=== PATIENT | female | born 1940 | race Caucasian/White ===

== ENCOUNTER 2020-11-02 14:01 | Emergency (ER) | payer MEDICARE, SELFPAY ==
--- NOTE | ~2020-11-02 | CT_ITS ---
EXAMINATION: CT ANGIOGRAM CHEST WITH AND WITHOUT CONTRAST (CT PULMONARY ANGIOGRAM FOR PE) CLINICAL INFORMATION: Chest pressure. COMPARISON: Chest radiograph earlier today and CTA abdomen and pelvis 09/10/2019. TECHNIQUE: Prior to contrast administration, noncontrast localization images were obtained. Subsequently, multidetector volumetric imaging was performed from the thoracic inlet to below the diaphragms following the administration of 70 mL Omnipaque 350 intravenous contrast. No contrast reaction reported. Sagittal, coronal, and MIP oblique sagittal reformatted images were obtained on the CT workstation, uploaded to PACS, and reviewed. This CT examination was performed using dose optimization techniques as appropriate, variously including the following: *Automated exposure control. *Adjustment of mA and/or kV according to patient size (this includes techniques or standardized protocols for targeted exams where dose is matched to indication/reason for exam; i.e. extremities or head). *Use of iterative reconstruction technique. Total exam dose-length product 744 mGy-cm. FINDINGS: QUALITY OF STUDY/CONTRAST BOLUS: Satisfactory. PULMONARY ARTERIES: No central or segmental pulmonary emboli. THORACIC AORTA: No aneurysm or dissection. LUNG: There is evidence of underlying COPD. Bronchiectasis is present with thickened dilated bronchi especially at the lower lobes. Multiple bronchi are impacted with mucus (see herring images). A calcified granuloma is present in the right middle lobe (series 9 image 330). Scattered nodular densities are seen, many of which represent mucous in bronchi, with the largest in the right lower lobe subpleurally, measuring 7 mm in size (series 9 image 259). PLEURA: No pleural effusion or pneumothorax. The previously seen right pleural effusion on the 08/31/2019 study has resolved. MEDIASTINUM: Normal heart size. No pericardial effusion. No hilar or mediastinal lymphadenopathy. No evidence of septal bowing or right heart strain. CHEST WALL/AXILLA: No axillary or internal mammary lymphadenopathy. OSSEOUS STRUCTURES: No acute or suspicious osseous abnormality. UPPER ABDOMEN: Hepatic cysts are present. No reflux of contrast into the hepatic veins to suggest elevated right heart pressures. CT/CT angio chest PE protocol IMPRESSION: 1. No evidence of pulmonary emboli. 2. Underlying lung disease with COPD and bronchiectasis. 3. Multiple densities seen in the lungs, most of which represent mucus-impacted bronchi. 4. No evidence of consolidation. VTE: Negative.
--- NOTE | ~2020-11-02 | US_ITS ---
EXAMINATION: US ABDOMEN LIMITED CLINICAL INFORMATION: Cholecystitis.. COMPARISON: 06/02/2021 CT scan TECHNIQUE: Real-time imaging of the right upper quadrant abdominal viscera. FINDINGS: PANCREAS: Visualized portions of the pancreas are unremarkable LIVER: The liver is normal in size. The liver contour is normal. Parenchymal echogenicity is normal. 3.7 cm cyst in the anterior right lobe liver with adjacent smaller 1 cm cyst medial to this. No solid hepatic lesion. There is no intrahepatic biliary duct dilatation seen. GALLBLADDER: Nontender gallbladder is distended and well-visualized. In the dependent posterior wall of the gallbladder there is a echogenic 1.1 cm filling defects seen. This does not demonstrate significant shadowing which would be unusual for gallstone of this size. This also does not demonstrate significant Doppler flow or Doppler signal abnormality. Gallbladder polyps would still be favored with this appearance however. Otherwise the gallbladder is unremarkable with no gallbladder wall thickening or pericholecystic inflammatory changes. COMMON BILE DUCT: Normal in caliber measuring 0.7 cm in diameter. RIGHT KIDNEY: Normal. No hydronephrosis. No renal calculi or focal parenchymal lesions. The kidney measures 8.4 cm in maximum dimension. FREE FLUID: None. US/US abdomen limited IMPRESSION: In the dependent aspect of the bladder there is a 1.1 cm filling defects seen. The sonographic characteristics are more suggestive of a prominent gallbladder polyp rather than a gallstone. It would be unusual to have a gallstone the size that does not shadow. I do not appreciate any abnormal Doppler flow within this. Tumefactive sludge could also have this sonographic appearance. Clinical correlation would be helpful. Short interval follow-up ultrasound might be helpful to determine if this is a related to tumefactive sludge versus polyp.
--- NOTE | ~2020-11-02 | CT_ITS ---
EXAMINATION: CT ABDOMEN AND PELVIS WITH CONTRAST CLINICAL INFORMATION: Abdominal pressure. Elevated liver enzymes. Cholecystitis? COMPARISON: CTA abdomen and pelvis 08/31/2019. TECHNIQUE: Multidetector volumetric images were obtained from the superior aspect of the liver through the pubic symphysis following administration 70 mL of Omnipaque 350 intravenous contrast. Sagittal and coronal reformatted images were obtained on the technologist's workstation. Oral Contrast: No. This CT examination was performed using dose optimization techniques as appropriate, variously including the following: *Automated exposure control. *Adjustment of mA and/or kV according to patient size (this includes techniques or standardized protocols for targeted exams where dose is matched to indication/reason for exam; i.e. extremities or head). *Use of iterative reconstruction technique. TOTAL DLP: 744 mGy-cm FINDINGS: LUNG BASES: The visualized lung bases are unremarkable. LIVER, GALLBLADDER, AND BILIARY TREE: The liver is normal in size, shape, and attenuation. At least 3 hepatic cysts are present, the largest measuring 3.5 cm which are unchanged. No solid hepatic masses are seen. No gross biliary ductal dilatation is present. The gallbladder is distended and contains rounded noncalcified structures (see herring images), most likely noncalcified gallstones. The wall appears slightly thickened. The gallstones appear new when compared to the prior CT exam. PANCREAS: Unremarkable. SPLEEN: Unremarkable. ADRENAL GLANDS: Unremarkable. KIDNEYS AND URETERS: The kidneys are normal in size, shape, and attenuation. No hydronephrosis, hydroureter, or calculi seen. Renal sinus fibrolipomatosis is present. No perinephric stranding. BLADDER: Distended but otherwise unremarkable. GASTROINTESTINAL TRACT: Extensive diverticular disease is present in the colon most marked in the sigmoid. There is no evidence of diverticulitis. The small and large bowel are otherwise unremarkable. The appendix is unremarkable. ABDOMINAL WALL: No significant hernia is appreciated. LYMPH NODES: No retroperitoneal lymphadenopathy. VASCULAR: Calcific aortoiliofemoral calcifications are present. No aneurysm is seen. PELVIC VISCERA: Unremarkable. OSSEOUS STRUCTURES: Unremarkable. CT/CT abdomen pelvis w con IMPRESSION: 1. Gallstones appear to be present. Further evaluation with ultrasound is recommended. This is especially the case if considering the diagnosis of cholecystitis. 2. Incidental note made of hepatic cysts, distended bladder and colonic diverticulosis
--- NOTE | ~2020-11-02 | XR_ITS ---
EXAMINATION: XR CHEST CLINICAL INFORMATION: Pneumonia? Chest pressure COMPARISON: 09/03/2019 TECHNIQUE: Frontal view of the chest was obtained. FINDINGS: Previously seen bilateral pleural effusions have resolved. Mild chronic coarse interstitial opacity. No focal consolidation. No pulmonary edema. Calcified aortic arch. Normal heart size XR/XR chest 1V IMPRESSION: Previously seen bilateral pleural effusions have resolved. No acute pulmonary disease.
[2020-11-02 14:10] VITALS: BP 118/72; BP 150/68; PULSE 72; PULSE 73; RESP 18; TEMP 36.4; O2SAT 97; O2SAT 98; BMI 23.3
--- NOTE | 2020-11-02 14:19 | PC.NURSE ---
patient a&ox3, teletypesetter monitor nsr 80s, vitals stable, provider at bedside, will continue to monitor.
--- NOTE | 2020-11-02 14:23 | ED.CHESTPAIN ---
HPI - Chest Pain General Chief Complaint: Chest Pain Stated Complaint: CHEST PAIN Time Seen by Provider: 11/02/20 14:37 Source: patient Mode of arrival: EMS Limitations: no limitations History of Present Illness HPI narrative: Patient presents to ED for chest pressure and abdominal pressure after eating soup. Patient states also states some nausea and diaphoresis. Patient states she feels indigestion and just wants to burp. Patient states if she burps she will feel better. Patient had similar episode last year and when she burps she for better. Patient denies any shortness of breath. Patient denies any swelling of lower extremities , calf pain, coughing up blood, fever, or chills Related Data Home Medications Medication Instructions Recorded Confirmed atorvastatin 20 mg tablet 20 mg PO DAILY 06/29/20 11/02/20 cholecalciferol (vitamin D3) 25 25 mcg PO DAILY 06/29/20 11/02/20 mcg (1,000 unit) capsule clobetasol 0.05 % topical cream g TOPICAL BID 06/29/20 11/02/20 flu vacc [id number](65yr up)-PF 240 ml IM 06/29/20 06/29/20 mcg/0.7 mL intramuscular syringe mecobalamin (vitamin B12) 1,000 1,000 mcg SUBLINGUAL DAILY 06/29/20 06/29/20 mcg disintegrating tablet,sublingual varicella-zoster glycoE [id number] IM 06/29/20 06/29/20 adj(PF) 50 mcg/0.5 mL IM susp, kit Previous Rx's Medication Instructions Recorded levothyroxine 88 mcg tablet 88 mcg PO QAM #90 tab 07/13/20 famotidine [Pepcid] 20 mg PO BID #20 tab 11/02/20 Allergies Allergy/AdvReac Type Severity Reaction Status Date / Time codeine [CODEINE] Allergy Intermediate AGITATION,D Verified 11/02/20 09:52 EPRESSION meperidine [Demerol] AdvReac Unknown dizziness Verified 11/02/20 09:52 Review of Systems Review of Systems: Yes all other systems are reviewed and are negative Constitutional: Constitutional: Reports as per HPI and Reports no additional constitutional complaints Eyes: Eyes: Reports as per HPI and Reports no additional eye complaints ENT: Reports system reviewed and no additional complaints, except as documented and Reports as per HPI Cardiovascular: Cardiovascular: Reports as per HPI, Reports no additional cardiovascular complaints and Reports chest pain (Indigestion) Respiratory: Respiratory: Reports as per HPI and Reports no additional respiratory complaints Gastrointestinal: Gastrointestinal: Reports as per HPI, Reports no additional gastrointestinal complaints and Reports abdominal pain (Pressure/indigestion) Genitourinary: Genitourinary: Reports no additional female genitourinary complaints and Reports as per HPI Musculoskeletal: Musculoskeletal: Reports no additional musculoskeletal complaints and Reports as per HPI Neurologic: Reports system reviewed and no additional complaints, except as documented and Reports as per HPI Psychiatric: Psychiatric: Reports no additional psychiatric complaints and Reports as per HPI Endocrine: Endocrine: Reports no additional endocrine complaints and Reports as per HPI [facility] Past Medical History Medical History (Updated 11/02/20 @ 21:59 by IVÁN Newby) Acquired hypothyroidism Bowel obstruction Chronic kidney disease, stage 3 Essential hypertension History of herpes zoster Hyperlipidemia Osteoporosis Tubular adenoma of colon Surgical History History of colonoscopy Hx of breast biopsy Family History Family History Father Myocardial infarction Mother HTN (hypertension) Glaucoma Brother HTN (hypertension) Depression Sister No problems noted. Social History Social History Alcohol intake: current Alcohol type: wine Smoking Status: Former smoker Use of substances other than those prescribed or required for medical reasons: No Advance Directives: No Advance Directives Information Provided: No Physical Exam Vital Signs: Vital Signs: Last Vital Signs Temp 97.5 F 11/02/20 19:53 Pulse 65 11/02/20 19:53 Resp 18 11/02/20 19:53 BP 144/75 H 11/02/20 19:53 Pulse Ox 97 11/02/20 19:53 Body Mass Index 23.3 Const: General: cooperative, healthy appearing, comfortable, no acute distress, well developed, alert, awake and Physically active Orientation/consciousness: patient oriented x3 HENMT: Head: Yes normal to inspection, Yes No palpable skull fracture present, Yes normocephalic, Yes atraumatic and No abrasion Eyes: General: appearance normal, both eyes and all related structures Neck: Neck: Yes normal visual inspection, Yes full ROM, Yes no lymphadenopathy, Yes no meningeal signs, Yes trachea midline, Yes supple and No tender Chest: Chest palpation & inspection: normal inspection of the chest and normal palpation of entire chest wall Resp: Effort & Inspection: normal respiratory effort and able to speak in complete sentences Auscultation: clear to auscultation bilaterally Cardio: Jugular venous distension: no JVD Heart sounds: S1 normal heart sound present and S2 normal heart sound present GI: Inspection: Yes normal to inspection and No abdominal wall ecchymosis Palpation (GI): Soft to palpation, not firm, nontender, no guarding and not rigid : General: No CVA tenderness and Yes no CVA tenderness Back/Spine/Pelvis: Back: no CVA tenderness, No CVA tenderness and No back tenderness Skin: General skin exam: no rashes or lesions noted and elasticity normal Neuro: General: patient oriented x3, no meningeal signs and CN's II-XI intact bilaterally Cranial nerves: Yes CN's II-XII intact bilaterally Extrem: General: Yes normal to inspection and Yes full ROM Psych: Appearance: grossly normal, well kempt and not disheveled Course Course Course Narrative: History and physical exam sounds like indigestion. Patient will be given GI cocktail. Due to age patient will have cardiac evaluation also. Reevaluation(s) Reevaluation #1: States chest pressure and abdomen and chest resolved after receiving GI cocktail. Patient presently asymptomatic. Patient's liver enzymes elevated. Will send patient for CT scan make sure there is no gallbladder issue. Patient states she burped and all her symptoms resolved. EKG negative for STEMI. COVID-19 negative Time: 16:10 Reevaluation #2: Patient presently has no pain. Abdominal CT scan shows gallstones with gallbladder wall thickening. Patient is sent for ultrasound to confirm cholecystitis. Awaiting UA results Time: 19:24 Reevaluation #3: Abdominal ultrasound negative for cholecystitis. Ultrasound states gallbladder polyp. Patient informed of this and will follow up outpatient with her PCP. UA negative for UTI. Patient given copy of labs and images Time: 21:53 MDM - Chest Pain MDM Narrative Medical decision making narrative: GERD/dyspepsia Lab Data Result diagrams: 11/02/20 14:54 11/02/20 14:54 Labs: Lab Results 11/02/20 11/02/20 11/02/20 Range/Units 14:54 14:54 14:54 WBC 9.5 (4.8-10.8) X10*3/uL RBC 4.09 L (4.20-5.50) X10*6/uL Hgb 12.4 (12.0-16.0) g/dl Hct 38.2 (37-47) % MCV 93.4 (80-98) fL MCH 30.3 (27.0-33.0) pg MCHC 32.5 (31.0-35.0) g/dl RDW 12.7 (11.0-16.0) % Plt Count 231 (160-400) X10*3/uL MPV 9.5 (9.4-12.3) fL Immature Gran % (Auto) 0.4 (0.0-0.4) % Neut % (Auto) 84.7 H (45-73) % Lymph % (Auto) 6.4 L (20-40) % [place] % (Auto) 6.7 (2-11) % Eos % (Auto) 1.5 (0-4) % Baso % (Auto) 0.3 (0-2) % Lymph # (Auto) 0.6 L (1.2-4.9) X10*3/uL [place] # (Auto) 0.6 (0.1-1.2) X10*3/uL Eos # (Auto) 0.1 (0.0-0.4) X10*3/uL Baso # (Auto) 0.0 (0.0-0.2) X10*3/uL Abs Immat Gran (auto) 0.04 H (0.00-0.03) X10*3/uL Absolute Neuts (auto) 8.1 (2.0-8.3) X10*3/uL Absolute Nucleated RBC 0.000 (0.0-0.012) X10*3/uL Nucleated RBC % (auto) 0.0 (0.0-0.2) /100WBC Smear Tech's Comments VERIFIED PT (10.8-13.0) SEC INR (0.9-1.1) APTT (24.1-38.0) SEC Sodium 141 (135-145) mmol/L Potassium 4.7 (3.3-5.1) mmol/L Chloride 105 (96-108) mmol/L Carbon Dioxide 29 (22-29) mmol/L Anion Gap 12 (12-20) BUN 28 H (9-16) mg/dL Creatinine 1.27 (0.5-1.4) mg/dL Estim Creat Clear Calc 32.5 Estimated GFR 40 Random Glucose 101 (60-115) mg/dL Calcium 9.1 (8.4-10.2) mg/dL Total Bilirubin 0.8 (0.0-1.0) mg/dL Direct Bilirubin 0.5 (0.0-0.5) mg/dL AST 196 H (5-31) U/L ALT 93 H (0-31) U/L Alkaline Phosphatase 71 (39-117) U/L Troponin I High Sens < 3.5 (<3.5-17.0) ng/L B-Natriuretic Peptide 105 H (<100) pg/mL Total Protein 6.8 (6.5-8.0) g/dL Albumin 3.8 (3.5-5.0) g/dL Lipase 41 (8-78) U/L Urine Color Urine Appearance Urine pH (5.0-8.0) Ur Specific [place] (1.005-1.025) Urine Protein (NEG-TRACE) MG/DL Urine Glucose (UA) (NEG) MG/DL Urine Ketones (NEG) MG/DL Urine Blood (NEG) Urine Nitrite (NEG) Ur Leukocyte Esterase (NEG) COVID-19 (CECIL) (Negative) COVID-19 Clin Com 11/02/20 11/02/20 11/02/20 Range/Units 14:54 14:54 17:16 WBC (4.8-10.8) X10*3/uL RBC (4.20-5.50) X10*6/uL Hgb (12.0-16.0) g/dl Hct (37-47) % MCV (80-98) fL MCH (27.0-33.0) pg MCHC (31.0-35.0) g/dl RDW (11.0-16.0) % Plt Count (160-400) X10*3/uL MPV (9.4-12.3) fL Immature Gran % (Auto) (0.0-0.4) % Neut % (Auto) (45-73) % Lymph % (Auto) (20-40) % [place] % (Auto) (2-11) % Eos % (Auto) (0-4) % Baso % (Auto) (0-2) % Lymph # (Auto) (1.2-4.9) X10*3/uL [place] # (Auto) (0.1-1.2) X10*3/uL Eos # (Auto) (0.0-0.4) X10*3/uL Baso # (Auto) (0.0-0.2) X10*3/uL Abs Immat Gran (auto) (0.00-0.03) X10*3/uL Absolute Neuts (auto) (2.0-8.3) X10*3/uL Absolute Nucleated RBC (0.0-0.012) X10*3/uL Nucleated RBC % (auto) (0.0-0.2) /100WBC Smear Tech's Comments PT 12.0 (10.8-13.0) SEC INR 1.0 (0.9-1.1) APTT 28.2 (24.1-38.0) SEC Sodium (135-145) mmol/L Potassium (3.3-5.1) mmol/L Chloride (96-108) mmol/L Carbon Dioxide (22-29) mmol/L Anion Gap (12-20) BUN (9-16) mg/dL Creatinine (0.5-1.4) mg/dL Estim Creat Clear Calc Estimated GFR Random Glucose (60-115) mg/dL Calcium (8.4-10.2) mg/dL Total Bilirubin (0.0-1.0) mg/dL Direct Bilirubin (0.0-0.5) mg/dL AST (5-31) U/L ALT (0-31) U/L Alkaline Phosphatase (39-117) U/L Troponin I High Sens 5.1 (<3.5-17.0) ng/L B-Natriuretic Peptide (<100) pg/mL Total Protein (6.5-8.0) g/dL Albumin (3.5-5.0) g/dL Lipase (8-78) U/L Urine Color Urine Appearance Urine pH (5.0-8.0) Ur Specific [place] (1.005-1.025) Urine Protein (NEG-TRACE) MG/DL Urine Glucose (UA) (NEG) MG/DL Urine Ketones (NEG) MG/DL Urine Blood (NEG) Urine Nitrite (NEG) Ur Leukocyte Esterase (NEG) COVID-19 (CECIL) Negative (Negative) COVID-19 Clin Com 11/02/20 Range/Units 19:54 WBC (4.8-10.8) X10*3/uL RBC (4.20-5.50) X10*6/uL Hgb (12.0-16.0) g/dl Hct (37-47) % MCV (80-98) fL MCH (27.0-33.0) pg MCHC (31.0-35.0) g/dl RDW (11.0-16.0) % Plt Count (160-400) X10*3/uL MPV (9.4-12.3) fL Immature Gran % (Auto) (0.0-0.4) % Neut % (Auto) (45-73) % Lymph % (Auto) (20-40) % [place] % (Auto) (2-11) % Eos % (Auto) (0-4) % Baso % (Auto) (0-2) % Lymph # (Auto) (1.2-4.9) X10*3/uL [place] # (Auto) (0.1-1.2) X10*3/uL Eos # (Auto) (0.0-0.4) X10*3/uL Baso # (Auto) (0.0-0.2) X10*3/uL Abs Immat Gran (auto) (0.00-0.03) X10*3/uL Absolute Neuts (auto) (2.0-8.3) X10*3/uL Absolute Nucleated RBC (0.0-0.012) X10*3/uL Nucleated RBC % (auto) (0.0-0.2) /100WBC Smear Tech's Comments PT (10.8-13.0) SEC INR (0.9-1.1) APTT (24.1-38.0) SEC Sodium (135-145) mmol/L Potassium (3.3-5.1) mmol/L Chloride (96-108) mmol/L Carbon Dioxide (22-29) mmol/L Anion Gap (12-20) BUN (9-16) mg/dL Creatinine (0.5-1.4) mg/dL Estim Creat Clear Calc Estimated GFR Random Glucose (60-115) mg/dL Calcium (8.4-10.2) mg/dL Total Bilirubin (0.0-1.0) mg/dL Direct Bilirubin (0.0-0.5) mg/dL AST (5-31) U/L ALT (0-31) U/L Alkaline Phosphatase (39-117) U/L Troponin I High Sens (<3.5-17.0) ng/L B-Natriuretic Peptide (<100) pg/mL Total Protein (6.5-8.0) g/dL Albumin (3.5-5.0) g/dL Lipase (8-78) U/L Urine Color YELLOW Urine Appearance CLEAR Urine pH 7.5 (5.0-8.0) Ur Specific [place] 1.010 (1.005-1.025) Urine Protein NEG (NEG-TRACE) MG/DL Urine Glucose (UA) NEG (NEG) MG/DL Urine Ketones NEG (NEG) MG/DL Urine Blood NEG (NEG) Urine Nitrite NEG (NEG) Ur Leukocyte Esterase NEG (NEG) COVID-19 (CECIL) (Negative) COVID-19 Clin Com ECG Data ECG #1: Interpretation: Normal sinus rhythm. Ventricular rate 73. Pr interval 160. QRS 118. QTC 469. Negative STEMI Discharge Plan Discharge Clinical Impression: Dyspepsia, Chest pain due to GERD Patient Disposition: Home, Self-Care Instructions: Chest Pain (ED), Gastroesophageal Reflux Disease (ED), Indigestion (ED) Prescriptions: New famotidine [Pepcid] 20 mg tablet 20 mg PO BID Qty: 20 RF: 0 No Action levothyroxine 88 mcg tablet 88 mcg PO QAM Qty: 90 RF: 3 atorvastatin 20 mg tablet 20 mg PO DAILY RF: 0 clobetasol 0.05 % cream topical BID RF: 0 mecobalamin (vitamin B12) 1,000 mcg tablet,disintegrating 1,000 mcg sublingual DAILY RF: 0 cholecalciferol (vitamin D3) 25 mcg (1,000 unit) capsule 25 mcg PO DAILY RF: 0 Fluzone HighDose Quad 20-21 PF 240 mcg/0.7 mL syringe IM RF: 0 Shingrix (PF) 50 mcg/0.5 mL suspension for reconstitution IM RF: 0 Referrals: Yoana Moreno MD [Primary Care Provider] - 2 days (Troponin is negative. EKG negative for STEMI. Chest CT negative for PE. Abdominal CT scan negative for acute abdominal etiology. UA came back normal. Ultrasound of gallbladder shows gallbladder polyp, but negative for cholecystitis) Print Language: Ukrainian
--- NOTE | 2020-11-02 14:25 | ECG_ITS ---
Test Reason : WEAKNESS Blood Pressure : / mmHG Vent. Rate : 073 BPM Atrial Rate : 073 BPM P-R Int : 160 ms QRS Dur : 118 ms QT Int : 426 ms P-R-T Axes : 048 075 048 degrees QTc Int : 469 ms Normal sinus rhythm Right bundle branch block Abnormal ECG When compared with ECG of 14-AUG-2019 05:42, No significant change was found Referred By: Matti Morales Electronically Signed By:BERLIN YE MD
[2020-11-02] MEDS: Famotidine/PF 20 MG/2 ML VIAL IVPUSH (14:47)
[2020-11-02] MEDS: PHENobarb/Hyoscy/Atropine/Scop 10 ML ELIXIR PO (14:48)
[2020-11-02] MEDS: Magnesium Hydrox/Alum Hydrox 30 ML ORAL.SUSP PO (14:48)
[2020-11-02] MEDS: ondansetron HCL 4 MG/2 ML VIAL IVPUSH (14:48)
--- NOTE | 2020-11-02 14:55 | PC.NURSE ---
labs drawn, ekg performed, covid swab performed, will continue to monitor.
[2020-11-02 15:03] LABS: Basophils Percent Auto 0.3 % (0-2); Eosinophils Absolute Auto 0.1 X10*3/uL (0.0-0.4); Eosinophils Percent Auto 1.5 % (0-4); Hematocrit 38.2 % (37-47); Hemoglobin 12.4 g/dl (12.0-16.0); Imm Gran Abs Auto 0.04 X10*3/uL (0.00-0.03); Imm Gran Pct Auto 0.4 % (0.0-0.4); Lymphocytes Absolute Auto 0.6 X10*3/uL (1.2-4.9); Lymphocytes Percent Auto 6.4 % (20-40); MANUAL DIFF FLAG SCAN; Mean Corpuscular HGB Conc 32.5 g/dl (31.0-35.0); Mean Corpuscular Hemoglobin 30.3 pg (27.0-33.0); Mean Corpuscular Volume 93.4 fL (80-98); Mean Platelet Volume 9.5 fL (9.4-12.3); Monocytes Absolute Auto 0.6 X10*3/uL (0.1-1.2); Monocytes Percent Auto 6.7 % (2-11); Neutrophils Absolute Auto 8.1 X10*3/uL (2.0-8.3); Neutrophils Percent Auto 84.7 % (45-73); Platelet Count 231 X10*3/uL (160-400); Red Blood Count 4.09 X10*6/uL (4.20-5.50); Red Cell Distribution Width 12.7 % (11.0-16.0); SCAN SMEAR FLAG 1; White Blood Count 9.5 X10*3/uL (4.8-10.8)
[2020-11-02 15:14] LABS: Partial Thromboplastin Time 28.2 SEC (24.1-38.0)
[2020-11-02 15:21] LABS: COVID-19 Test Negative (Negative); IDNOW Serial# 9DD0AD1C
[2020-11-02 15:26] LABS: SLIDE REVIEW VERIFIED
[2020-11-02 15:37] LABS: B Type Natriuretic Peptide 105 pg/mL (<100); Troponin-I High Sensitivity < 3.5 ng/L (<3.5-17.0)
[2020-11-02 15:57] VITALS: BP 141/67; PULSE 72; RESP 18; TEMP 36.8; O2SAT 99
--- NOTE | 2020-11-02 15:58 | PC.NURSE ---
patient a&ox3, cafeteria monitor nsr 70s, vss, pt states her chest pressure is currently resolved, will continue to monitor.
[2020-11-02 15:59] LABS: Aspartate Amino Transferase 196 U/L (5-31)
[2020-11-02 16:02] LABS: Alanine Aminotransferase 93 U/L (0-31); Albumin Level 3.8 g/dL (3.5-5.0); Alkaline Phosphatase 71 U/L (39-117); Anion Gap 12 (12-20); Bilirubin Direct 0.5 mg/dL (0.0-0.5); Bilirubin Total 0.8 mg/dL (0.0-1.0); Blood Urea Nitrogen 28 mg/dL (9-16); Calcium 9.1 mg/dL (8.4-10.2); Carbon Dioxide 29 mmol/L (22-29); Chloride 105 mmol/L (96-108); Creatinine Clr Calc Pharmacy 32.5; Estimated Glomerular Filt Rate 40; Glucose Random 101 mg/dL (60-115); Lipase 41 U/L (8-78); Potassium 4.7 mmol/L (3.3-5.1); Sodium 141 mmol/L (135-145); Total Protein 6.8 g/dL (6.5-8.0)
[2020-11-02] MEDS: iohexoL 350 MG/ML 100 ML INFUS..BTL IV (17:47)
[2020-11-02 17:51] LABS: Troponin-I High Sensitivity 5.1 ng/L (<3.5-17.0)
[2020-11-02 18:12] VITALS: BP 172/83; PULSE 82; RESP 16; TEMP 36.4; O2SAT 98
[2020-11-02 19:53] VITALS: BP 144/75; PULSE 65; RESP 18; TEMP 36.4; O2SAT 97
--- NOTE | 2020-11-02 19:55 | PC.NURSE ---
patient a&ox3, no c/o pain or discomfort at this time, compliance monitor sinus sanjuanita 60s, vss, urine obtained, will continue to monitor.
[2020-11-02 20:07] LABS: Glucose Urine UA NEG (NEG); Leukocyte Esterase Urine NEG (NEG); Nitrite Urine NEG (NEG); PH 7.5 (5.0-8.0); Urine Blood NEG (NEG); Urine Ketones NEG (NEG); Urine Protein NEG (NEG-TRACE)
[2020-11-02 20:11] LABS: Appearance Urine CLEAR; Color Urine YELLOW
--- NOTE | 2020-11-02 22:38 | PC.NURSE ---
chantale went into the room, removed the patients iv and notified the patient she would be discharged shortly so she could get dressed, patient misunderstood and left without paperwork.
== END 2020-11-02 22:40 | disposition home or self-care (01) ==
PROVIDERS: Physician Assistant; Emergency Provider Internal Medicine; PCP Internal Medicine
DX: R07.9 Chest pain, unspecified (principal); K21.9 Gastro-esophageal reflux disease without esophagitis; Z20.822 Contact with and (suspected) exposure to COVID-19; I12.9 Hypertensive chronic kidney disease with stage 1 through stage 4 chronic kidney disease, or unspecified chronic kidney disease; N18.30 Chronic kidney disease, stage 3 unspecified; E78.5 Hyperlipidemia, unspecified; Z87.891 Personal history of nicotine dependence; Z79.899 Other long term (current) drug therapy
CPT/HCPCS: 36415; 71045; 71275; 74177; 76705; 80053; 80076; 81003; 82248; 83690; 83880; 84484; 85025; 85610; 85730; 87635; 93005; 96374; 96375; 99284; 99285; J2405; Q9967

== ENCOUNTER → 2020-12-21 14:07 | Outpatient (BNVA) | payer MEDICARE, SELFPAY | PROVIDERS: PCP Internal Medicine; Visit Provider Internal Medicine Gastroenterology | DX: Z13.89 Encounter for screening for other disorder (principal) | CPT/HCPCS: Q3014 ==

== ENCOUNTER 2021-01-19 08:35 | Outpatient (REF) | payer MEDICARE, SELFPAY ==
--- NOTE | ~2021-01-19 | US_ITS ---
EXAMINATION: US ABDOMEN LIMITED CLINICAL INFORMATION: Cholesterolosis of gallbladder. COMPARISON: Ultrasound abdomen 11/02/2020 TECHNIQUE: Real-time imaging of the right upper quadrant abdominal viscera. FINDINGS: PANCREAS: Normal. LIVER: There is anechoic cyst right hepatic lobe measuring 3.5 x 3.1 x 3.6 cm. Previously it measured 3.1 x 3.5 x 3.7 cm. Previously seen second cyst is not visualized at this time. No additional lesions seen. The liver is normal in size. The liver contour is normal. Parenchymal echogenicity is normal. No focal hepatic lesion. There is no intrahepatic biliary duct dilatation seen. GALLBLADDER: There are small echogenic non shadowing gallstone or sludge ball. Also there is slow mobile echogenic sludge visualized. There is no gallbladder wall thickening. COMMON BILE DUCT: Normal in caliber measuring 0.35 cm in diameter. RIGHT KIDNEY: There are multiple echogenic foci non shadowing and non twinkle. Right kidney measures 7.7 cm in maximum dimension. FREE FLUID: None. US/US abdomen limited IMPRESSION: 1. Anechoic right hepatic lobe cyst. 2. Echogenic sludge with a sludge ball/non shadowing echogenic gallstone. There is no wall thickening. 3. Multiple small echogenic non shadowing foci in right kidney, question calcifications.
[2021-01-19 09:37] LABS: MANUAL DIFF FLAG NO
[2021-01-19 09:49] LABS: Basophils Absolute Auto 0.1 X10*3/uL (0.0-0.2); Basophils Percent Auto 0.9 % (0-2); Eosinophils Absolute Auto 0.3 X10*3/uL (0.0-0.4); Eosinophils Percent Auto 5.9 % (0-4); Hemoglobin 12.9 g/dl (12.0-16.0); Imm Gran Abs Auto 0.02 X10*3/uL (0.00-0.03); Imm Gran Pct Auto 0.4 % (0.0-0.4); Lymphocytes Percent Auto 19.2 % (20-40); Mean Corpuscular HGB Conc 32.3 g/dl (31.0-35.0); Mean Corpuscular Hemoglobin 30.3 pg (27.0-33.0); Mean Corpuscular Volume 93.9 fL (80-98); Mean Platelet Volume 9.9 fL (9.4-12.3); Monocytes Absolute Auto 0.6 X10*3/uL (0.1-1.2); Monocytes Percent Auto 11.3 % (2-11); Neutrophils Absolute Auto 3.4 X10*3/uL (2.0-8.3); Neutrophils Percent Auto 62.3 % (45-73); Platelet Count 248 X10*3/uL (160-400); Red Blood Count 4.26 X10*6/uL (4.20-5.50); Red Cell Distribution Width 12.8 % (11.0-16.0); White Blood Count 5.4 X10*3/uL (4.8-10.8)
[2021-01-19 09:57] LABS: Prothrombin Time 11.3 SEC (10.8-13.0)
[2021-01-19 10:01] LABS: Alanine Aminotransferase 16 U/L (0-31); Alkaline Phosphatase 60 U/L (39-117); Anion Gap 12 (12-20); Aspartate Amino Transferase 19 U/L (5-31); Bilirubin Total 0.5 mg/dL (0.0-1.0); Blood Urea Nitrogen 25 mg/dL (9-16); Calcium 9.3 mg/dL (8.4-10.2); Carbon Dioxide 27 mmol/L (22-29); Chloride 108 mmol/L (96-108); Cholesterol 274 mg/dL; Estimated Glomerular Filt Rate 37; Glucose Fasting 83 mg/dL (60-99); HDL Cholesterol 60 mg/dL; LDL Cholesterol Calculated 191 mg/dl; Potassium 4.6 mmol/L (3.3-5.1); Sodium 142 mmol/L (135-145); Total Protein 7.1 g/dL (6.5-8.0); Triglycerides 118 mg/dL
[2021-01-19 10:26] LABS: Thyroid Stimulating Hormone 0.19 uIU/mL (0.32-4.0); Vitamin D 25-OH Total 35.6 ng/mL (>30)
[2021-01-19 10:29] LABS: Vitamin B12 811 pg/mL (200-900)
[2021-01-19 10:31] LABS: Free T4 (Free Thyroxine) 1.17 ng/dL (0.71-1.85)
== END 2021-01-19 08:36 | disposition home or self-care (01) ==
LOC: HO.US 08:35
PROVIDERS: PCP Internal Medicine; Referring Provider Internal Medicine; Visit Provider Internal Medicine Gastroenterology
DX: K82.4 Cholesterolosis of gallbladder (principal); R74.8 Abnormal levels of other serum enzymes; E03.9 Hypothyroidism, unspecified; E78.5 Hyperlipidemia, unspecified; M81.0 Age-related osteoporosis without current pathological fracture; I12.9 Hypertensive chronic kidney disease with stage 1 through stage 4 chronic kidney disease, or unspecified chronic kidney disease; N18.30 Chronic kidney disease, stage 3 unspecified
CPT/HCPCS: 36415; 76705; 80053; 80061; 82306; 82607; 84439; 84443; 85025; 85610

== ENCOUNTER 2021-02-01 12:11 | Outpatient (REF) | payer MEDICARE, SELFPAY ==
[2021-02-01 12:28] VITALS: BP 153/71; PULSE 72; RESP 16; TEMP 36.8; O2SAT 98; BMI 21.7
== END 2021-02-01 12:12 | disposition home or self-care (01) ==
LOC: HO.MS 12:11
PROVIDERS: PCP Internal Medicine; Visit Provider Ophthalmology
PROC: (CPT 66821; principal; 2021-02-01 17:10)
DX: H26.492 Other secondary cataract, left eye (principal); Z83.511 Family history of glaucoma; Z96.1 Presence of intraocular lens; I12.9 Hypertensive chronic kidney disease with stage 1 through stage 4 chronic kidney disease, or unspecified chronic kidney disease; N18.30 Chronic kidney disease, stage 3 unspecified; E03.9 Hypothyroidism, unspecified; Z87.891 Personal history of nicotine dependence; Z79.899 Other long term (current) drug therapy
CPT/HCPCS: 66821

== ENCOUNTER 2021-04-30 09:43 | Outpatient (REF) | payer MEDICARE, SELFPAY ==
--- NOTE | ~2021-04-30 | MM_ITS ---
EXAMINATION: BONE DENSITOMETRY CLINICAL INDICATION: Encounter for screening for osteoporosis. COMPARISON: Previous BD dated 07/28/2016 and baseline BD dated 03/10/2009. TECHNIQUE: Using a [employer] DXA System (software version: 13.1) manufactured by [employer] [place], dual-energy x-ray absorptiometry was performed of the lumbar spine and left hip. The images are of good technical quality. Summary results are attached. FINDINGS: AP SPINE L1-L4: Current: BMD 0.860 g/cm2, Z-score -0.7, T-score -2.7, osteoporosis, 2.2% decrease from previous, 1.1% increase from baseline (<5% change is not significant). Prior: BMD 0.879 g/cm2. Baseline: BMD 0.851 g/cm2. LEFT FEMUR, NECK: Current: BMD 0.570 g/cm2, Z-score -1.1, T-score -3.4, osteoporosis. Prior: BMD 0.602 g/cm2. Baseline: BMD 0.632 g/cm2. LEFT FEMUR, TOTAL: Current: BMD 0.642 g/cm2, Z-score -0.7, T-score -2.9, osteoporosis, 8.3% decrease from previous, 5.3% decrease from baseline (<5% change is not significant). Prior: BMD 0.700 g/cm2. Baseline: BMD 0.678 g/cm2. IDENTIFIED RISK FACTORS: Early menopause, secondary osteoporosis, height loss, history of fracture (adult). HISTORY OF FRACTURE: Humerus/shoulder. MEDICATIONS: Calcium supplements or multivitamin, vitamin D. MM/XR DEXA axial skeleton IMPRESSION: 1. DIAGNOSIS: Osteoporosis based on the lowest T-score value of -3.4 in the femoral neck applying World Health Organization criteria. 2. 10-YEAR FRACTURE RISK PREDICTION, FRAX: Major osteoporotic fracture (clinical spine, forearm, hip or shoulder) 36.4%. Hip fracture 16.5%. 3. Treatment Recommendations: NOF guidelines recommend consideration for treatment in postmenopausal women and men age 50 and older presenting with the following: -A hip or vertebral (clinical or morphometric) fracture. -T-score less than or equal to -2.5 at the femoral neck or spine after appropriate evaluation to exclude secondary causes. -Low bone mass at the hip or spine and a 10-year fracture probability by FRAX of greater than or equal to 3% for hip fracture or greater than or equal to 20% for major osteoporotic fracture based on the [place] adapted WHO algorithm. 4. Other Recommendations: All treatment decisions require clinical judgment and consideration of individual patient factors, including patient preferences, comorbidities, previous drug use, risk factors not captured in the FRAX model (e.g. frailty, falls, vitamin D deficiency, increased bone turnover, interval significant decline in bone density) and possible under or overestimation of fracture risk by FRAX. Additional medical evaluation for secondary cause of low bone mineral density may be appropriate. FUTURE SCAN RECOMMENDATION: People with diagnosed cases of osteoporosis or at high risk for fracture should have regular bone mineral density tests. For patients eligible for Medicare, routine testing is allowed once every 2 years. The testing frequency can be increased to one year for patients who have rapidly progressing disease, those who are receiving or discontinuing medical therapy to restore bone mass, or have additional risk factors.
--- NOTE | ~2021-04-30 | MM_ITS ---
EXAMINATION: MM SCREENING DIGITAL BREAST TOMOSYNTHESIS, BILATERAL CLINICAL INFORMATION: Screening. Asymptomatic. The lifetime risk of breast cancer based on the Tyrer-Cuzick Model is 2%. COMPARISON: Mammography: 08/18/2017, 07/28/2016, 07/24/2015 TECHNIQUE: Digital breast tomosynthesis is performed in both the craniocaudal and mediolateral oblique views along with computer-aided detection (CAD). Synthesized 2D images are generated from the tomosynthesis. Additional bilateral MLO views are provided. FINDINGS: There are scattered areas of fibroglandular density (ACR BI-RADS breast composition Category b). There are no significant masses, abnormal calcifications, or other abnormalities. There is intramammary node again seen central 3:00 left breast. There are scattered benign coarse calcifications in the breasts. No significant changes. MM/MM tomosynthesis screening BI IMPRESSION: No mammographic evidence of malignancy. ASSESSMENT: BI-RADS 2: Benign RECOMMENDATION: Routine annual mammography screening. This patient's information was entered into a reminder system with a target due date for their next mammogram.
== END 2021-04-30 09:44 | disposition home or self-care (01) ==
LOC: HO.MAMMO 09:43
PROVIDERS: PCP Internal Medicine; Visit Provider Internal Medicine
DX: Z12.31 Encounter for screening mammogram for malignant neoplasm of breast (principal); Z13.820 Encounter for screening for osteoporosis; M81.0 Age-related osteoporosis without current pathological fracture; Z78.0 Asymptomatic menopausal state; Z87.81 Personal history of (healed) traumatic fracture; Z79.899 Other long term (current) drug therapy
CPT/HCPCS: 77063; 77067; 77080

== ENCOUNTER 2021-07-14 10:07 | Outpatient (REF) | payer MEDICARE, SELFPAY ==
[2021-07-14 11:17] LABS: Alanine Aminotransferase 13 U/L (0-31); Aspartate Amino Transferase 19 U/L (5-31); Blood Urea Nitrogen 24 mg/dL (9-16); Calcium 9.2 mg/dL (8.4-10.2); Cholesterol 249 mg/dL; Estimated Glomerular Filt Rate 35; Glucose Fasting 87 mg/dL (60-99); HDL Cholesterol 57 mg/dL; LDL Cholesterol Calculated 175 mg/dl; Triglycerides 86 mg/dL
[2021-07-14 11:18] LABS: Free T4 (Free Thyroxine) 1.18 ng/dL (0.71-1.85); Vitamin D 25-OH Total 33.7 ng/mL (>30)
[2021-07-14 11:27] LABS: Anion Gap 12 (12-20); Carbon Dioxide 26 mmol/L (22-29); Chloride 107 mmol/L (96-108); Potassium 4.4 mmol/L (3.3-5.1); Sodium 141 mmol/L (135-145)
== END 2021-07-14 10:08 | disposition home or self-care (01) ==
LOC: HO.LAB 10:07
PROVIDERS: Visit Provider Internal Medicine
DX: I12.9 Hypertensive chronic kidney disease with stage 1 through stage 4 chronic kidney disease, or unspecified chronic kidney disease (principal); N18.30 Chronic kidney disease, stage 3 unspecified; E78.5 Hyperlipidemia, unspecified; E03.9 Hypothyroidism, unspecified
CPT/HCPCS: 36415; 80048; 80061; 82306; 84439; 84443; 84450; 84460

== ENCOUNTER → 2021-08-24 13:27 | Outpatient (BNVA) | payer MEDICARE, SELFPAY | PROVIDERS: Referring Provider Internal Medicine; Visit Provider Internal Medicine Gastroenterology | DX: R10.11 Right upper quadrant pain (principal) | CPT/HCPCS: 99212 ==

== ENCOUNTER 2021-12-22 09:09 | Outpatient (REF) | payer MEDICARE, SELFPAY ==
[2021-12-22 09:37] LABS: MANUAL DIFF FLAG NO
[2021-12-22 10:46] LABS: Basophils Percent Auto 0.8 % (0-2); Eosinophils Absolute Auto 0.2 X10*3/uL (0.0-0.4); Eosinophils Percent Auto 4.4 % (0-4); Hematocrit 40.9 % (37.0-47.0); Hemoglobin 12.9 g/dl (12.0-16.0); Imm Gran Abs Auto 0.02 X10*3/uL (0.00-0.03); Imm Gran Pct Auto 0.4 % (0.0-0.4); Lymphocytes Absolute Auto 0.9 X10*3/uL (1.2-4.9); Lymphocytes Percent Auto 17.5 % (20-40); Mean Corpuscular HGB Conc 31.5 g/dl (31.0-35.0); Mean Corpuscular Hemoglobin 29.4 pg (27.0-33.0); Mean Corpuscular Volume 93.2 fL (80.0-98.0); Monocytes Absolute Auto 0.6 X10*3/uL (0.1-1.2); Monocytes Percent Auto 11.6 % (2-11); Neutrophils Absolute Auto 3.3 x10*3/uL (2.0-8.3); Neutrophils Percent Auto 65.3 % (45-73); Platelet Count 260 X10*3/uL (160-400); Red Blood Count 4.39 X10*6/uL (4.20-5.50); Red Cell Distribution Width 13.1 % (11.0-16.0)
[2021-12-22 11:20] LABS: Alanine Aminotransferase 13 U/L (0-31); Albumin Level 3.9 g/dL (3.5-5.0); Alkaline Phosphatase 63 U/L (39-117); Anion Gap 14 (12-20); Aspartate Amino Transferase 18 U/L (5-31); Bilirubin Total 0.7 mg/dL (0.0-1.0); Blood Urea Nitrogen 24 mg/dL (9-16); Calcium 9.7 mg/dL (8.4-10.2); Carbon Dioxide 25 mmol/L (22-29); Chloride 107 mmol/L (96-108); Cholesterol 345 mg/dL; Estimated Glomerular Filt Rate 36; Glucose Fasting 79 mg/dL (60-99); HDL Cholesterol 61 mg/dL; LDL Cholesterol Calculated 266 mg/dl; Potassium 4.7 mmol/L (3.3-5.1); Sodium 141 mmol/L (135-145); Total Protein 7.3 g/dL (6.5-8.0); Triglycerides 93 mg/dL
[2021-12-22 11:27] LABS: Free T4 (Free Thyroxine) 1.31 ng/dL (0.71-1.85); Thyroid Stimulating Hormone 0.25 uIU/mL (0.32-4.0); Vitamin D 25-OH Total 37.7 ng/mL (>30)
[2021-12-22 11:42] LABS: Folate 9.6 ng/mL (> or = 4.0); Vitamin B12 1023 pg/mL (200-900)
== END 2021-12-22 09:10 | disposition home or self-care (01) ==
LOC: HO.LAB 09:09
PROVIDERS: PCP Internal Medicine; Visit Provider Internal Medicine
DX: I12.9 Hypertensive chronic kidney disease with stage 1 through stage 4 chronic kidney disease, or unspecified chronic kidney disease (principal); N18.30 Chronic kidney disease, stage 3 unspecified; E03.9 Hypothyroidism, unspecified; E78.5 Hyperlipidemia, unspecified; M81.0 Age-related osteoporosis without current pathological fracture; R74.8 Abnormal levels of other serum enzymes; Z78.0 Asymptomatic menopausal state
CPT/HCPCS: 36415; 80053; 80061; 82306; 82607; 82746; 84439; 84443; 85025

== ENCOUNTER → 2022-01-28 08:48 | Outpatient (BNVA) | payer MEDICARE, SELFPAY | PROVIDERS: PCP Internal Medicine; Referring Provider Internal Medicine; Visit Provider Surgery | DX: K80.50 Calculus of bile duct without cholangitis or cholecystitis without obstruction (principal) | CPT/HCPCS: 99202 ==

== ENCOUNTER 2022-02-28 11:33 | Outpatient (REF) | payer MEDICARE, SELFPAY ==
[2022-02-28 12:36] LABS: Alanine Aminotransferase 11 U/L (0-31); Aspartate Amino Transferase 15 U/L (5-31)
[2022-02-28 12:49] LABS: Free T4 (Free Thyroxine) 1.41 ng/dL (0.71-1.85); Thyroid Stimulating Hormone 0.13 uIU/mL (0.32-4.0)
== END 2022-02-28 11:34 | disposition home or self-care (01) ==
LOC: HO.LAB 11:33
PROVIDERS: PCP Internal Medicine; Visit Provider Internal Medicine
DX: E78.5 Hyperlipidemia, unspecified (principal); E03.9 Hypothyroidism, unspecified
CPT/HCPCS: 36415; 84439; 84443; 84450; 84460

== ENCOUNTER 2022-03-05 08:03 | Outpatient (REF) | payer MEDICARE, SELFPAY ==
[2022-03-05 09:17] LABS: Cholesterol 230 mg/dL; HDL Cholesterol 59 mg/dL; LDL Cholesterol Calculated 152 mg/dl; Triglycerides 95 mg/dL
== END 2022-03-05 08:04 | disposition home or self-care (01) ==
LOC: HO.LAB 08:03
PROVIDERS: PCP Internal Medicine; Visit Provider Internal Medicine
DX: E78.5 Hyperlipidemia, unspecified (principal)
CPT/HCPCS: 36415; 80061

== ENCOUNTER 2022-03-07 05:56 | Day surgery (SDC) | payer MEDICARE, SELFPAY ==
--- NOTE | 2022-02-28 | ECG_ITS ---
Test Reason : PREOP Blood Pressure : / mmHG Vent. Rate : 074 BPM Atrial Rate : 074 BPM P-R Int : 164 ms QRS Dur : 120 ms QT Int : 412 ms P-R-T Axes : 063 061 030 degrees QTc Int : 457 ms Normal sinus rhythm Right bundle branch block Abnormal ECG When compared with ECG of 02-NOV-2020 14:42, No significant change was found Referred By: Ligia Parry Electronically Signed By:BERLIN YE MD
[2022-02-28 12:01] VITALS: BP 157/81; PULSE 78; RESP 20; O2SAT 96; BMI 21.9
--- NOTE | 2022-02-28 12:14 | P.CONAN_ITS ---
HPI - Anesthesia Eval Consult details Narrative: 81yo F for Cholecystectomy Laparoscopic, possible open PMFSH Active Problems Active Problems: All Active Problems (Updated 02/25/22 @ 10:39 by Kim Flores RN) Osteoporosis (Acute) Acquired hypothyroidism (Acute) Chronic kidney disease, stage 3 (Acute) Essential hypertension (Acute) Hyperlipidemia (Acute) Elevated liver enzymes (Acute) Right upper quadrant abdominal pain (Acute) Gallbladder polyp (Acute) Biliary colic (Acute) Past Medical History Medical History Bowel obstruction History of herpes zoster Hypothyroid RBBB (right bundle branch block) Tubular adenoma of colon Family History Family History Father Myocardial infarction Mother HTN (hypertension) Glaucoma Brother HTN (hypertension) Depression Mental health disorder Sister No problems noted. Family history of problems with anesthesia: No Surgical History Surgical History History of colonoscopy Hx of breast biopsy Hx of small bowel obstruction History of Problems with Anesthesia: No (Slow to wake) Social History Social History Household Members: None Household Members Other:: Lives in assisted living Housing: Assisted Living Facility Are you a primary managed care liaison to a significant other at home: No Do you presently have visiting nurse or other home services: No Alcohol intake: current Alcohol intake frequency: holidays/special occasions only Alcohol type: beer and wine Patient Tobacco Use Status: Former Tobacco user Quit Date: 40 yrs ago Tobacco use type: Cigarette Years Smoked: 4 yrs e-Cigarette/Vaping Use: Never Used Second Hand Smoke Exposure: No (hx of) service: No Current occupational status: retired Cognitive needs: No Hearing needs: No Vision needs: No Narrative Narrative: No recent illness No CP/SOB with >4mets Meds Allergies Allergy/AdvReac Type Severity Reaction Status Date / Time codeine [CODEINE] Allergy Intermediate AGITATION,D Verified 02/25/22 10:32 EPRESSION meperidine [Demerol] AdvReac Unknown dizziness Verified 02/25/22 10:32 Home Medications Medication Instructions Recorded Confirmed Last Taken Type clobetasol 0.05 % topical cream g topical BID 06/29/20 03/09/21 Unknown History mecobalamin (vitamin B12) 1,000 2,000 mcg sublingual DAILY 12/29/21 02/25/22 Unknown History mcg disintegrating tablet,sublingual polyethylene glycol 3350 17 gram 17 g PO DAILY 02/28/22 02/28/22 Unknown History oral powder packet (Miralax) Exam Exam Date and Time: February 28, 2022 1214 Height,Weight and Vital Signs: Height 5 ft 7 in Weight 63.503 kg Last Vital Signs Pulse 78 02/28/22 12:01 Resp 20 02/28/22 12:01 BP 157/81 H 02/28/22 12:01 Pulse Ox 96 02/28/22 12:01 O2 Del Method 02/28/22 12:01 Pertinent Lab Results Pertinent Lab Results: Laboratory Tests 12/22/21 12/22/21 09:36 09:36 WBC 5.0 Hgb 12.9 Hct 40.9 Plt Count 260 Sodium 141 Potassium 4.7 Chloride 107 Carbon Dioxide 25 BUN 24 H Creatinine 1.40 Laboratory Tests 02/28/22 11:47 AST 15 ALT 11 TSH 0.13 L Free T4 1.41 Narrative Narrative: EKG 02/2022 Vent. Rate : 074 BPM ? ? Atrial Rate : 074 BPM ?? P-R Int : 164 ms? QRS Dur : 120 ms ? ? QT Int : 412 ms ? ? ? P-R-T Axes : 063 061 030 degrees ?? QTc Int : 457 ms ? Normal sinus rhythm Right bundle branch block Abnormal ECG When compared with ECG of 02-NOV-2020 14:42, No significant change was found Airway Mallampati Class: I TM Dist: >3cm Neck ROM: Full Loose/Missing/Broken Teeth: No (Caps throughout molars and front teeth) Heart: RRR Lungs: CTAB Assessment and Plan Assessment Anesthesia Assessment: Anesthesia Plan Discussed and PAT Visit Final Anesthetic Review Family History of Problems with Anesthesia: No History of Problems with Anesthesia: No (Slow to wake)
[2022-03-07] VITALS (15 sets, daily range): BP systolic 125–164; BP diastolic 56–80; PULSE 65–84; RESP 14–25; TEMP 36.2–36.4; O2SAT 95–100
[2022-03-07] MEDS: Lactated Ringers 1,000 ML 100 ML IVCONT (06:41)
--- NOTE | 2022-03-07 07:16 | HO.ANESPROP2 ---
[facility] Active Problems Active Problems: All Active Problems (Updated 03/01/22 @ 08:16 by Kim Flores RN) Osteoporosis (Acute) Acquired hypothyroidism (Acute) Chronic kidney disease, stage 3 (Acute) Essential hypertension (Acute) Hyperlipidemia (Acute) Elevated liver enzymes (Acute) Right upper quadrant abdominal pain (Acute) Gallbladder polyp (Acute) Biliary colic (Acute) Past Medical History Medical History Bowel obstruction History of herpes zoster Hypothyroid RBBB (right bundle branch block) Tubular adenoma of colon Family History Family History Father Myocardial infarction Mother HTN (hypertension) Glaucoma Brother HTN (hypertension) Depression Mental health disorder Sister No problems noted. Family history of problems with anesthesia: No Surgical History Surgical History History of colonoscopy Hx of breast biopsy Hx of small bowel obstruction History of Problems with Anesthesia: No (Slow to wake) Social History Social History Household Members: None Household Members Other:: Lives in assisted living Housing: Assisted Living Facility Are you a primary career placement services counselor to a significant other at home: No Do you presently have visiting nurse or other home services: No Alcohol intake: current Alcohol intake frequency: holidays/special occasions only Alcohol type: beer and wine Patient Tobacco Use Status: Former Tobacco user Quit Date: 40 yrs ago Tobacco use type: Cigarette Years Smoked: 4 yrs Smoked in Last 30 Days: No e-Cigarette/Vaping Use: Never Used Second Hand Smoke Exposure: No (hx of) Use of substances other than those prescribed or required for medical reasons: No Have you been hit, kicked, punched, or otherwise hurt by someone within the past year? If so, by whom?: No Are you DNR?: No Advance Directives: No Advance Directives Information Provided: Yes (Sister - to bring in DOS) Advance Directives on File: No Recently lost weight without trying: No Eating poorly because of decreased appetite: No Nutrition Risks: No Nutritional Risk Patient : No : No Poor oral hygiene: No (Caps) service: No Current occupational status: retired Cognitive needs: No Hearing needs: No Vision needs: No Meds Allergies Allergy/AdvReac Type Severity Reaction Status Date / Time codeine [CODEINE] Allergy Intermediate AGITATION,D Verified 02/25/22 10:32 EPRESSION meperidine [Demerol] AdvReac Unknown dizziness Verified 02/25/22 10:32 Active Medications: Current Medications Lactated Ringer's (Lr) 1,000 mls @ 100 mls/hr IVCONT .Q10H NAS Last Admin: 03/07/22 06:41 Dose: 100 mls/hr Home Medications Medication Instructions Recorded Confirmed Last Taken Type clobetasol 0.05 % topical cream g topical BID 06/29/20 03/09/21 Unknown History mecobalamin (vitamin B12) 1,000 2,000 mcg sublingual DAILY 12/29/21 02/25/22 Unknown History mcg disintegrating tablet,sublingual polyethylene glycol 3350 17 gram 17 g PO DAILY 02/28/22 02/28/22 Unknown History oral powder packet (Miralax) Exam Exam Date and Time: March 07, 2022 0716 Height,Weight and Vital Signs: Height 5 ft 7 in Weight 63.503 kg Last Vital Signs Temp 97.5 F 03/07/22 06:32 Pulse 84 03/07/22 06:32 Resp 18 03/07/22 06:32 BP 164/79 H 03/07/22 06:32 Pulse Ox 95 03/07/22 06:32 O2 Del Method 03/07/22 06:32 Airway Mallampati Class: III TM Dist: >3cm Loose/Missing/Broken Teeth: No Heart: rrr Lungs: clear Assessment and Plan Final Anesthetic Review Family History of Problems with Anesthesia: No History of Problems with Anesthesia: No (Slow to wake) NPO: Yes ASA Class: III Final Preanesthetic Review: No Changes in Pt Med Stat, Meds/Allgs Chart Reviewed, Consent Obtained/Reviewed and Anes Risks/Benef Reviewed Patient Risk: Intermediate Procedure Risk: Low Anesthetic Plan Anesthetic Plan: GA Disposition: Standard PACU
--- NOTE | 2022-03-07 07:19 | P.HPSUR_ITS ---
Pre-Procedural Eval Section A Date of Service: 03/07/22 The patient is an INPATIENT: No Changes since office visit: Yes Patient answered all questions; No Cold of Flu in the past 2 weeks, No New Medical Problems and No Changes in Medication The History & Physical has been completed within 30 days and I have reviewed it.: No Section B Chief Complaint: cholesterolosis Details of Present Illness: Sludge ball in gallbladder with abdominal pain Relevant Family History (Specify if Yes): No Relevant Social History: None Present Medications: see Short Stay Collaborative assessment Medical History: Significant History (CKD) History of Previous Operations: No relevant previous surgery Allergies: Allergies Allergy/AdvReac Type Severity Reaction Status Date / Time codeine [CODEINE] Allergy Intermediate AGITATION,D Verified 02/25/22 10:32 EPRESSION meperidine [Demerol] AdvReac Unknown dizziness Verified 02/25/22 10:32 Review of Systems Sugical H&P ROS: Negative: Constitution, Cardiovascular, Respiratory, Neurological, Psychiatric, Hem-Onc, Allergic/Immunologic, Gastrointestinal, Genitourinary, Musculoskeletal, Integumentary, Endocrine and Eyes/Ears/Nos e/Throat Exam Surgical H&P Exam: Normal: HEENT, Normal: Heart, Normal: Lungs, Normal: Extremities, Normal: Skin and Normal: Neurological and Significant Findings: Abdomen (tender RUQ) Plan Diagnosis/Plan: Unchanged I have reviewed the history and physical and performed a pertinent physical examination on my patient. No changes have occurred unless specified.
--- NOTE | 2022-03-07 09:13 | P.OP_ITS ---
Operative Note Operative Note Date of Service: 03/07/22 Narrative: Preoperative diagnosis: Biliary colic, gallbladder polyp Postoperative diagnosis: Same Procedure: Laparoscopic cholecystectomy Surgeon: Jameson Ziegler MD [employer] Supervisor: JADE Goyal; DUSTIN Stauffer Anesthesia: General endotracheal Indications for procedure: 81-year-old female patient with chronic abdominal pain in the right upper quadrant found to have biliary sludge, gallbladder polyp and tenderness over the gallbladder with ultrasound Operative findings: chronically inflamed gallbladder with adhesions from the transverse mesocolon. Also dense adhesions in a periumbilical region from prior exploratory laparotomy. Specimen: gallbladder Estimated blood loss: 2 mL Complications: none Procedure details: Patient was brought to the OR and placed in a supine position. After administering general anesthesia the patient's abdomen was prepped with ChloraPrep and draped in a sterile fashion. Local anesthesia consisting of 0.5% Sensorcaine without epinephrine was infiltrated in a loida umbilical region. A 5 mm incision was made above the umbilicus in a longitudinal fashion over the previous midline incision.. The Veress needle was then inserted while elevating abdominal cavity with towel clips. After positive drop test the abdomen was insufflated to a pressure of 15 mm of mercury. The Veress needle was then removed and a 5 mm trocar inserted. Adhesions made it difficult to see the gallbladder and liver therefore it was converted to an open insertion of a Murphy trocar. This was secured to the skin using 0 Polysorb suture. The abdomen was then insufflated to a pressure of 15 mmHg. The camera was inserted in the abdomen explored. A 12 mm trocar was then placed in the epigastrium. Two 5 mm trocars placed in the right upper quadrant by the assistant clinical director. The patient was placed in reverse Trendelenburg positioning and rotated to the left. The gallbladder was grasped with the fundus and retracted cephalad by the assistant clinical director. Adhesions were then taken down off the gallbladder wall using Endo Carlos Alberto. The infundibulum was then grasped and retracted away from the liver bed, also by the assistant clinical director. The Dolphin dissected was then used by the surgeon to dissect the peritoneum off the infundibulum to reveal the junction with the cystic duct. Cystic artery was noted slightly medial and posterior to the cystic duct. After obtaining a critical view the cystic duct was doubly clipped and divided. The cystic artery was then doubly clipped and divided. The gallbladder was then dissected off the liver bed using electrocautery with an L hook. Hemostasis was assured all times using the electrocautery. When the gallbladder is completely dissected off the liver bed was placed in an Endo-Catch bag and brought out through the epigastric incision. The gallbladder was sent to pathology for further examination. The abdomen was then re-examined. The liver bed was irrigated and suctioned dry. No bleeding or bile leak could be identified. CO2 was then evacuated and all trocars removed. Fascia was closed at the epigastric and umbilical incision using a [id number] 0 Polysorb suture. Skin was closed in all incisions using a subcuticular 4 0 Polysorb suture by both the surgeon and assistant clinical director. Sterile dressings consisting of Steri-Strips, 2 x 2 gauze, and Tegaderm were then applied. The patient tolerated the procedure well. Sponge instrument and needle counts reported as correct. The patient was transferred to PACU in stable condition.
[2022-03-07] MEDS: ondansetron HCL 4 MG/2 ML VIAL IVPUSH (09:24)
[2022-03-07] MEDS: fentaNYL citrate/PF 100 MCG/2 ML VIAL 25 MCG IVPUSH ×4 (10:07→10:49)
[2022-03-07] MEDS: oxyCODONE HCl Immed Release 5 MG TABLET PO (10:46)
== END 2022-03-07 14:00 | disposition home or self-care (01) ==
PROVIDERS: PCP Internal Medicine; Visit Provider Surgery
PROC: 0FT44ZZ Resection of Gallbladder, Percutaneous Endoscopic Approach (ICD-10-PCS; CPT 47562; principal; 2022-03-07 07:30)
DX: K80.10 Calculus of gallbladder with chronic cholecystitis without obstruction (principal); K82.8 Other specified diseases of gallbladder; K66.0 Peritoneal adhesions (postprocedural) (postinfection); I12.9 Hypertensive chronic kidney disease with stage 1 through stage 4 chronic kidney disease, or unspecified chronic kidney disease; N18.30 Chronic kidney disease, stage 3 unspecified; Z87.891 Personal history of nicotine dependence; E78.5 Hyperlipidemia, unspecified; M81.0 Age-related osteoporosis without current pathological fracture; Z87.19 Personal history of other diseases of the digestive system; Z79.899 Other long term (current) drug therapy; Z88.8 Allergy status to other drugs, medicaments and biological substances
CPT/HCPCS: 47562; 49329; 88304; 93005; J0131; J0330; J2405; J2550; J3010

== ENCOUNTER 2022-06-18 08:48 | Outpatient (REF) | payer MEDICARE, SELFPAY ==
[2022-06-18 09:51] LABS: Anion Gap 15 (12-20); Blood Urea Nitrogen 22 mg/dL (9-16); Carbon Dioxide 26 mmol/L (22-29); Chloride 104 mmol/L (96-108); Cholesterol 237 mg/dL; Estimated Glomerular Filt Rate 39; Glucose Fasting 86 mg/dL (60-99); HDL Cholesterol 58 mg/dL; LDL Cholesterol Calculated 161 mg/dl; Potassium 4.5 mmol/L (3.3-5.1); Sodium 140 mmol/L (135-145); Triglycerides 91 mg/dL
[2022-06-18 10:14] LABS: Free T4 (Free Thyroxine) 1.21 ng/dL (0.71-1.85); Vitamin D 25-OH Total 38.9 ng/mL (>30)
[2022-06-18 10:29] LABS: Folate 10.5 ng/mL (> or = 4.0); Vitamin B12 490 pg/mL (200-900)
== END 2022-06-18 08:49 | disposition home or self-care (01) ==
LOC: HO.LAB 08:48
PROVIDERS: Visit Provider Internal Medicine
DX: M81.0 Age-related osteoporosis without current pathological fracture (principal); E03.9 Hypothyroidism, unspecified; I12.9 Hypertensive chronic kidney disease with stage 1 through stage 4 chronic kidney disease, or unspecified chronic kidney disease; N18.30 Chronic kidney disease, stage 3 unspecified; E78.5 Hyperlipidemia, unspecified
CPT/HCPCS: 36415; 80048; 80061; 82306; 82607; 82746; 84439; 84443

== ENCOUNTER 2022-11-19 09:00 | Outpatient (REF) | payer MEDICARE, SELFPAY ==
[2022-11-19 09:09] LABS: MANUAL DIFF FLAG NO
[2022-11-19 10:22] LABS: Basophils Absolute Auto 0.1 X10*3/uL (0.0-0.2); Basophils Percent Auto 0.9 % (0-2); Eosinophils Absolute Auto 0.3 X10*3/uL (0.0-0.4); Eosinophils Percent Auto 4.8 % (0-4); Hematocrit 41.7 % (37.0-47.0); Hemoglobin 13.3 g/dl (12.0-16.0); Imm Gran Abs Auto 0.01 X10*3/uL (0.00-0.03); Imm Gran Pct Auto 0.2 % (0.0-0.4); Lymphocytes Absolute Auto 1.1 X10*3/uL (1.2-4.9); Lymphocytes Percent Auto 20.2 % (20-40); Mean Corpuscular HGB Conc 31.9 g/dl (31.0-35.0); Mean Corpuscular Hemoglobin 29.9 pg (27.0-33.0); Mean Corpuscular Volume 93.7 fL (80.0-98.0); Mean Platelet Volume 9.9 fL (9.4-12.3); Monocytes Absolute Auto 0.7 X10*3/uL (0.1-1.2); Neutrophils Absolute Auto 3.3 x10*3/uL (2.0-8.3); Neutrophils Percent Auto 60.9 % (45-73); Platelet Count 264 X10*3/uL (160-400); Red Blood Count 4.45 X10*6/uL (4.20-5.50); Red Cell Distribution Width 12.7 % (11.0-16.0); White Blood Count 5.4 X10*3/uL (4.8-10.8)
[2022-11-19 10:50] LABS: Alanine Aminotransferase 13 U/L (0-31); Anion Gap 12 (12-20); Aspartate Amino Transferase 19 U/L (5-31); Blood Urea Nitrogen 26 mg/dL (9-16); Calcium 9.5 mg/dL (8.4-10.2); Carbon Dioxide 26 mmol/L (22-29); Chloride 106 mmol/L (96-108); Cholesterol 295 mg/dL; Estimated Glomerular Filt Rate 41; Glucose Fasting 78 mg/dL (60-99); HDL Cholesterol 57 mg/dL; LDL Cholesterol Calculated 215 mg/dl; Potassium 4.4 mmol/L (3.3-5.1); Sodium 140 mmol/L (135-145); Triglycerides 119 mg/dL
[2022-11-19 11:10] LABS: Folate 11.8 ng/mL (> or = 4.0); Free T4 (Free Thyroxine) 1.33 ng/dL (0.71-1.85); Thyroid Stimulating Hormone 0.27 uIU/mL (0.32-4.0); Vitamin B12 470 pg/mL (200-900); Vitamin D 25-OH Total 37.9 ng/mL (>30)
== END 2022-11-19 09:01 | disposition home or self-care (01) ==
LOC: HO.LAB 09:00
PROVIDERS: PCP Internal Medicine; Visit Provider Internal Medicine
DX: I12.9 Hypertensive chronic kidney disease with stage 1 through stage 4 chronic kidney disease, or unspecified chronic kidney disease (principal); N18.30 Chronic kidney disease, stage 3 unspecified; E03.9 Hypothyroidism, unspecified; M81.0 Age-related osteoporosis without current pathological fracture; E78.5 Hyperlipidemia, unspecified
CPT/HCPCS: 36415; 80048; 80061; 82306; 82607; 82746; 84439; 84443; 84450; 84460; 85025

== ENCOUNTER 2022-12-01 18:41 | Emergency (ER) | payer MEDICARE, SELFPAY ==
[2022-12-01 18:46] VITALS: BP 138/82; BP 144/70; PULSE 90; PULSE 95; RESP 18; TEMP 36.6; O2SAT 95; O2SAT 99; BMI 21.1
--- NOTE | 2022-12-01 19:20 | PC.NURSE ---
Pt presented to ER with nausea/vomiting/diarrhea since 10 AM. Pt reported there is a GI bug going around her living facility. Pt is A&Ox4, GCS 15, skin warm, opink, and dry. Pt reports no pain and minor nausea. Pt denies blood in stool or emesis. Pt requested a drink, ice chips were given and we will assess pt's PO tolerance. Pt waiting ED provider at this time.
[2022-12-01 20:00] VITALS: BP 144/79; PULSE 87; RESP 16; TEMP 36.7; O2SAT 95
--- NOTE | 2022-12-01 20:00 | MHC.EDTECH ---
pt 2000 rounding done ,vitals sign taken ,pt was given warm blanket and red sock .
--- NOTE | 2022-12-01 20:05 | ED_ITS ---
HPI - Nausea/Vomiting/Diarrhea General Chief complaint: Nausea/Vomiting/Diarrhea Stated complaint: n,v,d Time Seen by Provider: 12/01/22 19:59 Source: patient and EMS Mode of arrival: EMS Limitations: no limitations History of Present Illness HPI Narrative: 81-year-old female came in for evaluation of nausea, vomiting, nonbloody watery diarrhea, patient live in [address] mostly independently, pa tachont started to develop nausea and vomiting with nonbloody watery diarrhea. There was multiple sick contact with similar symptoms where the patient live, patient decline recent travel or using an recent antibiotic or eating bad food. Patient has no abdominal pain. Related Data Home Medications Medication Instructions Recorded Confirmed clobetasol 0.05 % topical cream g topical BID 06/29/20 07/01/22 Previous Rx's Medication Instructions Recorded levothyroxine 88 mcg tablet 88 mcg PO QAM #90 tabs 07/07/22 famotidine 40 mg tablet 40 mg PO DAILY #90 tabs 08/24/22 atorvastatin 20 mg tablet 20 mg PO DAILY #90 tabs 10/24/22 Allergies Allergy/AdvReac Type Severity Reaction Status Date / Time codeine [CODEINE] Allergy Intermediate AGITATION,D Verified 11/28/22 12:32 EPRESSION meperidine [Demerol] AdvReac Unknown dizziness Verified 11/28/22 12:32 Review of Systems Review of Systems: All other systems are reviewed and are negative Constitutional: Reports as per HPI and Reports no additional constitutional complaints Eyes: Reports as per HPI and Reports no additional eye complaints Reports system reviewed and no additional complaints, except as documented Cardiovascular: Reports as per HPI and Reports no additional cardiovascular complaints Respiratory: Reports as per HPI and Reports no additional respiratory complaints Gastrointestinal: Reports as per HPI and Reports no additional gastrointestinal complaints Genitourinary: Reports no additional female genitourinary complaints Musculoskeletal: Reports no additional musculoskeletal complaints Skin/Breast: Reports system reviewed and no additional complaints, except as docu Psychiatric: Reports no additional psychiatric complaints Endocrine: Reports no additional endocrine complaints Hematologic/Lymphatic: Reports no additional hematologic/lymphatic complaints Allergic/Immunologic: Reports no additional allergic/immunologic complaints Reports system reviewed and no additional complaints, except as documented and Reports Abnormal speech present [facility] Past Medical History Medical History Acquired hypothyroidism Bowel obstruction Chronic kidney disease, stage 3 Elevated liver enzymes Essential hypertension Gallbladder polyp History of herpes zoster Hyperlipidemia Hypothyroid Osteoporosis RBBB (right bundle branch block) Right upper quadrant abdominal pain Tubular adenoma of colon Surgical History History of colonoscopy Hx of breast biopsy Hx of small bowel obstruction Family History Family History Father Myocardial infarction Mother HTN (hypertension) Glaucoma Brother HTN (hypertension) Depression Mental health disorder Sister No problems noted. Social History Social History Household Members: None Household Members Other:: Lives in assisted living Housing: Assisted Living Facility Are you a primary care director rn to a significant other at home: No Do you presently have visiting nurse or other home services: No Alcohol intake: never Patient Tobacco Use Status: Former Tobacco user Quit Date: 40 yrs ago Tobacco use type: Cigarette Years Smoked: 4 yrs Smoked in Last 30 Days: No e-Cigarette/Vaping Use: Never Used Second Hand Smoke Exposure: No (hx of) Use of substances other than those prescribed or required for medical reasons: No Advance Directives: No Advance Directives Information Provided: Yes service: No Current occupational status: retired Cognitive needs: No Hearing needs: No Vision needs: Yes Physical Exam Vital Signs: Vital Signs: Last Vital Signs Temp 98.7 F 12/01/22 23:46 Pulse 89 12/01/22 23:46 Resp 18 12/01/22 23:46 BP 136/60 12/01/22 23:46 Pulse Ox 95 12/01/22 23:46 O2 Del Method Room Air 12/01/22 23:46 BMI result Body Mass Index 21.1 Vital signs have been reviewed as appeared to be correct. Blood pressure normal. Heart rate normal. Respiration rate normal. Temperature normal. Oxygen saturation normal. Appearance: Alert. Oriented X3. No acute distress. Head: Normal external exam. Normocephalic. Atraumatic. No Phillips signs noted. No raccoon eyes noted Eyes: PERRLA. EOMI. Conjunctiva and sclera normal. Eyelids normal. ENT: TM's Normal. Pharynx normal. Uvula midline. Moist mucous membranes. No trismus noted. No drooling noted. No muffled voice noted. Neck: Normal inspection. Neck supple. FROM. No adenopathy. Thyroid Normal. No meningeal signs. No neck mass noted. CVS: Normal heart rate and rhythm. Heart sound normal. No murmurs noted. Pulses normal throughout. Respiratory: No respiratory distress. Painless inspiration. Breath sounds normal. No wheezes/rales/rhonchi noted. Chest nontender. No accessory muscle usage noted or decreased air movement noted. Abdomen: Soft and nontender. Bowel sounds normal in all 4 quadrants. No distention noted. No organomegaly noted. No visible injury noted. Back: No CVA tenderness. Full range of motion noted. Skin: Skin warm and dry. Normal skin color. Normal skin turgor. No rashes/lesions/lacerations noted. Extremities: No lower extremity edema. Extremities exhibit normal range of motion. Extremities nontender. Neuro: Oriented X 3. Cranial nerve exam: II-XII are grossly intact No motor deficit. No sensory deficit. Reflexes normal. Course Course Course Narrative: 81-year-old woman came in with nausea, vomiting, diarrhea with multiple sick contact where she laughed, likely patient contracted the sickness from [employer], patient now feels better no nausea or vomiting and able to tolerate p.o. intake in the emergency department. Medications Administered Discontinued Medications Generic Name Dose Route Start Last Admin Trade Name Freq PRN Reason Stop Dose Admin Al Hydroxide/Mg Hydroxide 30 ml 12/01/22 20:04 12/01/22 20:14 Magnesium Hydrox/Alum Hydrox 30 Ml Oral.Susp PO 12/01/22 20:05 30 ml ONCE ONE Administration Famotidine 20 mg 12/01/22 20:04 12/01/22 20:27 Famotidine/Pf 20 Mg/2 Ml Vial IVPUSH 12/01/22 20:05 20 mg ONCE ONE Administration Sodium Chloride 1,000 mls @ 999 mls/hr 12/01/22 20:04 12/01/22 21:52 Ns IV 12/01/22 21:04 Infused .Q1H1M ONE Infusion Sodium Chloride 1,000 mls @ 999 mls/hr 12/01/22 21:38 12/01/22 22:57 Ns IV 12/01/22 22:38 Infused .Q1H1M ONE Infusion Sodium Chloride 1,000 mls @ 999 mls/hr 12/01/22 21:40 12/01/22 22:08 Ns IV 12/01/22 22:40 Not Given .Q1H1M ONE Ondansetron HCl 4 mg 12/01/22 20:04 12/01/22 20:27 Ondansetron Hcl 4 Mg/2 Ml Vial IVPUSH 12/01/22 20:05 4 mg ONCE ONE Administration Medical Decision Making Differential Diagnosis Differential Diagnoses: The differential diagnosis associated with the presentation includes (Dehydration, electrolyte disturbance, gastroenteritis, food poisoning, anemia, upper respiratory viral infection.) Lab Data MDM Lab Attestation statement: I reviewed the patient's lab results. 12/01/22 20:26 12/01/22 20:26 Labs: Lab Results 12/01/22 12/01/22 12/01/22 Range/Units 20:26 20:26 20:26 WBC 14.5 H (4.8-10.8) X10*3/uL RBC 4.72 (4.20-5.50) X10*6/uL Hgb 14.1 (12.0-16.0) g/dl Hct 42.8 (37.0-47.0) % MCV 90.7 (80.0-98.0) fL MCH 29.9 (27.0-33.0) pg MCHC 32.9 (31.0-35.0) g/dl RDW 12.3 (11.0-16.0) % Plt Count 255 (160-400) X10*3/uL MPV 9.6 (9.4-12.3) fL Immature Gran % (Auto) 0.5 H (0.0-0.4) % Neut % (Auto) 95.7 H (45-73) % Lymph % (Auto) 0.9 L (20-40) % Pike % (Auto) 2.5 (2-11) % Eos % (Auto) 0.1 (0-4) % Baso % (Auto) 0.3 (0-2) % Lymph # (Auto) 0.1 L (1.2-4.9) X10*3/uL Pike # (Auto) 0.4 (0.1-1.2) X10*3/uL Eos # (Auto) 0.0 (0.0-0.4) X10*3/uL Baso # (Auto) 0.0 (0.0-0.2) X10*3/uL Abs Immat Gran (auto) 0.07 H (0.00-0.03) X10*3/uL Absolute Neuts (auto) 13.9 H (2.0-8.3) x10*3/uL Absolute Nucleated RBC 0.000 (0.0-0.012) X10*3/uL Nucleated RBC % (auto) 0.0 (0.0-0.2) /100WBC Smear Tech's Comments VERIFIED Sodium 142 (135-145) mmol/L Potassium 4.9 (3.3-5.1) mmol/L Chloride 106 (96-108) mmol/L Carbon Dioxide 24 (22-29) mmol/L Anion Gap 17 (12-20) BUN 34 H (9-16) mg/dL Creatinine 1.54 H (0.5-1.4) mg/dL Estim Creat Clear Calc 26.7 Estimated GFR 32 Random Glucose 125 H (60-115) mg/dL Calcium 9.4 (8.4-10.2) mg/dL Total Bilirubin 0.6 (0.0-1.0) mg/dL Direct Bilirubin 0.2 (0.0-0.5) mg/dL AST 24 (5-31) U/L ALT 18 (0-31) U/L Alkaline Phosphatase 60 (39-117) U/L Troponin I High Sens 3.6 (<3.5-17.0) ng/L Total Protein 7.4 (6.5-8.0) g/dL Albumin 4.1 (3.5-5.0) g/dL Lipase 28 (8-78) U/L Influenza Type A (PCR) (Negative) Influenza Type B (PCR) (Negative) RSV RNA Qual (PCR) (Negative) SARS-CoV-2 RNA (RT-PCR) (Negative) 12/01/22 Range/Units 22:02 WBC (4.8-10.8) X10*3/uL RBC (4.20-5.50) X10*6/uL Hgb (12.0-16.0) g/dl Hct (37.0-47.0) % MCV (80.0-98.0) fL MCH (27.0-33.0) pg MCHC (31.0-35.0) g/dl RDW (11.0-16.0) % Plt Count (160-400) X10*3/uL MPV (9.4-12.3) fL Immature Gran % (Auto) (0.0-0.4) % Neut % (Auto) (45-73) % Lymph % (Auto) (20-40) % Pike % (Auto) (2-11) % Eos % (Auto) (0-4) % Baso % (Auto) (0-2) % Lymph # (Auto) (1.2-4.9) X10*3/uL Pike # (Auto) (0.1-1.2) X10*3/uL Eos # (Auto) (0.0-0.4) X10*3/uL Baso # (Auto) (0.0-0.2) X10*3/uL Abs Immat Gran (auto) (0.00-0.03) X10*3/uL Absolute Neuts (auto) (2.0-8.3) x10*3/uL Absolute Nucleated RBC (0.0-0.012) X10*3/uL Nucleated RBC % (auto) (0.0-0.2) /100WBC Smear Tech's Comments Sodium (135-145) mmol/L Potassium (3.3-5.1) mmol/L Chloride (96-108) mmol/L Carbon Dioxide (22-29) mmol/L Anion Gap (12-20) BUN (9-16) mg/dL Creatinine (0.5-1.4) mg/dL Estim Creat Clear Calc Estimated GFR Random Glucose (60-115) mg/dL Calcium (8.4-10.2) mg/dL Total Bilirubin (0.0-1.0) mg/dL Direct Bilirubin (0.0-0.5) mg/dL AST (5-31) U/L ALT (0-31) U/L Alkaline Phosphatase (39-117) U/L Troponin I High Sens (<3.5-17.0) ng/L Total Protein (6.5-8.0) g/dL Albumin (3.5-5.0) g/dL Lipase (8-78) U/L Influenza Type A (PCR) NEGATIVE (Negative) Influenza Type B (PCR) NEGATIVE (Negative) RSV RNA Qual (PCR) NEGATIVE (Negative) SARS-CoV-2 RNA (RT-PCR) NEGATIVE (Negative) Discharge Plan Discharge Clinical Impression: Gastroenteritis Patient Disposition: Home, Self-Care Instructions: Gastroenteritis (ED) Prescriptions: No Action levothyroxine 88 mcg tablet 88 mcg PO QAM Qty: 90 3RF famotidine 40 mg tablet 40 mg PO DAILY Qty: 90 1RF Rx Instructions: take 15 mins before breakfast atorvastatin 20 mg tablet 20 mg PO DAILY Qty: 90 1RF clobetasol 0.05 % cream topical BID Referrals: Yoana Moreno MD [Primary Care Provider] -
[2022-12-01] MEDS: Magnesium Hydrox/Alum Hydrox 30 ML ORAL.SUSP PO (20:14)
[2022-12-01] MEDS: ondansetron HCL 4 MG/2 ML VIAL IVPUSH (20:27)
[2022-12-01] MEDS: Famotidine/PF 20 MG/2 ML VIAL IVPUSH (20:27)
[2022-12-01] MEDS: 0.9 % Sodium Chloride 1,000 ML 999 ML IV ×2 (20:27→21:52)
[2022-12-01 20:56] LABS: Basophils Percent Auto 0.3 % (0-2); Eosinophils Percent Auto 0.1 % (0-4); Hematocrit 42.8 % (37.0-47.0); Hemoglobin 14.1 g/dl (12.0-16.0); Imm Gran Abs Auto 0.07 X10*3/uL (0.00-0.03); Imm Gran Pct Auto 0.5 % (0.0-0.4); Lymphocytes Absolute Auto 0.1 X10*3/uL (1.2-4.9); Lymphocytes Percent Auto 0.9 % (20-40); MANUAL DIFF FLAG SCAN; Mean Corpuscular HGB Conc 32.9 g/dl (31.0-35.0); Mean Corpuscular Hemoglobin 29.9 pg (27.0-33.0); Mean Corpuscular Volume 90.7 fL (80.0-98.0); Mean Platelet Volume 9.6 fL (9.4-12.3); Monocytes Absolute Auto 0.4 X10*3/uL (0.1-1.2); Monocytes Percent Auto 2.5 % (2-11); Neutrophils Absolute Auto 13.9 x10*3/uL (2.0-8.3); Neutrophils Percent Auto 95.7 % (45-73); Platelet Count 255 X10*3/uL (160-400); Red Blood Count 4.72 X10*6/uL (4.20-5.50); Red Cell Distribution Width 12.3 % (11.0-16.0); SCAN SMEAR FLAG 1; White Blood Count 14.5 X10*3/uL (4.8-10.8)
[2022-12-01 21:14] LABS: Alanine Aminotransferase 18 U/L (0-31); Albumin Level 4.1 g/dL (3.5-5.0); Alkaline Phosphatase 60 U/L (39-117); Anion Gap 17 (12-20); Aspartate Amino Transferase 24 U/L (5-31); Bilirubin Direct 0.2 mg/dL (0.0-0.5); Bilirubin Total 0.6 mg/dL (0.0-1.0); Blood Urea Nitrogen 34 mg/dL (9-16); Calcium 9.4 mg/dL (8.4-10.2); Carbon Dioxide 24 mmol/L (22-29); Chloride 106 mmol/L (96-108); Creatinine Clr Calc Pharmacy 26.7; Estimated Glomerular Filt Rate 32; Glucose Random 125 mg/dL (60-115); Lipase 28 U/L (8-78); Potassium 4.9 mmol/L (3.3-5.1); Sodium 142 mmol/L (135-145); Total Protein 7.4 g/dL (6.5-8.0)
[2022-12-01 21:21] LABS: Troponin-I High Sensitivity 3.6 ng/L (<3.5-17.0)
[2022-12-01 22:00] VITALS: BP 145/69; PULSE 88; RESP 16; TEMP 36.9; O2SAT 98
[2022-12-01 22:10] LABS: SLIDE REVIEW VERIFIED
[2022-12-01 22:44] LABS: Influenza A PCR NEGATIVE (Negative); Influenza B PCR NEGATIVE (Negative); Resp Syncy Virus RNA Qual PCR NEGATIVE (Negative); SARS COV2 PCR INHOUSE NEGATIVE (Negative)
[2022-12-01 23:46] VITALS: BP 136/60; PULSE 89; RESP 18; TEMP 37.1; O2SAT 95
--- NOTE | 2022-12-02 00:37 | PC.NURSE ---
Pt able to ambulate to the bathroom with a walker. Pt normally uses a cane at home. Pt is ready for discharge but is having trouble finding a ride home.
--- NOTE | 2022-12-02 00:39 | PC.NURSE ---
Pt passed PO challenge, eating crackers and drinking water without any following nausea or vomiting
== END 2022-12-02 01:07 | disposition home or self-care (01) ==
PROVIDERS: Emergency Provider Emergency Medicine; PCP Internal Medicine
DX: K52.9 Noninfective gastroenteritis and colitis, unspecified (principal); R11.2 Nausea with vomiting, unspecified; Z20.822 Contact with and (suspected) exposure to COVID-19; Z20.828 Contact with and (suspected) exposure to other viral communicable diseases; I12.9 Hypertensive chronic kidney disease with stage 1 through stage 4 chronic kidney disease, or unspecified chronic kidney disease; N18.30 Chronic kidney disease, stage 3 unspecified; E78.5 Hyperlipidemia, unspecified; Z79.899 Other long term (current) drug therapy; Z79.02 Long term (current) use of antithrombotics/antiplatelets
CPT/HCPCS: 0241U; 36415; 80048; 80076; 83690; 84484; 85025; 96361; 96374; 96375; 99284; J2405

== ENCOUNTER 2023-02-18 08:20 | Outpatient (REF) | payer MEDICARE, SELFPAY ==
[2023-02-18 09:25] LABS: Alanine Aminotransferase 13 U/L (0-31); Aspartate Amino Transferase 19 U/L (5-31); Cholesterol 221 mg/dL; HDL Cholesterol 56 mg/dL; LDL Cholesterol Calculated 149 mg/dl; Triglycerides 81 mg/dL
[2023-02-18 09:40] LABS: Free T4 (Free Thyroxine) 1.22 ng/dL (0.71-1.85); Thyroid Stimulating Hormone 0.16 uIU/mL (0.32-4.0)
== END 2023-02-18 08:21 | disposition home or self-care (01) ==
LOC: HO.LAB 08:20
PROVIDERS: PCP Internal Medicine; Visit Provider Internal Medicine
DX: E03.9 Hypothyroidism, unspecified (principal); E78.5 Hyperlipidemia, unspecified
CPT/HCPCS: 36415; 80061; 82550; 84439; 84443; 84450; 84460

== ENCOUNTER 2023-03-13 13:07 | Outpatient (AMB) | payer MEDICARE, SELFPAY ==
--- NOTE | 2023-03-13 13:37 | MHC.PC.OV ---
Vital Signs 03/13/23 13:42 Height 5 ft 7 in Weight 138 lb BMI 21.6 BP 132/66 Blood Pressure Location Rt brachial Position Sitting Pulse 84 Pulse Source Pulse Oximeter Pulse Oximetry (%) 96 Oxygen Delivery Method Room Air Intake Visit Reasons: discuss lab results Intake Note: Pt is here today to discuss recent labs results Allergies meperidine [Demerol] Adverse Reaction (Unknown, Verified 07/01/24 11:39) dizziness Medication List - Last Reconciled 03/15/23 by Yoana Moreno MD atorvastatin 20 mg PO DAILY clobetasol 0.05% grams topical BID levothyroxine 75 mcg PO QAM Tobacco use date assessed: 03/13/23 Last assessed Fall Risk: 03/13/23 Dental Screening Dental Screen Date: 03/13/23 HPI discuss lab results HPI Details 83-year-old lady here today for follow-up on her lipids and hypothyroidism. She has been taking her medications as directed, tries to get some form of exercise on a daily basis and has been compliant with diet. Recent fasting labs showed marked improvement in her lipid levels as compared to last check with the LDL cholesterol almost cut in half. Latest thyroid levels also came back within normal limits. [facility] Medical History (Updated 07/01/24 @ 11:50 by Yoana Moreno MD) Vitamin D deficiency Hx of iron deficiency anemia Fracture, intertrochanteric, right femur RBBB (right bundle branch block) Gallbladder polyp Bowel obstruction Tubular adenoma of colon History of herpes zoster Hyperlipidemia Essential hypertension Chronic kidney disease, stage 3 Acquired hypothyroidism Osteoporosis Surgical History History of open reduction and internal fixation (ORIF) procedure Hx of small bowel obstruction History of colonoscopy Hx of breast biopsy Family History Father Myocardial infarction Mother HTN (hypertension) Glaucoma Brother HTN (hypertension) Depression Mental health disorder Sister No problems noted. Social History Household Members: None Household Members Other:: Lives in assisted living Housing: Apartment Housing Other:: [facility] Are you a primary field care manager to a significant other at home: No Do you presently have visiting nurse or other home services: No Alcohol intake: never Patient Tobacco Use Status: Former Tobacco user Tobacco use type: Cigarette Years Smoked: 4 yrs e-Cigarette/Vaping Use: Never Used Second Hand Smoke Exposure: No (hx of) Advance Directives Date on File: 03/07/22 service: No Current occupational status: retired Cognitive needs: No Hearing needs: No Vision needs: Yes Questionnaire Thrive Questionnaire Date Thrive assessed: 11/28/22 AUDIT C Alcohol Use Questionnaire (AUDIT-C) 1. How often do you have a drink containing alcohol?: Never Total Score: 0 VIOLETA-7 AMB Questionnaire VIOLETA-7 Date VIOLETA - 7 assessed: 11/28/22 Source: Developed by Drs. Brian Persaud, Lia Silva, Chuy Vallejo and colleagues, with an educational jigar from [employer]. Review of Systems Const Denies chills, Denies fever(s), Denies headache(s), Denies poor appetite and Denies weakness ENT Reports Normal hearing present and Denies headache(s) Card Denies chest pain, Denies rapid heart rate, Denies irregular heart rhythm and Reports palpitations Resp Denies chest congestion, Denies cough, Denies pain on inspiration and Denies wheezing GI Denies abdominal pain, Denies bloating, Denies hematochezia, Denies change in bowel habits and Denies heartburn Reports no additional complaints Musc Denies back pain, Denies arthralgias, Denies joint swelling and Denies numbness Neuro Reports Normal hearing present, Denies Abnormal speech present, Denies headache(s), Denies numbness and Denies weakness Psych Reports no additional complaints, Denies anxiety and Denies depression Endo Reports no additional complaints and Reports palpitations Wm/Lymph Reports no additional complaints Aller/Immun Denies wheezing Physical exam (Primary Care) Vital Signs: Last Vital Signs Pulse 84 03/13/23 13:42 BP 132/66 03/13/23 13:42 Pulse Ox 96 03/13/23 13:42 Oxygen Delivery Method Room Air 03/13/23 13:42 BMI result Body Mass Index 21.6 Tobacco/Smoking Status: Tobacco use Status Tobacco use date assessed 03/13/23 03/13/23 13:46 Patient Tobacco Use Status Former Tobacco user 03/13/23 13:46 Tobacco use type Cigarette 03/13/23 13:46 e-Cigarette/Vaping Use Never Used 03/13/23 13:46 Thrive Assessment: Date of Thrive Assessment Date Thrive assessed 11/28/22 03/13/23 13:46 Const Other: Accompanied by niece General: no acute distress, alert and Physically active Nutritional Appearance: average body habitus Orientation/consciousness: patient oriented x3 HENMT Head: Yes normocephalic Ears: external ears normal General nose exam: Normal external nose present Face and sinus: Yes face symmetric Mouth: oropharynx normal and moist mucous membranes Eyes General: appearance normal, both eyes and all related structures Neck Other: Supple, no lymphadenopathy, thyroid gland nonpalpable Resp Effort & Inspection: normal respiratory effort and able to speak in complete sentences Auscultation: clear to auscultation bilaterally Cardio Other: S1 and S2 present regular rate and rhythm GI Palpation (GI): Soft to palpation, nontender, no guarding and no masses Auscultation: normal bowel sounds General: Yes no CVA tenderness Back/Spine/Pelvis Back: no CVA tenderness and No back tenderness Skin General skin exam: dry skin Neuro General: patient oriented x3, tone normal, moves all extremities, Normal light touch and pain sensation and no focal motor deficits Cranial nerves: Yes Normal hearing present Speech: No Abnormal speech present Extrem General: Yes full ROM, Yes no joint enlargement and Yes no pedal edema Psych Appearance: grossly normal and well kempt Mental Status: mental status grossly normal Speech and movement: Normal speech and movement present Affect: normal affect Attitude: cooperative Results Reviewed Results Reviewed: Laboratory Tests 02/18/23 08/14/23 08:25 05:00 WBC 5.9 Hgb 9.4 L Hct 29.8 L TSH 0.16 L Free T4 1.22 Name: Josephine Gutierrez Age/Sex: 82/F : 1940 Unit#: [id number] Attend Dr: Yoana Moreno MD Re02/18/23 Status: DEP [facility]F [facility] Disch: SPEC : [id number] CARIN: 02/18/23 STATUS: COMP REQ : [id number] RECD: 02/18/[address]: Yoana Moreno MD COMP: 02/18/23 ENTERED: 02/18/23 [facility] DR: ORDERED: AST, ALT, CK Total, Lipid Panel, Free T4, TSH Test Result Flag Reference AST (GOT) 19 5-31 U/L ALT (GPT) 13 0-31 U/L CK Total 40 26-140 U/L Triglyceride 81 mg/dL Desirable Triglyceride: less than 150 mg/dL Borderline High Triglyceride 150-199 mg/dL High Triglyceride: 200-499 mg/dL Very High Triglyceride: greater than or equal to 5OO mg/dL Chol 221 mg/dL Desirable Cholesterol: less than 200 mg/dL Borderline High Cholesterol: 200-239 mg/dL High Cholesterol: greater than 239 mg/dL LDL Calculated 149 mg/dl Desirable LDL: less than 100 mg/dL Near Optimal/Above Optimal LDL: 110-129 mg/dL Borderline High LDL: 130-159 mg/dL High LDL: 160-189 mg/dL Very High LDL: greater than or equal to 190 mg/dL HDL 56 mg/dL Desirable HDL: greater than 40 mg/dL Note: This HDL assay may give artificially low results in patients with liver disease. Free T4 1.22 0.71-1.85 ng/dL TSH 3rd Gen. 0.16 L 0.32-4.0 uIU/mL TSH 3rd Generation ([facility]) Coding Level of Care Code Est Pt Level 4 (60657) Complex EM visit Add On G2211 Diagnoses Hyperlipidemia E78.5 Acquired hypothyroidism E03.9 Essential hypertension I10
--- NOTE | 2023-03-13 13:41 | MHC.PC.OV ---
Vital Signs 03/13/23 13:42 Height 5 ft 7 in Weight 138 lb BMI 21.6 BP 132/66 Blood Pressure Location Rt brachial Position Sitting Pulse 84 Pulse Source Pulse Oximeter Pulse Oximetry (%) 96 Oxygen Delivery Method Room Air Intake Visit Reasons: discuss lab results Intake Note: Pt is here today to discuss recent labs results Allergies codeine [CODEINE] Allergy (Intermediate, Verified 03/15/23 03:19) AGITATION,DEPRESSION meperidine [Demerol] Adverse Reaction (Unknown, Verified 03/15/23 03:19) dizziness Medication List - Last Reconciled 03/15/23 by Yoana Moreno MD atorvastatin 20 mg PO DAILY clobetasol 0.05% grams topical BID levothyroxine 75 mcg PO QAM Tobacco use date assessed: 03/13/23 Fall risk assessment: 1 Fall in past year Last assessed Fall Risk: 03/13/23 Dental Screening Dental Screen Date: 03/13/23 Did you have a dental visit in the last 12 months?: Yes Did you have a dental problem in the last 6 months where you did not have access to dental care?: No Was dental information given to patient?: Patient has dentist HPI discuss lab results HPI Details 82-year-old lady here today for follow-up on her lipids and thyroid levels. She has been prescribed atorvastatin 20 mg to be taken daily but at patient admits to just taking it whenever she remembers maybe once or twice a month. She however has been following a low-cholesterol diet and has been staying active, with marked improvement in her cholesterol levels , especially her LDL cholesterol. She has been feeling well, but recent thyroid levels are also within normal limits. [facility] Medical History Acquired hypothyroidism Bowel obstruction Chronic kidney disease, stage 3 Elevated liver enzymes Essential hypertension Gallbladder polyp History of herpes zoster Hyperlipidemia Hypothyroid Osteoporosis RBBB (right bundle branch block) Right upper quadrant abdominal pain Tubular adenoma of colon Surgical History History of colonoscopy Hx of breast biopsy Hx of small bowel obstruction Family History Father Myocardial infarction Mother HTN (hypertension) Glaucoma Brother HTN (hypertension) Depression Mental health disorder Sister No problems noted. Social History Household Members: None Household Members Other:: Lives in assisted living Housing: Assisted Living Facility Are you a primary daycare teacher to a significant other at home: No Do you presently have visiting nurse or other home services: No Alcohol intake: never Patient Tobacco Use Status: Former Tobacco user Quit Date: 40 yrs ago Tobacco use type: Cigarette Years Smoked: 4 yrs e-Cigarette/Vaping Use: Never Used Second Hand Smoke Exposure: No (hx of) service: No Current occupational status: retired Cognitive needs: No Hearing needs: No Vision needs: Yes Questionnaire PHQ-9 Over the last 2 weeks, how often have you been bothered by any of the following problems? Depression Screening Interpretation: Negative Source: Developed by Drs. Brian Persaud, Lia Silva, Chuy Vallejo and colleagues, with an educational jigar from [employer]. Thrive Questionnaire Date Thrive assessed: 11/28/22 AUDIT C Alcohol Use Questionnaire (AUDIT-C) 1. How often do you have a drink containing alcohol?: Monthly or less 2. How many drinks containing alcohol do you have on a typical day when you are drinking?: 1 or 2 3. How often do you have six or more drinks on one occasion?: Never Total Score: 1 VIOLETA-7 AMB Questionnaire VIOLETA-7 Date VIOLETA - 7 assessed: 11/28/22 Source: Developed by Drs. Brian ePrsaud, Lia Silva, Chuy Vallejo and colleagues, with an educational jigar from [employer]. Review of Systems Const Denies chills, Denies fever(s), Denies frequent falls, Denies headache(s), Denies poor appetite and Denies weakness Eyes Reports no additional complaints ENT Reports Normal hearing present and Denies headache(s) Card Denies chest pain, Denies rapid heart rate, Denies irregular heart rhythm and Denies palpitations Resp Denies chest congestion, Denies cough, Denies pain on inspiration and Denies wheezing GI Denies abdominal pain, Denies bloating, Denies hematochezia, Denies change in bowel habits, Denies change in stool character and Denies heartburn Musc Denies back pain, Denies arthralgias, Denies joint swelling and Denies numbness Neuro Reports Normal hearing present, Denies Abnormal speech present, Denies frequent falls, Denies headache(s), Denies numbness and Denies weakness Psych Denies anxiety and Denies depression Endo Denies palpitations Aller/Immun Denies wheezing Physical exam (Primary Care) Vital Signs: Last Vital Signs Pulse 84 03/13/23 13:42 BP 132/66 03/13/23 13:42 Pulse Ox 96 03/13/23 13:42 Oxygen Delivery Method Room Air 03/13/23 13:42 BMI result Body Mass Index 21.6 Tobacco/Smoking Status: Tobacco use Status Tobacco use date assessed 03/13/23 03/13/23 13:46 Patient Tobacco Use Status Former Tobacco user 03/13/23 13:46 Tobacco use type Cigarette 03/13/23 13:46 e-Cigarette/Vaping Use Never Used 03/13/23 13:46 Depression Screening Interpretation: Negative Thrive Assessment: Date of Thrive Assessment Date Thrive assessed 11/28/22 03/13/23 13:46 Const General: cooperative, comfortable, no acute distress, alert and Physically active Nutritional Appearance: average body habitus Orientation/consciousness: patient oriented x3 HENMT Ears: TM's normal bilaterally and EAC's normal General nose exam: Normal external nose present and No nasal discharge present Face and sinus: Yes face symmetric Mouth: Normal oral and palatal mucosa present and moist mucous membranes Eyes General: appearance normal, both eyes and all related structures Neck Other: Supple, no lymphadenopathy, thyroid gland nonpalpable Resp Auscultation: clear to auscultation bilaterally Cardio Other: S1 and S2 present regular rate and rhythm GI Palpation (GI): Soft to palpation, nontender, no guarding and no masses Auscultation: normal bowel sounds General: Yes no CVA tenderness Back/Spine/Pelvis Back: no CVA tenderness and No back tenderness Skin General skin exam: no rashes or lesions noted and dry skin Neuro General: patient oriented x3 Cranial nerves: Yes Normal hearing present Speech: No Abnormal speech present Extrem General: Yes full ROM, Yes no joint enlargement and Yes no pedal edema Psych Appearance: grossly normal and well kempt Mental Status: mental status grossly normal Speech and movement: Normal speech and movement present Affect: normal affect Attitude: cooperative Thought process: Normal thought process present Results Reviewed Results Reviewed: ENTERED: 02/18/[address]: ORDERED: AST, ALT, CK Total, Lipid Panel, Free T4, TSH Test Result Flag Reference Site AST (GOT) 19 5-31 U/L ALT (GPT) 13 0-31 U/L CK Total 40 26-140 U/L Triglyceride 81 mg/dL Desirable Triglyceride: less than 150 mg/dL Borderline High Triglyceride 150-199 mg/dL High Triglyceride: 200-499 mg/dL Very High Triglyceride: greater than or equal to 5OO mg/dL Chol 221 mg/dL Desirable Cholesterol: less than 200 mg/dL Borderline High Cholesterol: 200-239 mg/dL High Cholesterol: greater than 239 mg/dL LDL Calculated 149 mg/dl Desirable LDL: less than 100 mg/dL Near Optimal/Above Optimal LDL: 110-129 mg/dL Borderline High LDL: 130-159 mg/dL High LDL: 160-189 mg/dL Very High LDL: greater than or equal to 190 mg/dL HDL 56 mg/dL Desirable HDL: greater than 40 mg/dL Note: This HDL assay may give artificially low results in patients with liver disease. Free T4 1.22 0.71-1.85 ng/dL TSH 3rd Gen. 0.16 L 0.32-4.0 uIU/mL Assessment and Plan Assessment & Plan (1) Acquired hypothyroidism: Code(s): E03.9 - Hypothyroidism, unspecified Plan: Thyroid levels are within normal limits, continued on current dose of levothyroxine 75 mcg daily in a.m. (2) Chronic kidney disease, stage 3: Comment: followed by Dr Noel Code(s): N18.30 - Chronic kidney disease, stage 3 unspecified (3) Essential hypertension: Code(s): I10 - Essential (primary) hypertension Plan: Blood pressure at goal of less than 130/80. Continue with current medication. Reinforced importance of following a low sodium diet, getting regular exercise, and lowering stress levels. (4) Hyperlipidemia: Code(s): E78.5 - Hyperlipidemia, unspecified Plan: Marked improvement in her LDL cholesterol seen, will continue with current low-cholesterol diet and getting regular exercise. Not wanting to take the atorvastatin anymore. Will recheck levels again in 3 months Orders: Orders Vitamin B12 and Folate 3 Months E03.9 - Hypothyroidism, unspecified, E78.5 - Hyperlipidemia, unspecified, I10 - Essential (primary) hypertension, N18.30 - Chronic kidney disease, stage 3 unspecified Lipid Panel 3 Months E03.9 - Hypothyroidism, unspecified, E78.5 - Hyperlipidemia, unspecified, I10 - Essential (primary) hypertension, N18.30 - Chronic kidney disease, stage 3 unspecified Free T4 (Free Thyroxine) 3 Months E03.9 - Hypothyroidism, unspecified, E78.5 - Hyperlipidemia, unspecified, I10 - Essential (primary) hypertension, N18.30 - Chronic kidney disease, stage 3 unspecified Thyroid Stimulating Hormone 3 Months E03.9 - Hypothyroidism, unspecified, E78.5 - Hyperlipidemia, unspecified, I10 - Essential (primary) hypertension, N18.30 - Chronic kidney disease, stage 3 unspecified Vitamin D 25-OH Total 3 Months E03.9 - Hypothyroidism, unspecified, E78.5 - Hyperlipidemia, unspecified, I10 - Essential (primary) hypertension, N18.30 - Chronic kidney disease, stage 3 unspecified Basic Metabolic Panel Fasting 3 Months I10 - Essential (primary) hypertension, N18.30 - Chronic kidney disease, stage 3 unspecified Medications: Changed From levothyroxine 88 mcg PO QAM 90 tabs 3RF To levothyroxine 75 mcg PO QAM 90 tabs 3RF Coding Level of Care Code Est Pt Level 4 (58315) Diagnoses Acquired hypothyroidism E03.9 Chronic kidney disease, stage 3 N18.30 Essential hypertension I10 Hyperlipidemia E78.5
[2023-03-13 13:42] VITALS: BP 132/66; PULSE 84; O2SAT 96; BMI 21.6
== END 2023-03-13 14:31 | disposition home or self-care (01) ==
PROVIDERS: PCP Internal Medicine; Visit Provider Internal Medicine
DX: E78.5 Hyperlipidemia, unspecified (principal); E03.9 Hypothyroidism, unspecified; I10 Essential (primary) hypertension
CPT/HCPCS: 99214; 99499

== ENCOUNTER 2023-06-12 08:49 | Outpatient (REF) | payer MEDICARE, SELFPAY ==
[2023-06-12 10:34] LABS: Anion Gap 10 (12-20); Blood Urea Nitrogen 23 mg/dL (9-16); Calcium 9.5 mg/dL (8.4-10.2); Carbon Dioxide 26 mmol/L (22-29); Chloride 107 mmol/L (96-108); Cholesterol 235 mg/dL (<200); Estimated Glomerular Filt Rate 42; Glucose Fasting 81 mg/dL (60-99); HDL Cholesterol 58 mg/dL (>40); LDL Cholesterol Calculated 159 mg/dL (<100); Potassium 4.3 mmol/L (3.3-5.1); Sodium 139 mmol/L (135-145); Triglycerides 93 mg/dL (<150)
[2023-06-12 10:44] LABS: Free T4 (Free Thyroxine) 1.01 ng/dL (0.71-1.85); Thyroid Stimulating Hormone 1.14 uIU/mL (0.32-4.0); Vitamin D 25-OH Total 50.3 ng/mL (>30)
[2023-06-12 12:10] LABS: Folate 8.4 ng/mL (> or = 4.0); Vitamin B12 768 pg/mL (200-900)
== END 2023-06-12 08:50 | disposition home or self-care (01) ==
LOC: HO.LAB 08:49
PROVIDERS: PCP Internal Medicine; Visit Provider Internal Medicine
DX: E03.9 Hypothyroidism, unspecified (principal); I12.9 Hypertensive chronic kidney disease with stage 1 through stage 4 chronic kidney disease, or unspecified chronic kidney disease; N18.30 Chronic kidney disease, stage 3 unspecified; E78.5 Hyperlipidemia, unspecified
CPT/HCPCS: 36415; 80048; 80061; 82306; 82607; 82746; 84439; 84443

== ENCOUNTER 2023-06-16 12:50 | Outpatient (AMB) | payer MEDICARE, SELFPAY ==
--- NOTE | 2023-06-16 13:05 | MHC.PC.OV ---
Vital Signs 06/16/23 13:08 Height 5 ft 7 in Weight 140 lb BMI 21.9 BP 114/62 Blood Pressure Location Rt brachial Position Sitting Pulse 86 Pulse Source Pulse Oximeter Pulse Oximetry (%) 94 Oxygen Delivery Method Room Air Intake Visit Reasons: Annual Physical Intake Note: Pt is here today for her PE Allergies codeine [CODEINE] Allergy (Intermediate, Verified 06/16/23 13:14) AGITATION,DEPRESSION meperidine [Demerol] Adverse Reaction (Unknown, Verified 06/16/23 13:14) dizziness Medication List - Last Reconciled 06/16/23 by Yoana Moreno MD atorvastatin 20 mg PO DAILY clobetasol 0.05% grams topical BID levothyroxine 75 mcg PO QAM Tobacco use date assessed: 06/16/23 Fall risk assessment: No Falls in past year Last assessed Fall Risk: 06/16/23 Dental Screening Dental Screen Date: 06/16/23 Did you have a dental visit in the last 12 months?: Yes Did you have a dental problem in the last 6 months where you did not have access to dental care?: No Was dental information given to patient?: Patient has dentist HPI Annual Physical HPI Details 82-year-old lady with hyperlipidemia, hypothyroidism, osteoporosis, with chronic kidney disease stage 3, here today for physical exam. She states that she has been doing well, but notices that she tires easily now , since the pandemic. Prior to the pandemic, she has been taking walks at least a mi or 2 a day, but now she notices that she has to take short breaks , whenever she walks. Denies any chest pain or shortness of breath, no headache or lightheadedness reported. [facility] Medical History RBBB (right bundle branch block) Hypothyroid Gallbladder polyp Right upper quadrant abdominal pain Elevated liver enzymes Bowel obstruction Tubular adenoma of colon History of herpes zoster Hyperlipidemia Essential hypertension Chronic kidney disease, stage 3 Acquired hypothyroidism Osteoporosis Surgical History Hx of small bowel obstruction History of colonoscopy Hx of breast biopsy Family History Father Myocardial infarction Mother HTN (hypertension) Glaucoma Brother HTN (hypertension) Depression Mental health disorder Sister No problems noted. Social History Household Members: None Household Members Other:: Lives in assisted living Housing: Assisted Living Facility Are you a primary emergency care tech to a significant other at home: No Do you presently have visiting nurse or other home services: No Alcohol intake: never Patient Tobacco Use Status: Former Tobacco user Quit Date: 40 yrs ago Tobacco use type: Cigarette Years Smoked: 4 yrs e-Cigarette/Vaping Use: Never Used Second Hand Smoke Exposure: No (hx of) service: No Current occupational status: retired Cognitive needs: No Hearing needs: No Vision needs: Yes Questionnaire PHQ-9 Over the last 2 weeks, how often have you been bothered by any of the following problems? Depression Screening Interpretation: Negative Depression Screening Done: Yes Source: Developed by Drs. Brian Persaud, Lia Silva, Chuy Vallejo and colleagues, with an educational jigar from [employer]. Thrive Questionnaire Date Thrive assessed: 11/28/22 AUDIT C Alcohol Use Questionnaire (AUDIT-C) 1. How often do you have a drink containing alcohol?: Never Total Score: 0 VIOLETA-7 AMB Questionnaire VIOLETA-7 Date VIOLETA - 7 assessed: 11/28/22 Source: Developed by Drs. Brian Persaud, Lia Silva, Chuy Vallejo and colleagues, with an educational jigar from [employer]. Review of Systems Const Denies chills, Denies fever(s), Denies frequent falls, Denies headache(s), Denies poor appetite and Denies weakness Eyes Reports no additional complaints ENT Reports Normal hearing present and Denies headache(s) Card Denies chest pain, Denies rapid heart rate, Denies irregular heart rhythm and Denies palpitations Resp Denies chest congestion, Denies cough, Denies pain on inspiration and Denies wheezing GI Denies abdominal pain, Denies bloating, Denies hematochezia, Denies change in bowel habits, Denies change in stool character and Denies heartburn Reports no additional complaints Musc Denies back pain, Denies arthralgias, Denies joint swelling and Denies numbness Skin/Breast Denies breast pain, Denies breast mass and Denies rash Neuro Reports Normal hearing present, Denies Abnormal speech present, Denies frequent falls, Denies headache(s), Denies numbness and Denies weakness Psych Denies anxiety and Denies depression Endo Denies palpitations Wm/Lymph Reports no additional complaints Aller/Immun Denies wheezing Physical exam (Primary Care) Vital Signs: Last Vital Signs Pulse 86 06/16/23 13:08 BP 114/62 06/16/23 13:08 Pulse Ox 94 06/16/23 13:08 Oxygen Delivery Method Room Air 06/16/23 13:08 BMI result Body Mass Index 21.9 Tobacco/Smoking Status: Tobacco use Status Tobacco use date assessed 06/16/23 06/16/23 13:11 Patient Tobacco Use Status Former Tobacco user 06/16/23 13:06 Tobacco use type Cigarette 06/16/23 13:06 e-Cigarette/Vaping Use Never Used 06/16/23 13:06 Depression Screening Interpretation: Negative Thrive Assessment: Date of Thrive Assessment Date Thrive assessed 11/28/22 06/16/23 13:06 Const General: no acute distress, alert and Physically active Nutritional Appearance: average body habitus Orientation/consciousness: patient oriented x3 HENMT Ears: TM's normal bilaterally and EAC's normal General nose exam: Normal external nose present and No nasal discharge present Face and sinus: Yes face symmetric Mouth: Normal oral and palatal mucosa present and moist mucous membranes Eyes General: appearance normal, both eyes and all related structures Neck Other: Supple, no lymphadenopathy, thyroid gland nonpalpable Resp Auscultation: clear to auscultation bilaterally Cardio Other: S1 and S2 present regular rate and rhythm GI Palpation (GI): Soft to palpation, nontender, no guarding and no masses Auscultation: normal bowel sounds General: Yes no CVA tenderness Back/Spine/Pelvis Back: no CVA tenderness and No back tenderness Skin General skin exam: no rashes or lesions noted and dry skin Neuro General: patient oriented x3 Cranial nerves: Yes Normal hearing present Speech: No Abnormal speech present Extrem General: Yes full ROM, Yes no joint enlargement and Yes no pedal edema Psych Appearance: grossly normal and well kempt Mental Status: mental status grossly normal Speech and movement: Normal speech and movement present Affect: normal affect Attitude: cooperative Thought process: Normal thought process present Results Reviewed Results Reviewed: NTERED: 06/12/[address]: ORDERED: Met Prof Fast, Lipid Panel, Vitamin D 25-OH, Free T4, TSH Test Result Flag Reference Site Sodium 139 135-145 mmol/L Potassium 4.3 3.3-5.1 mmol/L CL 107 96-108 mmol/L CO2 26 22-29 mmol/L Gap 10 L 12-20 BUN 23 H 9-16 mg/dL Creat 1.22 0.5-1.4 mg/dL EGFR 42 NOTE: For -[place] individuals, multiply the result by 1.210. Chronic Kidney Disease: Estimated GFR < 60 mL/min/1.73m2 Severe Kidney Disease: Estimated GFR < 15 mL/min/1.73m2 FBS 81 60-99 mg/dL CA 9.5 8.4-10.2 mg/dL Triglyceride 93 <150 mg/dL Desirable Triglyceride: less than 150 mg/dL Borderline High Triglyceride 150-199 mg/dL High Triglyceride: 200-499 mg/dL Very High Triglyceride: greater than or equal to 5OO mg/dL Cholesterol 235 H <200 mg/dL Desirable Cholesterol: less than 200 mg/dL Borderline High Cholesterol: 200-239 mg/dL High Cholesterol: greater than 239 mg/dL LDL Calculated 159 H <100 mg/dL Desirable LDL: less than 100 mg/dL Near Optimal/Above Optimal LDL: 110-129 mg/dL Borderline High LDL: 130-159 mg/dL High LDL: 160-189 mg/dL Very High LDL: greater than or equal to 190 mg/dL HDL 58 >40 mg/dL Desirable HDL: greater than 40 mg/dL Note: This HDL assay may give artificially low results in patients with liver disease. Vit D 25-OH Tot 50.3 >30 ng/mL Health Based Reference Values* < 20 ng/mL Deficient 20-30 ng/mL Insufficient > 30 ng/mL Sufficient *Gregory ANDRES. N Engl J Med. 2007;[id number] Care must be taken in interpreting Vitamin D results from different laboratories and methodologies. Published data demonstrated that results from patients undergoing hemodialysis may show a negative bias when tested with various automated 25-OH vitamin D assays when compared to LC-MS/MS. When testing samples from patients whose predominant form of Vitamin D is Vitamin D2, such as patients receiving Vitamin D2 supplementation, results that are subtherapeutic should be confirmed with another method such as LC-MS/MS. Free T4 1.01 0.71-1.85 ng/dL TSH 3rd Gen. 1.14 0.32-4.0 uIU/mL TSH 3rd Generation ([facility]) Assessment and Plan Assessment & Plan (1) Annual visit for general adult medical examination with abnormal findings: Code(s): Z00.01 - Encounter for general adult medical examination with abnormal findings Plan: Reviewed with patient recent fasting lab results. Continue with regular dental visit every 6 months and regular eye exams, at least every 2 years. Take adequate calcium in diet and vitamin-D 3 at 2000 IU per cap once a day, in addition to weight-bearing exercises to help maintain good muscle tone and weight control. Advised to get her yearly flu vaccine and COVID booster (2) Chronic kidney disease, stage 3: Comment: followed by Dr Noel Code(s): N18.30 - Chronic kidney disease, stage 3 unspecified Plan: Recent fasting labs showed renal function improving, stressed importance of good control of blood pressure, glucose levels, cholesterol levels (3) Essential hypertension: Code(s): I10 - Essential (primary) hypertension (4) Hyperlipidemia: Code(s): E78.5 - Hyperlipidemia, unspecified Plan: Reviewed recent fasting lipid profile with patient with LDL cholesterol elevated improved from last check however . Continue with atorvastatin 20 mg daily 1 , in addition to adherence to low-cholesterol diet and regular exercise, at least 30 minutes 3 to 4 times a week. Advised patient to make healthy food choices, eat more fruits, vegetables, whole grains, wild caught fish and low-fat dairy. Limit amount of meat and fried or fatty food products, as well as processed foods and fast foods. Follow-up scheduled with repeat fasting lipid panel in 6 months. (5) Acquired hypothyroidism: Code(s): E03.9 - Hypothyroidism, unspecified Plan: Thyroid levels within normal limits, continue on current dose of levothyroxine 75 mcg daily (6) Osteoporosis: Code(s): M81.0 - Age-related osteoporosis without current pathological fracture Qualifiers: Osteoporosis type: age-related Presence of current pathological fracture: without current pathological fracture Qualified Code(s): M81.0 - Age-related osteoporosis without current pathological fracture Plan: Patient declined further treatment Orders: Orders Alanine Aminotransferase 6 Months E03.9 - Hypothyroidism, unspecified, E78.5 - Hyperlipidemia, unspecified, I10 - Essential (primary) hypertension, M81.0 - Age-related osteoporosis without current pathological fracture Thyroid Stimulating Hormone 6 Months E03.9 - Hypothyroidism, unspecified, E78.5 - Hyperlipidemia, unspecified, I10 - Essential (primary) hypertension, M81.0 - Age-related osteoporosis without current pathological fracture Free T4 (Free Thyroxine) 6 Months E03.9 - Hypothyroidism, unspecified, E78.5 - Hyperlipidemia, unspecified, I10 - Essential (primary) hypertension, M81.0 - Age-related osteoporosis without current pathological fracture Aspartate Amino Transferase 6 Months E03.9 - Hypothyroidism, unspecified, E78.5 - Hyperlipidemia, unspecified, I10 - Essential (primary) hypertension, M81.0 - Age-related osteoporosis without current pathological fracture Lipid Panel 6 Months E03.9 - Hypothyroidism, unspecified, E78.5 - Hyperlipidemia, unspecified, I10 - Essential (primary) hypertension, M81.0 - Age-related osteoporosis without current pathological fracture Vitamin D 25-OH Total 6 Months E03.9 - Hypothyroidism, unspecified, E78.5 - Hyperlipidemia, unspecified, I10 - Essential (primary) hypertension, M81.0 - Age-related osteoporosis without current pathological fracture Coding Level of Care Code Est Pt [facility] Care >65y([id number]) Diagnoses Annual visit for general adult medical examination with abnormal findings Z00.01 Chronic kidney disease, stage 3 N18.30 Essential hypertension I10 Hyperlipidemia E78.5 Acquired hypothyroidism E03.9 Age-related osteoporosis without current pathological fracture M81.0 Osteoporosis type: age-related Presence of current pathological fracture: without current pathological fracture
[2023-06-16 13:08] VITALS: BP 114/62; PULSE 86; O2SAT 94; BMI 21.9
== END 2023-06-16 13:43 | disposition home or self-care (01) ==
PROVIDERS: PCP Internal Medicine; Visit Provider Internal Medicine
DX: Z00.00 Encounter for general adult medical examination without abnormal findings (principal); I12.9 Hypertensive chronic kidney disease with stage 1 through stage 4 chronic kidney disease, or unspecified chronic kidney disease; N18.30 Chronic kidney disease, stage 3 unspecified; E78.5 Hyperlipidemia, unspecified; E03.9 Hypothyroidism, unspecified; M81.0 Age-related osteoporosis without current pathological fracture
CPT/HCPCS: 99397

== ENCOUNTER 2023-07-23 18:55 | Inpatient (IN) | payer MEDICARE, SELFPAY ==
--- NOTE | ~2023-07-23 | XR_ITS ---
EXAMINATION: XR RIGHT HIP WITH AP PELVIS XR KNEE, RIGHT CLINICAL INFORMATION: Right knee x-ray. Fall. COMPARISON: Right hip fracture. TECHNIQUE: AP view of the pelvis and a single view of the right hip were obtained. AP and lateral views of the right knee FINDINGS: There is a varus angulated intertrochanteric fracture of the right proximal femur with slight apex anterior angulation. Femoral head remains appropriately situated at the acetabulum. Bones are osteopenic. Mild osteophytes in the hips. Osseous pelvis is otherwise intact. Mild osteoarthritis in the SI joints. Talus and the pelvis. Calcific atherosclerosis in the right common femoral and superficial femoral arteries. No fracture or malalignment at the right knee. Bone mineralization is normal. No effusion. XR/XR knee RT 2V IMPRESSION: 1. Acute varus-angulated intertrochanteric fracture of the right proximal femur. 2. No acute fracture or malalignment at the right knee.
--- NOTE | ~2023-07-23 | XR_ITS ---
EXAMINATION: XR RIGHT HIP WITH AP PELVIS XR KNEE, RIGHT CLINICAL INFORMATION: Right knee x-ray. Fall. COMPARISON: Right hip fracture. TECHNIQUE: AP view of the pelvis and a single view of the right hip were obtained. AP and lateral views of the right knee FINDINGS: There is a varus angulated intertrochanteric fracture of the right proximal femur with slight apex anterior angulation. Femoral head remains appropriately situated at the acetabulum. Bones are osteopenic. Mild osteophytes in the hips. Osseous pelvis is otherwise intact. Mild osteoarthritis in the SI joints. Talus and the pelvis. Calcific atherosclerosis in the right common femoral and superficial femoral arteries. No fracture or malalignment at the right knee. Bone mineralization is normal. No effusion. XR/XR hip RT w [id number] IMPRESSION: 1. Acute varus-angulated intertrochanteric fracture of the right proximal femur. 2. No acute fracture or malalignment at the right knee.
--- NOTE | ~2023-07-23 | CT_ITS ---
EXAMINATION: CT CHEST, ABDOMEN AND PELVIS WITHOUT CONTRAST. CLINICAL INFORMATION: Fall. COMPARISON: CT chest, abdomen and pelvis 11/02/2020. TECHNIQUE: Multidetector volumetric imaging was performed from the thoracic inlet through the pubic symphysis without IV contrast. Sagittal and coronal reformatted images were obtained on the technologist's workstation. This CT examination was performed using dose optimization techniques as appropriate, variously including the following: *Automated exposure control *Adjustment of mA and/or kV according to patient size (this includes techniques or standardized protocols for targeted exams where dose is matched to indication/reason for exam; i.e. extremities or head) *Use of iterative reconstruction technique DLP: 195 and 770 mGy-cm FINDINGS: Limited noncontrast examination. CHEST: Lung: Increased bronchial wall thickening, bronchiectasis and mucus impaction compared to 11/02/2020. New irregular airspace opacity surrounding bronchiectasis in the left lower lobe measuring approximately up to 2.5 cm (29:239). Multiple new areas of tree-in-bud nodularities and worsened septal thickening, for example in the right upper lobe (29:131), and left upper lobe (29:170). Multiple new solid bilateral pulmonary nodules, largest measuring 0.9 cm in the right lower lobe (29:324 and 29:295). Background of emphysematous changes. Similar prominent biapical subpleural thickening/scarring. Central airways are patent. Mediastinum: Normal heart size. Multivessel coronary artery calcifications. No pericardial effusion. No hilar or mediastinal lymphadenopathy. Normal thyroid gland. Pericardium/Pleura: No pleural effusion or pneumothorax. Chest Wall/Axilla: No lymphadenopathy by size criteria. ABDOMEN/PELVIS: Peritoneal Space: No free air or free fluid. Liver, Gallbladder, Biliary Tree: The liver is normal in size, shape, and attenuation. Stable cysts as well as a stable too small to characterize hypodensity in the left lobe. No biliary ductal dilatation is present. Cholecystectomy. Pancreas: Unremarkable. Spleen: Unremarkable. Adrenal Glands: Unremarkable. Kidneys and Ureters: The kidneys are normal in size, shape, and attenuation. No hydronephrosis, hydroureter, or calculi seen. No perinephric stranding. Bladder: Unremarkable. Gastrointestinal Tract: Small hiatal hernia. The stomach and the small bowel are nondilated. Normal appendix. Colonic diverticulosis without significant pericolonic fat stranding or free fluid. No bowel obstruction. Abdominal Wall: No significant hernia is appreciated. Lymphovascular Structures: No lymphadenopathy by size criteria. Atherosclerotic disease. Normal caliber abdominal aorta. Pelvic Viscera: Unremarkable. Osseous Structures: Decreased bone mineralization. Comminuted displaced, impacted right femoral intertrochanteric fracture. No displaced rib fractures. No scapulary or sternal fracture. No evidence of acute compression deformity or traumatic subluxation in the thoracolumbar spine. Degenerative changes of the spine. CT/CT abdomen pelvis wo IV con IMPRESSION: 1. Comminuted displaced, impacted right femoral intertrochanteric fracture. 2. No additional evidence of acute traumatic sequela in this limited noncontrast examination. 3. Complex appearance of the lungs with worsening bronchiectasis, mucus impaction and several new airspace opacities with a dominant quite irregular opacity in the left lower lobe measuring up to 2.5 cm on axial dimensions. There are also several new bilateral pulmonary nodules largest measuring 0.9 cm in the right lower lobe, some nodules are located in the upper lobes. Constellation of findings are suspicious for an infectious/inflammatory etiology, although underlying malignancy cannot be excluded. According to the UPDATED 2017 Fleischner Society recommendations, the advised follow-up imaging for multiple solid nodules with the largest measuring greater than [address] consideration of CT at 3 months, PET/CT, or tissue sampling as clinically appropriate if nodules are located in the upper lobe and/or demostrate suspicious morphology. In high risk patients, subsequent CT follow-up at 18 to 24 months is recommended. In low-risk patients, subsequent CT follow-up at 18 to 24 months is optional. 4. Colonic diverticulosis but no evidence of acute diverticulitis. 5. Small hiatal hernia.
--- NOTE | ~2023-07-23 | FL_ITS ---
EXAMINATION: XR FLUOROSCOPY WITH IMAGES CLINICAL INFORMATION: Fracture COMPARISON: Previous right hip x-ray 07/23/2023 TECHNIQUE: Fluoroscopy Supervised By: Dr Tran Fluoroscopy Time: 0.7 minutes. Cumulative Dose: 26 mGy. DAP: 0.5 Gycm2. Images: 4. FINDINGS: Fluoroscopy guidance provided for intramedullary slime and proximal compression/lag screw and distal cortical transfixing the right femoral intertrochanteric fracture. There is improved alignment. FL/FL guidance in OR IMPRESSION: Fluoroscopy guidance for ORIF of right femoral intertrochanteric fracture.
--- NOTE | ~2023-07-23 | CT_ITS ---
EXAMINATION: CT HEAD WITHOUT CONTRAST CT CERVICAL SPINE WITHOUT CONTRAST CLINICAL INFORMATION: Fall. COMPARISON: None TECHNIQUE: Contiguous axial imaging was performed from the skull base to vertex without intravenous administration of contrast. Contiguous axial imaging was performed from the upper chest through the skull base without intravenous administration of contrast. Coronal and sagittal reformats were obtained at the acquisition workstation. This CT examination was performed using dose optimization techniques as appropriate, variously including the following: *Automated exposure control *Adjustment of mA and/or kV according to patient size (this includes techniques or standardized protocols for targeted exams where dose is matched to indication/reason for exam; i.e. extremities or head) *Use of iterative reconstruction technique DLP: 594 and 234 mGy-cm FINDINGS: Head: There is no evidence of acute intracranial hemorrhage or edematous territorial infarction. Scattered hypoattenuation in the periventricular and deep white matter are consistent with moderate microangiopathy. Bermudez-white matter differentiation is preserved. Proportional prominence of the ventricles and sulcal spaces. No evidence for obstructive hydrocephalus. No abnormal mass effect or midline shift. No extra-axial fluid collections. No acute soft tissue or osseous abnormalities. The mastoid air cells and paranasal sinuses are clear. Cervical Spine: The atlantooccipital and atlantoaxial articulations remain well aligned. No evidence of acute compression deformity or traumatic subluxation. Moderate multilevel cervical spondylosis with intervertebral disc height loss, osteophyte complexes and facet/uncal hypertrophy leading to various degrees of neural foraminal encroachment. No prevertebral soft tissue swelling. The thyroid gland and remaining cervical soft tissues are normal in appearance. The lung apices demonstrate biapical subpleural thickening/scarring and emphysema. CT/CT cervical spine wo IV con IMPRESSION: No edematous territorial infarction or intracranial bleed. No extra-axial collection. Background of microangiopathy and generalized volume loss. No acute cervical spinal fracture or traumatic subluxation. Moderate multilevel cervical spondylosis.
[2023-07-23 19:25] VITALS: BP 148/80; PULSE 82; PULSE 92; RESP 16; TEMP 36.4; O2SAT 95; BMI 23.0
[2023-07-23 19:30] VITALS: BP 157/80; PULSE 82; RESP 16; TEMP 36.4; O2SAT 96
--- NOTE | 2023-07-23 19:35 | ED_ITS ---
HPI - General Adult General Chief complaint: Fall Stated complaint: fall Time Seen by Provider: 07/23/23 19:22 Source: patient Mode of arrival: ambulatory Limitations: no limitations History of Present Illness HPI narrative: 82 yold female presents to the ED for right hip and right knee pain. Patient states an hour ago she was sitting at the edge of the bed trying to take her pants when she slipped from the bed and fell directly unto her right hip. patient states she fell unto sittting position unto the right knee. patient denies hitting head, neck, chest, abdomen, or back. Patient states fell unto right hip. patient states also right knee pain. Related Data Home Medications Medication Instructions Recorded Confirmed levothyroxine 75 mcg tablet 75 mcg PO DAILY 07/24/23 07/24/23 (Synthroid) Previous Rx's Medication Instructions Recorded atorvastatin 20 mg tablet 20 mg PO DAILY #90 tabs 04/21/23 Allergies Allergy/AdvReac Type Severity Reaction Status Date / Time codeine [CODEINE] Allergy Intermediate AGITATION,D Verified 07/23/23 19:24 EPRESSION meperidine [Demerol] AdvReac Unknown dizziness Verified 07/23/23 19:24 Review of Systems 2 Review of Systems: Right hip pain Yes all other systems are reviewed and are negative PMFSH Past Medical History Medical History RBBB (right bundle branch block) Hypothyroid Gallbladder polyp Right upper quadrant abdominal pain Elevated liver enzymes Bowel obstruction Tubular adenoma of colon History of herpes zoster Hyperlipidemia Essential hypertension Chronic kidney disease, stage 3 Acquired hypothyroidism Osteoporosis Surgical History Hx of small bowel obstruction History of colonoscopy Hx of breast biopsy Family History Family History Father Myocardial infarction Mother HTN (hypertension) Glaucoma Brother HTN (hypertension) Depression Mental health disorder Sister No problems noted. Social History Social History Household Members: None Household Members Other:: Lives in assisted living Housing: Apartment Housing Other:: [facility] Are you a primary personal care attendant to a significant other at home: No Do you presently have visiting nurse or other home services: No Alcohol intake: never Patient Tobacco Use Status: Former Tobacco user Quit Date: 1992 Tobacco use type: Cigarette Years Smoked: 4 yrs e-Cigarette/Vaping Use: Never Used Second Hand Smoke Exposure: No (hx of) Advance Directives Date on File: 03/07/22 service: No Current occupational status: retired Cognitive needs: No Hearing needs: No Vision needs: Yes Physical Exam ED Vital Signs: Vital Signs - 24 hr 07/23/23 19:25 07/23/23 19:30 Temperature 97.5 F 97.5 F Pulse Rate 82 82 Respiratory Rate 16 16 Blood Pressure 157/80 H Pulse Oximetry 95 96 Oxygen Delivery Method Room Air Room Air BMI result Body Mass Index 23.0 Const General: cooperative, healthy appearing, comfortable, no acute distress, well developed, alert, awake and Physically active Orientation/consciousness: oriented to person, oriented to place, oriented to time and patient oriented x3 HENMT Head: Yes normal to inspection, Yes No palpable skull fracture present, Yes normocephalic, Yes atraumatic and No abrasion Ears: hearing grossly normal bilaterally, external ears normal, TM's normal bilaterally, TM normal on the right, TM normal on the left, EAC's normal, mastoids normal and no periauricular adenopathy Throat: Yes posterior oropharynx normal, Yes tonsils normal and Yes uvula midline Eyes General: appearance normal, both eyes and all related structures Neck Neck: Yes normal visual inspection, Yes full ROM, Yes no lymphadenopathy, Yes no meningeal signs, Yes trachea midline, Yes supple, No anterior neck swelling and No tender Chest Chest palpation & inspection: normal inspection of the chest and normal palpation of entire chest wall Resp Effort & Inspection: normal respiratory effort and able to speak in complete sentences Auscultation: clear to auscultation bilaterally Cardio Jugular venous distension: no JVD Heart sounds: S1 normal heart sound present and S2 normal heart sound present GI Inspection: Yes normal to inspection and No abdominal wall ecchymosis Palpation (GI): Soft to palpation, not firm, nontender, no guarding and not rigid General: No CVA tenderness and Yes no CVA tenderness Back/Spine/Pelvis Back: no CVA tenderness, No CVA tenderness and No back tenderness Skin General skin exam: no rashes or lesions noted and elasticity normal Neuro General: oriented to person, oriented to place, oriented to time, patient oriented x3, tone normal, Normal light touch and pain sensation, no meningeal signs, no focal motor deficits, CN's II-XI intact bilaterally and normal sensation to monofilament Extrem General: Yes normal to inspection and Yes full ROM Upper/lower leg/hip images: 2 1. positive for tenderness on palpation. more pulse intact. Negative for crepitus. negative erythema. positive for right foot external rotation. Vascular and neuro exam is intact. Psych Appearance: grossly normal, well kempt and not disheveled Medications Administered Generic Name Dose Route Start Last Admin Trade Name Freq PRN Reason Stop Dose Admin Sodium Chloride 1,000 mls @ 100 mls/hr 07/24/23 07:30 07/24/23 07:28 Ns IVCONT 100 mls/hr .Q10H NAS Administration Levothyroxine Sodium 75 mcg 07/24/23 07:35 07/24/23 08:26 Levothyroxine Sodium 75 Mcg Tablet PO 75 mcg DAILY@0600 NAS Administration Morphine Sulfate 4 mg 07/24/23 00:02 07/24/23 00:33 Morphine Sulfate 4 Mg/Ml Cartridge IVPUSH 4 mg Q4H PRN Administration Pain, Severe (Pain Scale 7-10) Protocol Ondansetron HCl 4 mg 07/23/23 22:37 07/24/23 07:30 Ondansetron Hcl 4 Mg/2 Ml Vial IVPUSH 4 mg Q8H PRN Administration Nausea and Vomiting Sodium Chloride 3 ml 07/24/23 00:00 07/24/23 07:29 0.9 % Sodium Chloride Flush 3 Ml Syringe IVFLUSH 3 ml QSHIFT [facility] Administration Discontinued Medications Generic Name Dose Route Start Last Admin Trade Name Freq PRN Reason Stop Dose Admin Acetaminophen 975 mg 07/23/23 19:33 07/23/23 19:53 Acetaminophen 325 Mg Tablet PO 07/23/23 19:34 975 mg ONCE ONE Administration Hydromorphone HCl 1.5 mg 07/24/23 03:11 07/24/23 03:31 Hydromorphone Hcl 2 Mg/Ml Vial IVPUSH 07/24/23 03:12 1 mg ONCE ONE Administration Protocol Sodium Chloride 1,000 mls @ 999 mls/hr 07/23/23 19:33 07/23/23 23:22 Ns IV 07/23/23 20:33 Infused .Q1H1M STA Infusion Morphine Sulfate 2 mg 07/23/23 22:37 07/23/23 23:21 Morphine Sulfate 4 Mg/Ml Cartridge IVPUSH 2 mg Q4H PRN Administration Pain, Severe (Pain Scale 7-10) Protocol Medical Decision Making Medical Decision Making [facility] Narrative: 82-year-old female who states she has no past medical history presents to ED for right hip pain and right lower extremity foot rotation after fall. Patient denies hitting head. Patient denies trauma to upper part of her body pain. labs drawn, right hip and right knee x-ray ordered. 11:30pm: Patient admitted for femoral fracture. patient has mild CARMELITA. Case discussed with Orthopedic Alphonse who recommends patient being admitted for femoral fracture to medicine team and they will follow. patient should NPO. Case discussed with Dr. Barros [facility] for admissions. Differential Diagnosis Differential Diagnoses: The differential diagnosis associated with the presentation includes (femoral fracture, hip fracture, brain bleed, pneumothorax) Admission/Observation Consideration of admission/observation: Escalation of care including admission/observation considered Consult Healthcare Provider Management of the patient was discussed with: Hospitalist (Dr. Barros) and Mold Washer (Orthopedic IVÁN Benoit) Lab Data [facility] Lab Attestation statement: I reviewed the patient's lab results. 07/24/23 08:02 07/24/23 08:02 Labs: Lab Results 07/23/23 Range/Units 19:44 WBC 7.1 (4.8-10.8) X10*3/uL RBC 4.32 (4.20-5.50) X10*6/uL Hgb 13.0 (12.0-16.0) g/dl Hct 39.9 (37.0-47.0) % MCV 92.4 (80.0-98.0) fL MCH 30.1 (27.0-33.0) pg MCHC 32.6 (31.0-35.0) g/dl RDW 12.9 (11.0-16.0) % Plt Count 257 (160-400) X10*3/uL MPV 9.5 (9.4-12.3) fL Immature Gran % (Auto) 0.3 (0.0-0.4) % Neut % (Auto) 73.5 H (45-73) % Lymph % (Auto) 16.0 L (20-40) % Dawes % (Auto) 8.2 (2-11) % Eos % (Auto) 1.3 (0-4) % Baso % (Auto) 0.7 (0-2) % Lymph # (Auto) 1.1 L (1.2-4.9) X10*3/uL Dawes # (Auto) 0.6 (0.1-1.2) X10*3/uL Eos # (Auto) 0.1 (0.0-0.4) X10*3/uL Baso # (Auto) 0.1 (0.0-0.2) X10*3/uL Abs Immat Gran (auto) 0.02 (0.00-0.03) X10*3/uL Absolute Neuts (auto) 5.2 (2.0-8.3) x10*3/uL Absolute Nucleated RBC 0.000 (0.0-0.012) X10*3/uL Nucleated RBC % (auto) 0.0 (0.0-0.2) /100WBC Sodium 138 (135-145) mmol/L Potassium 4.1 (3.3-5.1) mmol/L Chloride 106 (96-108) mmol/L Carbon Dioxide 22 (22-29) mmol/L Anion Gap 14 (12-20) BUN 27 H (9-16) mg/dL Creatinine 1.59 H (0.5-1.4) mg/dL Estim Creat Clear Calc 25.6 Estimated GFR 31 Random Glucose 114 (60-115) mg/dL Calcium 9.3 (8.4-10.2) mg/dL Total Bilirubin 0.2 (0.0-1.0) mg/dL AST 21 (5-31) U/L ALT 14 (0-31) U/L Alkaline Phosphatase 64 (39-117) U/L Total Protein 7.5 (6.5-8.0) g/dL Albumin 3.8 (3.5-5.0) g/dL Independent Interpretation I performed an independent interpretation of an: Plain X-Ray and CT Scan Radiology Impression Discussion of test interpretation with radiology: I have reviewed the radiologist's reading. External Record Review External record reviewed: Other (Prior Visits) Discharge Plan Discharge Clinical Impression: CARMELITA (acute kidney injury) Intertrochanteric fracture of right femur Qualifiers: Encounter type: initial encounter Fracture type: closed Fracture alignment: n ondisplaced Qualified Code(s): S72.144A - Nondisplaced intertrochanteric fracture of right femur, initial encounter for closed fracture Patient Disposition: Admitted As Inpatient Discharge Date/Time: 07/24/23 02:46
[2023-07-23 19:49] LABS: MANUAL DIFF FLAG NO
[2023-07-23] MEDS: 0.9 % Sodium Chloride 1,000 ML 999 ML IV (19:52)
[2023-07-23] MEDS: Acetaminophen 325 MG TABLET 975 MG PO (19:53)
[2023-07-23 19:54] LABS: Basophils Absolute Auto 0.1 X10*3/uL (0.0-0.2); Basophils Percent Auto 0.7 % (0-2); Eosinophils Absolute Auto 0.1 X10*3/uL (0.0-0.4); Eosinophils Percent Auto 1.3 % (0-4); Hematocrit 39.9 % (37.0-47.0); Imm Gran Abs Auto 0.02 X10*3/uL (0.00-0.03); Imm Gran Pct Auto 0.3 % (0.0-0.4); Lymphocytes Absolute Auto 1.1 X10*3/uL (1.2-4.9); Mean Corpuscular HGB Conc 32.6 g/dl (31.0-35.0); Mean Corpuscular Hemoglobin 30.1 pg (27.0-33.0); Mean Corpuscular Volume 92.4 fL (80.0-98.0); Mean Platelet Volume 9.5 fL (9.4-12.3); Monocytes Absolute Auto 0.6 X10*3/uL (0.1-1.2); Monocytes Percent Auto 8.2 % (2-11); Neutrophils Absolute Auto 5.2 x10*3/uL (2.0-8.3); Neutrophils Percent Auto 73.5 % (45-73); Platelet Count 257 X10*3/uL (160-400); Red Blood Count 4.32 X10*6/uL (4.20-5.50); Red Cell Distribution Width 12.9 % (11.0-16.0); White Blood Count 7.1 X10*3/uL (4.8-10.8)
[2023-07-23 20:06] LABS: Alanine Aminotransferase 14 U/L (0-31); Albumin Level 3.8 g/dL (3.5-5.0); Alkaline Phosphatase 64 U/L (39-117); Anion Gap 14 (12-20); Aspartate Amino Transferase 21 U/L (5-31); Bilirubin Total 0.2 mg/dL (0.0-1.0); Blood Urea Nitrogen 27 mg/dL (9-16); Calcium 9.3 mg/dL (8.4-10.2); Carbon Dioxide 22 mmol/L (22-29); Chloride 106 mmol/L (96-108); Creatinine Clr Calc Pharmacy 25.6; Estimated Glomerular Filt Rate 31; Glucose Random 114 mg/dL (60-115); Potassium 4.1 mmol/L (3.3-5.1); Sodium 138 mmol/L (135-145); Total Protein 7.5 g/dL (6.5-8.0)
--- NOTE | 2023-07-23 22:39 | P.HPHOSP_ITS ---
History of Present Illness Date of Service: 07/23/23 Chief Complaint: Fall This is a 82-year-old female with pertinent history of hypothyroidism, mixed hyperlipidemia, chronic kidney disease who presents to the emergency department for evaluation after a fall. Patient states as she was trying to sit on her bed, she slipped and fell, landing on to her right hip. Did not lose consciousness or get dizzy or lightheaded prior to the fall. No chest pain or palpitations prior to the fall. No jerking movement of extremities or tongue bite. Patient denies hitting her head. Not on any blood thinners. No fever, chills, chest discomfort, shortness of breath, abdominal pain, changes in urinary or bowel habits. In the emergency department, imaging with right femoral intertrochanteric fracture. Orthopedic surgery was consulted who requested admission. Review of Systems 2 Constitutional: Constitutional: Reports no additional constitutional complaints Cardiovascular: Cardiovascular: Reports no additional cardiovascular complaints Respiratory: Respiratory: Reports no additional respiratory complaints Gastrointestinal: Gastrointestinal: Reports no additional gastrointestinal complaints Genitourinary: Genitourinary: Reports no additional female genitourinary complaints Musculoskeletal: Musculoskeletal: Reports arthralgias and Reports joint swelling [facility] Medical History RBBB (right bundle branch block) Hypothyroid Gallbladder polyp Right upper quadrant abdominal pain Elevated liver enzymes Bowel obstruction Tubular adenoma of colon History of herpes zoster Hyperlipidemia Essential hypertension Chronic kidney disease, stage 3 Acquired hypothyroidism Osteoporosis Family History Father Myocardial infarction Mother HTN (hypertension) Glaucoma Brother HTN (hypertension) Depression Mental health disorder Sister No problems noted. Surgical History Hx of small bowel obstruction History of colonoscopy Hx of breast biopsy Social History Household Members: None Household Members Other:: Lives in assisted living Housing: Assisted Living Facility Are you a primary career development facilitator to a significant other at home: No Do you presently have visiting nurse or other home services: No Alcohol intake: never Patient Tobacco Use Status: Former Tobacco user Quit Date: 40 yrs ago Tobacco use type: Cigarette Years Smoked: 4 yrs e-Cigarette/Vaping Use: Never Used Second Hand Smoke Exposure: No (hx of) Advance Directives: Yes Advance Directives on File: Yes Advance Directives Date on File: 03/07/22 service: No Current occupational status: retired Cognitive needs: No Hearing needs: No Vision needs: Yes Meds Allergies Allergy/AdvReac Type Severity Reaction Status Date / Time codeine [CODEINE] Allergy Intermediate AGITATION,D Verified 07/23/23 19:24 EPRESSION meperidine [Demerol] AdvReac Unknown dizziness Verified 07/23/23 19:24 Home Medications Medication Instructions Recorded Confirmed Last Taken Type clobetasol 0.05 % topical cream g topical BID 06/29/20 03/15/23 Unknown History Physical Exam 2 Vital Signs and Narrative: Vital Signs: Last Vital Signs Temp 97.5 F 07/23/23 19:30 Pulse 82 07/23/23 19:30 Resp 16 07/23/23 19:30 BP 157/80 H 07/23/23 19:30 Pulse Ox 96 07/23/23 19:30 O2 Del Method Room Air 07/23/23 19:30 BMI result Body Mass Index 23.0 Elderly female lying in bed in no distress Neck supple, no JVD Regular rate and rhythm, S1-S2 heard Regular breath sounds bilaterally, no wheezing or crackles appreciated Abdomen soft nontender, no guarding, no rigidity Patient is awake, alert and oriented to self, place, time and person ; no focal motor deficit Musculoskeletal: Right lower extremity limited movement due to pain Psych: Normal mood No pedal edema Results Labs 07/23/23 19:44 07/23/23 19:44 Labs: Laboratory Results - last 24 hr 07/23/23 19:44 MCV 92.4 MCH 30.1 MCHC 32.6 RDW 12.9 Plt Count 257 MPV 9.5 Immature Gran % (Auto) 0.3 Neut % (Auto) 73.5 H Lymph % (Auto) 16.0 L King % (Auto) 8.2 Eos % (Auto) 1.3 Baso % (Auto) 0.7 Lymph # (Auto) 1.1 L King # (Auto) 0.6 Eos # (Auto) 0.1 Baso # (Auto) 0.1 Abs Immat Gran (auto) 0.02 Absolute Neuts (auto) 5.2 Absolute Nucleated RBC 0.000 Nucleated RBC % (auto) 0.0 Anion Gap 14 Estim Creat Clear Calc 25.6 Estimated GFR 31 Random Glucose 114 Calcium 9.3 Total Bilirubin 0.2 AST 21 ALT 14 Alkaline Phosphatase 64 Total Protein 7.5 Albumin 3.8 Imaging Radiologist's Impressions: Impressions Hip/Pelvis X-Ray 07/23/23 20:29 IMPRESSION: 1. Acute varus-angulated intertrochanteric fracture of the right proximal femur. 2. No acute fracture or malalignment at the right knee. Knee X-Ray 07/23/23 20:29 IMPRESSION: 1. Acute varus-angulated intertrochanteric fracture of the right proximal femur. 2. No acute fracture or malalignment at the right knee. Abdomen/Pelvis CT 07/23/23 20:36 IMPRESSION: 1. Comminuted displaced, impacted right femoral intertrochanteric fracture. 2. No additional evidence of acute traumatic sequela in this limited noncontrast examination. 3. Complex appearance of the lungs with worsening bronchiectasis, mucus impaction and several new airspace opacities with a dominant quite irregular opacity in the left lower lobe measuring up to 2.5 cm on axial dimensions. There are also several new bilateral pulmonary nodules largest measuring 0.9 cm in the right lower lobe, some nodules are located in the upper lobes. Constellation of findings are suspicious for an infectious/inflammatory etiology, although underlying malignancy cannot be excluded. According to the UPDATED 2017 Fleischner Society recommendations, the advised follow-up imaging for multiple solid nodules with the largest measuring greater than [address] at 3 months, PET/CT, or tissue sampling as clinically appropriate if nodules are located in the upper lobe and/or demostrate suspicious morphology. In high risk patients, subsequent CT follow-up at 18 to 24 months is recommended. In low-risk patients, subsequent CT follow-up at 18 to 24 months is optional. 4. Colonic diverticulosis but no evidence of acute diverticulitis. 5. Small hiatal hernia. Cervical Spine CT 07/23/23 20:36 IMPRESSION: No edematous territorial infarction or intracranial bleed. No extra-axial collection. Background of microangiopathy and generalized volume loss. No acute cervical spinal fracture or traumatic subluxation. Moderate multilevel cervical spondylosis. Chest CT 07/23/23 20:36 IMPRESSION: 1. Comminuted displaced, impacted right femoral intertrochanteric fracture. 2. No additional evidence of acute traumatic sequela in this limited noncontrast examination. 3. Complex appearance of the lungs with worsening bronchiectasis, mucus impaction and several new airspace opacities with a dominant quite irregular opacity in the left lower lobe measuring up to 2.5 cm on axial dimensions. There are also several new bilateral pulmonary nodules largest measuring 0.9 cm in the right lower lobe, some nodules are located in the upper lobes. Constellation of findings are suspicious for an infectious/inflammatory etiology, although underlying malignancy cannot be excluded. According to the UPDATED 2017 Fleischner Society recommendations, the advised follow-up imaging for multiple solid nodules with the largest measuring greater than [address] at 3 months, PET/CT, or tissue sampling as clinically appropriate if nodules are located in the upper lobe and/or demostrate suspicious morphology. In high risk patients, subsequent CT follow-up at 18 to 24 months is recommended. In low-risk patients, subsequent CT follow-up at 18 to 24 months is optional. 4. Colonic diverticulosis but no evidence of acute diverticulitis. 5. Small hiatal hernia. Head CT 07/23/23 20:36 IMPRESSION: No edematous territorial infarction or intracranial bleed. No extra-axial collection. Background of microangiopathy and generalized volume loss. No acute cervical spinal fracture or traumatic subluxation. Moderate multilevel cervical spondylosis. Assessment and Plan (1) Fracture, intertrochanteric, right femur: Status: Acute Plan This is a 82-year-old female with pertinent history of hypothyroidism, mixed hyperlipidemia, chronic kidney disease who presents to the emergency department for evaluation after a fall. #. Right femur intertrochanteric fracture, displaced: Due to mechanical fall. Will admit patient and initiate IV opioids p.r.n. for symptomatic relief. Consulting orthopedic surgery, appreciate assistance. Will keep patient NPO #. Preoperative risk: RCRI score 0 #. Imaging with left lower lobe opacity: Patient without cough, dyspnea, fever or chills. Outpatient follow-up #. Chronic kidney disease: Monitor creatinine and urine output. Avoid nephrotoxins #. Hypothyroidism: On Synthroid Med rec pending DVT prophylaxis: Hold Lovenox until Orthopedic surgery evaluation Admit as inpatient and will require two night minimum hospital stay for treatment and evaluation by Orthopedic surgery for intertrochanteric fracture (as above), which is not possible in a lesser acute setting. Will likely need OR, specialist consult pending Quality Stroke Does the patient have a stroke diagnosis?: No VTE Prior VTE?: No VTE Risk Level:: Medical - moderate - high VTE Device Contraindication: Treatment Not Indicated VTE Drug Contraindication: Treatment Not Indicated
[2023-07-23 23:06] VITALS: BP 166/84; PULSE 82; RESP 18; O2SAT 92
[2023-07-23] MEDS: 0.9 % Sodium Chloride Flush 3 ML SYRINGE IVFLUSH (23:21)
[2023-07-23] MEDS: Morphine Sulfate 4 MG/ML CARTRIDGE 2 MG IVPUSH (23:21)
[2023-07-24] VITALS (18 sets, daily range): BP systolic 127–190; BP diastolic 45–99; PULSE 72–95; RESP 12–18; TEMP 36–37.2; O2SAT 95–100; BMI 21.9
[2023-07-24] MEDS: Morphine Sulfate 4 MG/ML CARTRIDGE IVPUSH (00:33)
[2023-07-24] MEDS: HYDROmorphone HCl 2 MG/ML VIAL 1.5 MG IVPUSH (03:31)
--- NOTE | 2023-07-24 04:32 | PC.NURSE ---
PATIENT ADMITTED TO [place] [id number] VIA STRETCHER FROM ED SETTING AT 0250, DX; RT FEMORAL FRACTURE, NPO STATUS, RIGHT LEG NOTED SHORTER AND EXTERNALLY ROTATED. PT IS ALERT AND ORIENTED, SKIN INTACT, HOWEVER, BRUISE NOTED LEFT WRIST AND REDNESS TO BILAT ABD FROM WHICH APPEARS TO BE FROM EKG TABS. NOTED AFTER TRANSFER FROM STRETCHER AND SETTLED INTO BED, PTS PAIN 8/10. NOTE SENT TO HOSPITALIST ON DUTY FOR PAIN MANAGEMENT AND LAST DOSE MORPHINE IN ED WAS 0030. RECEIVED ORDER FOR ONE TIME DILAUDID 1.5 MG IVP, CLARIFIED DOSE WITH MD. WHEN ADMINISTERING AND EXPLAINING TO PT, DOSE AND PAIN LEVEL, FIRST TIME RECEIVING, DECIDED TO TRY JUST 1MG AND MONITOR EFFECTIVENESS, GIVEN AT 0335. REASSESSMENT AT 0355 FOUND PT ASLEEP, SHE WAS AWAKENED, APPROPRIATE, VERBALIZED PAIN WAS ZERO. WILL WASTE REMAINDER, CHARGE NURSE AWARE AND AGREEABLE. WILL CONTINUE TO MONITOR, VSS, HFR PROTOCOL INITIATED UPON ADMISSION, CALL ELLIS AND BED CONTROLS EXPLAINED
[2023-07-24] MEDS: 0.9 % Sodium Chloride 1,000 ML 100 ML IVCONT (07:28)
--- NOTE | 2023-07-24 07:28 | P.HPOP_ITS ---
History of Present Illness History of Present Illness Date of Service: 07/24/23 Chief complaint: fall Narrative: Josephine Gutierrez is a 82 year old female with pertinent history of hypothyroidism, mixed hyperlipidemia, chronic kidney disease who presents to the emergency department for evaluation after a fall. Patient states as she was trying to sit on her bed, she slipped and fell, landing on to her right hip. She reports that she had immediate hip pain and was unable to weightbear. She was transported to the ED where x-rays were obtained and she was found to have a right hip intertrochanteric fracture. She was admitted to the medicine service with orthopedic consult for further evaluation and treatment. Review of Systems 2 Review of Systems: Yes all other systems are reviewed and are negative PMFSH Past Medical History Medical History RBBB (right bundle branch block) Hypothyroid Gallbladder polyp Right upper quadrant abdominal pain Elevated liver enzymes Bowel obstruction Tubular adenoma of colon History of herpes zoster Hyperlipidemia Essential hypertension Chronic kidney disease, stage 3 Acquired hypothyroidism Osteoporosis Family History Family History Father Myocardial infarction Mother HTN (hypertension) Glaucoma Brother HTN (hypertension) Depression Mental health disorder Sister No problems noted. Surgical History Surgical History Hx of small bowel obstruction History of colonoscopy Hx of breast biopsy Social History Social History Household Members: None Household Members Other:: Lives in assisted living Housing: Apartment Housing Other:: [facility] independent living Are you a primary careers adviser to a significant other at home: No Do you presently have visiting nurse or other home services: No Alcohol intake: never Patient Tobacco Use Status: Former Tobacco user Quit Date: 1992 Tobacco use type: Cigarette Years Smoked: 4 yrs Smoked in Last 30 Days: No e-Cigarette/Vaping Use: Never Used Patient Interested in Nicotine Replacement: No Second Hand Smoke Exposure: No (hx of) Use of substances other than those prescribed or required for medical reasons: No Have you been hit, kicked, punched, or otherwise hurt by someone within the past year? If so, by whom?: No Do you feel safe in your current relationship?: No Current Relationship Is there a partner from a previous relationship who is making you feel unsafe now?: No Are you made to feel afraid or neglected: No Advance Directives: Yes Advance Directives on File: Yes Advance Directives Date on File: 03/07/22 Do you have thoughts of harming others: None Do you have a plan to hurt others: No Plan Recently lost weight without trying: No How much weight loss: Not applicable Eating poorly because of decreased appetite: No Nutrition screen score: 0 Nutrition Risks: No Nutritional Risk Patient : No : No Poor oral hygiene: No service: No Current occupational status: retired Cognitive needs: No Hearing needs: No Vision needs: Yes Meds Allergies Allergy/AdvReac Type Severity Reaction Status Date / Time codeine [CODEINE] Allergy Intermediate AGITATION,D Verified 07/23/23 19:24 EPRESSION meperidine [Demerol] AdvReac Unknown dizziness Verified 07/23/23 19:24 Active Medications: Current Medications Acetaminophen (Acetaminophen 325 Mg Tablet) 650 mg PO Q6H PRN PRN Reason: Pain, Mild (Pain Scale 1-3) Sodium Chloride (Ns) 1,000 mls @ 100 mls/hr IVCONT .Q10H [facility] Melatonin (Melatonin 3 Mg Tablet) 6 mg PO BEDTIME PRN PRN Reason: Insomnia Morphine Sulfate (Morphine Sulfate 4 Mg/Ml Cartridge) 4 mg IVPUSH Q4H PRN; Protocol PRN Reason: Pain, Severe (Pain Scale 7-10) Last Admin: 07/24/23 00:33 Dose: 4 mg Ondansetron HCl (Ondansetron Hcl 4 Mg/2 Ml Vial) 4 mg IVPUSH Q8H PRN PRN Reason: Nausea and Vomiting Promethazine HCl (Promethazine Hcl 25 Mg Tablet) 25 mg PO Q6H PRN PRN Reason: Nausea Sodium Chloride (0.9 % Sodium Chloride Flush 3 Ml Syringe) 3 [facility] Last Admin: 07/23/23 23:21 Dose: 3 ml Home Medications Medication Instructions Recorded Confirmed Last Taken Type clobetasol 0.05 % topical cream g topical BID 06/29/20 03/15/23 Unknown History Physical Exam 2 Vital Signs: Vital Signs: Last Vital Signs Temp 97.4 F 07/24/23 07:07 Pulse 77 07/24/23 07:07 Resp 18 07/24/23 07:07 BP 168/65 H 07/24/23 07:07 Pulse Ox 97 07/24/23 07:07 O2 Del Method Room Air 07/24/23 07:07 BMI result Body Mass Index 21.9 Const: General: cooperative, healthy appearing and no acute distress Resp: Effort & Inspection: normal respiratory effort and able to speak in complete sentences Cardio: Rate: regular rate Peripheral pulses: Peripheral pulses 2+ throughout GI: Palpation (GI): Soft to palpation Skin: Lesions: no lesions Rashes: no rashes Extrem: Other: Right lower extremity is shortened and externally rotated. Pain with log roll. Sensation intact. Foot is pink and perfusing. Results Labs 07/23/23 19:44 07/23/23 19:44 Labs: Abnormal lab results 07/23/23 Range/Units 19:44 Neut % (Auto) 73.5 H (45-73) % Lymph % (Auto) 16.0 L (20-40) % Lymph # (Auto) 1.1 L (1.2-4.9) X10*3/uL BUN 27 H (9-16) mg/dL Creatinine 1.59 H (0.5-1.4) mg/dL H & H 07/23/23 Range/Units 19:44 Hgb 13.0 (12.0-16.0) g/dl Hct 39.9 (37.0-47.0) % All other labs normal. Assessment and Plan (1) Fracture, intertrochanteric, right femur: Status: Acute I discussed the case with Dr. Tran and explained the extent of the injury to the patient and options available which include surgical intervention. I explained the procedure in detail along with the length of recovery and rehab course. I explained the risk, benefits and alternatives. Risk including, but not limited to infection, blood clots, bleeding, non union or malunion and nerve/tissue damage to surrounding areas. I answered all their questions and with their understanding they have consented to move forward with Operative Fixation of the right hip. The patient will be T&S, med clearance obtained and to remain NPO. (2) Osteoporosis: Qualifiers: Osteoporosis type: age-related Presence of current pathological fracture: without current pathological fracture Qualified Code(s): M81.0 - Age- related osteoporosis without current pathological fracture Status: Acute Quality Stroke Does the patient have a stroke diagnosis?: No VTE Prior VTE?: No VTE Risk Level:: Medical - moderate - high VTE Device Contraindication: Treatment Not Indicated VTE Drug Contraindication: Treatment Not Indicated Procedures Date of Service Date of Service: 07/24/23
[2023-07-24] MEDS: 0.9 % Sodium Chloride Flush 3 ML SYRINGE IVFLUSH ×2 (07:29→23:41)
[2023-07-24] MEDS: ondansetron HCL 4 MG/2 ML VIAL IVPUSH (07:30)
[2023-07-24 08:14] LABS: MANUAL DIFF FLAG NO
[2023-07-24 08:17] LABS: Basophils Percent Auto 0.3 % (0-2); Hemoglobin 12.2 g/dl (12.0-16.0); Imm Gran Abs Auto 0.04 X10*3/uL (0.00-0.03); Imm Gran Pct Auto 0.3 % (0.0-0.4); Lymphocytes Absolute Auto 0.5 X10*3/uL (1.2-4.9); Lymphocytes Percent Auto 3.7 % (20-40); Mean Corpuscular HGB Conc 32.1 g/dl (31.0-35.0); Mean Corpuscular Hemoglobin 30.3 pg (27.0-33.0); Mean Corpuscular Volume 94.5 fL (80.0-98.0); Mean Platelet Volume 9.6 fL (9.4-12.3); Monocytes Absolute Auto 0.8 X10*3/uL (0.1-1.2); Monocytes Percent Auto 6.4 % (2-11); Neutrophils Absolute Auto 10.8 x10*3/uL (2.0-8.3); Neutrophils Percent Auto 89.3 % (45-73); Platelet Count 224 X10*3/uL (160-400); Red Blood Count 4.02 X10*6/uL (4.20-5.50); Red Cell Distribution Width 12.9 % (11.0-16.0); White Blood Count 12.1 X10*3/uL (4.8-10.8)
[2023-07-24] MEDS: Levothyroxine Sodium 75 MCG TABLET PO (08:26)
[2023-07-24 08:30] LABS: Anion Gap 12 (12-20); Blood Urea Nitrogen 23 mg/dL (9-16); Calcium 8.8 mg/dL (8.4-10.2); Carbon Dioxide 26 mmol/L (22-29); Chloride 105 mmol/L (96-108); Creatinine Clr Calc Pharmacy 33.9; Estimated Glomerular Filt Rate 43; Glucose Random 140 mg/dL (60-115); Potassium 4.6 mmol/L (3.3-5.1); Sodium 138 mmol/L (135-145)
--- NOTE | 2023-07-24 09:11 | HO.PM.IMPN ---
Subjective Subjective Date of Service: 07/24/23 Interval History: pian on moving Physical Exam Vital Signs: Vital Signs: Last Vital Signs Temp 97.4 F 07/24/23 07:07 Pulse 77 07/24/23 07:07 Resp 18 07/24/23 07:07 BP 168/65 H 07/24/23 07:07 Pulse Ox 97 07/24/23 07:07 O2 Del Method Room Air 07/24/23 07:07 BMI result Body Mass Index 21.9 General: AO X 3, no acute distress Resp: diminshed bilateral, no accessory muscles used CVS: S1,S2,RRR GI: soft, non tender, non distended Neuro: motor grossly intact, alert Psych: appropriate affect, appropriate insight Objective Data Active Medications Acetaminophen (Acetaminophen 325 Mg Tablet) 650 mg PO Q6H PRN PRN Reason: Pain, Mild (Pain Scale 1-3) Sodium Chloride (Ns) 1,000 mls @ 100 mls/hr IVCONT .Q10H [facility] Last Admin: 07/24/23 07:28 Dose: 100 mls/hr Documented By: YESICA Levothyroxine Sodium (Levothyroxine Sodium 75 Mcg Tablet) 75 mcg PO DAILY@0600 [facility] Last Admin: 07/24/23 08:26 Dose: 75 mcg Documented By: YESICA Melatonin (Melatonin 3 Mg Tablet) 6 mg PO BEDTIME PRN PRN Reason: Insomnia Morphine Sulfate (Morphine Sulfate 4 Mg/Ml Cartridge) 4 mg IVPUSH Q4H PRN; Protocol PRN Reason: Pain, Severe (Pain Scale 7-10) Last Admin: 07/24/23 00:33 Dose: 4 mg Documented By: ALMA Ondansetron HCl (Ondansetron Hcl 4 Mg/2 Ml Vial) 4 mg IVPUSH Q8H PRN PRN Reason: Nausea and Vomiting Last Admin: 07/24/23 07:30 Dose: 4 mg Documented By: YESICA Promethazine HCl (Promethazine Hcl 25 Mg Tablet) 25 mg PO Q6H PRN PRN Reason: Nausea Sodium Chloride (0.9 % Sodium Chloride Flush 3 Ml Syringe) 3 ml IVFLUSH QSHIFT [facility] Last Admin: 07/24/23 07:29 Dose: 3 ml Documented By: YESICA Labs 07/24/23 08:02 07/24/23 08:02 Labs: Laboratory Results - last 24 hr 07/23/23 07/24/23 19:44 08:02 MCV 92.4 94.5 MCH 30.1 30.3 MCHC 32.6 32.1 RDW 12.9 12.9 Plt Count 257 224 MPV 9.5 9.6 Immature Gran % (Auto) 0.3 0.3 Neut % (Auto) 73.5 H 89.3 H Lymph % (Auto) 16.0 L 3.7 L [place] % (Auto) 8.2 6.4 Eos % (Auto) 1.3 0.0 Baso % (Auto) 0.7 0.3 Lymph # (Auto) 1.1 L 0.5 L [place] # (Auto) 0.6 0.8 Eos # (Auto) 0.1 0.0 Baso # (Auto) 0.1 0.0 Abs Immat Gran (auto) 0.02 0.04 H Absolute Neuts (auto) 5.2 10.8 H Absolute Nucleated RBC 0.000 0.000 Nucleated RBC % (auto) 0.0 0.0 Anion Gap 14 12 Estim Creat Clear Calc 25.6 33.9 Estimated GFR 31 43 Random Glucose 114 140 H Calcium 9.3 8.8 Total Bilirubin 0.2 AST 21 ALT 14 Alkaline Phosphatase 64 Total Protein 7.5 Albumin 3.8 Blood Type O Positive Antibody Screen NEGATIVE Assessment and Plan (1) Fracture, intertrochanteric, right femur: Status: Acute Plan 82F PMH copd with bronchiectasis, hld, hypothryoid, ckd III presented with fall complicated by right femur fracture mechanical fall, right femur fracture plan for OR today COPD with pulm nodules stable, outpatient follow up, PET CKD III monitor hypothyroid synthroid full code reason for continued hospitalization:OR today Quality Stroke Does the patient have a stroke diagnosis?: No VTE Prior VTE?: No VTE Risk Level:: Medical - moderate - high VTE Device Contraindication: Treatment Not Indicated VTE Drug Contraindication: Treatment Not Indicated
--- NOTE | 2023-07-24 10:15 | PHA.MEDREC ---
Pharmacy Consult ? Medication Reconciliation Pharmacy has completed the medication reconciliation. Spoke to patient and verified medication list.
--- NOTE | 2023-07-24 10:38 | MHC.CM.PN ---
pt lives at [facility] independent liv[facility] she will be having a hip repair is expected to need rehab when medically stable
--- NOTE | 2023-07-24 12:31 | PC.NURSE ---
Unable to chart in IV line default due to prior documentation. Patient has 20 gauge IV to right forearm from the floor/ER. Patent. flushes easily.
--- NOTE | 2023-07-24 12:40 | HO.ANESPROP2 ---
HPI - Anesthesia Eval Consult details Narrative: for IM nailing femur PMFSH Active Problems Active Problems: All Active Problems (Updated 07/24/23 @ 11:42 by IVÁN Newby) CARMELITA (acute kidney injury) (Acute) Fracture, intertrochanteric, right femur (Acute) Osteoporosis (Acute) Acquired hypothyroidism (Acute) Chronic kidney disease, stage 3 (Acute) Essential hypertension (Acute) Hyperlipidemia (Acute) Past Medical History Medical History RBBB (right bundle branch block) Hypothyroid Gallbladder polyp Right upper quadrant abdominal pain Elevated liver enzymes Bowel obstruction Tubular adenoma of colon History of herpes zoster Hyperlipidemia Essential hypertension Chronic kidney disease, stage 3 Acquired hypothyroidism Osteoporosis Family History Family History Father Myocardial infarction Mother HTN (hypertension) Glaucoma Brother HTN (hypertension) Depression Mental health disorder Sister No problems noted. Family history of problems with anesthesia: No Surgical History Surgical History Hx of small bowel obstruction History of colonoscopy Hx of breast biopsy History of Problems with Anesthesia: No (Slow to wake) Social History Social History Household Members: None Household Members Other:: Lives in assisted living Housing: Apartment Housing [facility]:: [facility] Are you a primary md do resident urgent care to a significant other at home: No Do you presently have visiting nurse or other home services: No Alcohol intake: never Patient Tobacco Use Status: Former Tobacco user Quit Date: 1992 Tobacco use type: Cigarette Years Smoked: 4 yrs e-Cigarette/Vaping Use: Never Used Second Hand Smoke Exposure: No (hx of) Advance Directives Date on File: 03/07/22 service: No Current occupational status: retired Cognitive needs: No Hearing needs: No Vision needs: Yes Meds Allergies Allergy/AdvReac Type Severity Reaction Status Date / Time codeine [CODEINE] Allergy Intermediate AGITATION,D Verified 07/23/23 19:24 EPRESSION meperidine [Demerol] AdvReac Unknown dizziness Verified 07/23/23 19:24 Active Medications: Current Medications Acetaminophen (Acetaminophen 325 Mg Tablet) 650 mg PO Q6H PRN PRN Reason: Pain, Mild (Pain Scale 1-3) Sodium Chloride (Ns) 1,000 mls @ 100 mls/hr IVCONT .Q10H [facility] Last Admin: 07/24/23 07:28 Dose: 100 mls/hr Levothyroxine Sodium (Levothyroxine Sodium 75 Mcg Tablet) 75 mcg PO DAILY@0600 [facility] Last Admin: 07/24/23 08:26 Dose: 75 mcg Melatonin (Melatonin 3 Mg Tablet) 6 mg PO BEDTIME PRN PRN Reason: Insomnia Morphine Sulfate (Morphine Sulfate 4 Mg/Ml Cartridge) 4 mg IVPUSH Q4H PRN; Protocol PRN Reason: Pain, Severe (Pain Scale 7-10) Last Admin: 07/24/23 00:33 Dose: 4 mg Ondansetron HCl (Ondansetron Hcl 4 Mg/2 Ml Vial) 4 mg IVPUSH Q8H PRN PRN Reason: Nausea and Vomiting Last Admin: 07/24/23 07:30 Dose: 4 mg Promethazine HCl (Promethazine Hcl 25 Mg Tablet) 25 mg PO Q6H PRN PRN Reason: Nausea Sodium Chloride (0.9 % Sodium Chloride Flush 3 Ml Syringe) 3 ml IVFLUSH QSHIFT [facility] Last Admin: 07/24/23 07:29 Dose: 3 ml Home Medications Medication Instructions Recorded Confirmed Last Taken Type levothyroxine 75 mcg tablet 75 mcg PO DAILY 07/24/23 07/24/23 07/23/23 History (Synthroid) Exam Exam Date and Time: July 24, 2023 1240 Height,Weight and Vital Signs: Height 5 ft 7 in Weight 63.4 kg Last Vital Signs Temp 98.9 F 07/24/23 12:26 Pulse 83 07/24/23 12:26 Resp 18 07/24/23 12:26 BP 132/99 H 07/24/23 12:26 Pulse Ox 96 07/24/23 12:26 O2 Del Method Room Air 07/24/23 12:26 Pertinent Lab Results Pertinent Lab Results: Laboratory Tests 07/23/23 07/24/23 19:44 08:02 WBC 7.1 12.1 H RBC 4.32 4.02 L Hgb 13.0 12.2 Hct 39.9 38.0 MCV 92.4 94.5 MCH 30.1 30.3 MCHC 32.6 32.1 RDW 12.9 12.9 Plt Count 257 224 MPV 9.5 9.6 Immature Gran % (Auto) 0.3 0.3 Neut % (Auto) 73.5 H 89.3 H Lymph % (Auto) 16.0 L 3.7 L [place] % (Auto) 8.2 6.4 Eos % (Auto) 1.3 0.0 Baso % (Auto) 0.7 0.3 Lymph # (Auto) 1.1 L 0.5 L [place] # (Auto) 0.6 0.8 Eos # (Auto) 0.1 0.0 Baso # (Auto) 0.1 0.0 Abs Immat Gran (auto) 0.02 0.04 H Absolute Neuts (auto) 5.2 10.8 H Absolute Nucleated RBC 0.000 0.000 Nucleated RBC % (auto) 0.0 0.0 Sodium 138 138 Potassium 4.1 4.6 Chloride 106 105 Carbon Dioxide 22 26 Anion Gap 14 12 BUN 27 H 23 H Creatinine 1.59 H 1.20 Estim Creat Clear Calc 25.6 33.9 Estimated GFR 31 43 Random Glucose 114 140 H Calcium 9.3 8.8 Total Bilirubin 0.2 AST 21 ALT 14 Alkaline Phosphatase 64 Total Protein 7.5 Albumin 3.8 Blood Type O Positive Antibody Screen NEGATIVE Airway Mallampati Class: II TM Dist: >3cm Neck ROM: Limited Heart: rrr Lungs: cta Assessment and Plan Assessment Anesthesia Assessment: Anesthesia Plan Discussed and Chart Reviewed Final Anesthetic Review Family History of Problems with Anesthesia: No History of Problems with Anesthesia: No (Slow to wake) NPO: Yes ASA Class: III Final Preanesthetic Review: No Changes in Pt Med Stat, Meds/Allgs Chart Reviewed, Consent Obtained/Reviewed and Anes Risks/Benef Reviewed Patient Risk: Intermediate Procedure Risk: Intermediate Anesthetic Plan Anesthetic Plan: GA Disposition: Standard PACU
--- NOTE | 2023-07-24 14:15 | PC.NURSE ---
Pt to OR via bed approximatsuman 1215. Verbalized no pain upon transfer.
--- NOTE | 2023-07-24 15:50 | PM.OP ---
Brief Operative Note Date of Service: 07/24/23 Pre-op diagnosis: Right hip intertrochanteric fracture Post-op diagnosis: same Procedure: Open reduction and internal fixation of right hip intertrochanteric fracture with placement of a short gamma nail Implants: [place] short Gamma nail measuring 180 mm in length by 11 mm in diameter with a 130 degree neck-shaft angle, lag screw measuring 110 mm in length, a standard set screw, distal locking bolt measuring 32.5 mm in length Surgeon: Hector Tran MD Anesthesia: GETA Was an [employer] used for this Procedure?: No Estimated blood loss (mL): 100 Pathology: none sent Condition: stable Disposition: PACU
--- NOTE | 2023-07-24 15:54 | P.OP_ITS ---
Operative Note Operative Note Date of Service: 07/24/23 Narrative: After the patient was identified as Josephine Gutierrez and her right hip was initialed by myself they were brought to the operating room where general anesthesia via endotracheal tube was induced by the anesthesiologist in routine fashion. The patient was given 2 g of IV Ancef for infection prophylaxis. The patient was then gently transferred from the hospital bed onto the fracture table. The patient's left lower extremity was placed into the well leg king. The patient's right lower extremity was placed in gentle in-line traction with their patella parallel to the floor. All bony prominences were well padded. C- arm AP and lateral radiographs were taken to confirm good fracture reduction. The patient's right hip region was prepped and draped in sterile fashion. A formal time-out was completed. A #10 scalpel blade was used to make a 5 cm incision just proximal to the tip of the greater trochanter. A curved cannulated awl was introduced into the proximal femur in routine fashion. A ball-tipped guidewire was then placed through the cannula and into the femoral canal. The awl was removed. Reaming was begun with a 9 mm reamer. Reaming was increased incrementally up to a size 13 reamer distally. The proximal canal was reamed with a 15.5 mm reamer. The gamma nail measuring 11 mm in diameter by 180 mm in length was passed over the guidewire. Good fracture reduction and nail positioning were confirmed using C-arm AP and lateral radiographs. A 2 cm incision was then made where the lag screw trocar met the patient's lateral thigh. The subcutaneous tissues and fascia katalina were split down to the lateral cortex of the femur using a hemostat. The lag screw trocar was passed down to the lateral cortex of the femur. A threaded guidewire was then placed into the inferior aspect of the femoral head on the AP x-ray and the center of the femoral head on the lateral x-ray. The guidewire measured 110 mm in length. Reaming was then performed over the guidewire to a depth of 110 mm. The lag screw measuring 110 mm in length was then placed over the guidewire. The guidewire was removed. The set screw was then placed into the nail and tightened fully. It was then turned 1/4 of a turn counter-clockwise to allow for fracture compression. The end cap was then put into place in routine fashion. A 2 cm incision was then made where the distal locking bolt trocar met the lateral aspect of the patient's thigh. The subcutaneous tissues and the fascia katalina were split down to the lateral cortex of the femur. The locking bolt hole was drilled in routine fashion. The drill bit measured 32.5 mm in length. The distal locking bolt measuring 32.5 mm in length was put into place without difficulty. Final AP and lateral radiographs showed good fracture reduction and hardware positioning. All 3 wounds were irrigated with copious amounts of normal saline solution. The distal 2 wounds were closed with 2-0 Vicryl and skin anna. The proximal wound was once again irrigated. The fascia katalina was closed with 0 Vicryl [id number] interrupted suture. The wound was once again irrigated. The subcutaneous tissues were closed with 2-0 Vicryl interrupted suture. The skin was closed with skin anna. Dry sterile dressing was placed over all incisions. The patient was gently transferred from the fracture table onto their hospital bed. The patient was awoken and extubated in the operating room. The patient was transferred to the recovery room in stable condition.
--- NOTE | 2023-07-24 15:54 | PM.PNORT ---
Subjective Subjective Date of Service: 07/24/23 Principal diagnosis: right hip fracture Interval history: Right hip IM nailing performed 07/24/23 Physical Exam Vital Signs: Vital Signs: Last Vital Signs Temp 98.9 F 07/24/23 12:26 Pulse 83 07/24/23 12:26 Resp 18 07/24/23 12:26 BP 132/99 H 07/24/23 12:26 Pulse Ox 96 07/24/23 12:26 O2 Del Method Room Air 07/24/23 12:26 BMI result Body Mass Index 21.9 Procedures Date of Service Date of Service: 09/13/23 Progress Note: A&P Time Spent With Patient Time: Total time managing care of this patient today ____ minutes. Quality Stroke Does the patient have a stroke diagnosis?: No VTE Prior VTE?: No VTE Risk Level:: Medical - moderate - high VTE Device Contraindication: Treatment Not Indicated VTE Drug Contraindication: Treatment Not Indicated
[2023-07-24] MEDS: fentaNYL citrate/PF 100 MCG/2 ML VIAL 25 MCG IVPUSH ×2 (16:41→16:48)
[2023-07-24] MEDS: oxyCODONE HCl Immed Release 5 MG TABLET PO ×2 (17:33→21:11)
[2023-07-24] MEDS: ceFAZolin Sodium/Dextrose,Iso 2 GM/50 ML PIGGYBACK IV (17:33)
[2023-07-24] MEDS: Aspirin Enteric Coated 325 MG TABLET.DR PO (21:11)
[2023-07-25] VITALS (7 sets, daily range): BP systolic 104–142; BP diastolic 51–64; PULSE 72–94; RESP 16–18; TEMP 36.4–36.8; O2SAT 94–99
[2023-07-25] MEDS: oxyCODONE HCl Immed Release 5 MG TABLET PO ×3 (01:23→23:39)
[2023-07-25] MEDS: Acetaminophen 325 MG TABLET 650 MG PO ×3 (01:23→23:40)
[2023-07-25] MEDS: ceFAZolin Sodium/Dextrose,Iso 2 GM/50 ML PIGGYBACK IV ×3 (01:24→17:52)
[2023-07-25 05:33] LABS: Hematocrit 31.7 % (37.0-47.0); Hemoglobin 9.9 g/dl (12.0-16.0); Mean Corpuscular HGB Conc 31.2 g/dl (31.0-35.0); Mean Corpuscular Volume 96.1 fL (80.0-98.0); Platelet Count 200 X10*3/uL (160-400); Red Cell Distribution Width 13.2 % (11.0-16.0); White Blood Count 9.8 X10*3/uL (4.8-10.8)
[2023-07-25 05:50] LABS: Anion Gap 13 (12-20); Blood Urea Nitrogen 24 mg/dL (9-16); Calcium 8.2 mg/dL (8.4-10.2); Carbon Dioxide 23 mmol/L (22-29); Chloride 108 mmol/L (96-108); Creatinine Clr Calc Pharmacy 33.1; Estimated Glomerular Filt Rate 42; Glucose Fasting 104 mg/dL (60-99); Potassium 4.7 mmol/L (3.3-5.1); Sodium 139 mmol/L (135-145)
[2023-07-25] MEDS: Levothyroxine Sodium 75 MCG TABLET PO ×2 (06:31→08:24)
--- NOTE | 2023-07-25 07:32 | P.PNOP_ITS ---
Subjective Subjective Date of Service: 07/25/23 Interval history: POD 1 s/p RT IMN no overnight events resting in bed, tolerating pain well denies cp, palpitations, sob Physical Exam Vital Signs: Vital Signs: Last Vital Signs Temp 98 F 07/25/23 06:49 Pulse 91 07/25/23 06:49 Resp 18 07/25/23 06:49 BP 104/51 L 07/25/23 06:49 Pulse Ox 98 07/25/23 06:49 O2 Del Method Room Air 07/25/23 06:49 O2 Flow Rate 2 07/24/23 23:50 BMI result Body Mass Index 21.9 Const: General: cooperative, healthy appearing and no acute distress Resp: Effort & Inspection: normal respiratory effort and able to speak in complete sentences Cardio: Rate: regular rate Peripheral pulses: Peripheral pulses 2+ throughout GI: Palpation (GI): Soft to palpation Skin: General skin exam: no rashes or lesions noted Extrem: Other: bandage clean dry and intact. [place] intact. No erythema or effusion. Calf supple nontender. Neurovascularly intact. Procedures Date of Service Date of Service: 07/25/23 Progress Note: A&P Assessment and plan (1) Fracture, intertrochanteric, right femur: Status: Acute Assessment and Plan: * Continue pain mgmnt * Begin Aspirin for dvt ppx * begin PT for RT IMN-wbat * Dispo planning-Pending PT eval, pain mgmnt Need for continued inpatient stay: uncontrolled pain, pt eval, rehab placement Time Spent With Patient Time: Total time managing care of this patient today ____ minutes. Quality Stroke Does the patient have a stroke diagnosis?: No VTE Prior VTE?: No VTE Risk Level:: Medical - moderate - high VTE Device Contraindication: Treatment Not Indicated VTE Drug Contraindication: Treatment Not Indicated
[2023-07-25] MEDS: Aspirin Enteric Coated 325 MG TABLET.DR PO ×2 (08:26→20:00)
[2023-07-25] MEDS: 0.9 % Sodium Chloride Flush 3 ML SYRINGE IVFLUSH (08:27)
--- NOTE | 2023-07-25 08:40 | P.PNIM_ITS ---
Subjective Subjective Date of Service: 07/25/23 Interval History: feeling well Physical Exam 2 Vital Signs: Vital Signs: Last Vital Signs Temp 98 F 07/25/23 06:49 Pulse 91 07/25/23 06:49 Resp 18 07/25/23 06:49 BP 104/51 L 07/25/23 06:49 Pulse Ox 98 07/25/23 06:49 O2 Del Method Room Air 07/25/23 06:49 O2 Flow Rate 2 07/24/23 23:50 BMI result Body Mass Index 21.9 Const: General: cooperative, healthy appearing and no acute distress Resp: Effort & Inspection: normal respiratory effort and able to speak in complete sentences Cardio: Rate: regular rate Peripheral pulses: Peripheral pulses 2+ throughout GI: Palpation (GI): Soft to palpation Skin: General skin exam: no rashes or lesions noted Extrem: Other: bandage clean dry and intact. [place] intact. No erythema or effusion. Calf supple nontender. Neurovascularly intact. Objective Data Active Medications Acetaminophen (Acetaminophen 325 Mg Tablet) 650 mg PO Q6H PRN PRN Reason: Pain, Mild (Pain Scale 1-3) Last Admin: 07/25/23 08:25 Dose: 650 mg Documented By: JOHN Aspirin (Aspirin Enteric Coated 325 Mg Tablet.) 325 mg PO BID [facility] Last Admin: 07/25/23 08:26 Dose: 325 mg Documented By: JOHN Atorvastatin Calcium (Atorvastatin Calcium 20 Mg Tablet) 20 mg PO DAILY [facility] Last Admin: 07/25/23 08:27 Dose: Not Given Documented By: JOHN Non-Admin Reason: Patient Refused Fentanyl (Fentanyl Citrate/Pf 100 Mcg/2 Ml Vial) 25 mcg IVPUSH Q5M PRN; Protocol PRN Reason: Pain, Moderate(Pain Scale 4-6) Last Admin: 07/24/23 16:48 Dose: 25 mcg Documented By: DANGELL Cefazolin Sodium/Dextrose (Ancef) 2 gm in 50 mls @ 100 mls/hr IV Q8H [facility] Last Infusion: 07/25/23 01:55 Dose: Infused Documented By: TRINY Levothyroxine Sodium (Levothyroxine Sodium 75 Mcg Tablet) 75 mcg PO DAILY@0600 [facility] Last Admin: 07/25/23 06:31 Dose: 75 mcg Documented By: HO.LYSZ Levothyroxine Sodium (Levothyroxine Sodium 75 Mcg Tablet) 75 mcg PO DAILY [facility] Last Admin: 07/25/23 08:24 Dose: 75 mcg Documented By: JOHN Melatonin (Melatonin 3 Mg Tablet) 6 mg PO BEDTIME PRN PRN Reason: Insomnia Morphine Sulfate (Morphine Sulfate 4 Mg/Ml Cartridge) 4 mg IVPUSH Q4H PRN; Protocol PRN Reason: Pain, Severe (Pain Scale 7-10) Last Admin: 07/24/23 00:33 Dose: 4 mg Documented By: ALMA Ondansetron HCl (Ondansetron Hcl 4 Mg/2 Ml Vial) 4 mg IVPUSH ONCE PRN PRN Reason: Nausea and Vomiting Oxycodone HCl (Oxycodone Hcl Immed Release 5 Mg Tablet) 5 mg PO Q4H PRN PRN Reason: Pain, Moderate(Pain Scale 4-6) Last Admin: 07/25/23 08:27 Dose: 5 mg Documented By: JOHN Promethazine HCl (Promethazine Hcl 25 Mg Tablet) 25 mg PO Q6H PRN PRN Reason: Nausea Sodium Chloride (0.9 % Sodium Chloride Flush 3 Ml Syringe) 3 ml IVFLUSH QSCOFT [facility] Last Admin: 07/25/23 08:27 Dose: 3 ml Documented By: JOHN Labs 07/25/23 05:22 07/25/23 05:22 Labs: Laboratory Results - last 24 hr 07/24/23 07/25/23 08:02 05:22 MCV 96.1 MCH 30.0 MCHC 31.2 RDW 13.2 Plt Count 200 MPV 10.0 Absolute Nucleated RBC 0.000 Nucleated RBC % (auto) 0.0 Anion Gap 13 Estim Creat Clear Calc 33.1 Estimated GFR 42 Fasting Glucose 104 H Calcium 8.2 L D Blood Type O Positive Antibody Screen NEGATIVE Assessment and Plan (1) Fracture, intertrochanteric, right femur: Status: Acute Plan 82F PMH copd with bronchiectasis, hld, hypothryoid, ckd III presented with fall complicated by right femur fracture mechanical fall, right femur fracture pod 1 pt asa 325 bid COPD with pulm nodules stable, outpatient follow up, PET CKD III monitor hypothyroid synthroid full code reason for continued hospitalization:str placement Quality Stroke Does the patient have a stroke diagnosis?: No VTE Prior VTE?: No VTE Risk Level:: Medical - moderate - high VTE Device Contraindication: Treatment Not Indicated VTE Drug Contraindication: Treatment Not Indicated
--- NOTE | 2023-07-25 12:56 | HO.POSTANES ---
Post Anesthesia Evaluation Post Anesthesia Evaluation Date of Service: 07/25/23 Vital Signs: Vital Signs Temp Pulse Resp BP Pulse Ox O2 Del Method 07/25/23 12:41 Room Air 07/25/23 11:17 98 F 72 18 105/54 L 96 Room Air 07/25/23 10:22 91 104/51 L 98 07/25/23 06:49 98 F 91 18 104/51 L 98 Room Air 07/25/23 03:13 97.6 F 83 16 109/54 L 96 Room Air Anesthesia: General Mental Status: Awake Pain Control: Satisfactory Nausea/Vomiting: None Hydration: Adequate Anesthesia-Related Issues: No Anes. Related Issues
[2023-07-25] MEDS: 0.9 % Sodium Chloride 1,000 ML 50 ML IVCONT (13:25)
[2023-07-26] VITALS (9 sets, daily range): BP systolic 64–140; BP diastolic 34–77; PULSE 83–100; RESP 16–18; TEMP 36.1–36.4; O2SAT 96–97
--- NOTE | 2023-07-26 00:04 | PC.NURSE ---
Pt voided 150 cc on bed odom bladder scanned for 600cc yellow urine.
[2023-07-26] MEDS: ceFAZolin Sodium/Dextrose,Iso 2 GM/50 ML PIGGYBACK IV ×2 (02:02→11:21)
[2023-07-26] MEDS: Levothyroxine Sodium 75 MCG TABLET PO ×2 (05:38→08:31)
[2023-07-26 06:43] LABS: Hematocrit 27.2 % (37.0-47.0); Hemoglobin 8.9 g/dl (12.0-16.0); Mean Corpuscular HGB Conc 32.7 g/dl (31.0-35.0); Mean Corpuscular Hemoglobin 30.5 pg (27.0-33.0); Mean Corpuscular Volume 93.2 fL (80.0-98.0); Mean Platelet Volume 10.1 fL (9.4-12.3); Platelet Count 158 X10*3/uL (160-400); Red Blood Count 2.92 X10*6/uL (4.20-5.50); Red Cell Distribution Width 13.2 % (11.0-16.0); White Blood Count 7.1 X10*3/uL (4.8-10.8)
[2023-07-26 06:57] LABS: Anion Gap 8 (12-20); Blood Urea Nitrogen 26 mg/dL (9-16); Calcium 8.2 mg/dL (8.4-10.2); Carbon Dioxide 25 mmol/L (22-29); Chloride 108 mmol/L (96-108); Creatinine Clr Calc Pharmacy 40.3; Estimated Glomerular Filt Rate 52; Glucose Fasting 83 mg/dL (60-99); Potassium 4.3 mmol/L (3.3-5.1); Sodium 137 mmol/L (135-145)
--- NOTE | 2023-07-26 08:05 | PM.PNORT ---
Subjective Subjective Date of Service: 07/26/23 Interval history: POD2 s/p right hip IM Nail Patient is resting in bed comfortably No overnight events Pain is managed No additional complaints Physical Exam Vital Signs: Vital Signs: Last Vital Signs Temp 97.3 F 07/26/23 03:41 Pulse 83 07/26/23 03:41 Resp 16 07/26/23 03:41 BP 127/60 07/26/23 03:41 Pulse Ox 96 07/26/23 03:41 O2 Del Method Room Air 07/26/23 03:41 O2 Flow Rate 2 07/24/23 23:50 BMI result Body Mass Index 21.9 Const: General: cooperative, healthy appearing and no acute distress Resp: Effort & Inspection: normal respiratory effort and able to speak in complete sentences Cardio: Rate: regular rate Peripheral pulses: Peripheral pulses 2+ throughout GI: Palpation (GI): Soft to palpation Skin: Lesions: no lesions Rashes: no rashes Extrem: Other: Left hip dressings are c/d/i. Able to dorsi/plantar flex. NVI. Procedures Date of Service Date of Service: 07/26/23 Progress Note: A&P Assessment and plan (1) Fracture, intertrochanteric, right femur: Status: Acute Plan Continue pain mgmnt Continue ASA for dvt ppx Continue PT for right hip IM Nail - WBAT Dispo planning-PT, pain mgmnt, medical clearance for d/c, rehab placement Time Spent With Patient Time: Total time managing care of this patient today ____ minutes. Quality Stroke Does the patient have a stroke diagnosis?: No VTE Prior VTE?: No VTE Risk Level:: Medical - moderate - high VTE Device Contraindication: Treatment Not Indicated VTE Drug Contraindication: Treatment Not Indicated
[2023-07-26] MEDS: oxyCODONE HCl Immed Release 5 MG TABLET PO (08:30)
[2023-07-26] MEDS: Atorvastatin Calcium 20 MG TABLET PO (08:31)
[2023-07-26] MEDS: Aspirin Enteric Coated 325 MG TABLET.DR PO (08:31)
[2023-07-26 10:33] LABS: Hematocrit 27.6 % (37.0-47.0); Hemoglobin 8.8 g/dl (12.0-16.0)
--- NOTE | 2023-07-26 12:39 | PM.DS ---
DS: Providers Provider Date of Service: 07/26/23 Date of admission: 07/23/23 22:38 Primary care physician: Yoana Moreno MD Consults: 07/23/23 23:26 Consult to Orthopedics Routine Consulting Provider: [facility] Reason for consultation: Right intertrochanteric fracture DS: Diagnosis Discharge Diagnosis (1) Fracture, intertrochanteric, right femur: Status: Acute (2) Anemia due to blood loss, acute: Status: Acute (3) CARMELITA (acute kidney injury): Status: Acute DS: Summary Hospital Course Hospital Course: Admission note HPI This is a 82-year-old female with pertinent history of hypothyroidism, mixed hyperlipidemia, chronic kidney disease who presents to the emergency department for evaluation after a fall. Patient states as she was trying to sit on her bed, she slipped and fell, landing on to her right hip. Did not lose consciousness or get dizzy or lightheaded prior to the fall. No chest pain or palpitations prior to the fall. No jerking movement of extremities or tongue bite. Patient denies hitting her head. Not on any blood thinners. No fever, chills, chest discomfort, shortness of breath, abdominal pain, changes in urinary or bowel habits. In the emergency department, imaging with right femoral intertrochanteric fracture. Orthopedic surgery was consulted who requested admission. Hospital course # Right femur fracture after mechanical fall s/p right hip IM Nail Done by orthopedic team who continue to follow the patient as outpatient. she was able to participate with PT who recommended short term rehablitation. # Pulmonary nodules outpatient follow up, PET with PCP # Acute blood loss anemia Hemoglobin dropped from 12 to 8.8 after surgery from blood loss and dilution. no evidence of bleeding at the site of surgery or rectally. To repeat blood test as outpatient. to follow with orthopedic as outpatient in 2 weeks Oxycodone for pain control Aspirin for clot prevention recheck blood work as outpatient Time Attestation Discharge coordination time: Greater than 30 minutes Quality: Safe Use of Opioids Does Pt have an Active Cancer Diagnosis on the Problem List?: No Quality: Stroke Does the patient have a stroke diagnosis?: No Physical Exam Vital Signs: Vital Signs: Last Vital Signs Temp 97.5 F 07/26/23 12:00 Pulse 100 07/26/23 12:04 Resp 18 07/26/23 12:00 BP 118/77 07/26/23 12:04 Pulse Ox 96 07/26/23 12:00 O2 Del Method Room Air 07/26/23 12:00 O2 Flow Rate 2 07/24/23 23:50 BMI result Body Mass Index 21.9 Const: Other: Constitutional : Awake, interactive, not in distress Neck : Normal inspection, Supple Cardiovascular : RRR, no JVP, no lower extremity edema Respiratory : good bilateral air entry, no crackles, wheezes or rhonchi Gastrointestinal: soft, lax, Normal bowel sounds, Non tender Skin : Warm, Dry, Right hip wound in dressing with no hematoma or drainage. Neurological : Alert & oriented x3, No focal deficit DS: Data Data Completed and Pending Labs on day of discharge: Laboratory Results - last 24 hr 07/26/23 07/26/23 06:06 10:26 WBC 7.1 RBC 2.92 L Hgb 8.9 L 8.8 L Hct 27.2 L 27.6 L MCV 93.2 MCH 30.5 MCHC 32.7 RDW 13.2 Plt Count 158 L MPV 10.1 Absolute Nucleated RBC 0.000 Nucleated RBC % (auto) 0.0 Sodium 137 Potassium 4.3 Chloride 108 Carbon Dioxide 25 Anion Gap 8 L BUN 26 H Creatinine 1.01 Estim Creat Clear Calc 40.3 Estimated GFR 52 Fasting Glucose 83 Calcium 8.2 L Imaging Chest x-ray: Radiologist's impression: ITS Impressions Hip/Pelvis X-Ray 07/23/23 20:29 IMPRESSION: 1. Acute varus-angulated intertrochanteric fracture of the right proximal femur. 2. No acute fracture or malalignment at the right knee. Knee X-Ray 07/23/23 20:29 IMPRESSION: 1. Acute varus-angulated intertrochanteric fracture of the right proximal femur. 2. No acute fracture or malalignment at the right knee. Abdomen/Pelvis CT 07/23/23 20:36 IMPRESSION: 1. Comminuted displaced, impacted right femoral intertrochanteric fracture. 2. No additional evidence of acute traumatic sequela in this limited noncontrast examination. 3. Complex appearance of the lungs with worsening bronchiectasis, mucus impaction and several new airspace opacities with a dominant quite irregular opacity in the left lower lobe measuring up to 2.5 cm on axial dimensions. There are also several new bilateral pulmonary nodules largest measuring 0.9 cm in the right lower lobe, some nodules are located in the upper lobes. Constellation of findings are suspicious for an infectious/inflammatory etiology, although underlying malignancy cannot be excluded. According to the UPDATED 2017 Fleischner Society recommendations, the advised follow-up imaging for multiple solid nodules with the largest measuring greater than [address] at 3 months, PET/CT, or tissue sampling as clinically appropriate if nodules are located in the upper lobe and/or demostrate suspicious morphology. In high risk patients, subsequent CT follow-up at 18 to 24 months is recommended. In low-risk patients, subsequent CT follow-up at 18 to 24 months is optional. 4. Colonic diverticulosis but no evidence of acute diverticulitis. 5. Small hiatal hernia. Cervical Spine CT 07/23/23 20:36 IMPRESSION: No edematous territorial infarction or intracranial bleed. No extra-axial collection. Background of microangiopathy and generalized volume loss. No acute cervical spinal fracture or traumatic subluxation. Moderate multilevel cervical spondylosis. Chest CT 07/23/23 20:36 IMPRESSION: 1. Comminuted displaced, impacted right femoral intertrochanteric fracture. 2. No additional evidence of acute traumatic sequela in this limited noncontrast examination. 3. Complex appearance of the lungs with worsening bronchiectasis, mucus impaction and several new airspace opacities with a dominant quite irregular opacity in the left lower lobe measuring up to 2.5 cm on axial dimensions. There are also several new bilateral pulmonary nodules largest measuring 0.9 cm in the right lower lobe, some nodules are located in the upper lobes. Constellation of findings are suspicious for an infectious/inflammatory etiology, although underlying malignancy cannot be excluded. According to the UPDATED 2017 Fleischner Society recommendations, the advised follow-up imaging for multiple solid nodules with the largest measuring greater than [address] of CT at 3 months, PET/CT, or tissue sampling as clinically appropriate if nodules are located in the upper lobe and/or demostrate suspicious morphology. In high risk patients, subsequent CT follow-up at 18 to 24 months is recommended. In low-risk patients, subsequent CT follow-up at 18 to 24 months is optional. 4. Colonic diverticulosis but no evidence of acute diverticulitis. 5. Small hiatal hernia. Head CT 07/23/23 20:36 IMPRESSION: No edematous territorial infarction or intracranial bleed. No extra-axial collection. Background of microangiopathy and generalized volume loss. No acute cervical spinal fracture or traumatic subluxation. Moderate multilevel cervical spondylosis. Guidance Fluoroscopy 07/24/23 15:30 IMPRESSION: Fluoroscopy guidance for ORIF of right femoral intertrochanteric fracture. Discharge Plan Discharge Anticipated Discharge Date/Time: 07/26/23 12:26 Patient Disposition: Xfer SNF Discharge Diagnosis: Hip fracture Referrals: fay conley [Other] - 1 Week Yoana Moreno MD [Primary Care Provider] - 1 Week Discharge Medications: New aspirin 325 mg Tablet,Delayed Release (Dr/Ec) 325 mg PO BID Qty: 60 0RF oxycodone 5 mg Tablet 5 mg PO Q4H PRN (Reason: Pain, Moderate(Pain Scale 4-6)) Qty: 15 0RF Rx Instructions: Partial Fill upon patient request. Continued atorvastatin 20 mg tablet 20 mg PO DAILY Qty: 90 1RF levothyroxine [Synthroid] 75 mcg tablet 75 mcg PO DAILY Rx Instructions: Patient only takes SYNTHROID Discharge Orders: Discharge Order (Routine); Ordered 07/26/23 Ordered By: Prudencio Deleon Diet: Advance to usual diet Activity on Discharge: As tolerated Stand Alone Forms: Patient Portal Discharge page Other Ambulatory Orders: Complete Blood Count Auto Diff (Routine) Timeframe: 1 Week Facility: [facility] - Location: Laboratory Ordered By: Prudencio Deleon Activity Restrictions/Additional Instructions: Gait training, strengthening, ADLs Continue ASA for dvt ppx x6 weeks Keep dressing clean, dry and intact-no showering or tub baths Follow up with Orthopedics in 2 weeks Care Plan Goals: Read below Health Concerns: Read below Plan of Treatment: PET scan to work up CT chest findings as outpatient Assessment: Treated for hip fracture with surgery; to follow with orthopedic as outpatient in 2 weeks Oxycodone for pain control Aspirin for clot prevention recheck blood work as outpatient
== END 2023-07-26 14:42 | disposition skilled nursing facility (03) | DRG 481 ==
LOC: HO.ED 20:44 → HO.EDOVER 22:41 → HO.S3 07-24 01:07
PROVIDERS: Internal Medicine; Orthopaedic Surgery; Physician Assistant; Admitting Provider Student in an Organized Health Care Education/Training Program; Emergency Provider Student in an Organized Health Care Education/Training Program; PCP Internal Medicine; Visit Provider Student in an Organized Health Care Education/Training Program
PROC: 0QS606Z Reposition Right Upper Femur with Intramedullary Internal Fixation Device, Open Approach (ICD-10-PCS; principal; 2023-07-24 13:10)
DX: S72.141A Displaced intertrochanteric fracture of right femur, initial encounter for closed fracture (principal); D62 Acute posthemorrhagic anemia; N17.9 Acute kidney failure, unspecified; W19.XXXA Unspecified fall, initial encounter; N18.30 Chronic kidney disease, stage 3 unspecified; J47.9 Bronchiectasis, uncomplicated; R91.8 Other nonspecific abnormal finding of lung field; M81.0 Age-related osteoporosis without current pathological fracture; E03.9 Hypothyroidism, unspecified; E78.2 Mixed hyperlipidemia; Z87.891 Personal history of nicotine dependence; Z79.890 Hormone replacement therapy; Z79.899 Other long term (current) drug therapy
CPT/HCPCS: 36415; 70450; 71250; 72125; 73502; 73560; 74176; 80048; 80053; 85014; 85018; 85025; 85027; 86850; 86900; 86901; 97116; 97162; 97165; 97166; 97530; 99024; 99284; C1713; C1769; J0690; J1100; J1170; J2270; J2371; J2405; J2704; J3010

== ENCOUNTER → 2023-07-23 22:38 | Outpatient (BNV) | payer MEDICARE, SELFPAY | PROVIDERS: Admitting Provider Student in an Organized Health Care Education/Training Program; Emergency Provider Student in an Organized Health Care Education/Training Program; PCP Internal Medicine; Visit Provider Physician Assistant | DX: S72.144A Nondisplaced intertrochanteric fracture of right femur, initial encounter for closed fracture (principal) | CPT/HCPCS: 27245; 99024; 99232 ==

== ENCOUNTER → 2023-07-23 22:38 | Outpatient (BNV) | payer MEDICARE, SELFPAY | PROVIDERS: Admitting Provider Student in an Organized Health Care Education/Training Program; Emergency Provider Student in an Organized Health Care Education/Training Program; PCP Internal Medicine; Visit Provider Student in an Organized Health Care Education/Training Program | DX: S72.141A Displaced intertrochanteric fracture of right femur, initial encounter for closed fracture (principal); D62 Acute posthemorrhagic anemia; N17.9 Acute kidney failure, unspecified | CPT/HCPCS: 99222; 99232; 99239 ==

== ENCOUNTER 2023-07-28 05:53 | Outpatient (REF) | payer MEDICARE, SELFPAY ==
[2023-07-28 05:55] LABS: MANUAL DIFF FLAG NO
[2023-07-28 06:16] LABS: Basophils Percent Auto 0.6 % (0-2); Eosinophils Absolute Auto 0.2 X10*3/uL (0.0-0.4); Eosinophils Percent Auto 3.6 % (0-4); Hematocrit 25.6 % (37.0-47.0); Hemoglobin 8.2 g/dl (12.0-16.0); Imm Gran Abs Auto 0.04 X10*3/uL (0.00-0.03); Imm Gran Pct Auto 0.6 % (0.0-0.4); Lymphocytes Percent Auto 14.4 % (20-40); Mean Corpuscular Hemoglobin 30.5 pg (27.0-33.0); Mean Corpuscular Volume 95.2 fL (80.0-98.0); Mean Platelet Volume 10.1 fL (9.4-12.3); Monocytes Absolute Auto 0.9 X10*3/uL (0.1-1.2); Monocytes Percent Auto 12.7 % (2-11); Neutrophils Absolute Auto 4.6 x10*3/uL (2.0-8.3); Neutrophils Percent Auto 68.1 % (45-73); Platelet Count 207 X10*3/uL (160-400); Red Blood Count 2.69 X10*6/uL (4.20-5.50); Red Cell Distribution Width 13.2 % (11.0-16.0); White Blood Count 6.7 X10*3/uL (4.8-10.8)
[2023-07-28 06:30] LABS: Alanine Aminotransferase < 5 U/L (0-31); Albumin Level 2.8 g/dL (3.5-5.0); Alkaline Phosphatase 43 U/L (39-117); Anion Gap 8 (12-20); Aspartate Amino Transferase 26 U/L (5-31); Bilirubin Total 0.8 mg/dL (0.0-1.0); Blood Urea Nitrogen 26 mg/dL (9-16); Calcium 8.3 mg/dL (8.4-10.2); Carbon Dioxide 25 mmol/L (22-29); Chloride 109 mmol/L (96-108); Estimated Glomerular Filt Rate > 60; Glucose Random 82 mg/dL (60-115); Potassium 4.1 mmol/L (3.3-5.1); Sodium 138 mmol/L (135-145); Total Protein 5.6 g/dL (6.5-8.0)
== END 2023-07-28 05:54 | disposition home or self-care (01) ==
LOC: HO.MMNH2L 05:53
PROVIDERS: Visit Provider Family Medicine
DX: Z02.2 Encounter for examination for admission to residential institution (principal); I10 Essential (primary) hypertension
CPT/HCPCS: 36415; 80053; 85025

== ENCOUNTER 2023-07-31 06:50 | Outpatient (REF) | payer MEDICARE, SELFPAY ==
[2023-07-31 06:53] LABS: MANUAL DIFF FLAG NO
[2023-07-31 07:12] LABS: Basophils Percent Auto 0.4 % (0-2); Eosinophils Absolute Auto 0.3 X10*3/uL (0.0-0.4); Hematocrit 29.1 % (37.0-47.0); Hemoglobin 9.4 g/dl (12.0-16.0); Imm Gran Abs Auto 0.08 X10*3/uL (0.00-0.03); Imm Gran Pct Auto 1.2 % (0.0-0.4); Lymphocytes Percent Auto 14.2 % (20-40); Mean Corpuscular HGB Conc 32.3 g/dl (31.0-35.0); Mean Corpuscular Hemoglobin 30.6 pg (27.0-33.0); Mean Corpuscular Volume 94.8 fL (80.0-98.0); Mean Platelet Volume 9.7 fL (9.4-12.3); Monocytes Absolute Auto 0.7 X10*3/uL (0.1-1.2); Monocytes Percent Auto 10.7 % (2-11); Neutrophils Absolute Auto 4.7 x10*3/uL (2.0-8.3); Neutrophils Percent Auto 69.5 % (45-73); Platelet Count 311 X10*3/uL (160-400); Red Blood Count 3.07 X10*6/uL (4.20-5.50); Red Cell Distribution Width 13.6 % (11.0-16.0); White Blood Count 6.8 X10*3/uL (4.8-10.8)
[2023-07-31 07:45] LABS: Alanine Aminotransferase 7 U/L (0-31); Albumin Level 3.1 g/dL (3.5-5.0); Alkaline Phosphatase 50 U/L (39-117); Anion Gap 10 (12-20); Aspartate Amino Transferase 26 U/L (5-31); Bilirubin Total 1.1 mg/dL (0.0-1.0); Blood Urea Nitrogen 23 mg/dL (9-16); Calcium 8.9 mg/dL (8.4-10.2); Carbon Dioxide 26 mmol/L (22-29); Chloride 104 mmol/L (96-108); Estimated Glomerular Filt Rate 55; Glucose Random 80 mg/dL (60-115); Potassium 4.2 mmol/L (3.3-5.1); Sodium 136 mmol/L (135-145); Total Protein 6.4 g/dL (6.5-8.0)
== END 2023-07-31 06:51 | disposition home or self-care (01) ==
LOC: HO.MMNH2L 06:50
PROVIDERS: Visit Provider Family Medicine
DX: Z02.2 Encounter for examination for admission to residential institution (principal); I10 Essential (primary) hypertension
CPT/HCPCS: 36415; 80053; 85025

== ENCOUNTER 2023-08-07 06:32 | Outpatient (REF) | payer MEDICARE, SELFPAY ==
[2023-08-07 06:16] LABS: MANUAL DIFF FLAG NO
[2023-08-07 07:11] LABS: Basophils Absolute Auto 0.1 X10*3/uL (0.0-0.2); Eosinophils Absolute Auto 0.3 X10*3/uL (0.0-0.4); Eosinophils Percent Auto 3.9 % (0-4); Hematocrit 29.2 % (37.0-47.0); Hemoglobin 9.3 g/dl (12.0-16.0); Imm Gran Abs Auto 0.04 X10*3/uL (0.00-0.03); Imm Gran Pct Auto 0.6 % (0.0-0.4); Lymphocytes Absolute Auto 0.9 X10*3/uL (1.2-4.9); Mean Corpuscular HGB Conc 31.8 g/dl (31.0-35.0); Mean Corpuscular Hemoglobin 30.8 pg (27.0-33.0); Mean Corpuscular Volume 96.7 fL (80.0-98.0); Mean Platelet Volume 9.8 fL (9.4-12.3); Monocytes Absolute Auto 0.6 X10*3/uL (0.1-1.2); Neutrophils Absolute Auto 5.3 x10*3/uL (2.0-8.3); Neutrophils Percent Auto 73.5 % (45-73); Platelet Count 421 X10*3/uL (160-400); Red Blood Count 3.02 X10*6/uL (4.20-5.50); Red Cell Distribution Width 14.4 % (11.0-16.0); White Blood Count 7.1 X10*3/uL (4.8-10.8)
[2023-08-07 07:27] LABS: Anion Gap 10 (12-20); Blood Urea Nitrogen 26 mg/dL (9-16); Calcium 9.2 mg/dL (8.4-10.2); Carbon Dioxide 27 mmol/L (22-29); Chloride 105 mmol/L (96-108); Estimated Glomerular Filt Rate 46; Glucose Random 73 mg/dL (60-115); Potassium 4.7 mmol/L (3.3-5.1); Sodium 137 mmol/L (135-145)
== END 2023-08-07 06:33 | disposition home or self-care (01) ==
LOC: HO.MMNH2L 06:32
PROVIDERS: Visit Provider Family Medicine
DX: Z02.2 Encounter for examination for admission to residential institution (principal); I10 Essential (primary) hypertension
CPT/HCPCS: 36415; 80048; 85025

== ENCOUNTER 2023-08-14 07:17 | Outpatient (REF) | payer MEDICARE, SELFPAY ==
[2023-08-14 06:12] LABS: MANUAL DIFF FLAG NO
[2023-08-14 07:06] LABS: Basophils Absolute Auto 0.1 X10*3/uL (0.0-0.2); Basophils Percent Auto 0.9 % (0-2); Eosinophils Absolute Auto 0.4 X10*3/uL (0.0-0.4); Hematocrit 29.8 % (37.0-47.0); Hemoglobin 9.4 g/dl (12.0-16.0); Imm Gran Abs Auto 0.01 X10*3/uL (0.00-0.03); Imm Gran Pct Auto 0.2 % (0.0-0.4); Lymphocytes Absolute Auto 0.9 X10*3/uL (1.2-4.9); Mean Corpuscular HGB Conc 31.5 g/dl (31.0-35.0); Mean Corpuscular Hemoglobin 30.7 pg (27.0-33.0); Mean Corpuscular Volume 97.4 fL (80.0-98.0); Mean Platelet Volume 9.9 fL (9.4-12.3); Monocytes Absolute Auto 0.8 X10*3/uL (0.1-1.2); Monocytes Percent Auto 13.3 % (2-11); Neutrophils Absolute Auto 3.7 x10*3/uL (2.0-8.3); Neutrophils Percent Auto 63.6 % (45-73); Platelet Count 357 X10*3/uL (160-400); Red Blood Count 3.06 X10*6/uL (4.20-5.50); Red Cell Distribution Width 14.3 % (11.0-16.0); White Blood Count 5.9 X10*3/uL (4.8-10.8)
[2023-08-14 07:48] LABS: Anion Gap 12 (12-20); Blood Urea Nitrogen 23 mg/dL (9-16); Calcium 8.9 mg/dL (8.4-10.2); Carbon Dioxide 24 mmol/L (22-29); Chloride 108 mmol/L (96-108); Estimated Glomerular Filt Rate 45; Glucose Random 78 mg/dL (60-115); Potassium 3.8 mmol/L (3.3-5.1); Sodium 140 mmol/L (135-145)
== END 2023-08-14 07:18 | disposition home or self-care (01) ==
LOC: HO.MMNH2L 07:17
PROVIDERS: Visit Provider Family Medicine
DX: Z02.2 Encounter for examination for admission to residential institution (principal); I10 Essential (primary) hypertension
CPT/HCPCS: 36415; 80048; 85025

== ENCOUNTER 2023-08-15 09:09 | Outpatient (REF) | payer MEDICARE, SELFPAY ==
--- NOTE | ~2023-08-15 | XR_ITS ---
EXAMINATION: XR HIP, RIGHT CLINICAL INFORMATION: Right hip pain. COMPARISON: CT abdomen and pelvis 07/23/2023 and Right hip 07/23/2023. TECHNIQUE: Two views of the right hip. FINDINGS: Since the prior study, an intramedullary slime and screw has been placed for the previously seen intertrochanteric right femoral fracture. Components are intact and in good position. There is avulsion of the lesser trochanter, which was not well seen at the time of the original radiographs and very difficult to see at the time of the CT scan (37:32). XR/XR hip RT min 2V IMPRESSION: Status post ORIF right intertrochanteric femoral fracture. Avulsion of the lesser trochanter.
== END 2023-08-15 09:10 | disposition home or self-care (01) ==
LOC: HO.HOSX 09:09
PROVIDERS: Visit Provider Orthopaedic Surgery
DX: S72.001D Fracture of unspecified part of neck of right femur, subsequent encounter for closed fracture with routine healing (principal); M25.551 Pain in right hip; X58.XXXD Exposure to other specified factors, subsequent encounter; Z79.899 Other long term (current) drug therapy
CPT/HCPCS: 73502; 99212

== ENCOUNTER 2023-08-15 09:51 | Outpatient (AMB) | payer MEDICARE, SELFPAY ==
[2023-08-15 10:11] VITALS: BMI 21.0
--- NOTE | 2023-08-15 10:11 | A.OFFVIS_ITS ---
Intake Vital Signs 08/15/23 10:11 Height 5 ft 7 in Weight 134 lb BMI 21.0 Intake Visit Reasons: PO-Rt Hip ORIF 07/24 Intake Note: Josephine is an 82 year old female who presents today for a post operative appointment s/p Right IMN 07/24/23. She feels that she is doing well. She reports mild discomfort along the lateral aspect of her right hip. She denies any fevers or chills. She takes just Tylenol for discomfort. The patient states that she is due to go home from rehab tomorrow. Allergies meperidine [Demerol] Adverse Reaction (Unknown, Verified 07/23/23 19:24) dizziness Medication List - Last Reconciled 08/15/23 by Hector Tran MD aspirin 325 mg PO BID atorvastatin 20 mg PO DAILY levothyroxine (Synthroid) 75 mcg PO DAILY PFSH Medical History RBBB (right bundle branch block) Hypothyroid Gallbladder polyp Right upper quadrant abdominal pain Elevated liver enzymes Bowel obstruction Tubular adenoma of colon History of herpes zoster Hyperlipidemia Essential hypertension Chronic kidney disease, stage 3 Acquired hypothyroidism Osteoporosis Surgical History Hx of small bowel obstruction History of colonoscopy Hx of breast biopsy Family History Father Myocardial infarction Mother HTN (hypertension) Glaucoma Brother HTN (hypertension) Depression Mental health disorder Sister No problems noted. Social History Household Members: None Household Members Other:: Lives in assisted living Housing: Apartment Housing Other:: [facility] Are you a primary health care administrator to a significant other at home: No Do you presently have visiting nurse or other home services: No Alcohol intake: never Patient Tobacco Use Status: Former Tobacco user Quit Date: 1992 Tobacco use type: Cigarette Years Smoked: 4 yrs e-Cigarette/Vaping Use: Never Used Second Hand Smoke Exposure: No (hx of) Advance Directives Date on File: 03/07/22 service: No Current occupational status: retired Cognitive needs: No Hearing needs: No Vision needs: Yes Physical Exam Vital Signs: BMI result Body Mass Index 21.0 Const Other: Well-nourished well-developed very friendly female awake alert and oriented x3 in no acute distress Extrem Other: Right hip examination shows mild discomfort with range of motion, the surgical incisions are healing well, no erythema, mild tenderness over her greater trochanteric bursa Results Reviewed Results Reviewed: X-rays of the patient's right hip taken today show a short gamma nail in good position with no signs of loosening, the intertrochanteric fracture remains minimally displaced, unchanged from intraoperative x-rays Assessment & Plan Assessment & Plan (1) Right hip pain: Code(s): M25.551 - Pain in right hip Plan Ms. Scales is doing very well after undergoing open reduction and internal fixation of her right hip intertrochanteric fracture with placement of a short gamma nail on 07/24/2023. Her anna were removed and Steri-Strips placed over her incisions. She will continue weight-bearing as tolerated. She will contact me prior to her follow-up appointment in 6-8 weeks should any questions or concerns arise. Feel free to call me at any time should questions regarding her orthopedic management arise. Orders: Orders XR hip RT min 2V Today M25.551 - Pain in right hip Coding Level of Care Code Global (74989) Diagnoses Right hip pain M25.551
== END 2023-08-15 11:02 | disposition home or self-care (01) ==
PROVIDERS: PCP Internal Medicine; Visit Provider Orthopaedic Surgery
DX: M25.551 Pain in right hip (principal)
CPT/HCPCS: 99024

== ENCOUNTER 2023-09-26 09:34 | Outpatient (REF) | payer MEDICARE, SELFPAY | END 2023-09-26 09:35 | disposition home or self-care (01) | LOC: HO.HOSX 09:34 | PROVIDERS: Visit Provider Orthopaedic Surgery | DX: Z13.89 Encounter for screening for other disorder (principal) ==

== ENCOUNTER 2023-09-28 12:02 | Outpatient (REF) | payer MEDICARE, SELFPAY ==
--- NOTE | ~2023-09-28 | XR_ITS ---
EXAMINATION: XR HIP, RIGHT CLINICAL INFORMATION: Pain. COMPARISON: Radiograph right hip 08/15/2023. TECHNIQUE: Two views of the right hip. FINDINGS: Post ORIF of right intertrochanteric fracture with a long intramedullary nail, obliquely oriented hip screw and horizontally oriented distal femoral screw. No evidence of hardware fracture or failure. Unchanged alignment of the right intertrochanteric fracture with interval osseous bridging manifested as less distinct fracture lines. No acute fracture or subluxation. 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 Symmetric SI joints. Pelvic rami and pubic symphysis are maintained. Moderate to severe vascular calcifications. Numerous pelvic phleboliths are seen. XR/XR hip RT min 2V IMPRESSION: Post ORIF of right intertrochanteric fracture with no evidence of hardware fracture or failure. Unchanged alignment of the right intertrochanteric fracture with interval osseous bridging.
== END 2023-09-28 12:03 | disposition home or self-care (01) ==
LOC: HO.HOSX 12:02
PROVIDERS: Visit Provider Orthopaedic Surgery
DX: M25.551 Pain in right hip (principal); Z09 Encounter for follow-up examination after completed treatment for conditions other than malignant neoplasm; Z79.899 Other long term (current) drug therapy; Z98.890 Other specified postprocedural states
CPT/HCPCS: 73502; 99212

== ENCOUNTER 2023-09-28 13:20 | Outpatient (AMB) | payer MEDICARE, SELFPAY ==
[2023-09-28 13:41] VITALS: BMI 21.0
--- NOTE | 2023-09-28 13:41 | A.OFFVIS_ITS ---
Intake Vital Signs 09/28/23 13:41 09/28/23 13:52 Height 5 ft 7 in Weight 134 lb BMI 21.0 21.0 Intake Visit Reasons: PO-Rt Hip ORIF 07/24 Intake Note: Josephine is an 82 year old female who presents today for a post operative appointment Right IMN 07/24/23 . The patient reports mild intermittent discomfort along the lateral aspect of her right hip. She does have intermittent discomfort in her right knee as well. She denies any locking or giving way. She takes Tylenol which gives her fairly good relief. She continue s to walk with a walker. Allergies meperidine [Demerol] Adverse Reaction (Unknown, Verified 09/28/23 13:50) dizziness Medication List - Last Reconciled 09/28/23 by Hector Tran MD aspirin 325 mg PO BID atorvastatin 20 mg PO DAILY fluoxetine 10 mg PO DAILY levothyroxine (Synthroid) 75 mcg PO DAILY PFSH Medical History RBBB (right bundle branch block) Hypothyroid Gallbladder polyp Right upper quadrant abdominal pain Elevated liver enzymes Bowel obstruction Tubular adenoma of colon History of herpes zoster Hyperlipidemia Essential hypertension Chronic kidney disease, stage 3 Acquired hypothyroidism Osteoporosis Surgical History Hx of small bowel obstruction History of colonoscopy Hx of breast biopsy Family History Father Myocardial infarction Mother HTN (hypertension) Glaucoma Brother HTN (hypertension) Depression Mental health disorder Sister No problems noted. Social History Household Members: None Household Members Other:: Lives in assisted living Housing: Apartment Housing Other:: [facility] Are you a primary medicare sales executive to a significant other at home: No Do you presently have visiting nurse or other home services: No Alcohol intake: never Patient Tobacco Use Status: Former Tobacco user Quit Date: 1992 Tobacco use type: Cigarette Years Smoked: 4 yrs e-Cigarette/Vaping Use: Never Used Second Hand Smoke Exposure: No (hx of) Advance Directives Date on File: 03/07/22 service: No Current occupational status: retired Cognitive needs: No Hearing needs: No Vision needs: Yes Physical Exam Vital Signs: BMI result Body Mass Index 21.0 Extrem Other: Right hip examination shows that the surgical incisions are well healed, no erythema, minimal discomfort with range of motion Right knee examination shows a minimal effusion, minimal crepitus with range of motion, no instability Results Reviewed Results Reviewed: X-rays of the patient's right hip show a short gamma nail in good position with no signs of loosening, bony trabeculae crossing her intertrochanteric fracture site X-rays of the patient's right knee taken previously show moderate joint space n arrowing, no acute bony abnormalities Assessment & Plan Assessment & Plan (1) Right hip pain: Code(s): M25.551 - Pain in right hip Plan Ms. Gutierrez continues to do well after undergoing open reduction and internal fixation of her right hip intertrochanteric fracture. At this point she is clinically and radiographically healing well. She can continue activities as tolerated. She does have intermittent discomfort in her right knee due to early degenerative joint disease. We will hold off on a cortisone injection at this time. The patient will contact me prior to her follow-up appointment in 6-8 weeks should any questions or concerns arise. Orders: Orders XR hip RT min 2V 09/28/23 M25.551 - Pain in right hip Coding Level of Care Code Global (94296) Diagnoses Right hip pain M25.551
--- NOTE | 2023-09-28 13:48 | MHC.OFFVIS ---
Intake Vital Signs 09/28/23 13:41 09/28/23 13:52 Height 5 ft 7 in Weight 134 lb BMI 21.0 21.0 Intake Visit Reasons: PO-Rt Hip ORIF 07/24 Intake Note: Josephine is an 82 year old female who presents today for a post operative appointment s/p Right IMN 07/24/23 . Patient reports that her hip feels great however her knee on her Right side is still bothering her. She denies any locking or giving way. She continues to walk with a walker. She takes Tylenol which gives her fairly good relief. Allergies meperidine [Demerol] Adverse Reaction (Unknown, Verified 09/28/23 13:50) dizziness Medication List - Last Reconciled 09/28/23 by Hector Tran MD aspirin 325 mg PO BID atorvastatin 20 mg PO DAILY fluoxetine 10 mg PO DAILY levothyroxine (Synthroid) 75 mcg PO DAILY PFSH Medical History RBBB (right bundle branch block) Hypothyroid Gallbladder polyp Right upper quadrant abdominal pain Elevated liver enzymes Bowel obstruction Tubular adenoma of colon History of herpes zoster Hyperlipidemia Essential hypertension Chronic kidney disease, stage 3 Acquired hypothyroidism Osteoporosis Surgical History Hx of small bowel obstruction History of colonoscopy Hx of breast biopsy Family History Father Myocardial infarction Mother HTN (hypertension) Glaucoma Brother HTN (hypertension) Depression Mental health disorder Sister No problems noted. Social History Household Members: None Household Members Other:: Lives in assisted living Housing: Apartment Housing Other:: [facility] Are you a primary healthcare applications analyst to a significant other at home: No Do you presently have visiting nurse or other home services: No Alcohol intake: never Patient Tobacco Use Status: Former Tobacco user Quit Date: 1992 Tobacco use type: Cigarette Years Smoked: 4 yrs e-Cigarette/Vaping Use: Never Used Second Hand Smoke Exposure: No (hx of) Advance Directives Date on File: 03/07/22 service: No Current occupational status: retired Cognitive needs: No Hearing needs: No Vision needs: Yes Physical Exam Vital Signs: BMI result Body Mass Index 21.0 Extrem Other: Right hip examination shows that the surgical incisions are well healed, no erythema, minimal discomfort with range of motion Right knee examination shows a minimal effusion, mild crepitus with range of motion, mild discomfort with range of motion, no instability Results Reviewed Results Reviewed: X-rays of the patient's right hip taken today show bony trabecular crossing her intertrochanteric fracture site, a short gamma nail in good position with no signs of loosening, no acute bony abnormalities X-rays of the patient's right knee taken previously show mild joint space narrowing, no acute bony abnormalities Assessment & Plan Assessment & Plan (1) Right hip pain: Code(s): M25.551 - Pain in right hip Plan Ms. Gutierrez continues to do well after undergoing open reduction and internal fixation of her right hip intertrochanteric fracture on 07/24/2023. She does have intermittent discomfort in her right knee most likely due to early degenerative joint disease. I had a lengthy discussion with the patient regarding the treatment options. At this point her right knee symptoms are tolerable to her. We will hold off on a cortisone injection. She will continue to exercise as much as possible. She will contact me prior to her follow-up appointment in 2 months should her symptoms worsen in any way. Feel free to call me at any time should questions regarding her orthopedic management arise. Orders: Orders XR hip RT min 2V Today M25.551 - Pain in right hip Coding Level of Care Code Global (69514) Diagnoses Right hip pain M25.551
[2023-09-28 13:52] VITALS: BMI 21.0
== END 2023-09-28 14:13 | disposition home or self-care (01) ==
PROVIDERS: PCP Internal Medicine; Visit Provider Orthopaedic Surgery
DX: M25.551 Pain in right hip (principal)
CPT/HCPCS: 99024

== ENCOUNTER 2023-10-11 11:40 | Outpatient (AMB) | payer MEDICARE, SELFPAY ==
[2023-10-11 12:03] VITALS: BP 128/70; PULSE 69; O2SAT 96; BMI 20.2
--- NOTE | 2023-10-11 12:03 | A.OFFPC_ITS ---
Vital Signs 10/11/23 12:03 Height 5 ft 7 in Weight 129 lb BMI 20.2 BP 128/70 Blood Pressure Location Rt brachial Position Sitting Pulse 69 Pulse Source Pulse Oximeter Pulse Oximetry (%) 96 Intake Visit Reasons: Follow-up Intake Note: pt is here fora wellness check, was on prozac and stated it was to strong and doesnt feel like it is needed. Data Security Coordinator Required: No Accompanied by: Family/Other Allergies meperidine [Demerol] Adverse Reaction (Unknown, Verified 10/15/23 23:43) dizziness Medication List - Last Reconciled 10/11/23 by Yoana Moreno MD aspirin 325 mg PO BID atorvastatin 20 mg PO DAILY levothyroxine (Synthroid) 75 mcg PO DAILY Tobacco use date assessed: 10/11/23 Fall risk assessment: 1 Fall in past year Last assessed Fall Risk: 10/11/23 Dental Screening Dental Screen Date: 10/11/23 Did you have a dental visit in the last 12 months?: Yes Did you have a dental problem in the last 6 months where you did not have access to dental care?: No Was dental information given to patient?: Patient has dentist HPI HPI Comments History of Present Illness Details 82-year-old lady with history of anemia, hypertension, hyperlipidemia hypothyroidism, here today for follow-up. She was recently discharged from short-term rehab after undergoing surgery for right hip fracture. Patient states that at that time she was started on fluoxetine for depression. Patient states however that the medication made her feel worse and stopped taking it. She is now back to her own place, feels back to normal and is here also for follow-up on her hypertension and hyper cholesterolemia. [facility] Medical History RBBB (right bundle branch block) Hypothyroid Gallbladder polyp Right upper quadrant abdominal pain Elevated liver enzymes Bowel obstruction Tubular adenoma of colon History of herpes zoster Hyperlipidemia Essential hypertension Chronic kidney disease, stage 3 Acquired hypothyroidism Osteoporosis Surgical History Hx of small bowel obstruction History of colonoscopy Hx of breast biopsy Family History Father Myocardial infarction Mother HTN (hypertension) Glaucoma Brother HTN (hypertension) Depression Mental health disorder Sister No problems noted. Social History Household Members: None Household Members Other:: Lives in assisted living Housing: Apartment Housing Other:: [facility] Are you a primary customer care representative to a significant other at home: No Do you presently have visiting nurse or other home services: No Alcohol intake: never Patient Tobacco Use Status: Former Tobacco user Quit Date: 1992 Tobacco use type: Cigarette Years Smoked: 4 yrs e-Cigarette/Vaping Use: Never Used Second Hand Smoke Exposure: No (hx of) Advance Directives Date on File: 03/07/22 service: No Current occupational status: retired Cognitive needs: No Hearing needs: No Vision needs: Yes Questionnaire PHQ-9 Over the last 2 weeks, how often have you been bothered by any of the following problems? 1. Little interest or pleasure in doing things: not at all 2. Feeling down, depressed, or hopeless: not at all 3. Trouble falling or staying asleep, or sleeping too much: not at all 4. Feeling tired or having little energy: not at all 5. Poor appetite or overeating: not at all 6. Feeling bad about yourself - or that you are a failure or have let yourself or your family down: not at all 7. Trouble concentrating on things, such as reading the newspaper or watching television: not at all 8. Moving or speaking so slowly that other people could have noticed. Or the opposite - being so fidgety or restless that you have been moving around a lot more than usual: not at all 9. Thoughts that you would be better off or of hurting yourself in some way: not at all Total score: 0 Depression Screening Interpretation: Negative Depression Screening Done: Yes 36599 - PHQ-9 Billing: Yes Source: Developed by Drs. Brian Persaud, Lia Silva, Chuy Vallejo and colleagues, with an educational jigar from [employer]. Thrive Questionnaire Date Thrive assessed: 10/11/23 I am a: Patient What is your living situation today?: I have a steady place to live Within the past 12 months, did the food you bought not last and you didn't have the money to get more?: Never true Within the past 12 months, did you worry whether your food would run out before you got money to buy more?: Never true Do you have trouble paying for medicines?: No Do you have trouble getting transportation to medical appointments?: No Do you have trouble paying your heating and electricity bill?: No Do you have trouble taking care of your child, family member or friend?: No Do you have trouble with day-to-day activities such as bathing, preparing meals, shopping, managing finances, etc.?: No Are you currently unemployed and looking for a job?: No Are you interested in more education?: No THRIVE Score: 0 AUDIT C Alcohol Use Questionnaire (AUDIT-C) 1. How often do you have a drink containing alcohol?: Never Total Score: 0 VIOLETA-7 AMB Questionnaire VIOLETA-7 Date VIOLETA - 7 assessed: 10/11/23 Feeling nervous, anxious, or on edge: 0 = Not at all Not being able to stop or control worryin = Not at all Worrying too much about different things: 0 = Not at all Trouble relaxin = Not at all Being so restless that it is hard to sit still: 0 = Not at all Becoming easily annoyed or irritable: 0 = Not at all Feeling afraid as if something awful might happen: 0 = Not at all Total VIOLETA-7 score (0-4 normal; 5-9 mild; 10-14 moderate; 15-21 severe): 0 Source: Developed by Drs. Brian Persaud, Lia Silva, Chuy Vallejo and colleagues, with an educational jigar from [employer]. VIOLETA-7 Assessment Billing VIOLETA-7 Assessment Tool: VIOLETA-7 Assessment 48923 Review of Systems Const Denies chills, Denies fever(s), Denies frequent falls, Denies headache(s), Denies poor appetite and Denies weakness Eyes Reports no additional complaints ENT Reports Normal hearing present and Denies headache(s) Card Denies chest pain, Denies rapid heart rate, Denies irregular heart rhythm and Reports palpitations Resp Denies chest congestion, Denies cough, Denies pain on inspiration and Denies wheezing GI Denies abdominal pain, Denies bloating, Denies hematochezia, Denies change in bowel habits, Denies change in stool character and Denies heartburn Reports no additional complaints Musc Denies back pain, Denies arthralgias, Denies joint swelling and Denies numbness Skin/Breast Denies breast pain, Denies breast mass and Denies rash Neuro Reports Normal hearing present, Denies Abnormal speech present, Denies frequent falls, Denies headache(s), Denies numbness and Denies weakness Psych Reports no additional complaints, Denies anxiety and Denies depression Endo Reports no additional complaints and Reports palpitations Wm/Lymph Reports no additional complaints Aller/Immun Denies wheezing Physical exam (Primary Care) Vital Signs: Last Vital Signs Pulse 69 10/11/23 12:03 BP 128/70 10/11/23 12:03 Pulse Ox 96 10/11/23 12:03 BMI result Body Mass Index 20.2 Tobacco/Smoking Status: Tobacco use Status Tobacco use date assessed 10/11/23 10/11/23 12:10 Patient Tobacco Use Status Former Tobacco user 10/11/23 12:10 Tobacco use type Cigarette 10/11/23 12:10 e-Cigarette/Vaping Use Never Used 10/11/23 12:10 PHQ-9: PHQ-9 Score PHQ-9: Total score 0 10/16/23 02:57 Depression Screening Interpretation: Negative Thrive Assessment: Date of Thrive Assessment Date Thrive assessed 10/11/23 10/16/23 02:57 Const General: no acute distress, alert and Physically active Nutritional Appearance: average body habitus Orientation/consciousness: patient oriented x3 HENMT Head: Yes normocephalic and Yes atraumatic Ears: external ears normal, TM's normal bilaterally and EAC's normal General nose exam: Normal external nose present and No nasal discharge present Face and sinus: Yes face symmetric Mouth: Normal oral and palatal mucosa present, oropharynx normal and moist mucous membranes Eyes General: appearance normal, both eyes and all related structures Neck Other: Supple, no lymphadenopathy, thyroid gland nonpalpable Neck: Yes full ROM, Yes no lymphadenopathy and Yes supple Resp Effort & Inspection: normal respiratory effort and able to speak in complete sentences Auscultation: clear to auscultation bilaterally Cardio Other: S1 and S2 present regular rate and rhythm GI Palpation (GI): Soft to palpation, nontender, no guarding and no masses Auscultation: normal bowel sounds General: Yes no CVA tenderness Back/Spine/Pelvis Back: no CVA tenderness and No back tenderness Skin General skin exam: no rashes or lesions noted and dry skin Neuro General: patient oriented x3, tone normal, moves all extremities, Normal light touch and pain sensation and no focal motor deficits Cranial nerves: Yes Normal hearing present Speech: No Abnormal speech present Extrem General: Yes full ROM, Yes no joint enlargement and Yes no pedal edema Psych Appearance: grossly normal and well kempt Mental Status: mental status grossly normal Speech and movement: Normal speech and movement present Affect: normal affect Attitude: cooperative Thought process: Normal thought process present Thought content: Normal thought content present Results Reviewed Results Reviewed: Name: Josephine Gutierrez Age/Sex: 82/F : 1940 Unit#: [id number] Attend Dr: YAW MAJOR MD Re08/14/23 Status: DEP REF Location: [address] Disch: SPEC : [id number] CARIN: 08/14/23 STATUS: COMP REQ : [id number] RECD: 08/14/[address]: YAW MAJOR MD COMP: 08/08/23 ENTERED: 08/08/[address] [facility] [address]: ORDERED: CBC Auto Diff Test Result Flag Reference WBC 5.9 4.8-10.8 X10*3/uL RBC 3.06 L 4.20-5.50 X10*6/uL HGB 9.4 L 12.0-16.0 g/dl HCT 29.8 L 37.0-47.0 % MCV 97.4 80.0-98.0 fL MCH 30.7 27.0-33.0 pg MCHC 31.5 31.0-35.0 g/dl RDW 14.3 11.0-16.0 % PLT 357 160-400 X10*3/uL MPV 9.9 9.4-12.3 fL Neut Pct Auto 63.6 45-73 % ImGran Pct Auto 0.2 0.0-0.4 % Lymp Pct Auto 16.0 L 20-40 % [place] Pct Auto 13.3 H 2-11 % Eos Pct Auto 6.0 H 0-4 % Baso Pct Auto 0.9 0-2 % NRBC Pct Auto 0.0 0.0-0.2 /100WBC ANC Neut Abs # 3.7 2.0-8.3 x10*3/uL ImGran Abs Auto 0.01 0.00-0.03 X10*3/uL Lymph Abs Auto 0.9 L 1.2-4.9 X10*3/uL [place] Abs Auto 0.8 0.1-1.2 X10*3/uL Eos Abs Auto 0.4 0.0-0.4 X10*3/uL Baso Abs Auto 0.1 0.0-0.2 X10*3/uL NRBC Abs Auto 0.000 0.0-0.012 X10*3/uL RUN: 10/16/23 0259 PAGE 1 [facility] [address] [place] [id number] Licensed Home Inspector: Wilfred Mcadams M.D. Specimen Inquiry Name: Josephine Gutierrez Jorgito Age/Sex: 82/F : 1940 Unit#: [id number] Attend Dr: YAW MAJOR MD Re08/14/23 Status: DEP REF Location: [address] Disch: SPEC : [id number] CARIN: 08/14/23 STATUS: COMP REQ : [id number] RECD: 08/14/[address] [facility] [address]: YAW MAJOR MD COMP: 08/14/23 ENTERED: 08/08/23-[address] [facility] [address]: ORDERED: BMP Test Result Flag Reference Sodium 140 135-145 mmol/L Potassium 3.8 3.3-5.1 mmol/L CL 108 96-108 mmol/L CO2 24 22-29 mmol/L Gap 12 12-20 BUN 23 H 9-16 mg/dL Creat 1.16 0.5-1.4 mg/dL EGFR 45 NOTE: For -[place] individuals, multiply the result by 1.210. Chronic Kidney Disease: Estimated GFR < 60 mL/min/1.73m2 Severe Kidney Disease: Estimated GFR < 15 mL/min/1.73m2 Glucose, Random 78 60-115 mg/dL CA 8.9 8.4-10.2 mg/dL Assessment and Plan Assessment & Plan (1) Anemia due to blood loss, acute: Code(s): D62 - Acute posthemorrhagic anemia Plan: Take ferrous sulfate 325 mg per tablet once a day, take with orange juice or vitamin-C for better absorption , advised patient that it may cause constipation, to take a stool softener daily when taking iron supplements. Recheck CBC and iron panel in 2 months (2) Acquired hypothyroidism: Code(s): E03.9 - Hypothyroidism, unspecified Plan: Continued on levothyroxine 75 mcg daily , ordered a TSH and free T4 level in 2 month (3) Essential hypertension: Code(s): I10 - Essential (primary) hypertension Plan: Blood pressure at goal of less than 130/80. Continue with current medication. Reinforced importance of following a low sodium diet, getting regular exercise, and lowering stress levels. (4) Hyperlipidemia: Code(s): E78.5 - Hyperlipidemia, unspecified Qualifiers: Hyperlipidemia type: pure hypercholesterolemia Qualified Code(s): E78.00 - Pure hypercholesterolemia, unspecified Plan: Continue atorvastatin 20 mg daily. Will repeat another fasting lipid panel in 2 months Orders: Orders Lipid Panel 12/11/23 D62 - Acute posthemorrhagic anemia, E03.9 - Hypothyroidism, unspecified, E78.5 - Hyperlipidemia, unspecified, I10 - Essential (primary) hypertension, N18.30 - Chronic kidney disease, stage 3 unspecified, Z78.0 - Asymptomatic menopausal state Vitamin B12 and Folate 12/11/23 D62 - Acute posthemorrhagic anemia, E03.9 - Hypothyroidism, unspecified, E78.5 - Hyperlipidemia, unspecified, I10 - Essential (primary) hypertension, N18.30 - Chronic kidney disease, stage 3 uns pecified, Z78.0 - Asymptomatic menopausal state Thyroid Stimulating Hormone 12/11/23 D62 - Acute posthemorrhagic anemia, E03.9 - Hypothyroidism, unspecified, E78.5 - Hyperlipidemia, unspecified, I10 - Essential (primary) hypertension, N18.30 - Chronic kidney disease, stage 3 unspecified, Z78.0 - Asymptomatic menopausal state Free T4 (Free Thyroxine) 12/11/23 D62 - Acute posthemorrhagic anemia, E03.9 - Hypothyroidism, unspecified, E78.5 - Hyperlipidemia, unspecified, I10 - Essential (primary) hypertension, N18.30 - Chronic kidney disease, stage 3 unspecified, Z78.0 - Asymptomatic menopausal state Complete Blood Count Auto Diff 12/11/23 D62 - Acute posthemorrhagic anemia, E03.9 - Hypothyroidism, unspecified, E78.5 - Hyperlipidemia, unspecified, I10 - Essential (primary) hypertension, N18.30 - Chronic kidney disease, stage 3 unspecified, Z78.0 - Asymptomatic menopausal state IRON PROFILE 12/11/23 D62 - Acute posthemorrhagic anemia, E03.9 - Hypothyroidism, unspecified, E78.5 - Hyperlipidemia, unspecified, I10 - Essential (primary) hypertension, N18.30 - Chronic kidney disease, stage 3 unspecified, Z78.0 - Asymptomatic menopausal state Comprehensive [place]. Panel Fast 12/11/23 D62 - Acute posthemorrhagic anemia, E03.9 - Hypothyroidism, unspecified, E78.5 - Hyperlipidemia, unspecified, I10 - Essential (primary) hypertension, N18.30 - Chronic kidney disease, stage 3 unspecified, Z78.0 - Asymptomatic menopausal state Vitamin D 25-OH Total 12/11/23 D62 - Acute posthemorrhagic anemia, E03.9 - Hypothyroidism, unspecified, E78.5 - Hyperlipidemia, unspecified, I10 - Essential (primary) hypertension, N18.30 - Chronic kidney disease, stage 3 unspecified, Z78.0 - Asymptomatic menopausal state Medications: New ferrous sulfate 325 mg PO DAILY 90 tabs 1RF Coding Level of Care Code Est Pt Level 4 (86822) Diagnoses Anemia due to blood loss, acute D62 Acquired hypothyroidism E03.9 Essential hypertension I10 Pure hypercholesterolemia E78.00 Hyperlipidemia type: pure hypercholesterolemia Additional Codes VIOLETA-7 Assessment Billing - VIOLETA-7 Assessment Tool: VIOLETA-7 Assessment 83185 ([id number])
== END 2023-10-11 13:02 | disposition home or self-care (01) ==
PROVIDERS: PCP Internal Medicine; Visit Provider Internal Medicine
DX: I12.9 Hypertensive chronic kidney disease with stage 1 through stage 4 chronic kidney disease, or unspecified chronic kidney disease (principal); N18.30 Chronic kidney disease, stage 3 unspecified; D62 Acute posthemorrhagic anemia; E03.9 Hypothyroidism, unspecified; E78.00 Pure hypercholesterolemia, unspecified
CPT/HCPCS: 99214

== ENCOUNTER 2023-11-28 13:04 | Outpatient (AMB) | payer MEDICARE, SELFPAY ==
[2023-11-28 13:05] VITALS: BMI 20.2
--- NOTE | 2023-11-28 13:05 | MHC.OFFVIS ---
Intake Vital Signs 11/28/23 13:05 Height 5 ft 7 in Weight 129 lb BMI 20.2 Intake Visit Reasons: OV-Rt Hip ORIF 07/24 DR- follow up Intake Note: Josephine is a 82 year old female who presents for her post operative appointment s/p Right hip ORIF on 07/24/2023. Patient reports she is feeling good and has no concerns at this time. She continues to walk with a walker when she is out of her home. She denies any fevers or chills. She does not take any medicines for discomfort. Allergies meperidine [Demerol] Adverse Reaction (Unknown, Verified 11/28/23 13:25) dizziness Medication List - Last Reconciled 11/28/23 by Hector Tran MD aspirin 325 mg PO BID atorvastatin 20 mg PO DAILY ferrous sulfate 325 mg PO DAILY levothyroxine (Synthroid) 75 mcg PO DAILY PFSH Medical History RBBB (right bundle branch block) Hypothyroid Gallbladder polyp Right upper quadrant abdominal pain Elevated liver enzymes Bowel obstruction Tubular adenoma of colon History of herpes zoster Hyperlipidemia Essential hypertension Chronic kidney disease, stage 3 Acquired hypothyroidism Osteoporosis Surgical History Hx of small bowel obstruction History of colonoscopy Hx of breast biopsy Family History Father Myocardial infarction Mother HTN (hypertension) Glaucoma Brother HTN (hypertension) Depression Mental health disorder Sister No problems noted. Social History Household Members: None Household Members Other:: Lives in assisted living Housing: Apartment Housing Other:: [facility] Are you a primary home health care provider to a significant other at home: No Do you presently have visiting nurse or other home services: No Alcohol intake: never Patient Tobacco Use Status: Former Tobacco user Quit Date: 1992 Tobacco use type: Cigarette Years Smoked: 4 yrs e-Cigarette/Vaping Use: Never Used Second Hand Smoke Exposure: No (hx of) Advance Directives Date on File: 03/07/22 service: No Current occupational status: retired Cognitive needs: No Hearing needs: No Vision needs: Yes Physical Exam Vital Signs: BMI result Body Mass Index 20.2 Const Other: Well-nourished well-developed very friendly female awake alert and oriented x3 in no acute distress Extrem Other: Bilateral lower extremity examination shows good capillary refill, no skin lesions noted, normal sensation light touch Right hip examination shows minimal discomfort with range of motion, no tenderness over her bursa Results Reviewed Results Reviewed: X-rays of the patient's right hip taken today show a short gamma nail in good position with no signs of loosening, bony trabecula crossing the intertrochanteric fracture site, no acute bony abnormalities Assessment & Plan Assessment & Plan (1) Right hip pain: Code(s): M25.551 - Pain in right hip Plan Ms. Scales continues to do very well after undergoing open reduction and internal fixation of her right hip intertrochanteric fracture on 07/24/2023. She will continue with her home exercise program. She will follow up with me on an as-needed basis should any questions or concerns arise. Feel free to call me at any time should questions regarding her orthopedic management arise. I spent 22 minutes in reviewing the patient's records and imaging studies, seeing the patient and documenting in the medical record. Orders: Orders XR hip RT min 2V Today M25.551 - Pain in right hip Coding Level of Care Code Est Pt Level 2 (79404) Diagnoses Right hip pain M25.551
== END 2023-11-28 13:35 | disposition home or self-care (01) ==
PROVIDERS: PCP Internal Medicine; Visit Provider Orthopaedic Surgery
DX: S72.141D Displaced intertrochanteric fracture of right femur, subsequent encounter for closed fracture with routine healing (principal); W06.XXXD Fall from bed, subsequent encounter
CPT/HCPCS: 99213

== ENCOUNTER 2023-11-28 15:16 | Outpatient (REF) | payer MEDICARE, SELFPAY ==
--- NOTE | ~2023-11-28 | XR_ITS ---
EXAMINATION: XR HIP, RIGHT CLINICAL INFORMATION: Right hip pain COMPARISON: X-ray pelvis and right hip on 09/28/2023 TECHNIQUE: Frontal x-ray of the pelvis, Frontal and Frog leg lateral x-rays of right hip. FINDINGS: BONES: Chronic right femoral intertrochanteric fracture, fixation with hip compression screw and proximal right femoral shaft gamma nail, transfixion screw is seen. Displaced greater and lesser trochanteric bone fragments are present. There is no focal bone destruction or periosteal reaction seen. JOINTS: Alignment of hip joint is normal. SOFT TISSUE: Soft tissue is normal. No radiopaque foreign body or abnormal air collection is seen. XR/XR hip RT min 2V IMPRESSION: 1. Unchanged Chronic right femoral intertrochanteric fracture, fixation with hip compression screw and proximal right femoral shaft gamma nail, transfixion screw. 2. Unchanged displaced right femoral trochanteric fragments. 3. No evidence of new fracture or avascular necrosis of right femoral head.
== END 2023-11-28 15:17 | disposition home or self-care (01) ==
LOC: HO.HOSX 15:16
PROVIDERS: Visit Provider Orthopaedic Surgery
DX: M25.551 Pain in right hip (principal)
CPT/HCPCS: 73502; 99212

== ENCOUNTER 2023-12-18 11:33 | Outpatient (AMB) | payer MEDICARE, SELFPAY ==
[2023-12-18 11:34] VITALS: BP 100/66; PULSE 73; O2SAT 98; BMI 20.5
--- NOTE | 2023-12-18 11:34 | MHC.PC.OV ---
Vital Signs 12/18/23 11:34 Height 5 ft 7 in Weight 131 lb BMI 20.5 BP 100/66 Blood Pressure Location Rt brachial Position Sitting Pulse 73 Pulse Source Pulse Oximeter Pulse Oximetry (%) 98 Oxygen Delivery Method Room Air Intake Visit Reasons: 6 month fu Intake Note: Pt is here today for her 6 months f/u Accompanied by: Nephew or Niece (Jazmine) Allergies meperidine [Demerol] Adverse Reaction (Unknown, Verified 12/24/23 22:24) dizziness Medication List - Last Reconciled 12/24/23 by Yoana Moreno MD atorvastatin 20 mg PO DAILY cholecalciferol (vitamin D3) 50 mcg PO DAILY ferrous sulfate 325 mg PO DAILY levothyroxine (Synthroid) 75 mcg PO DAILY vitamin B complex 1 tab PO DAILY Tobacco use date assessed: 10/11/23 Fall risk assessment: 1 Fall in past year Last assessed Fall Risk: 12/18/23 Dental Screening Dental Screen Date: 12/18/23 Did you have a dental visit in the last 12 months?: Yes Did you have a dental problem in the last 6 months where you did not have access to dental care?: No Was dental information given to patient?: Patient has dentist HPI 6 month fu HPI Details 83-year-old female with pertinent history of hypothyroidism, mixed hyperlipidemia, osteoporosis, chronic kidney disease, hx of right femoral intertrochanteric fracture after a fall last 07/2023 s/p right hip ORIF . Patient states that she has been feeling well, able to ambulate now without assistance. Denies any joint pain. She had history of anemia after her surgery last July 2023, had recent fasting labs done at [facility] 12/12/2023 showing normal CBC, normal iron levels, fasting glucose at 65, electrolytes are within normal limits, with GFR at 42 and creatinine at 1.26, normal calcium at 9.4, liver panel was also within normal limits and total cholesterol was 231, which triglycerides 79, HDL 69 and LDL at 147. Her free T4 was 1.16 and TSH 2.75 with vitamin-D level of 41 ng/ml [facility] Medical History (Updated 12/24/23 @ 22:52 by Yoana Moreno MD) Hx of iron deficiency anemia Fracture, intertrochanteric, right femur RBBB (right bundle branch block) Gallbladder polyp Bowel obstruction Tubular adenoma of colon History of herpes zoster Hyperlipidemia Essential hypertension Chronic kidney disease, stage 3 Acquired hypothyroidism Osteoporosis Surgical History (Updated 12/24/23 @ 22:42 by Yoana Moreno MD) History of open reduction and internal fixation (ORIF) procedure Hx of small bowel obstruction History of colonoscopy Hx of breast biopsy Family History Father Myocardial infarction Mother HTN (hypertension) Glaucoma Brother HTN (hypertension) Depression Mental health disorder Sister No problems noted. Social History Household Members: None Household Members Other:: Lives in assisted living Housing: Apartment Housing Other:: [facility] Are you a primary care technician to a significant other at home: No Do you presently have visiting nurse or other home services: No Alcohol intake: never Patient Tobacco Use Status: Former Tobacco user Quit Date: 1992 Tobacco use type: Cigarette Years Smoked: 4 yrs e-Cigarette/Vaping Use: Never Used Second Hand Smoke Exposure: No (hx of) Advance Directives Date on File: 03/07/22 service: No Current occupational status: retired Cognitive needs: No Hearing needs: No Vision needs: Yes Questionnaire PHQ-9 Over the last 2 weeks, how often have you been bothered by any of the following problems? Depression Screening Interpretation: Negative Depression Screening Done: Yes Source: Developed by Drs. Brian Persaud, Lia Silva, Chuy Vallejo and colleagues, with an educational jigar from [employer]. Thrive Questionnaire Date Thrive assessed: 10/11/23 VIOLETA-7 AMB Questionnaire VIOLETA-7 Date VIOLETA - 7 assessed: 10/11/23 Source: Developed by Drs. Brian Persaud, Lia Silva, Chuy Vallejo and colleagues, with an educational jigar from [employer]. Review of Systems Const Denies chills, Denies fever(s), Denies headache(s), Denies poor appetite and Denies weakness Eyes Reports no additional complaints ENT Reports Normal hearing present and Denies headache(s) Card Denies chest pain, Denies rapid heart rate, Denies irregular heart rhythm and Reports palpitations Resp Denies chest congestion, Denies cough, Denies pain on inspiration and Denies wheezing GI Denies abdominal pain, Denies bloating, Denies hematochezia, Denies change in bowel habits and Denies heartburn Reports no additional complaints Musc Denies back pain, Denies arthralgias, Denies joint swelling and Denies numbness Skin/Breast Denies breast pain, Denies breast mass and Denies rash Neuro Reports Normal hearing present, Denies Abnormal speech present, Denies headache(s), Denies numbness and Denies weakness Psych Reports no additional complaints, Denies anxiety and Denies depression Endo Reports no additional complaints and Reports palpitations Wm/Lymph Reports no additional complaints Aller/Immun Denies wheezing Physical exam (Primary Care) Vital Signs: Last Vital Signs Pulse 73 12/18/23 11:34 BP 100/66 12/18/23 11:34 Pulse Ox 98 12/18/23 11:34 Oxygen Delivery Method Room Air 12/18/23 11:34 BMI result Body Mass Index 20.5 Tobacco/Smoking Status: Tobacco use Status Tobacco use date assessed 10/11/23 12/18/23 11:34 Patient Tobacco Use Status Former Tobacco user 12/18/23 11:34 Tobacco use type Cigarette 12/18/23 11:34 e-Cigarette/Vaping Use Never Used 12/18/23 11:34 Depression Screening Interpretation: Negative Thrive Assessment: Date of Thrive Assessment Date Thrive assessed 10/11/23 12/18/23 11:34 Const Other: Accompanied by niece General: no acute distress, alert and Physically active Nutritional Appearance: average body habitus Orientation/consciousness: patient oriented x3 HENMT Head: Yes normocephalic Ears: external ears normal, TM's normal bilaterally and EAC's normal General nose exam: Normal external nose present Face and sinus: Yes face symmetric Mouth: Normal oral and palatal mucosa present, oropharynx normal and moist mucous membranes Eyes General: appearance normal, both eyes and all related structures Neck Other: Supple, no lymphadenopathy, thyroid gland nonpalpable Neck: Yes full ROM, Yes no lymphadenopathy and Yes supple Resp Effort & Inspection: normal respiratory effort and able to speak in complete sentences Auscultation: clear to auscultation bilaterally Cardio Other: S1 and S2 present regular rate and rhythm GI Palpation (GI): Soft to palpation, nontender, no guarding and no masses Auscultation: normal bowel sounds General: Yes no CVA tenderness Back/Spine/Pelvis Back: no CVA tenderness and No back tenderness Skin General skin exam: no rashes or lesions noted and dry skin Neuro General: patient oriented x3, tone normal, moves all extremities, Normal light touch and pain sensation and no focal motor deficits Cranial nerves: Yes Normal hearing present Speech: No Abnormal speech present Extrem General: Yes full ROM, Yes no joint enlargement and Yes no pedal edema Psych Appearance: grossly normal and well kempt Mental Status: mental status grossly normal Speech and movement: Normal speech and movement present Affect: normal affect Attitude: cooperative Results Reviewed Results Reviewed: Name: Josephine Gutierrez Age/Sex: 82/F : 1940 Unit#: [id number] Attend Dr: YAW MAJOR MD Re08/14/23 Status: DEP REF Location: [address] Disch: SPEC : [id number] CARIN: 08/14/23 STATUS: COMP REQ : [id number] RECD: 08/14/[address]: YAW MAJOR MD COMP: 08/08/23 ENTERED: 08/08/[address] [facility] [address]: ORDERED: CBC Auto Diff Test Result Flag Reference WBC 5.9 4.8-10.8 X10*3/uL RBC 3.06 L 4.20-5.50 X10*6/uL HGB 9.4 L 12.0-16.0 g/dl HCT 29.8 L 37.0-47.0 % MCV 97.4 80.0-98.0 fL MCH 30.7 27.0-33.0 pg MCHC 31.5 31.0-35.0 g/dl RDW 14.3 11.0-16.0 % PLT 357 160-400 X10*3/uL MPV 9.9 9.4-12.3 fL Neut Pct Auto 63.6 45-73 % ImGran Pct Auto 0.2 0.0-0.4 % Lymp Pct Auto 16.0 L 20-40 % [place] Pct Auto 13.3 H 2-11 % Eos Pct Auto 6.0 H 0-4 % Baso Pct Auto 0.9 0-2 % NRBC Pct Auto 0.0 0.0-0.2 /100WBC ANC Neut Abs # 3.7 2.0-8.3 x10*3/uL ImGran Abs Auto 0.01 0.00-0.03 X10*3/uL Lymph Abs Auto 0.9 L 1.2-4.9 X10*3/uL [place] Abs Auto 0.8 0.1-1.2 X10*3/uL Eos Abs Auto 0.4 0.0-0.4 X10*3/uL Baso Abs Auto 0.1 0.0-0.2 X10*3/uL NRBC Abs Auto 0.000 0.0-0.012 X10*3/uL Assessment and Plan Assessment & Plan (1) Acquired hypothyroidism: Code(s): E03.9 - Hypothyroidism, unspecified Plan: Last TSH and free T4 done 12/12/2023 was at 2.75/1.16 respectively. Continued on current dose of levothyroxine 75 mcg taken once a day. Repeat another TSH and free T4 in 6 months (2) Chronic kidney disease, stage 3: Comment: followed by Dr Noel Code(s): N18.30 - Chronic kidney disease, stage 3 unspecified Plan: Currently stable with last creatinine at 1.26 and GFR 42 on 12/12/2023. Currently followed by Dr. Noel. Vitamin-D was also checked 12/12/2023 which came back at 41 (3) Essential hypertension: Code(s): I10 - Essential (primary) hypertension Plan: Blood pressure within normal limits. Recent labs showed BMP within normal limits except for creatinine of 1.26 and a GFR at 42, fasting glucose 65 mg per dL on 12/12/2023 (4) Hyperlipidemia: Code(s): E78.5 - Hyperlipidemia, unspecified Qualifiers: Hyperlipidemia type: pure hypercholesterolemia Qualified Code(s): E78.00 - Pure hypercholesterolemia, unspecified Plan: She had a fasting lipid panel done 12/12/2023 which showed total cholesterol 231, triglycerides 79, LDL 147 and HDL 69. Will continue on atorvastatin 20 mg daily. Repeat fasting lipid panel in six-month (5) Anemia due to blood loss, acute: Code(s): D62 - Acute posthemorrhagic anemia Plan: Anemia has resolved as noted on recent CBC done 12/12/2023 which showed hemoglobin at 12.8 and hematocrit 39.4 with normal MCV MCH and WBC 5.3. Patient advised that she may stop taking ferrous sulfate supplements. Repeat another CBC in six-month Orders: Orders Complete Blood Count Auto Diff 06/11/24 D62 - Acute posthemorrhagic anemia, E03.9 - Hypothyroidism, unspecified, E78.00 - Pure hypercholesterolemia, unspecified, I10 - Essential (primary) hypertension, N18.30 - Chronic kidney disease, stage 3 unspecified Lipid Panel 06/11/24 D62 - Acute posthemorrhagic anemia, E03.9 - Hypothyroidism, unspecified, E78.00 - Pure hypercholesterolemia, unspecified, I10 - Essential (primary) hypertension, N18.30 - Chronic kidney disease, stage 3 unspecified Alanine Aminotransferase 06/11/24 D62 - Acute posthemorrhagic anemia, E03.9 - Hypothyroidism, unspecified, E78.00 - Pure hypercholesterolemia, unspecified, I10 - Essential (primary) hypertension, N18.30 - Chronic kidney disease, stage 3 unspecified Aspartate Amino Transferase 06/11/24 D62 - Acute posthemorrhagic anemia, E03.9 - Hypothyroidism, unspecified, E78.00 - Pure hypercholesterolemia, unspecified, I10 - Essential (primary) hypertension, N18.30 - Chronic kidney disease, stage 3 unspecified Vitamin D 25-OH Total 06/11/24 D62 - Acute posthemorrhagic anemia, E03.9 - Hypothyroidism, unspecified, E78.00 - Pure hypercholesterolemia, unspecified, I10 - Essential (primary) hypertension, N18.30 - Chronic kidney disease, stage 3 unspecified Thyroid Stimulating Hormone 06/11/24 D62 - Acute posthemorrhagic anemia, E03.9 - Hypothyroidism, unspecified, E78.00 - Pure hypercholesterolemia, unspecified, I10 - Essential (primary) hypertension, N18.30 - Chronic kidney disease, stage 3 unspecified Free T4 (Free Thyroxine) 06/11/24 D62 - Acute posthemorrhagic anemia, E03.9 - Hypothyroidism, unspecified, E78.00 - Pure hypercholesterolemia, unspecified, I10 - Essential (primary) hypertension, N18.30 - Chronic kidney disease, stage 3 unspecified Basic Metabolic Panel Fasting 06/11/24 D62 - Acute posthemorrhagic anemia, E03.9 - Hypothyroidism, unspecified, E78.00 - Pure hypercholesterolemia, unspecified, I10 - Essential (primary) hypertension, N18.30 - Chronic kidney disease, stage 3 unspecified Coding Level of Care Code Est Pt Level 4 (01716) Diagnoses Acquired hypothyroidism E03.9 Chronic kidney disease, stage 3 N18.30 Essential hypertension I10 Pure hypercholesterolemia E78.00 Hyperlipidemia type: pure hypercholesterolemia Anemia due to blood loss, acute D62
== END 2023-12-18 14:45 | disposition home or self-care (01) ==
PROVIDERS: PCP Internal Medicine; Visit Provider Internal Medicine
DX: I12.9 Hypertensive chronic kidney disease with stage 1 through stage 4 chronic kidney disease, or unspecified chronic kidney disease (principal); E03.9 Hypothyroidism, unspecified; N18.30 Chronic kidney disease, stage 3 unspecified; E78.00 Pure hypercholesterolemia, unspecified; D62 Acute posthemorrhagic anemia
CPT/HCPCS: 99214

== ENCOUNTER 2024-07-01 10:58 | Outpatient (AMB) | payer MEDICARE, SELFPAY ==
[2024-07-01 11:02] VITALS: BP 128/70; PULSE 76; O2SAT 93; BMI 21.5
--- NOTE | 2024-07-01 11:02 | A.OFFPC_ITS ---
Vital Signs 07/01/24 11:02 Height 5 ft 7 in Weight 137 lb BMI 21.5 BP 128/70 Blood Pressure Location Lt brachial Position Sitting Pulse 76 Pulse Source Pulse Oximeter Pulse Oximetry (%) 93 Oxygen Delivery Method Room Air Intake Visit Reasons: Annual PE - see comments Intake Note: Pt is here today for her PE: last bone density scan 04/30/21 Allergies meperidine [Demerol] Adverse Reaction (Unknown, Verified 07/01/24 11:39) dizziness Medication List - Last Reconciled 07/01/24 by Yoana Moreno MD levothyroxine 75 mcg PO DAILY vitamin B complex 1 tab PO DAILY Tobacco use date assessed: 07/01/24 Fall risk assessment: No Falls in past year Last assessed Fall Risk: 07/01/24 Dental Screening Dental Screen Date: 07/01/24 Did you have a dental visit in the last 12 months?: No Did you have a dental problem in the last 6 months where you did not have access to dental care?: No Was dental information given to patient?: Patient has dentist HPI Annual PE - see comments HPI Details 83 year-old female with pertinent histor y of hypothyroidism, mixed hyperlipidemia, osteoporosis, chronic kidney disease, hx of right femoral intertrochanteric fracture after a fall last 07/2023 s/p right hip ORIF , here today for follow-up. She has been feeling well, except for intermittent joint stiffness . She had recent fasting labs done 06/19/2024 by [facility] which showed fasting blood sugar at 60 5 mg/dL, BUN creatinine 30/1.24 respectively, with a GFR of 43, total cholesterol 269 with an LDL cholesterol of 185 and vitamin-D low at 27. She was on statins in the past but developed myalgia which resolved after discontinuation of the medication. [facility] Medical History (Updated 07/01/24 @ 11:50 by Yoana Moreno MD) Vitamin D deficiency Hx of iron deficiency anemia Fracture, intertrochanteric, right femur RBBB (right bundle branch block) Gallbladder polyp Bowel obstruction Tubular adenoma of colon History of herpes zoster Hyperlipidemia Essential hypertension Chronic kidney disease, stage 3 Acquired hypothyroidism Osteoporosis Surgical History History of open reduction and internal fixation (ORIF) procedure Hx of small bowel obstruction History of colonoscopy Hx of breast biopsy Family History Father Myocardial infarction Mother HTN (hypertension) Glaucoma Brother HTN (hypertension) Depression Mental health disorder Sister No problems noted. Social History Household Members: None Household Members Other:: Lives in assisted living Housing: Apartment Housing Other:: [facility] Are you a primary plant care worker to a significant other at home: No Do you presently have visiting nurse or other home services: No Alcohol intake: never Patient Tobacco Use Status: Former Tobacco user Tobacco use type: Cigarette Years Smoked: 4 yrs e-Cigarette/Vaping Use: Never Used Second Hand Smoke Exposure: No (hx of) Advance Directives Date on File: 03/07/22 service: No Current occupational status: retired Cognitive needs: No Hearing needs: No Vision needs: Yes Questionnaire PHQ-9 Over the last 2 weeks, how often have you been bothered by any of the following problems? 1. Little interest or pleasure in doing things: not at all 2. Feeling down, depressed, or hopeless: not at all 3. Trouble falling or staying asleep, or sleeping too much: not at all 4. Feeling tired or having little energy: not at all 5. Poor appetite or overeating: not at all 6. Feeling bad about yourself - or that you are a failure or have let yourself or your family down: not at all 7. Trouble concentrating on things, such as reading the newspaper or watching television: not at all 8. Moving or speaking so slowly that other people could have noticed. Or the opposite - being so fidgety or restless that you have been moving around a lot more than usual: not at all 9. Thoughts that you would be better off or of hurting yourself in some way: not at all Total score: 0 Depression Screening Interpretation: Negative Depression Screening Done: Yes 47226 - PHQ-9 Billing: Yes Source: Developed by Drs. Brian Persaud, Lia Silva, Chuy Vallejo and colleagues, with an educational jigar from [employer]. Thrive Questionnaire Date Thrive assessed: 07/01/24 I am a: Patient What is your living situation today?: I have a steady place to live Within the past 12 months, did the food you bought not last and you didn't have the money to get more?: Never true Within the past 12 months, did you worry whether your food would run out before you got money to buy more?: Never true Do you have trouble paying for medicines?: No Do you have trouble getting transportation to medical appointments?: No Do you have trouble paying your heating and electricity bill?: No Do you have trouble taking care of your child, family member or friend?: No Do you have trouble with day-to-day activities such as bathing, preparing meals, shopping, managing finances, etc.?: No Are you currently unemployed and looking for a job?: No Are you interested in more education?: No Please select the resources that you would like help with: None Currently or been in a relationship where the following occur: No concerns reported THRIVE Score: 0 AUDIT C Alcohol Use Questionnaire (AUDIT-C) 1. How often do you have a drink containing alcohol?: Never Total Score: 0 VIOLETA-7 AMB Questionnaire VIOLETA-7 Date VIOLETA - 7 assessed: 10/11/23 Feeling nervous, anxious, or on edge: 0 = Not at all Not being able to stop or control worryin = Not at all Worrying too much about different things: 0 = Not at all Trouble relaxin = Not at all Being so restless that it is hard to sit still: 0 = Not at all Becoming easily annoyed or irritable: 0 = Not at all Feeling afraid as if something awful might happen: 0 = Not at all Total VIOLETA-7 score (0-4 normal; 5-9 mild; 10-14 moderate; 15-21 severe): 0 Source: Developed by Drs. Brian Persaud, Lia Silva, Chuy Vallejo and colleagues, with an educational jigar from [employer]. Review of Systems Const Denies chills, Denies fever(s), Denies headache(s), Denies poor appetite and Denies weakness Eyes Reports no additional complaints ENT Reports Normal hearing present and Denies headache(s) Card Denies chest pain, Denies rapid heart rate, Denies irregular heart rhythm and Reports palpitations Resp Denies chest congestion, Denies cough, Denies pain on inspiration and Denies wheezing GI Denies abdominal pain, Denies bloating, Denies hematochezia, Denies change in bowel habits and Denies heartburn Reports no additional complaints Musc Denies back pain, Denies arthralgias, Denies joint swelling and Denies numbness Skin/Breast Denies breast pain, Denies breast mass and Denies rash Neuro Reports Normal hearing present, Denies Abnormal speech present, Denies headache(s), Denies numbness and Denies weakness Psych Reports no additional complaints, Denies anxiety and Denies depression Endo Reports no additional complaints and Reports palpitations Wm/Lymph Reports no additional complaints Aller/Immun Denies wheezing Physical exam (Primary Care) Vital Signs: Last Vital Signs Pulse 76 07/01/24 11:02 BP 128/70 07/01/24 11:02 Pulse Ox 93 07/01/24 11:02 Oxygen Delivery Method Room Air 07/01/24 11:02 BMI result Body Mass Index 21.5 Tobacco/Smoking Status: Tobacco use Status Tobacco use date assessed 07/01/24 07/01/24 11:05 Patient Tobacco Use Status Former Tobacco user 07/01/24 11:05 Tobacco use type Cigarette 07/01/24 11:05 e-Cigarette/Vaping Use Never Used 07/01/24 11:05 PHQ-9: PHQ-9 Score PHQ-9: Total score 0 07/01/24 12:01 Depression Screening Interpretation: Negative Thrive Assessment: Date of Thrive Assessment Date Thrive assessed 07/01/24 07/01/24 11:05 Currently or been in a relationship where the following occur: No concerns reported Const Other: Accompanied by niece General: no acute distress, alert and Physically active Nutritional Appearance: average body habitus Orientation/consciousness: patient oriented x3 HENMT Head: Yes normocephalic Ears: external ears normal General nose exam: Normal external nose present Face and sinus: Yes face symmetric Mouth: oropharynx normal and moist mucous membranes Eyes General: appearance normal, both eyes and all related structures Neck Other: Supple, no lymphadenopathy, thyroid gland nonpalpable Resp Effort & Inspection: normal respiratory effort and able to speak in complete sentences Auscultation: clear to auscultation bilaterally Cardio Other: S1 and S2 present regular rate and rhythm GI Palpation (GI): Soft to palpation, nontender, no guarding and no masses Auscultation: normal bowel sounds General: Yes no CVA tenderness Back/Spine/Pelvis Back: no CVA tenderness and No back tenderness Skin Other: Scattered erythematous papular lesions on lower half both legs, just above the ankles were skin is covered by her socks General skin exam: dry skin Neuro General: patient oriented x3, tone normal, moves all extremities, Normal light touch and pain sensation and no focal motor deficits Cranial nerves: Yes Normal hearing present Speech: No Abnormal speech present Extrem General: Yes full ROM, Yes no joint enlargement and Yes no pedal edema Psych Appearance: grossly normal and well kempt Mental Status: mental status grossly normal Speech and movement: Normal speech and movement present Affect: normal affect Attitude: cooperative Coding Level of Care Code Est Pt Level 4 (05584) Complex EM visit Add On G2211 Diagnoses Acquired hypothyroidism E03.9 Chronic kidney disease, stage 3 N18.30 Pure hypercholesterolemia E78.00 Hyperlipidemia type: pure hypercholesterolemia Vitamin D deficiency E55.9 Rash and nonspecific skin eruption R21 Assessment & Plan Assessment & Plan (1) Acquired hypothyroidism: Code(s): E03.9 - Hypothyroidism, unspecified Category: Medical Plan: Currently on levothyroxine (2) Chronic kidney disease, stage 3: Comment: followed by Dr Noel Code(s): N18.30 - Chronic kidney disease, stage 3 unspecified Category: Medical Plan: Stable, avoid NSAIDs, reinforced importancOf getting blood pressure, fasting glucose and cholesterol levels well controlled. (3) Hyperlipidemia: Code(s): E78.5 - Hyperlipidemia, unspecified Category: Medical Qualifiers: Hyperlipidemia type: pure hypercholesterolemia Qualified Code(s): E78.00 - Pure hypercholesterolemia, unspecified Plan: Will try again on atorvastatin 20 mg per tablet taken once a day. Take Co Q10 with medication to offset any muscle pain that might ensue. Repeat another fasting lipid panel in 10/2024 (4) Vitamin D deficiency: Code(s): E55.9 - Vitamin D deficiency, unspecified Category: Medical Plan: Prescription sent for vitamin-D 350 1000 units per capsule to take once a week for the next 3 months, once prescription finished, to continue taking [id number] vitamin-D 3 at 2000 units daily. Will repeat another vitamin-D level in October 2024 (5) Rash and nonspecific skin eruption: Code(s): R21 - Rash and other nonspecific skin eruption Plan: Refill prescription sent for clobetasol 0.05%, apply sparingly to affected area in lower legs at bedtime for no more than 10 days at a time. Moisturize skin after bathing. Orders: Orders Lipid Panel 10/12/24 E03.9 - Hypothyroidism, unspecified, E55.9 - Vitamin D deficiency, unspecified, E78.00 - Pure hypercholesterolemia, unspecified, I10 - Essential (primary) hypertension, N18.30 - Chronic kidney disease, stage 3 unspecified Thyroid Stimulating Hormone 10/12/24 E03.9 - Hypothyroidism, unspecified, E55.9 - Vitamin D deficiency, unspecified, E78.00 - Pure hypercholesterolemia, unspecified, I10 - Essential (primary) hypertension, N18.30 - Chronic kidney disease, stage 3 unspecified Basic Metabolic Panel Fasting 10/12/24 E03.9 - Hypothyroidism, unspecified, E55.9 - Vitamin D deficiency, unspecified, E78.00 - Pure hypercholesterolemia, unspecified, I10 - Essential (primary) hypertension, N18.30 - Chronic kidney disease, stage 3 unspecified Alanine Aminotransferase 10/12/24 E03.9 - Hypothyroidism, unspecified, E55.9 - Vitamin D deficiency, unspecified, E78.00 - Pure hypercholesterolemia, unspecified, I10 - Essential (primary) hypertension, N18.30 - Chronic kidney disease, stage 3 unspecified Aspartate Amino Transferase 10/12/24 E03.9 - Hypothyroidism, unspecified, E55.9 - Vitamin D deficiency, unspecified, E78.00 - Pure hypercholesterolemia, unspecified, I10 - Essential (primary) hypertension, N18.30 - Chronic kidney disease, stage 3 unspecified Vitamin D 25-OH Total 10/12/24 E03.9 - Hypothyroidism, unspecified, E55.9 - Vitamin D deficiency, unspecified, E78.00 - Pure hypercholesterolemia, unspecified, I10 - Essential (primary) hypertension, N18.30 - Chronic kidney dis ease, stage 3 unspecified Vitamin B12 and Folate 10/12/24 E03.9 - Hypothyroidism, unspecified, E55.9 - Vitamin D deficiency, unspecified, E78.00 - Pure hypercholesterolemia, unspecified, I10 - Essential (primary) hypertension, N18.30 - Chronic kidney disease, stage 3 unspecified Free T4 (Free Thyroxine) 10/12/24 E03.9 - Hypothyroidism, unspecified, E55.9 - Vitamin D deficiency, unspecified, E78.00 - Pure hypercholesterolemia, unspecified, I10 - Essential (primary) hypertension, N18.30 - Chronic kidney disease, stage 3 unspecified Medications: New clobetasol 0.05% 1 appl topical BEDTIME 10 days 30 grams 0RF coenzyme Q10 50 mg PO DAILY 90 caps 2RF cholecalciferol (vitamin D3) 1,250 mcg PO QWEEK 3 months 13 caps 0RF E55.9 - Vitamin D deficiency, unspecified Refilled atorvastatin 20 mg PO DAILY 90 tabs 1RF
== END 2024-07-01 12:01 | disposition home or self-care (01) ==
PROVIDERS: PCP Internal Medicine; Visit Provider Internal Medicine
DX: E03.9 Hypothyroidism, unspecified (principal); N18.30 Chronic kidney disease, stage 3 unspecified; E78.00 Pure hypercholesterolemia, unspecified; E55.9 Vitamin D deficiency, unspecified; R21 Rash and other nonspecific skin eruption

== ENCOUNTER → 2024-07-01 10:58 | Outpatient (BNVA) | payer MEDICARE, SELFPAY | PROVIDERS: PCP Internal Medicine; Visit Provider Internal Medicine | DX: E03.9 Hypothyroidism, unspecified (principal); N18.30 Chronic kidney disease, stage 3 unspecified; E78.00 Pure hypercholesterolemia, unspecified; E55.9 Vitamin D deficiency, unspecified; R21 Rash and other nonspecific skin eruption; Z79.899 Other long term (current) drug therapy | CPT/HCPCS: 96127; 99212 ==

== ENCOUNTER 2024-08-17 05:07 | Emergency (ER) | payer MEDICARE, SELFPAY ==
--- NOTE | ~2024-08-17 | CT_ITS ---
EXAMINATION: CT brain and CT cervical spine without contrast. CLINICAL INDICATION: Fall, pain. COMPARISON: CT brain and CT cervical spine 07/23/2023. TECHNIQUE: 5 mm thin axial and reformatted 2 mm thin sagittal and coronal images of brain were obtained. Subsequently 3 mm thin axial and reformatted 2 mm thin sagittal and coronal images of cervical spine were obtained. DLP 736. This CT examination was performed using dose optimization techniques as appropriate, variously including the following: *Automated exposure control *Adjustment of mA and/or kV according to patient size (this includes techniques or standardized protocols for targeted exams where dose is matched to indication/reason for exam; i.e. extremities or head) *Use of iterative reconstruction technique CT FINDINGS: Brain: There is no acute intra-axial, extra-axial bleed, masses or midline shift. There is no acute infarction evolution. The lateral ventricles are symmetrical but moderately enlarged similar to last exam 07/23/2023. The jones to white matter differentiation is maintained normal. There is mild periventricular hypodensity from chronic small vessel ischemic changes. Bone windows reveal no calvarial abnormality. There is no scalp soft tissue the paranasal sinuses and mastoid air cells are well-aerated. Cervical spine: On sagittal reconstructed images is maintained cervical lordosis. The vertebral heights and alignment is normal. There is minimal loss of C4-5 and C5-6 disc heights.. There is mild osteopenia. The craniovertebral junction and C1-C2 alignment is normal. Mild posterior cervical spondylosis C3-4, C4-5 and C5-6 disc levels. Mild bilateral narrowing of neural foramina are seen at C4-5 and C5-6 disc level from uncovertebral hypertrophic changes No acute fracture or dislocation seen. The prevertebral and paravertebral soft tissues are normal. There is bilateral apical lung scarring. CT/CT cervical spine wo IV con IMPRESSION: No acute intracranial process seen. There is a moderate dilation of lateral ventricles but similar to previous study from 07/23/2023. No acute fracture or dislocation cervical spine. Mild degenerative disc changes and spondylosis as described above. There is mild osteopenia. Electronically signed by: Jv Randle MD 08/17/2024 07:21 AM [facility]
--- NOTE | ~2024-08-17 | CT_ITS ---
EXAMINATION: CT brain and CT cervical spine without contrast. CLINICAL INDICATION: Fall, pain. COMPARISON: CT brain and CT cervical spine 07/23/2023. TECHNIQUE: 5 mm thin axial and reformatted 2 mm thin sagittal and coronal images of brain were obtained. Subsequently 3 mm thin axial and reformatted 2 mm thin sagittal and coronal images of cervical spine were obtained. DLP 736. This CT examination was performed using dose optimization techniques as appropriate, variously including the following: *Automated exposure control *Adjustment of mA and/or kV according to patient size (this includes techniques or standardized protocols for targeted exams where dose is matched to indication/reason for exam; i.e. extremities or head) *Use of iterative reconstruction technique CT FINDINGS: Brain: There is no acute intra-axial, extra-axial bleed, masses or midline shift. There is no acute infarction evolution. The lateral ventricles are symmetrical but moderately enlarged similar to last exam 07/23/2023. The jones to white matter differentiation is maintained normal. There is mild periventricular hypodensity from chronic small vessel ischemic changes. Bone windows reveal no calvarial abnormality. There is no scalp soft tissue the paranasal sinuses and mastoid air cells are well-aerated. Cervical spine: On sagittal reconstructed images is maintained cervical lordosis. The vertebral heights and alignment is normal. There is minimal loss of C4-5 and C5-6 disc heights.. There is mild osteopenia. The craniovertebral junction and C1-C2 alignment is normal. Mild posterior cervical spondylosis C3-4, C4-5 and C5-6 disc levels. Mild bilateral narrowing of neural foramina are seen at C4-5 and C5-6 disc level from uncovertebral hypertrophic changes No acute fracture or dislocation seen. The prevertebral and paravertebral soft tissues are normal. There is bilateral apical lung scarring. CT/CT head/brain wo IV con IMPRESSION: No acute intracranial process seen. There is a moderate dilation of lateral ventricles but similar to previous study from 07/23/2023. No acute fracture or dislocation cervical spine. Mild degenerative disc changes and spondylosis as described above. There is mild osteopenia. Electronically signed by: Jv Randle MD 08/17/2024 07:21 AM [facility]
[2024-08-17 05:15] VITALS: BP 192/140; PULSE 88; O2SAT 96
[2024-08-17 05:18] VITALS: BP 159/69; PULSE 85; RESP 14; TEMP 36.6; O2SAT 97; BMI 23.0
--- NOTE | 2024-08-17 05:22 | PC.NURSE ---
Pt a&ox3, no signs distress. Pt denies loc and pain Plan of care ongoing.
--- NOTE | 2024-08-17 05:39 | ED_ITS ---
HPI - Fall General Chief Complaint: Fall Stated Complaint: FALL/HEAD STRIKE Time Seen by Provider: 08/17/24 05:39 Source: patient Mode of arrival: EMS Limitations: no limitations History of Present Illness ED Provider: HPI Narrative: Patient apparently rolled over from the bed and hit her left side of the back of the head to the file cabinet no loss of consciousness patient not on anticoagulation Related Data Home Medications ?Medication ?Instructions ?Recorded ?Confirmed vitamin B complex 1 tab PO DAILY 12/18/23 Previous Rx's ?Medication ?Instructions ?Recorded levothyroxine 75 mcg tablet 75 mcg PO DAILY #90 tabs 02/27/24 atorvastatin 20 mg tablet 20 mg PO DAILY #90 tabs 07/01/24 cholecalciferol (vitamin D3) 1,250 1,250 mcg PO QWEEK 3 months #13 07/01/24 mcg (50,000 unit) capsule caps clobetasol 0.05 % topical cream 1 appl topical BEDTIME 10 days #30 07/01/24 grams coenzyme Q10 50 mg capsule 50 mg PO DAILY #90 caps 07/01/24 Allergies Allergy/AdvReac Type Severity Reaction Status Date / Time meperidine [Demerol] AdvReac Unknown dizziness Verified 08/17/24 05:19 Review of Systems Review of Systems: Yes all other systems are reviewed and are negative PMFSH Past Medical History Medical History Vitamin D deficiency Hx of iron deficiency anemia Fracture, intertrochanteric, right femur RBBB (right bundle branch block) Gallbladder polyp Bowel obstruction Tubular adenoma of colon History of herpes zoster Hyperlipidemia Essential hypertension Chronic kidney disease, stage 3 Acquired hypothyroidism Osteoporosis Surgical History History of open reduction and internal fixation (ORIF) procedure Hx of small bowel obstruction History of colonoscopy Hx of breast biopsy Family History Family History Father Myocardial infarction Mother HTN (hypertension) Glaucoma Brother HTN (hypertension) Depression Mental health disorder Sister No problems noted. Social History Social History Household Members: None Household Members Other:: Lives in assisted living Housing: Apartment Housing [facility] independent [facility] Are you a primary health and social care teacher to a significant other at home: No Do you presently have visiting nurse or other home services: No Alcohol intake: never Patient Tobacco Use Status: Former Tobacco user Tobacco use type: Cigarette Years Smoked: 4 yrs Smoked in Last 30 Days: No e-Cigarette/Vaping Use: Never Used Second Hand Smoke Exposure: No (hx of) Use of substances other than those prescribed or required for medical reasons: No Advance Directives: Yes Advance Directives on File: Yes Advance Directives Date on File: 03/07/22 service: No Current occupational status: retired Cognitive needs: No Hearing needs: No Vision needs: Yes Physical Exam Vital Signs: Vital Signs: Last Vital Signs Temp 97.8 F 08/17/24 05:18 Pulse 85 08/17/24 05:18 Resp 14 08/17/24 05:18 BP 159/69 H 08/17/24 05:18 Pulse Ox 97 08/17/24 05:18 O2 Del Method Room Air 08/17/24 05:18 BMI result Body Mass Index 23.0 Appearance: Alert. Oriented X3. No acute distress. Eyes: PERRLA, No Nystagmus ENT: Pharynx normal. Oral Mucosa moist soft tissue swelling left occipital area tympanic membrane intact Neck: Normal inspection. Neck supple. No midline tenderness CVS: Normal heart rate and rhythm. Pulses normal. Respiratory: No respiratory distress. Equal air entry bilateral, no wheezing/rales/rhonchi Abdomen: Soft and nontender. Bowel sounds are present, no mass palpable, no CVA tenderness Skin: Skin warm and dry. Normal skin color. Normal skin turgor. Extremities: No lower extremity edema. No calf tenderness Neuro: Oriented X 3. No motor deficit. No sensory deficit.No cerebellar signs , cranial nerves II-XII intact Medical Decision Making Medical Decision Making MDM Narrative: Patient is status post mechanical CT scan head and C-spine negative final report is pending will discharge patient home Independent Interpretation I performed an independent interpretation of an: CT Scan Interpretation: NAD Radiology Impression Discussion of test interpretation with radiology: I have reviewed the radiologist's reading. Discharge Plan Discharge Clinical Impression: Fall Patient Disposition: Home, Self-Care Instructions: Fall Prevention for Older Adults (ED) Additional Instructions: Care and cautions as advised Prescriptions: No Action levothyroxine 75 mcg tablet 75 mcg PO DAILY Qty: 90 1RF vitamin B complex Tablet 1 tab PO DAILY clobetasol 0.05 % cream 1 appl topical BEDTIME 10 Days Qty: 30 0RF atorvastatin 20 mg tablet 20 mg PO DAILY Qty: 90 1RF coenzyme Q10 50 mg capsule 50 mg PO DAILY Qty: 90 2RF cholecalciferol (vitamin D3) 1,250 mcg (50,000 unit) capsule 1,250 mcg PO QWEEK 90 Days Qty: 13 0RF Print Language: Kyrgyz
[2024-08-17 07:34] VITALS: BP 153/69; PULSE 78; RESP 18; TEMP 36.9; O2SAT 97
[2024-08-17 09:21] VITALS: BP 153/69; PULSE 78; RESP 18; TEMP 36.9; O2SAT 97
== END 2024-08-17 09:21 | disposition home or self-care (01) ==
PROVIDERS: Emergency Provider Emergency Medicine Emergency Medical Services; PCP Internal Medicine
DX: R51.9 Headache, unspecified (principal); Z91.81 History of falling; I12.9 Hypertensive chronic kidney disease with stage 1 through stage 4 chronic kidney disease, or unspecified chronic kidney disease; N18.30 Chronic kidney disease, stage 3 unspecified; E78.5 Hyperlipidemia, unspecified; Z87.891 Personal history of nicotine dependence; Z79.02 Long term (current) use of antithrombotics/antiplatelets; Z79.899 Other long term (current) drug therapy
CPT/HCPCS: 70450; 72125; 99284

== ENCOUNTER 2024-09-05 15:55 | Outpatient (AMB) | payer MEDICARE, SELFPAY ==
[2024-09-05 16:02] VITALS: BP 140/68; PULSE 79; O2SAT 95; BMI 22.6
--- NOTE | 2024-09-05 16:02 | A.OFFPC_ITS ---
Vital Signs 09/05/24 16:02 Height 5 ft 6 in Weight 140 lb BMI 22.6 BP 140/68 H Blood Pressure Location Lt brachial Position Sitting Pulse 79 Pulse Source Pulse Oximeter Pulse Oximetry (%) 95 Oxygen Delivery Method Room Air Intake Visit Reasons: s/p fall Intake Note: Pt is here today for s/p fall [facility] [place] [facility] Allergies meperidine [Demerol] Adverse Reaction (Unknown, Verified 09/05/24 16:30) dizziness Medication List - Last Reconciled 09/05/24 by Yoana Moreno MD atorvastatin 20 mg PO DAILY clobetasol 0.05% 1 appl topical BEDTIME 10 days levothyroxine 75 mcg PO DAILY vitamin B complex 1 tab PO DAILY Tobacco use date assessed: 09/05/24 Fall risk assessment: 1 Fall in past year Last assessed Fall Risk: 09/05/24 Dental Screening Dental Screen Date: 07/01/24 HPI s/p fall HPI0 Details - The patient is an 83-year-old female p resenting for a follow up after a recent fall at home . She states that she fell out of bed while asleep on August 14, hitting her head on the side of a file cabinet beside her bed , and subsequently rolling completely onto the floor. Denies any loss of consciousness, no dizziness, no chest pain or shortness of breath during that time. She however has been experiencing problems with her balance - Previous history of a similar fall in July of last year leading to a hip fracture. - Head and Cervical spine CT showed no acute intracranial process seen. There is a moderate dilation of lateral ventricles but similar to previous study from 07/23/2023. No acute fracture or dislocation cervical spine. Mild degenerative disc changes and spondylosis as described above. There is mild osteopenia. - Has chronic anemia, with hemoglobin co nsistently low; dietary iron intake is insufficient. - has been feeling well, with no other c omplaints except for some unsteadiness with gait, now uses a walker all the time. [facility] Medical History (Updated 09/05/24 @ 16:50 by Yoana Moreno MD) Anemia Vitamin D deficiency Hx of iron deficiency anemia Fracture, intertrochanteric, right femur RBBB (right bundle branch block) Gallbladder polyp Bowel obstruction Tubular adenoma of colon History of herpes zoster Hyperlipidemia Essential hypertension Chronic kidney disease, stage 3 Acquired hypothyroidism Osteoporosis Surgical History History of open reduction and internal fixation (ORIF) procedure Hx of small bowel obstruction History of colonoscopy Hx of breast biopsy Family History Father Myocardial infarction Mother HTN (hypertension) Glaucoma Brother HTN (hypertension) Depression Mental health disorder Sister No problems noted. Social History Household Members: None Household Members Other:: Lives in assisted living Housing: Apartment Housing Other[facility] Are you a primary home day care provider to a significant other at home: No Do you presently have visiting nurse or other home services: No Alcohol intake: never Patient Tobacco Use Status: Former Tobacco user Tobacco use type: Cigarette Years Smoked: 4 yrs e-Cigarette/Vaping Use: Never Used Second Hand Smoke Exposure: No (hx of) Advance Directives Date on File: 03/07/22 service: No Current occupational status: retired Cognitive needs: No Hearing needs: No Vision needs: Yes Questionnaire Thrive Questionnaire Date Thrive assessed: 07/01/24 I am a: Patient What is your living situation today?: I have a steady place to live Within the past 12 months, did the food you bought not last and you didn't have the money to get more?: Never true Within the past 12 months, did you worry whether your food would run out before you got money to buy more?: Never true Do you have trouble paying for medicines?: No Do you have trouble getting transportation to medical appointments?: No Do you have trouble paying your heating and electricity bill?: No Do you have trouble taking care of your child, family member or friend?: No Do you have trouble with day-to-day activities such as bathing, preparing meals, shopping, managing finances, etc.?: No Are you currently unemployed and looking for a job?: No Are you interested in more education?: No Please select the resources that you would like help with: None Currently or been in a relationship where the following occur: No concerns rep orted THRIVE Score: 0 AUDIT C Alcohol Use Questionnaire (AUDIT-C) 2. How many drinks containing alcohol do you have on a typical day when you are drinking?: 1 or 2 3. How often do you have six or more drinks on one occasion?: Never Total Score: 0 VIOLETA-7 AMB Questionnaire VIOLETA-7 Date VIOLETA - 7 assessed: 10/11/23 Source: Developed by Drs. Brian Persaud, Lia Silva, Chuy Vallejo and colleagues, with an educational jigar from [employer]. Review of Systems Const Denies chills, Denies fever(s), Denies headache(s), Denies poor appetite and Denies weakness Eyes Reports no additional complaints ENT Reports Normal hearing present and Denies headache(s) Card Denies chest pain, Denies rapid heart rate and Denies irregular heart rhythm Resp Denies chest congestion, Denies cough, Denies pain on inspiration and Denies wheezing GI Denies abdominal pain, Denies hematochezia, Denies change in bowel habits and Denies heartburn Reports no additional complaints Musc Denies back pain, Denies joint swelling, Denies numbness and Reports stiffness Skin/Breast Denies rash Neuro Reports Normal hearing present, Denies Abnormal speech present, Denies headache(s), Denies numbness and Denies weakness Endo Reports no additional complaints Wm/Lymph Reports no additional complaints Aller/Immun Denies wheezing Physical exam (Primary Care) Vital Signs: Last Vital Signs Pulse 79 09/05/24 16:02 BP 140/68 H 09/05/24 16:02 Pulse Ox 95 09/05/24 16:02 Oxygen Delivery Method Room Air 09/05/24 16:02 BMI result Body Mass Index 22.6 Tobacco/Smoking Status: Tobacco use Status Tobacco use date assessed 09/05/24 09/05/24 16:04 Patient Tobacco Use Status Former Tobacco user 09/05/24 16:04 Tobacco use type Cigarette 09/05/24 16:04 e-Cigarette/Vaping Use Never Used 09/05/24 16:04 Thrive Assessment: Date of Thrive Assessment Date Thrive assessed 07/01/24 09/05/24 16:04 Currently or been in a relationship where the following occur: No concerns reported Const Other: Accompanied by niece General: no acute distress, alert and Physically active Nutritional Appearance: average body habitus Orientation/consciousness: patient oriented x3 Limitations: ambulation with walker HENMT Head: Yes normocephalic Ears: external ears normal General nose exam: Normal external nose present Face and sinus: Yes face symmetric Mouth: oropharynx normal and moist mucous membranes Eyes General: appearance normal, both eyes and all related structures Neck Other: Supple, no lymphadenopathy, thyroid gland nonpalpable Resp Effort & Inspection: normal respiratory effort and able to speak in complete sentences Auscultation: clear to auscultation bilaterally Cardio Other: S1 and S2 present regular rate and rhythm GI Palpation (GI): Soft to palpation, nontender, no guarding and no masses Auscultation: normal bowel sounds General: Yes no CVA tenderness Back/Spine/Pelvis Back: no CVA tenderness and No back tenderness Skin General skin exam: dry skin Neuro General: patient oriented x3, tone normal, moves all extremities, Normal light touch and pain sensation and no focal motor deficits Cranial nerves: Yes Normal hearing present Speech: No Abnormal speech present Extrem General: Yes full ROM, Yes no joint enlargement and Yes no pedal edema Psych Appearance: grossly normal and well kempt Mental Status: mental status grossly normal Speech and movement: Normal speech and movement present Affect: normal affect Attitude: cooperative Coding Level of Care Code Est Pt Level 4 (56677) Diagnoses Anemia D64.9 Hx of fall Z91.81 Vitamin D deficiency E55.9 Assessment & Plan Assessment & Plan (1) Anemia: Code(s): D64.9 - Anemia, unspecified Category: Medical (2) Hx of fall: Code(s): Z91.81 - History of falling Category: Medical (3) Vitamin D deficiency: Code(s): E55.9 - Vitamin D deficiency, unspecified Category: Medical Plan I discussed with the patient the management plans following her fall, confirming no significant acute changes on her imaging studies. We addressed anemia management, emphasizing the importance of dietary changes perceived to boost iron levels and reduce anemia symptoms. I communicated the regular use of a walker to ensure safety, especially considering previous incident history. An emphasis was placed on the necessity of consuming protein-rich foods . We agreed on a follow-up plan involving routine lab tests and ongoing evaluation of her dietary changes. The patient is aware of anemia's impact on energy levels and agrees to adhere to dietary recommendations. Orders: Orders Complete Blood Count Auto Diff 10/12/24 D64.9 - Anemia, unspecified, N18.30 - Chronic kidney disease, stage 3 unspecified IRON PROFILE 10/12/24 D64.9 - Anemia, unspecified, N18.30 - Chronic kidney disease, stage 3 unspecified
== END 2024-09-05 16:59 | disposition home or self-care (01) ==
PROVIDERS: PCP Internal Medicine; Visit Provider Internal Medicine
DX: D64.9 Anemia, unspecified (principal); Z91.81 History of falling; E55.9 Vitamin D deficiency, unspecified

== ENCOUNTER → 2024-09-05 15:55 | Outpatient (BNVA) | payer MEDICARE, SELFPAY | PROVIDERS: PCP Internal Medicine; Visit Provider Internal Medicine | DX: R26.81 Unsteadiness on feet (principal); E55.9 Vitamin D deficiency, unspecified; D63.1 Anemia in chronic kidney disease; N18.30 Chronic kidney disease, stage 3 unspecified; Z91.81 History of falling; Z87.81 Personal history of (healed) traumatic fracture | CPT/HCPCS: 99212 ==

== ENCOUNTER 2024-11-01 10:08 | Outpatient (AMB) | payer MEDICARE, SELFPAY ==
--- NOTE | 2024-11-01 10:04 | MHC.PC.OV ---
Intake Visit Reasons: 4 month follow up labs Allergies meperidine [Demerol] Adverse Reaction (Unknown, Verified 11/01/24 10:21) dizziness Medication List - Last Reconciled 11/01/24 by Yoana Moreno MD atorvastatin 20 mg PO DAILY clobetasol 0.05% 1 appl topical BEDTIME 10 days levothyroxine 75 mcg PO DAILY vitamin B complex 1 tab PO DAILY Tobacco use date assessed: 11/01/24 Fall risk assessment: No Falls in past year Last assessed Fall Risk: 11/01/24 Dental Screening Dental Screen Date: 11/01/24 Did you have a dental visit in the last 12 months?: Yes Did you have a dental problem in the last 6 months where you did not have access to dental care?: No Was dental information given to patient?: Patient has dentist HPI 4 month follow up labs HPI Details 83 ear-old female with history of hypothyroidism, mixed hyperlipidemia, osteoporosis, chronic kidney disease, hx of right femoral intertrochanteric fracture after a fall last 07/2023 s/p right hip ORIF , here today for follow-up. Has been feeling well, , no new complaints.. She had recent fasting labs done at [facility] which showed total cholesterol of 232, with triglycerides 80 and HDL 69 with an LDL cholesterol at 147 mg per dL, lower than last check. Her liver enzymes, electrolytes were within normal limits, renal function decreased with a creatinine at 1.3 and GFR at 40. She has normal vitamin B12 level at 810, TSH, and free T4 levels are within normal limits, fasting glucose at 71 mg/dL and iron levels are within normal limits. ON LICENSE OF [facility] Medical History (Updated 11/01/24 @ 10:34 by Yoana Moreno MD) Anemia Vitamin D deficiency Hx of iron deficiency anemia Fracture, intertrochanteric, right femur RBBB (right bundle branch block) Gallbladder polyp Bowel obstruction Tubular adenoma of colon History of herpes zoster Hyperlipidemia Essential hypertension Chronic kidney disease, stage 3 Acquired hypothyroidism Osteoporosis Surgical History History of open reduction and internal fixation (ORIF) procedure Hx of small bowel obstruction History of colonoscopy Hx of breast biopsy Family History Father Myocardial infarction Mother HTN (hypertension) Glaucoma Brother HTN (hypertension) Depression Mental health disorder Sister No problems noted. Social History Household Members: None Household Members Other:: Lives in assisted living Housing: Apartment Housing Other:: [facility] Are you a primary daycare manager to a significant other at home: No Do you presently have visiting nurse or other home services: No Alcohol intake: never Patient Tobacco Use Status: Former Tobacco user Tobacco use type: Cigarette Years Smoked: 4 yrs e-Cigarette/Vaping Use: Never Used Second Hand Smoke Exposure: No (hx of) Advance Directives Date on File: 03/07/22 service: No Current occupational status: retired Cognitive needs: No Hearing needs: No Vision needs: Yes Questionnaire PHQ-9 Over the last 2 weeks, how often have you been bothered by any of the following problems? 1. Little interest or pleasure in doing things: not at all 2. Feeling down, depressed, or hopeless: not at all 3. Trouble falling or staying asleep, or sleeping too much: not at all 4. Feeling tired or having little energy: not at all 5. Poor appetite or overeating: not at all 6. Feeling bad about yourself - or that you are a failure or have let yourself or your family down: not at all 7. Trouble concentrating on things, such as reading the newspaper or watching television: not at all 8. Moving or speaking so slowly that other people could have noticed. Or the opposite - being so fidgety or restless that you have been moving around a lot more than usual: not at all 9. Thoughts that you would be better off or of hurting yourself in some way: not at all Total score: 0 Depression Screening Interpretation: Negative Depression Screening Done: Yes 71903 - PHQ-9 Billing: Yes Source: Developed by Drs. Brian Persaud, Lia Silva, Chuy Vallejo and colleagues, with an educational jigar from [employer] [place]. Thrive Questionnaire Date Thrive assessed: 11/01/24 I am a: Patient What is your living situation today?: I have a steady place to live Within the past 12 months, did the food you bought not last and you didn't have the money to get more?: Never true Within the past 12 months, did you worry whether your food would run out before you got money to buy more?: Never true Do you have trouble paying for medicines?: No Do you have trouble getting transportation to medical appointments?: No Do you have trouble paying your heating and electricity bill?: No Do you have trouble taking care of your child, family member or friend?: No Do you have trouble with day-to-day activities such as bathing, preparing meals, shopping, managing finances, etc.?: No Are you currently unemployed and looking for a job?: No Are you interested in more education?: No Please select the resources that you would like help with: None Currently or been in a relationship where the following occur: No concerns reported THRIVE Score: 0 AUDIT C Alcohol Use Questionnaire (AUDIT-C) 2. How many drinks containing alcohol do you have on a typical day when you are drinking?: 1 or 2 3. How often do you have six or more drinks on one occasion?: Never Total Score: 0 VIOLETA-7 AMB Questionnaire VIOLETA-7 Date VIOLETA - 7 assessed: 11/01/24 Feeling nervous, anxious, or on edge: 0 = Not at all Not being able to stop or control worryin = Not at all Worrying too much about different things: 0 = Not at all Trouble relaxin = Not at all Being so restless that it is hard to sit still: 0 = Not at all Becoming easily annoyed or irritable: 0 = Not at all Feeling afraid as if something awful might happen: 0 = Not at all Total VIOLETA-7 score (0-4 normal; 5-9 mild; 10-14 moderate; 15-21 severe): 0 Source: Developed by Drs. Brian Persaud, Lia Silva, Chuy Vallejo and colleagues, with an educational jigar from [employer]. VIOLETA-7 Assessment Billing VIOLETA-7 Assessment Tool: VIOLETA-7 Assessment [id number] Review of Systems Const Denies chills, Denies fever(s), Denies headache(s), Denies poor appetite and Denies weakness Eyes Reports no additional complaints ENT Denies headache(s) Card Denies chest pain, Denies rapid heart rate and Denies irregular heart rhythm Resp Denies chest congestion, Denies cough, Denies pain on inspiration and Denies wheezing GI Denies abdominal pain, Denies hematochezia, Denies change in bowel habits and Denies heartburn Reports no additional complaints Musc Denies back pain, Denies joint swelling, Denies numbness and Reports stiffness Skin/Breast Denies rash Neuro Denies headache(s), Denies numbness and Denies weakness Endo Reports no additional complaints Wm/Lymph Reports no additional complaints Aller/Immun Denies wheezing Physical exam (Primary Care) Tobacco/Smoking Status: Tobacco use Status Tobacco use date assessed 11/01/24 11/01/24 10:05 Patient Tobacco Use Status Former Tobacco user 11/01/24 10:05 Tobacco use type Cigarette 11/01/24 10:05 e-Cigarette/Vaping Use Never Used 11/01/24 10:05 PHQ-9: PHQ-9 Score PHQ-9: Total score 0 11/01/24 10:35 Depression Screening Interpretation: Negative Thrive Assessment: Date of Thrive Assessment Date Thrive assessed 11/01/24 11/01/24 10:06 Currently or been in a relationship where the following occur: No concerns reported Telehealth Telehealth Telehealth Platform: [employer] Location of provider rendering services: practice address Location of patient: address on file Patient Identification confirmed using: Name, : Yes Telehealth method: video Patient verbally consented to treatment: Yes Patient verbally consented to billing insurance company: Yes Patient informed of any privacy concerns related to visit: Yes Minutes spent on Phone/Video with Pt.: 15 Coding Level of Care Code Tele Est Pt Level 4 (99893) Complex EM visit Add On G2211 Diagnoses Acquired hypothyroidism E03.9 Chronic kidney disease, stage 3 N18.30 Essential hypertension I10 Pure hypercholesterolemia E78.00 Hyperlipidemia type: pure hypercholesterolemia Additional Codes PHQ-9 - 16804 - PHQ-9 Billing: Yes ([id number]) VIOLETA-7 Assessment Billing - VIOLETA-7 Assessment Tool: VIOLETA-7 Assessment [id number] ([id number]) Assessment & Plan Assessment & Plan (1) Acquired hypothyroidism: Code(s): E03.9 - Hypothyroidism, unspecified Category: Medical (2) Chronic kidney disease, stage 3: Comment: followed by Dr Noel Code(s): N18.30 - Chronic kidney disease, stage 3 unspecified Category: Medical (3) Essential hypertension: Code(s): I10 - Essential (primary) hypertension Category: Medical (4) Hyperlipidemia: Code(s): E78.5 - Hyperlipidemia, unspecified Category: Medical Qualifiers: Hyperlipidemia type: pure hypercholesterolemia Qualified Code(s): E78.00 - Pure hypercholesterolemia, unspecified Plan Reviewed recent fasting lab results with patient, drawn at [facility], with have not in LDL cholesterol noted. Thyroid levels electrolytes and renal function has been stable. Will continue on current medications, repeat fasting labs ordered to be done in 07/31/2025 Orders: Orders Vitamin B12 and Folate 07/12/25 E03.9 - Hypothyroidism, unspecified, E55.9 - Vitamin D deficiency, unspecified, E78.00 - Pure hypercholesterolemia, unspecified, I10 - Essential (primary) hypertension, N18.30 - Chronic kidney disease, stage 3 unspecified, Z86.2 - Personal history of diseases of the blood and blood-forming organs and certain disorders involving the immune mechanism Alanine Aminotransferase 07/12/25 E03.9 - Hypothyroidism, unspecified, E55.9 - Vitamin D deficiency, unspecified, E78.00 - Pure hypercholesterolemia, unspecified, I10 - Essential (primary) hypertension, N18.30 - Chronic kidney disease, stage 3 unspecified, Z86.2 - Personal history of diseases of the blood and blood-forming organs and certain disorders involving the immune mechanism Aspartate Amino Transferase 07/12/25 E03.9 - Hypothyroidism, unspecified, E55.9 - Vitamin D deficiency, unspecified, E78.00 - Pure hypercholesterolemia, unspecified, I10 - Essential (primary) hypertension, N18.30 - Chronic kidney disease, stage 3 unspecified, Z86.2 - Personal history of diseases of the blood and blood-forming organs and certain disorders involving the immune mechanism Thyroid Stimulating Hormone 07/12/25 E03.9 - Hypothyroidism, unspecified, E55.9 - Vitamin D deficiency, unspecified, E78.00 - Pure hypercholesterolemia, unspecified, I10 - Essential (primary) hypertension, N18.30 - Chronic kidney disease, stage 3 unspecified, Z86.2 - Personal history of diseases of the blood and blood-forming organs and certain disorders involving the immune mechanism Free T4 (Free Thyroxine) 07/12/25 E03.9 - Hypothyroidism, unspecified, E55.9 - Vitamin D deficiency, unspecified, E78.00 - Pure hypercholesterolemia, unspecified, I10 - Essential (primary) hypertension, N18.30 - Chronic kidney disease, stage 3 unspecified, Z86.2 - Personal history of diseases of the blood and blood-forming organs and certain disorders involving the immune mechanism Vitamin D 25-OH Total 07/12/25 E03.9 - Hypothyroidism, unspecified, E55.9 - Vitamin D deficiency, unspecified, E78.00 - Pure hypercholesterolemia, unspecified, I10 - Essential (primary) hypertension, N18.30 - Chronic kidney disease, stage 3 unspecified, Z86.2 - Personal history of diseases of the blood and blood-forming organs and certain disorders involving the immune mechanism Lipid Panel 07/12/25 E03.9 - Hypothyroidism, unspecified, E55.9 - Vitamin D deficiency, unspecified, E78.00 - Pure hypercholesterolemia, unspecified, I10 - Essential (primary) hypertension, N18.30 - Chronic kidney disease, stage 3 unspecified, Z86.2 - Personal history of diseases of the blood and blood-forming organs and certain disorders involving the immune mechanism Basic Metabolic Panel Fasting 07/12/25 E03.9 - Hypothyroidism, unspecified, E55.9 - Vitamin D deficiency, unspecified, E78.00 - Pure hypercholesterolemia, unspecified, I10 - Essential (primary) hypertension, N18.30 - Chronic kidney disease, stage 3 unspecified, Z86.2 - Personal history of diseases of the blood and blood-forming organs and certain disorders involving the immune mechanism Complete Blood Count Auto Diff 07/12/25 E03.9 - Hypothyroidism, unspecified, E55.9 - Vitamin D deficiency, unspecified, E78.00 - Pure hypercholesterolemia, unspecified, I10 - Essential (primary) hypertension, N18.30 - Chronic kidney disease, stage 3 unspecified, Z86.2 - Personal history of diseases of the blood and blood-forming organs and certain disorders involving the immune mechanism IRON PROFILE 07/12/25 E03.9 - Hypothyroidism, unspecified, E55.9 - Vitamin D deficiency, unspecified, E78.00 - Pure hypercholesterolemia, unspecified, I10 - Essential (primary) hypertension, N18.30 - Chronic kidney disease, stage 3 unspecified, Z86.2 - Personal history of diseases of the blood and blood-forming organs and certain disorders involving the immune mechanism
--- OUTSIDE RECORDS SUMMARY | 2024-11-01 10:50 | XMS_ITS | Encounter Summary ---
Author Organization [facility] Address [id number] [place] [id number] Care Team Providers Care Architect Naval Name Role Phone Yoana Moreno MD Primary Care Provider Encounter Details Date Type Department Care Team (Late st Contact Info) Description 10/16/2024 Lab Requisition [facility] - Main Lab [address] [facility] [place] [address] Yoana Moreno MD [address] [place] [address] Pure hypercholesterolemia, unspecified; Chronic kidney disease, stage 3 unspecified (CMS/HCC); Essential (primary) hypertension; Hypothyroidism, unspecified; Vitamin D deficiency, unspecified; Anemia, unspecified Social History Tobacco Use Types Packs/Day Years Used Date Smoking Tobacco: Never Assessed Comments Unknown Sex and Gender Information Value Date Recorded Sex Assigned at Not on file Legal Sex Female 11:55 PM EST Gender Identity Not on file Sexual Orientation Not on file documented as of this encounter Plan of Treatment Not on file documented as of this encounter Procedures Procedure Name Priority Date/Time Associated Diagnosis Comments LIPID PANEL WITH REFLEX TO DIRECT LDL Routine 10/16/2024 7:44 AM EST Pure hypercholesterolem ia, unspecified Chronic kidney disease, stage 3 unspecified (CMS/HCC) Essential (primary) hypertension Hypothyroidism, unspecified Vitamin D deficiency, unspecified Anemia, unspecified CBC WITH AUTO DIFFERENTIAL Routine 10/16/2024 7:44 AM EST Pure hypercholesterolem ia, unspecified Chronic kidney disease, stage 3 unspecified (CMS/HCC) Essential (primary) hypertension Hypothyroidism, unspecified Vitamin D deficiency, unspecified Anemia, unspecified IRON AND TIBC Routine 10/16/2024 7:44 AM EST Pure hypercholesterolem ia, unspecified Chronic kidney disease, stage 3 unspecified (CMS/HCC) Essential (primary) hypertension Hypothyroidism, unspecified Vitamin D deficiency, unspecified Anemia, unspecified VITAMIN D 25 HYDROXY Routine 10/16/2024 7:44 AM EST Pure hypercholesterolem ia, unspecified Chronic kidney disease, stage 3 unspecified (CMS/HCC) Essential (primary) hypertension Hypothyroidism, unspecified Vitamin D deficiency, unspecified Anemia, unspecified CBC AND DIFFERENTIAL Routine 10/16/2024 7:44 AM EST Pure hypercholesterolem ia, unspecified Chronic kidney disease, stage 3 unspecified (CMS/HCC) Essential (primary) hypertension Hypothyroidism, unspecified Vitamin D deficiency, unspecified Anemia, unspecified ALANINE AMINOTRANSFERASE Routine 7:44 AM EST Pure hypercholesterolem ia, unspecified Chronic kidney disease, stage 3 unspecified (CMS/HCC) Essential (primary) hypertension Hypothyroidism, unspecified Vitamin D deficiency, unspecified Anemia, unspecified ASPARTATE AMINOTRANSFERASE Routine 10/16/2024 7:44 AM EST Pure hypercholesterolem ia, unspecified Chronic kidney disease, stage 3 unspecified (CMS/HCC) Essential (primary) hypertension Hypothyroidism, unspecified Vitamin D deficiency, unspecified Anemia, unspecified THYROID STIMULATING HORMONE Routine 10/16/2024 7:44 AM EST Pure hypercholesterolem ia, unspecified Chronic kidney disease, stage 3 unspecified (CMS/HCC) Essential (primary) hypertension Hypothyroidism, unspecified Vitamin D deficiency, unspecified Anemia, unspecified THYROXINE FREE Routine 10/16/2024 7:44 AM EST Pure hypercholesterolem ia, unspecified Chronic kidney disease, stage 3 unspecified (CMS/HCC) Essential (primary) hypertension Hypothyroidism, unspecified Vitamin D deficiency, unspecified Anemia, unspecified FOLATE Routine 10/16/2024 7:44 AM EST Pure hypercholesterolem ia, unspecified Chronic kidney disease, stage 3 unspecified (CMS/HCC) Essential (primary) hypertension Hypothyroidism, unspecified Vitamin D deficiency, unspecified Anemia, unspecified VITAMIN B12 Routine 10/16/2024 7:44 AM EST Pure hypercholesterolem ia, unspecified Chronic kidney disease, stage 3 unspecified (CMS/HCC) Essential (primary) hypertension Hypothyroidism, unspecified Vitamin D deficiency, unspecified Anemia, unspecified BASIC METABOLIC PANEL Routine 10/16/2024 7:44 AM EST Pure hypercholesterolem ia, unspecified Chronic kidney disease, stage 3 unspecified (CMS/HCC) Essential (primary) hypertension Hypothyroidism, unspecified Vitamin D deficiency, unspecified Anemia, unspecified documented in this encounter Results * CBC auto differential (10/16/2024 7:44 AM EST) [facility] WBC 5.3 4.8 - 10.8 K/mcL LAB HEMETOLOGY METHOD 10/16/2024 11:39 AM [facility] RBC 4.40 3.80 - 4.80 M/mcL LAB HEMETOLOGY METHOD 10/16/2024 11:39 AM [facility] Hemoglobin 13.3 11.5 - 16.0 g/dL LAB HEMETOLOGY METHOD 10/16/2024 11:39 AM [facility] Hematocrit 41.6 35.0 - 47.0 % LAB HEMETOLOGY METHOD 10/16/2024 11:39 AM [facility] MCV 95.4 79.0 - 98.0 FL LAB HEMETOLOGY METHOD 10/16/2024 11:39 AM [facility] MCH 30.5 27.0 - 32.0 pcg LAB HEMETOLOGY METHOD 10/16/2024 11:39 AM [facility] MCHC 32.0 32.0 - 37.0 g/dL LAB HEMETOLOGY METHOD 10/16/2024 11:39 AM [facility] RDW 12.4 11.0 - 15.0 % LAB HEMETOLOGY METHOD 10/16/2024 11:39 AM [facility] Platelets 240 130 - 400 K/mcL LAB HEMETOLOGY METHOD 10/16/2024 11:39 AM [facility] MPV 10.2 7.0 - 11.0 FL LAB HEMETOLOGY METHOD 10/16/2024 11:39 AM [facility] NRBC 0.0 <1.0 % LAB HEMETOLOGY METHOD 10/16/2024 11:39 AM [facility] NRBC Absolute 0.00 <0.10 K/mcL LAB HEMETOLOGY METHOD 10/16/2024 11:39 AM [facility] Neutrophils Relative 65.3 % LAB HEMETOLOGY METHOD 10/16/2024 11:39 AM [facility] Lymphocytes Relative 19.5 % LAB HEMETOLOGY METHOD 10/16/2024 11:39 AM [facility] Monocytes Relative 10.9 % LAB HEMETOLOGY METHOD 10/16/2024 11:39 AM [facility] Eosinophils Relative 2.8 % LAB HEMETOLOGY METHOD 10/16/2024 11:39 AM [facility] Basophils Relative 1.1 % LAB HEMETOLOGY METHOD 10/16/2024 11:39 AM [facility] Immature Granulocytes Relative 0.4 % LAB HEMETOLOGY METHOD 10/16/2024 11:39 AM [facility] Neutrophils Absolute 3.49 1.50 - 7.00 K/mcL LAB HEMETOLOGY METHOD 10/16/2024 11:39 AM [facility] Lymphocytes Absolute 1.04 1.00 - 5.00 K/mcL LAB HEMETOLOGY METHOD 10/16/2024 11:39 AM [facility] Monocytes Absolute 0.58 0.20 - 1.00 K/mcL LAB HEMETOLOGY METHOD 10/16/2024 11:39 AM [facility] Eosinophils Absolute 0.15 0.00 - 0.50 K/mcL LAB HEMETOLOGY METHOD 10/16/2024 11:39 AM [facility] Basophils Absolute 0.06 0.00 - 0.20 K/mcL LAB HEMETOLOGY METHOD 10/16/2024 11:39 AM [facility] Immature Granulocytes Absolute 0.02 0.00 - 0.03 K/mcL LAB HEMETOLOGY METHOD 10/16/2024 11:39 AM [facility] Blood Venous blood specimen / Unknown Venipuncture / Unknown 10/16/2024 7:44 AM EST 10/16/2024 11:20 AM EST Yoana Moreno MD LAB BLOOD ORDERABLES Final Result Performing Organization Address [facility]/ZIP Co de Phone Number [facility] [address] [place] [address], [place] [phone] * Iron and TIBC (10/16/2024 7:44 AM EST) Iron 78 40 - 150 mcg/dL LAB CHEMISTRY METHOD 10/16/2024 12:54 PM [facility] TIBC 305 250 - 450 mcg/dL LAB CHEMISTRY METHOD 10/16/2024 12:54 PM [facility] Iron Saturation 26 15 - 50 % LAB CHEMISTRY METHOD 10/16/2024 12:54 PM [facility] Blood Venous blood specimen / Unknown Venipuncture / Unknown 10/16/2024 7:44 AM EST 10/16/2024 11:20 AM EST us Yoana Moreno MD LAB BLOOD ORDERABLES Final Result Performing Organization Address City/[facility]/ZIP Co de Phone Number [facility] [address] [place] [address], [place] [phone] * Thyroid stimulating hormone (10/16/2024 7:44 AM EST) TSH 2.69 0.40 - 4.00 mcIU/mL LAB CHEMISTRY METHOD 10/16/2024 1:05 PM EST [facility] Blood Venous blood specimen / Unknown Venipuncture / Unknown 10/16/2024 7:44 AM EST 10/16/2024 11:20 AM EST Yoana Moreno MD LAB BLOOD ORDERABLES Final Result [facility] [address] [place] [address], [place] [phone] * Thyroxine free (10/16/2024 7:44 AM EST) Free T4 1.32 0.70 - 1.80 ng/dL LAB CHEMISTRY METHOD 10/16/2024 1:05 PM EST [facility] Blood Venous blood specimen / Unknown Venipuncture / Unknown 10/16/2024 7:44 AM EST 10/16/2024 11:20 AM EST us Yoana Moreno MD LAB BLOOD ORDERABLES Final Result [facility] [address] [place] [address], [place] [phone] * (ABNORMAL) Folate (10/16/2024 7:44 AM EST) Folate 18.1(H) 2.8 - 17.0 ng/ml LAB CHEMISTRY METHOD 10/16/2024 1:17 PM EST [facility] Blood Venous blood specimen / Unknown Venipuncture / Unknown 10/16/2024 7:44 AM EST 10/16/2024 11:20 AM EST us Yoana Moreno MD LAB BLOOD ORDERABLES Final Result Performing Organization Address City/[facility]/ZIP Co de Phone Number [facility] [address] [place] [address], [place] [phone] * Vitamin B12 (10/16/2024 7:44 AM EST) Vitamin B-12 810 250 - 900 pcg/mL LAB CHEMISTRY METHOD 10/16/2024 1:17 PM EST [facility] Blood Venous blood specimen / Unknown Venipuncture / Unknown 10/16/2024 7:44 AM EST 10/16/2024 11:20 AM EST Yoana Moreno MD LAB BLOOD ORDERABLES Final Result Performing Organization Address [facility]/ZIP Co de Phone Number [facility] [address] [place] [address], [place] [phone] * Vitamin D 25 hydroxy (10/16/2024 7:44 AM EST) Vit D, 25-Hydroxy 32.8 30.0 - 80.0 ng/mL LAB CHEMISTRY METHOD 10/16/2024 1:04 PM EST [facility] Blood Venous blood specimen / Unknown Venipuncture / Unknown 10/16/2024 7:44 AM EST 10/16/2024 11:20 AM EST Yoana Moreno MD LAB BLOOD ORDERABLES Final Result Performing Organization Address City/[facility]/ZIP Co de Phone Number [facility] [address] [place] [address], [place] [phone] * Aspartate aminotransferase (10/16/2024 7:44 AM EST) AST (SGOT) 16 10 - 42 unit/L LAB CHEMISTRY METHOD 10/16/2024 12:54 PM EST [facility] Blood Venous blood specimen / Unknown Venipuncture / Unknown 10/16/2024 7:44 AM EST 10/16/2024 11:20 AM EST us Yoana Moreno MD LAB BLOOD ORDERABLES Final Result [facility] [address] [place] [address], [place] [phone] * Alanine aminotransferase (10/16/2024 7:44 AM EST) ALT (SGPT) 20 10 - 60 unit/L LAB CHEMISTRY METHOD 10/16/2024 12:54 PM [facility] Blood Venous blood specimen / Unknown Venipuncture / Unknown 10/16/2024 7:44 AM EST 10/16/2024 11:20 AM EST Yoana Moreno MD LAB BLOOD ORDERABLES Final Result [facility] [address] [place] [address], [place] [phone] * (ABNORMAL) Basic metabolic panel (10/16/2024 7:44 AM EST) Pathologist [facility] Sodium 137 133 - 145 mmol/L LAB CHEMISTRY METHOD 10/16/2024 1:20 PM [facility] Potassium 4.9 3.5 - 5.5 mmol/L LAB CHEMISTRY METHOD 10/16/2024 1:20 PM [facility] Chloride 106 96 - 110 mmol/L LAB CHEMISTRY METHOD 10/16/2024 1:20 PM [facility] CO2 28 21 - 32 mmol/L LAB CHEMISTRY METHOD 10/16/2024 1:20 PM [facility] Anion Gap 3 3 - 11 LAB CHEMISTRY METHOD 10/16/2024 1:20 PM [facility] Glucose 71 70 - 100 mg/dL LAB CHEMISTRY METHOD 10/16/2024 1:20 PM EST [facility] BUN 35(H) 5 - 25 mg/dL LAB CHEMISTRY METHOD 10/16/2024 1:20 PM [facility] Creatinine 1.30(H) 0.50 - 1.10 mg/dL LAB CHEMISTRY METHOD 10/16/2024 1:20 PM [facility] eGFR 40(L) >=60 mL/min/1. 73m2 LAB CHEMISTRY METHOD 10/16/2024 1:20 PM [facility] Comment:Calculation based on the??Chronic Kidney Disease Epidemiology Collaboration (CKD-EPI) equation refit??without adjustment for race. BUN/Creatinine Ratio 26.9 LAB CHEMISTRY METHOD 10/16/2024 1:20 PM [facility] Calcium 10.0 8.5 - 10.5 mg/dL LAB CHEMISTRY METHOD 10/16/2024 1:20 PM [facility] Blood Venous blood specimen / Unknown Venipuncture / Unknown 10/16/2024 7:44 AM EST 10/16/2024 11:20 AM EST us Yoana Moreno MD LAB BLOOD ORDERABLES Final Result [facility] [address] [place] [address], * (ABNORMAL) Lipid panel with reflex to direct LDL (10/16/2024 7:44 AM EST) Cholesterol 232(H) 0 - 200 mg/dL LAB CHEMISTRY METHOD 10/16/2024 1:17 PM [facility] Triglycerides 80 0 - 150 mg/dL LAB CHEMISTRY METHOD 10/16/2024 1:17 PM [facility] HDL 69 >=40 mg/dL LAB CHEMISTRY METHOD 10/16/2024 1:17 PM [facility] LDL Calculated 147(H) 0 - 100 mg/dL LAB CHEMISTRY METHOD 10/16/2024 1:17 PM EST [facility] VLDL Cholesterol Rod 16 mg/dL LAB CHEMISTRY METHOD 10/16/2024 1:17 PM EST [facility] Non HDL Chol. (LDL+VLDL) 163(H) <145 mg/dL LAB CHEMISTRY METHOD 10/16/2024 1:17 PM EST [facility] Chol/HDL Ratio 3.4 0.0 - 4.4 LAB CHEMISTRY METHOD 10/16/2024 1:17 PM EST [facility] Blood Venous blood specimen / Unknown Venipuncture / Unknown 10/16/2024 7:44 AM EST 10/16/2024 11:20 AM EST us Yoana Moreno MD LAB BLOOD ORDERABLES Final Result [facility] [address] [place] [address], documented in this encounter Visit Diagnoses Diagnosis Pure hypercholesterolemia, unspecified Chronic kidney disease, stage 3 unspecified (CMS/HCC) Essential (primary) hypertension Unspecified essential hypertension Hypothyroidism, unspecified Vitamin D deficiency, unspecified Anemia, unspecified documented in this encounter Care Teams Architect Naval Relationship Specialty Start Date End Date Yoana Moreno MD [address] [place] [address] PCP - General Internal Medicine 10/16/24 documented as of this encounter
--- OUTSIDE RECORDS SUMMARY | 2024-11-01 10:50 | XMS_ITS ---
Author Organization [facility] Address Unknown Allergies, Adverse Reactions, Alerts Substance Reaction Status Noted Date Resolved Date Meperidine active 07/26/2023 Problems Problem Status Start Date End Date DISPLACED INTERTROCHANTERIC FRACTURE OF RIGHT FEMUR, SUBSEQUENT ENCOUNTER FOR CLOSED FRACTURE WITH ROUTINE HEALING (Primary) (S72.141D - ICD-10-CM) ACTIVE 07/26/2023 UNSTEADINESS ON FEET (R26.81 - ICD-10-CM) ACTIVE 07/26/2023 BRONCHIECTASIS, UNCOMPLICATED (J47.9 - ICD-10-CM) ACTI VE 07/26/2023 MUSCLE WASTING AND ATROPHY, NOT ELSEWHERE CLASSIFIED, MULTIPLE SITES (M62.59 - ICD-10-CM) ACTIVE 07/26/2023 CHRONIC OBSTRUCTIVE PULMONAR Y DISEASE, UNSPECIFIED (J44.9 - ICD-10-CM) ACTIVE 07/26/2023 HYPOTHYROIDISM, UNSPECIFIED (E03.9 - ICD-10-CM) ACTIVE 07/26/2023 UNSPECIFIED FALL, SUBSEQUENT ENCOUNTER (W19.XXXD - ICD-10-CM) ACTIVE 07/26/2023 ESSENTIAL (PRIMARY) HYPERTENSION (I10 - ICD-10-CM) ACT FREYA 07/26/2023 HYPERLIPIDEMIA, UNSPECIFIED (E78.5 - ICD-10-CM) ACTIVE 07/26/2023 UNSPECIFIED RIGHT BUNDLE-BRANCH BLOCK (I45.10 - ICD-10 -CM) ACTIVE 07/26/2023 CHRONIC KIDNEY DISEASE, STAG E 3 UNSPECIFIED (N18.30 - ICD-10-CM) ACTIVE 07/26/2023 Encounters Encounter Performer Performer Role Encounter Diagnoses Location Date Discharge - Discharged to home or self care - Home - Private home/apt. with no home health services [facility] 3 03:00 pm EST - 3 12:58 pm EST Immunizations Vaccine Date Influenza 06/26/2023 12:00 am EDT (Shingles) Vaccine 07/14/2019 12:00 am EDT (COVID-19) Pfizer Original Primary Dose Vaccine 2 of 2 11/18/2020 12:00 am EST (COVID-19) [id number] Updated Pfizer Vacc ine 06/09/2023 12:00 am EDT (COVID-19) Pfizer Original Primary Dose Vaccine 1 of 2 10/28/2020 12:00 am EST (COVID-19) Pfizer Original Booster Vacci ne 07/01/2021 12:00 am EDT (Pneumococcal) PCV13- Conjugate 13-felipe t Vaccine 06/21/2016 12:00 am EDT (Pneumococcal) PPSV23- Polysaccharide 23 -valent Vaccine 06/21/2016 12:00 am EDT Social History
--- OUTSIDE RECORDS SUMMARY | 2024-11-01 10:50 | XMS_ITS | Clinical Summary ---
Author Organization [address] [facility] Address [address] [place] [address] Phone Care Team Providers Care Healthcare Sales Representative Name Role Phone Yoana Moreno MD Primary Care Provider Encounters Date Type Department Care Team Description 10/16/2024 Lab Requisition [facility] - Main Lab [address] [place] [address] Yoana Moreno MD Pure hypercholesterolemia, unspecified; Chronic kidney disease, stage 3 unspecified (CMS/HCC); Essential (primary) hypertension; Hypothyroidism, unspecified; Vitamin D deficiency, unspecified; Anemia, unspecified from Last 3 Months Social History Tobacco Use Types Packs/Day Years Used Date Smoking Tobacco: Never Assessed Comments Unknown Sex and Gender Information Value Date Recorded Sex Assigned at Not on file Legal Sex Female 11:55 PM EST Gender Identity Not on file Sexual Orientation Not on file Plan of Treatment Health Maintenance Due Date Last Done Comments DTaP,Tdap,and Td Vaccines (1 - Tdap) 1957 Pneumococcal Vaccine: 50+ Ye ars (1 of 1 - PCV) 1988 Zoster Vaccines (1 of 2) 1988 RSV Immunization Patients 60 + Years Old (1 - 1-dose 75+ series) 2013 Depression Screening 04/02/2024 Falls Risk Assessment 04/02/2024 Medicare Annual Wellness Visit 04/02/2024 Osteoporosis Screening (Bone Density Screening) 04/02/2024 Social Influencers of Health Screening 04/02/2024 COVID-19 Vaccine ( - 2023-2 5 season) 2024 Influenza Vaccine (#1) 2024 Hypertension/CHF/CAD Annual BMP Blood Test 10/16/2025 10/16/2024 Cholesterol Screening (Lipid Panel) 10/16/2029 10/16/2024 HIB Vaccines Aged Out No longer eligi ble based on patient's age to complete this topic HPV Vaccines Aged Out No longer eligi ble based on patient's age to complete this topic Hepatitis A Vaccines Aged Out No long er eligible based on patient's age to complete this topic Hepatitis B Vaccines Aged Out No long er eligible based on patient's age to complete this topic IPV Vaccines Aged Out No longer eligi ble based on patient's age to complete this topic MMR Vaccines Aged Out No longer eligi ble based on patient's age to complete this topic Meningococcal ACWY Vaccine Aged Out N o longer eligible based on patient's age to complete this topic Meningococcal B Vacine Aged Out No lo nger eligible based on patient's age to complete this topic RSV Immunization Patients Un carla 20 months Aged Out No longer eligible b ased on patient's age to complete this topic Varicella Vaccines Aged Out No longer eligible based on patient's age to complete this topic Procedures Procedure Name Priority Date/Time Associated Diagnosis Comments CBC WITH AUTO DIFFERENTIAL Routine 10/16/2024 7:44 [...] deficiency, unspecified Anemia, unspecified ALANINE AMINOTRANSFERASE Routine 025 7:44 AM EST Pure hypercholesterolem ia, unspecified Chronic kidney disease, stage 3 unspecified (CMS/HCC) Essential (primary) hypertension Hypothyroidism, unspecified Vitamin D deficiency, unspecified Anemia, unspecified BASIC METABOLIC PANEL Routine 10/16/2024 7:44 AM EST Pure hypercholesterolem ia, unspecified Chronic kidney disease, stage 3 unspecified (CMS/HCC) Essential (primary) hypertension Hypothyroidism, unspecified Vitamin D deficiency, unspecified Anemia, unspecified LIPID PANEL WITH REFLEX TO DIRECT LDL Routine 10/16/2024 7:44 AM EST Pure hypercholesterolem ia, unspecified Chronic kidney disease, stage 3 unspecified (CMS/HCC) Essential (primary) hypertension Hypothyroidism, unspecified Vitamin D deficiency, unspecified Anemia, unspecified from Last 3 Months Results * (ABNORMAL) Lipid panel with reflex to direct LDL (10/16/2024 7:44 AM EST) Cholesterol 232(H) 0 - 200 mg/dL LAB CHEMISTRY METHOD 10/16/2024 1:[address] [facility] Triglycerides 80 0 - 150 mg/dL LAB CHEMISTRY METHOD 10/16/2024 1:[address] [facility] HDL 69 >=40 mg/dL LAB CHEMISTRY METHOD 10/16/2024 1:17 PM [facility] LDL Calculated 147(H) 0 - 100 mg/dL LAB CHEMISTRY METHOD 10/16/2024 1:17 PM [facility] VLDL Cholesterol Rod 16 mg/dL LAB CHEMISTRY METHOD 10/16/2024 1:17 PM [facility] Non HDL Chol. (LDL+VLDL) 163(H) <145 mg/dL LAB CHEMISTRY METHOD 10/16/2024 1:17 PM [facility] Chol/HDL Ratio 3.4 0.0 - 4.4 LAB CHEMISTRY METHOD 10/16/2024 1:[address] [facility] Blood Venous blood specimen / Unknown Venipuncture / Unknown 10/16/2024 7:44 AM EST 10/16/2024 11:20 AM EST us Yoana Moreno MD LAB BLOOD ORDERABLES Final Result [facility] [address] [place] [address], [place] [phone] * CBC auto differential (10/16/2024 7:44 AM EST) Pathologist [facility] WBC 5.3 4.8 - 10.8 K/mcL LAB HEMETOLOGY METHOD 10/16/2024 11:[address] [facility] RBC 4.40 3.80 - 4.80 M/mcL LAB HEMETOLOGY METHOD 10/16/2024 11:39 AM [facility] Hemoglobin 13.3 11.5 - 16.0 g/dL LAB HEMETOLOGY METHOD 10/16/2024 11:39 AM [facility] Hematocrit 41.6 35.0 - 47.0 % LAB HEMETOLOGY METHOD 10/16/2024 11:39 AM [facility] MCV 95.4 79.0 - 98.0 FL LAB HEMETOLOGY METHOD 10/16/2024 11:39 AM [facility] MCH 30.5 27.0 - 32.0 pcg LAB HEMETOLOGY METHOD 10/16/2024 11:39 AM [facility] MCHC 32.0 32.0 - 37.0 g/dL LAB HEMETOLOGY METHOD 10/16/2024 11:39 AM [facility] RDW 12.4 11.0 - 15.0 % LAB HEMETOLOGY METHOD 10/16/2024 11:39 AM [facility] Platelets 240 130 - 400 K/mcL LAB HEMETOLOGY METHOD 10/16/2024 11:39 AM [facility] MPV 10.2 7.0 - 11.0 FL LAB HEMETOLOGY METHOD 10/16/2024 11:39 AM [facility] NRBC 0.0 <1.0 % LAB HEMETOLOGY METHOD 10/16/2024 11:39 AM [facility] NRBC Absolute 0.00 <0.10 K/mcL LAB HEMETOLOGY METHOD 10/16/2024 11:39 AM [facility] Neutrophils Relative 65.3 % LAB HEMETOLOGY METHOD 10/16/2024 11:39 AM [facility] Lymphocytes Relative 19.5 % LAB HEMETOLOGY METHOD 10/16/2024 11:39 AM [facility] Monocytes Relative 10.9 % LAB HEMETOLOGY METHOD 10/16/2024 11:39 AM [facility] Eosinophils Relative 2.8 % LAB HEMETOLOGY METHOD 10/16/2024 11:39 AM [facility] Basophils Relative 1.1 % LAB HEMETOLOGY METHOD 10/16/2024 11:39 AM [facility] Immature Granulocytes Relative 0.4 % LAB HEMETOLOGY METHOD 10/16/2024 11:39 AM [facility] Neutrophils Absolute 3.49 1.50 - 7.00 K/mcL LAB HEMETOLOGY METHOD 10/16/2024 11:39 AM [facility] Lymphocytes Absolute 1.04 1.00 - 5.00 K/mcL LAB HEMETOLOGY METHOD 10/16/2024 11:39 AM [facility] Monocytes Absolute 0.58 0.20 - 1.00 K/mcL LAB HEMETOLOGY METHOD 10/16/2024 11:39 AM [facility] Eosinophils Absolute 0.15 0.00 - 0.50 K/mcL LAB HEMETOLOGY METHOD 10/16/2024 11:39 AM [facility] Basophils Absolute 0.06 0.00 - 0.20 K/mcL LAB HEMETOLOGY METHOD 10/16/2024 11:39 AM [facility] Immature Granulocytes Absolute 0.02 0.00 - 0.03 K/mcL LAB HEMETOLOGY METHOD 10/16/2024 11:39 AM [facility] Blood Venous blood specimen / Unknown Venipuncture / Unknown 10/16/2024 7:44 AM EST 10/16/2024 11:20 AM EST us Yoana Moreno MD LAB BLOOD ORDERABLES Final Result [facility] [address] [place] [address], [place] [phone] * Iron and TIBC (10/16/2024 7:44 AM EST) Pathologist [facility] Iron 78 40 - 150 mcg/dL LAB CHEMISTRY METHOD 10/16/2024 12:54 PM [facility] TIBC 305 250 - 450 mcg/dL LAB CHEMISTRY METHOD 10/16/2024 12:54 PM [facility] Iron Saturation 26 15 - 50 % LAB CHEMISTRY METHOD 10/16/2024 12:54 PM [facility] Blood Venous blood specimen / Unknown Venipuncture / Unknown 10/16/2024 7:44 AM EST 10/16/2024 11:20 AM EST Yoana Moreno MD LAB BLOOD ORDERABLES Final Result Performing Organization Address City/[facility]/ZIP Co de Phone Number [facility] [address] [place] [address], [place] [phone] * Vitamin D 25 hydroxy (10/16/2024 7:44 AM EST) [facility] Vit D, 25-Hydroxy 32.8 30.0 - 80.0 ng/mL LAB CHEMISTRY METHOD 10/16/2024 1:04 PM [facility] Blood Venous blood specimen / Unknown Venipuncture / Unknown 10/16/2024 7:44 AM EST 10/16/2024 11:20 AM EST Yoana Moreno MD LAB BLOOD ORDERABLES Final Result [facility] [address] [place] [address], [place] [phone] * Alanine aminotransferase (10/16/2024 7:44 AM EST) [facility] Signature ALT (SGPT) 20 10 - 60 unit/L LAB CHEMISTRY METHOD 10/16/2024 12:[address] [facility] Blood Venous blood specimen / Unknown Venipuncture / Unknown 10/16/2024 7:44 AM EST 10/16/2024 11:20 AM EST us Yoana Moreno MD LAB BLOOD ORDERABLES Final Result Performing Organization Address City/[facility]/ZIP Co de Phone Number [facility] [address] [place] [address], [place] [phone] * Aspartate aminotransferase (10/16/2024 7:44 AM EST) AST (SGOT) 16 10 - 42 unit/L LAB CHEMISTRY METHOD 10/16/2024 12:54 PM [facility] Blood Venous blood specimen / Unknown Venipuncture / Unknown 10/16/2024 7:44 AM EST 10/16/2024 11:20 AM EST us Yoana Moreno MD LAB BLOOD ORDERABLES Final Result Performing Organization Address [facility]/ZIP Co de Phone Number [facility] [address] [place] [address], [place] [phone] * Thyroid stimulating hormone (10/16/2024 7:44 AM EST) TSH 2.69 0.40 - 4.00 mcIU/mL LAB CHEMISTRY METHOD 10/16/2024 1:[address] [facility] Blood Venous blood specimen / Unknown Venipuncture / Unknown 10/16/2024 7:44 AM EST 10/16/2024 11:20 AM EST us Yoana Moreno MD LAB BLOOD ORDERABLES Final Result Performing Organization Address City/[facility]/ZIP Co de Phone Number [facility] [address] [place] [address], [place] [phone] * Thyroxine free (10/16/2024 7:44 AM EST) Free T4 1.32 0.70 - 1.80 ng/dL LAB CHEMISTRY METHOD 10/16/2024 1:[address] [facility] Blood Venous blood specimen / Unknown Venipuncture / Unknown 10/16/2024 7:44 AM EST 10/16/2024 11:20 AM EST us Yoana Moreno MD LAB BLOOD ORDERABLES Final Result [facility] [address] [place] [address], [place] [phone] * (ABNORMAL) Folate (10/16/2024 7:44 AM EST) Pathologist [facility] Folate 18.1(H) 2.8 - 17.0 ng/ml LAB CHEMISTRY METHOD 10/16/2024 1:[address] [facility] Blood Venous blood specimen / Unknown Venipuncture / Unknown 10/16/2024 7:44 AM EST 10/16/2024 11:20 AM EST us Yoana Moreno MD LAB BLOOD ORDERABLES Final Result [facility] [address] [place] [address], [place] [phone] * Vitamin B12 (10/16/2024 7:44 AM EST) Vitamin B-12 810 250 - 900 pcg/mL LAB CHEMISTRY METHOD 10/16/2024 1:[address] [facility] Blood Venous blood specimen / Unknown Venipuncture / Unknown 10/16/2024 7:44 AM EST 10/16/2024 11:20 AM EST us Yoana Moreno MD LAB BLOOD ORDERABLES Final Result [facility] [address] [place] [address], * (ABNORMAL) Basic metabolic panel (10/16/2024 7:44 AM EST) Sodium 137 133 - 145 mmol/L LAB CHEMISTRY METHOD 10/16/2024 1:20 PM [facility] Potassium 4.9 3.5 - 5.5 mmol/L LAB CHEMISTRY METHOD 10/16/2024 1:20 PM [facility] Chloride 106 96 - 110 mmol/L LAB CHEMISTRY METHOD 10/16/2024 1:20 PM [facility] CO2 28 21 - 32 mmol/L LAB CHEMISTRY METHOD 10/16/2024 1:20 PM [facility] Anion Gap 3 3 - 11 LAB CHEMISTRY METHOD 10/16/2024 1:20 PM [facility] Glucose 71 70 - 100 mg/dL LAB CHEMISTRY METHOD 10/16/2024 1:20 PM [facility] BUN 35(H) 5 - 25 mg/dL LAB CHEMISTRY METHOD 10/16/2024 1:20 PM [facility] Creatinine 1.30(H) 0.50 - 1.10 mg/dL LAB CHEMISTRY METHOD 10/16/2024 1:20 PM [facility] eGFR 40(L) >=60 mL/min/1. 73m2 LAB CHEMISTRY METHOD 10/16/2024 1:20 PM [facility] Comment:Calculation based on the??Chronic Kidney Disease Epidemiology Collaboration (CKD-EPI) equation refit??without adjustment for race. BUN/Creatinine Ratio 26.9 LAB CHEMISTRY METHOD 10/16/2024 1:20 PM [facility] Calcium 10.0 8.5 - 10.5 mg/dL LAB CHEMISTRY METHOD 10/16/2024 1:20 PM [facility] Blood Venous blood specimen / Unknown Venipuncture / Unknown 10/16/2024 7:44 AM EST 10/16/2024 11:20 AM EST Yoana Moreno MD LAB BLOOD ORDERABLES Final Result [facility] [address] [place] [address], from Last 3 Months Insurance [employer] Care Teams Healthcare Sales Representative Relationship Specialty Start Date End Date Yaona Moreno MD [address] [place] [address] PCP - General Internal Medicine 10/16/24
== END 2024-11-01 11:14 | disposition home or self-care (01) ==
LOC: HO.HMCC 10:08
PROVIDERS: PCP Internal Medicine; Visit Provider Internal Medicine
DX: I12.9 Hypertensive chronic kidney disease with stage 1 through stage 4 chronic kidney disease, or unspecified chronic kidney disease (principal); N18.30 Chronic kidney disease, stage 3 unspecified; E03.9 Hypothyroidism, unspecified; E78.00 Pure hypercholesterolemia, unspecified

== ENCOUNTER → 2024-11-01 10:08 | Outpatient (BNVA) | payer MEDICARE, SELFPAY | PROVIDERS: PCP Internal Medicine; Visit Provider Internal Medicine | DX: E03.9 Hypothyroidism, unspecified (principal); I12.9 Hypertensive chronic kidney disease with stage 1 through stage 4 chronic kidney disease, or unspecified chronic kidney disease; N18.30 Chronic kidney disease, stage 3 unspecified; E78.00 Pure hypercholesterolemia, unspecified | CPT/HCPCS: 96127 ==

== ENCOUNTER 2025-06-16 07:32 | Inpatient (IN) | payer MEDICARE, SELFPAY ==
[2025-06-16] VITALS (9 sets, daily range): BP systolic 109–144; BP diastolic 51–78; PULSE 82–104; RESP 14–20; TEMP 36.2–36.8; O2SAT 80–99; BMI 21.0
--- NOTE | ~2025-06-16 | XR_ITS ---
EXAMINATION: XR CHEST 1 VIEW HISTORY: cough COMPARISON: Comparison is made with the prior examination dated 11/02/2020. FINDINGS: A single AP portable view of the chest performed at 8:13 AM is submitted. The lungs remain hyperinflated system with COPD. There are airspace opacities in both upper lung zones, left greater than right, suspicious for pneumonia. There is no pleural effusion, pneumothorax, or pulmonary vascular congestion. The heart is normal in size. The aorta is calcified. There is degenerative disc disease of the spine. XR/XR chest 1V IMPRESSION: COPD. Bilateral upper lobe airspace opacities suspicious for pneumonia. Follow-up is recommended to document resolution. Electronically signed by: Brian Mackenzie MD 06/16/2025 08:27 AM EDT
--- NOTE | 2025-06-16 07:33 | ED.NAVMDI ---
HPI - Nausea/Vomiting/Diarrhea General Chief complaint: Nausea/Vomiting/Diarrhea Stated complaint: DIARRHEA,ABD PAIN X4D, 86% RA,96% 2LPM Source: patient, EMS and old records reviewed Mode of arrival: EMS Limitations: no limitations History of Present Illness ED Provider: LAKEISHA LEBLNAC Narrative: 84 yo female with PMH of hypothyroidism, CKD, HTN, HLD, anemia, SBO s/p resection here with c/o 3 episodes of diarrhea per day since . She denies pain, fevers, n/v, bloody stools. She denies travel or known sick contacts and has not been on any antibiotics in last 4 weeks. She denies any abd pain. She notes she eats feels a rumble then has diarrhea. She notes she has had this before in the past. She has not tried any immodium. She was brought in by EMS they did note her RA sat was 88% - patient was a smoker but quit many years ago and has not needed oxygen. She also reports no hx of asthma. She denies CP/SOB. MD elicited complaint: diarrhea Onset (ago): day(s) () Description of diarrhea: watery Associated nausea: No Associated abdominal pain: No Location of pain: none Severity: mild Exacerbating factors: eating Relieving factors: none Associated symptoms: denies other symptoms Treatment prior to arrival: other (oxygen therapy) Related Data Home Medications ?Medication ?Instructions ?Recorded ?Confirmed vitamin B complex 1 tab PO DAILY 12/18/23 Previous Rx's ?Medication ?Instructions ?Recorded clobetasol 0.05 % topical cream 1 appl topical BEDTIME 10 days #30 07/01/24 grams atorvastatin 20 mg tablet 20 mg PO DAILY #90 tabs 01/21/25 levothyroxine 75 mcg tablet 75 mcg PO DAILY #90 tabs 01/21/25 Allergies Allergy/AdvReac Type Severity Reaction Status Date / Time latex Allergy Rash Verified 06/16/25 07:46 meperidine (Demerol) AdvReac Unknown dizziness Verified 11/01/24 10:21 Review of Systems Review of Systems: Constitutional : No Fever, No Chills, No Fatigue ENT/Mouth : No sore throat, No Rhinorrhea Eyes: No Eye Pain, No Swelling, No Redness Cardiovascular : No Chest Pain, No SOB, No Dyspnea on Exertion Respiratory : No Cough, No Sputum Gastrointestinal : No Nausea, No Vomiting, pos Diarrhea, No abdominal Pain Genitourinary : No Dysuria, No Urinary Frequency, No Hematuria, Musculoskeletal : No joint pain, No Myalgias, No Joint Swelling Skin : No Skin Lesions, No rash Neuro : No Weakness, No Numbness, No Dizziness All other systems reviewed and are negative Gastrointestinal: Gastrointestinal: Denies nausea PMFSH Past Medical History Attestation statement: The following information was validated with the patient. Source: old records reviewed Medical History Anemia Vitamin D deficiency Hx of iron deficiency anemia Fracture, intertrochanteric, right femur RBBB (right bundle branch block) Gallbladder polyp Bowel obstruction Tubular adenoma of colon History of herpes zoster Hyperlipidemia Essential hypertension Chronic kidney disease, stage 3 Acquired hypothyroidism Osteoporosis Surgical History History of open reduction and internal fixation (ORIF) procedure Hx of small bowel obstruction History of colonoscopy Hx of breast biopsy Family History Family History Father Myocardial infarction Mother HTN (hypertension) Glaucoma Brother HTN (hypertension) Depression Mental health disorder Sister No problems noted. Social History Social History Household Members: None Household Members Other:: Lives in assisted living Housing: Apartment [facility] Are you a primary animal care attendant to a significant other at home: No Do you presently have visiting nurse or other home services: No Alcohol intake: never Patient Tobacco Use Status: Former Tobacco user Tobacco use type: Cigarette Years Smoked: 4 yrs Smoked in Last 30 Days: No e-Cigarette/Vaping Use: Never Used Second Hand Smoke Exposure: No (hx of) Use of substances other than those prescribed or required for medical reasons: No Advance Directives: Yes Advance Directives on File: Yes Advance Directives Date on File: 03/07/22 Do you have a plan to hurt others: No Plan service: No Current occupational status: retired Cognitive needs: No Hearing needs: No Vision needs: Yes Physical Exam Vital Signs: Vital Signs: Last Vital Signs Temp 97.2 F 06/16/25 07:47 Pulse 98 06/16/25 09:05 Resp 15 06/16/25 09:05 BP 139/77 06/16/25 07:47 Pulse Ox 88 L 06/16/25 09:29 O2 Del Method Room Air 06/16/25 09:29 BMI result Body Mass Index 21.0 Appearance: Alert. Oriented X3. No acute distress. Eyes: Pupils equal, round and reactive to light. ENT: Pharynx normal. Neck: Normal inspection. Neck supple. CVS: Normal heart rate and rhythm. Pulses normal. Respiratory: No respiratory distress. Breath sounds diminished RUL wheezes heard faint exp Abdomen: Soft and nontender. Skin: Skin warm and dry. Normal skin color. Extremities: No lower extremity edema. Neuro: Oriented X 3. No motor deficit. No sensory deficit. Course Course Course Narrative: abnormal CXR for pneumonia - infection suspected started IV abx and lactic acid, cultures Anita Coker DO 06/16/25 0834 Medications Administered Generic Name Dose Route Start Last Admin Trade Name Freq PRN Reason Stop Dose Admin Azithromycin 500 mg/ Sodium 250 mls @ 125 mls/hr 06/16/25 08:32 06/16/25 09:13 Chloride IV 06/16/25 10:31 125 mls/hr ONCE ONE Administration Discontinued Medications Generic Name Dose Route Start Last Admin Trade Name Freq PRN Reason Stop Dose Admin Ceftriaxone Sodium 1 gm 06/16/25 08:32 06/16/25 09:06 Ceftriaxone Sodium 1 Gm Vial IVPUSH 06/16/25 08:33 1 gm ONCE ONE Administration Albuterol Sulfate 2.5 mg/ 0 mg 06/16/25 08:23 06/16/25 08:27 Albuterol/Ipratropium 3 ml INHALE 06/16/25 08:24 5 dose ONCE ONE Administration Ondansetron HCl 4 mg 06/16/25 09:10 06/16/25 09:12 Ondansetron Hcl 4 Mg/2 Ml Vial IVPUSH 06/16/25 09:11 4 mg ONCE ONE Administration Medical Decision Making Medical Decision Making MDM Narrative: 84 yo female with PMH of hypothyroidism, CKD, HTN, HLD, anemia, SBO s/p resection here with c/o diarrhea only after she eats. No n/v, fevers, abdominal pain. Atypical for SBO, no fevers and no GIB symptoms. Will obtain labs, stool studies. She also has low O2 but no CP/SOB will need CXR, EKG, attempt neb therapy given some wheezes. She overall does not feel well this could be viral related such as COVID Differential Diagnosis Differential Diagnoses: The differential diagnosis associated with the presentation includes viral syndrome, IBS, COVID, anemia, dehydration Admission/Observation Consideration of admission/observation: Escalation of care including admission/observation considered admit for pneumonia and hypoxia walking o2 sat in 80s responded to rest and NC - 2L Consult Healthcare Provider Management of the patient was discussed with: Hospitalist (will admit) Lab Data [facility] Lab Attestation statement: I reviewed the patient's lab results. 06/16/25 08:05 06/16/25 08:05 Labs: Lab Results 06/16/25 06/16/25 06/16/25 Range/Units 08:05 08:12 08:24 WBC 7.4 (4.8-10.8) X10*3/uL RBC 4.11 L D (4.20-5.50) X10*6/uL Hgb 12.3 D (12.0-16.0) g/dl Hct 36.2 L D (37.0-47.0) % MCV 88.1 (80.0-98.0) fL MCH 29.9 (27.0-33.0) pg MCHC 34.0 (31.0-35.0) g/dl RDW 12.0 (11.0-16.0) % Plt Count 326 (160-400) X10*3/uL MPV 8.9 L (9.4-12.3) fL Immature Gran % (Auto) 0.4 (0.0-0.4) % Neut % (Auto) 75.2 H (45-73) % Lymph % (Auto) 7.0 L (20-40) % [place] % (Auto) 11.1 H (2-11) % Eos % (Auto) 5.9 H (0-4) % Baso % (Auto) 0.4 (0-2) % Lymph # (Auto) 0.5 L (1.2-4.9) X10*3/uL [place] # (Auto) 0.8 (0.1-1.2) X10*3/uL Eos # (Auto) 0.4 (0.0-0.4) X10*3/uL Baso # (Auto) 0.0 (0.0-0.2) X10*3/uL Abs Immat Gran (auto) 0.03 (0.00-0.03) X10*3/uL Absolute Neuts (auto) 5.6 (2.0-8.3) x10*3/uL Absolute Nucleated RBC 0.000 (0.0-0.012) X10*3/uL Nucleated RBC % (auto) 0.0 (0.0-0.2) /100WBC VBG pH 7.36 (7.32-7.43) VBG pCO2 45 mmHg VBG pO2 33 mmHg VBG HCO3 26 (22-26) mmol/L VBG O2 Saturation 46.0 % VBG Base Excess 0.4 mmol/L Sodium 134 L (135-145) mmol/L Potassium 4.4 (3.3-5.1) mmol/L Chloride 102 (96-108) mmol/L Carbon Dioxide 25 (22-29) mmol/L Anion Gap 11 L (12-20) BUN 22 H (9-16) mg/dL Creatinine 1.09 (0.5-1.4) mg/dL Estim Creat Clear Calc 32.0 Estimated GFR 48 Random Glucose 94 (60-115) mg/dL Lactic Acid (0.5-2.0) mmol/L Calcium 9.5 D (8.4-10.2) mg/dL Magnesium 1.9 (1.6-2.6) mg/dL Total Bilirubin 0.4 (0.0-1.0) mg/dL Direct Bilirubin 0.2 (0.0-0.5) mg/dL AST 24 (5-31) U/L ALT 7 (0-31) U/L Alkaline Phosphatase 60 (39-117) U/L Troponin I High Sens 8.9 D (<3.5-17.0) ng/L C-Reactive Protein 10.65 H (< or = 0.50) mg/dL NT-Pro-B Natriuret Pep 498.4 H (<300) pg/mL Total Protein 7.6 (6.5-8.0) g/dL Albumin 3.5 (3.5-5.0) g/dL Lipase 27 (8-78) U/L Influenza Type A (PCR) NEGATIVE (Negative) Influenza Type B (PCR) NEGATIVE (Negative) RSV RNA Qual (PCR) NEGATIVE (Negative) SARS-CoV-2 RNA (RT-PCR) NEGATIVE (Negative) 06/16/25 Range/Units 08:48 WBC (4.8-10.8) X10*3/uL RBC (4.20-5.50) X10*6/uL Hgb (12.0-16.0) g/dl Hct (37.0-47.0) % MCV (80.0-98.0) fL MCH (27.0-33.0) pg MCHC (31.0-35.0) g/dl RDW (11.0-16.0) % Plt Count (160-400) X10*3/uL MPV (9.4-12.3) fL Immature Gran % (Auto) (0.0-0.4) % Neut % (Auto) (45-73) % Lymph % (Auto) (20-40) % [place] % (Auto) (2-11) % Eos % (Auto) (0-4) % Baso % (Auto) (0-2) % Lymph # (Auto) (1.2-4.9) X10*3/uL [place] # (Auto) (0.1-1.2) X10*3/uL Eos # (Auto) (0.0-0.4) X10*3/uL Baso # (Auto) (0.0-0.2) X10*3/uL Abs Immat Gran (auto) (0.00-0.03) X10*3/uL Absolute Neuts (auto) (2.0-8.3) x10*3/uL Absolute Nucleated RBC (0.0-0.012) X10*3/uL Nucleated RBC % (auto) (0.0-0.2) /100WBC VBG pH (7.32-7.43) VBG pCO2 mmHg VBG pO2 mmHg VBG HCO3 (22-26) mmol/L VBG O2 Saturation % VBG Base Excess mmol/L Sodium (135-145) mmol/L Potassium (3.3-5.1) mmol/L Chloride (96-108) mmol/L Carbon Dioxide (22-29) mmol/L Anion Gap (12-20) BUN (9-16) mg/dL Creatinine (0.5-1.4) mg/dL Estim Creat Clear Calc Estimated GFR Random Glucose (60-115) mg/dL Lactic Acid 1.4 (0.5-2.0) mmol/L Calcium (8.4-10.2) mg/dL Magnesium (1.6-2.6) mg/dL Total Bilirubin (0.0-1.0) mg/dL Direct Bilirubin (0.0-0.5) mg/dL AST (5-31) U/L ALT (0-31) U/L Alkaline Phosphatase (39-117) U/L Troponin I High Sens (<3.5-17.0) ng/L C-Reactive Protein (< or = 0.50) mg/dL NT-Pro-B Natriuret Pep (<300) pg/mL Total Protein (6.5-8.0) g/dL Albumin (3.5-5.0) g/dL Lipase (8-78) U/L Influenza Type A (PCR) (Negative) Influenza Type B (PCR) (Negative) RSV RNA Qual (PCR) (Negative) SARS-CoV-2 RNA (RT-PCR) (Negative) Independent Interpretation I performed an independent interpretation of an: EKG and Plain X-Ray (patchy bilateral pneumonia) Interpretation: Rate: 88 Rhythm: NSR [place]: normal Normal P waves. Normal KAVITA. RBBB ST T wave : inverted t waves V1, no CONTRERAS qTC: 471 prior studies: no acute ischemia, hx of same in 2021 The study has been interpreted contemporaneously by me. . Radiology Impression Discussion of test interpretation with radiology: I have reviewed the radiologist's reading. Independent Historian Clinical information obtained from an independent historian. History obtained from or confirmed by: EMS External Record Review External record reviewed: Inpatient record and Outpatient record Discharge Plan Discharge Clinical Impression: Acute diarrhea, Hypoxia Pneumonia Qualifiers: Pneumonia type: due to unspecified organism Laterality: bilateral Lung location: upper lobe of lung Qualified Code(s): J18.9 - Pneumonia, unspecified organism Patient Disposition: Admitted As Inpatient Print Language: Pashto
--- NOTE | 2025-06-16 07:40 | ECG_ITS ---
Test Reason : SOB Blood Pressure : */* mmHG Vent. Rate : 88 BPM Atrial Rate : 88 BPM P-R Int : 148 ms QRS Dur : 108 ms QT Int : 390 ms P-R-T Axes : 103 73 37 degrees QTcB Int : 471 ms Normal sinus rhythm Right bundle branch block Abnormal ECG When compared with ECG of 28-Feb-2022 12:38, No significant change was found Referred By: Anita Coker Electronically Signed By: BERLIN YE MD
[2025-06-16 08:13] LABS: Hematocrit 36.2 % (37.0-47.0); Hemoglobin 12.3 g/dl (12.0-16.0); Imm Gran Abs Auto 0.03 X10*3/uL (0.00-0.03); Imm Gran Pct Auto 0.4 % (0.0-0.4); Lymphocytes Absolute Auto 0.5 X10*3/uL (1.2-4.9); MANUAL DIFF FLAG NO; Mean Corpuscular HGB Conc 34.0 g/dl (31.0-35.0); Mean Corpuscular Hemoglobin 29.9 pg (27.0-33.0); Mean Corpuscular Volume 88.1 fL (80.0-98.0); NRBC Abs Auto 0.000 X10*3/uL (0.0-0.012); NRBC Pct Auto 0.0 /100WBC (0.0-0.2); Platelet Count 326 X10*3/uL (160-400); Red Blood Count 4.11 X10*6/uL (4.20-5.50); White Blood Count 7.4 X10*3/uL (4.8-10.8)
[2025-06-16 08:15] LABS: Venous Blood Gas Refer to POC result
[2025-06-16 08:16] LABS: VBG HCO3 26 mmol/L (22-26); VBG O2 % Saturation 46.0 %
--- NOTE | 2025-06-16 08:16 | PC.NURSE ---
Pt comes to ED today with c/o diarrhea since 06/12/25. A&Ox3, VSS, and afebrile. She reports she has been trying to keep up with her PO fluids as best she can but eating has been difficult. She states she has abd cramping and diarrhea just after PO intake. She denies any n/v or pain at this time. 20g to LAC Blood work results pending RT to see Pt CXR results pending Pt is resting comfortably at this time.
[2025-06-16 08:27] LABS: Alanine Aminotransferase 7 U/L (0-31); Albumin Level 3.5 g/dL (3.5-5.0); Alkaline Phosphatase 60 U/L (39-117); Anion Gap 11 (12-20); Aspartate Amino Transferase 24 U/L (5-31); Blood Urea Nitrogen 22 mg/dL (9-16); Calcium 9.5 mg/dL (8.4-10.2); Carbon Dioxide 25 mmol/L (22-29); Chloride 102 mmol/L (96-108); Creatinine Clr Calc Pharmacy 32.0; Estimated Glomerular Filt Rate 48; Lipase 27 U/L (8-78); Magnesium 1.9 mg/dL (1.6-2.6); Potassium 4.4 mmol/L (3.3-5.1); Sodium 134 mmol/L (135-145); Total Protein 7.6 g/dL (6.5-8.0)
[2025-06-16] MEDS: Albuterol Sulfate 2.5 MG, Albuterol/Iprat 2.5/0.5MG 3 ML 3 ML INHALE (08:27)
[2025-06-16 08:34] LABS: NT Pro B Type Natriuretic Pept 498.4 pg/mL (<300); Troponin-I High Sensitivity 8.9 ng/L (<3.5-17.0)
--- OUTSIDE RECORDS SUMMARY | 2025-06-16 08:35 | XMS_ITS | Encounter Summary ---
Author Organization [facility] Address [id number] [place] [id number] Care Team Providers Care Bander Hand Name Role Phone Yoana Moreno MD Primary Care Provider Encounter Details Date Type Department Care Team (Late st Contact Info) Description 10/16/2024 Lab Requisition [facility] Lab [address] [facility] [place] [address] Yoana Moreno MD [address] [place] [address] Pure hypercholesterolemia, unspecified; Chronic kidney disease, stage 3 unspecified (CMS/HCC V24, CMS/HCC V28); Essential (primary) hypertension; Hypothyroidism, unspecified; Vitamin D [...] CBC auto differential (10/16/2024 7:44 AM EST) WBC 5.3 4.8 - 10.8 K/mcL LAB HEMETOLOGY METHOD 10/16/2024 11:[address] [facility] RBC 4.40 3.80 - 4.80 M/mcL LAB HEMETOLOGY METHOD 10/16/2024 11:[address] [facility] Hemoglobin 13.3 11.5 - 16.0 g/dL LAB HEMETOLOGY METHOD 10/16/2024 11:[address] [facility] Hematocrit 41.6 35.0 - 47.0 % LAB HEMETOLOGY METHOD 10/16/2024 11:[address] [facility] MCV 95.4 79.0 - 98.0 FL LAB HEMETOLOGY METHOD 10/16/2024 11:[address] [facility] MCH 30.5 27.0 - 32.0 pcg LAB HEMETOLOGY METHOD 10/16/2024 11:[address] [facility] MCHC 32.0 32.0 - 37.0 g/dL LAB HEMETOLOGY METHOD 10/16/2024 11:[address] [facility] RDW 12.4 11.0 - 15.0 % LAB HEMETOLOGY METHOD 10/16/2024 11:[address] [facility] Platelets 240 130 - 400 K/mcL LAB HEMETOLOGY METHOD 10/16/2024 11:[address] [facility] MPV 10.2 7.0 - 11.0 FL LAB HEMETOLOGY METHOD 10/16/2024 11:[address] [facility] NRBC 0.0 <1.0 % LAB HEMETOLOGY METHOD 10/16/2024 11:[address] [facility] NRBC Absolute 0.00 <0.10 K/mcL LAB HEMETOLOGY METHOD 10/16/2024 11:[address] [facility] Neutrophils Relative 65.3 % LAB HEMETOLOGY METHOD 10/16/2024 11:[address] [facility] Lymphocytes Relative 19.5 % LAB HEMETOLOGY METHOD 10/16/2024 11:[address] [facility] Monocytes Relative 10.9 % LAB HEMETOLOGY METHOD 10/16/2024 11:[address] [facility] Eosinophils Relative 2.8 % LAB HEMETOLOGY METHOD 10/16/2024 11:[address] [facility] Basophils Relative 1.1 % LAB HEMETOLOGY METHOD 10/16/2024 11:[address] [facility] Immature Granulocytes Relative 0.4 % LAB HEMETOLOGY METHOD 10/16/2024 11:[address] [facility] Neutrophils Absolute 3.49 1.50 - 7.00 K/mcL LAB HEMETOLOGY METHOD 10/16/2024 11:[address] [facility] Lymphocytes Absolute 1.04 1.00 - 5.00 K/mcL LAB HEMETOLOGY METHOD 10/16/2024 11:[address] [facility] Monocytes Absolute 0.58 0.20 - 1.00 K/mcL LAB HEMETOLOGY METHOD 10/16/2024 11:39 AM EST [facility] Eosinophils Absolute 0.15 0.00 - 0.50 K/[facility] LAB HEMETOLOGY METHOD 10/16/2024 11:39 AM EST [facility] Basophils Absolute 0.06 0.00 - 0.20 K/[facility] LAB HEMETOLOGY METHOD 10/16/2024 11:[address] [facility] Immature Granulocytes Absolute 0.02 0.00 - 0.03 K/[facility] LAB HEMETOLOGY METHOD 10/16/2024 11:[address] [facility] Blood Venous blood specimen / Unknown Venipuncture / Unknown 10/16/2024 7:44 AM EST 10/16/2024 11:20 AM EST Yoana Moreno MD LAB BLOOD ORDERABLES Final Result Performing Organization Address City/[facility]/ZIP Co de Phone Number [facility] [address] [place] [address], [place] [phone] * Iron and TIBC (10/16/2024 7:44 AM EST) Iron 78 40 - 150 mcg/dL LAB CHEMISTRY METHOD 10/16/2024 12:[address] [facility] TIBC 305 250 - 450 mcg/dL LAB CHEMISTRY METHOD 10/16/2024 12:[address] [facility] Iron Saturation 26 15 - 50 % LAB CHEMISTRY METHOD 10/16/2024 12:[address] [facility] Blood Venous blood specimen / Unknown Venipuncture / Unknown 10/16/2024 7:44 AM EST 10/16/2024 11:20 AM EST us Yoana Moreno MD LAB BLOOD ORDERABLES Final Result [facility] [address] [place] [address], * Thyroid stimulating hormone (10/16/2024 7:44 AM EST) TSH 2.69 0.40 - 4.00 mcIU/mL LAB CHEMISTRY METHOD 10/16/2024 1:05 PM EST [facility] Blood Venous blood specimen / Unknown Venipuncture / Unknown 10/16/2024 7:44 AM EST 10/16/2024 11:20 AM EST Yoana Moreno MD LAB BLOOD ORDERABLES Final Result [facility] [address] [place] [address], * Thyroxine free (10/16/2024 7:44 AM EST) Free T4 1.32 0.70 - 1.80 ng/dL LAB CHEMISTRY METHOD 10/16/2024 1:05 PM EST [facility] Blood Venous blood specimen / Unknown Venipuncture / Unknown 10/16/2024 7:44 AM EST 10/16/2024 11:20 AM EST Yoana Moreno MD LAB BLOOD ORDERABLES Final Result [facility] [address] [place] [address], [place] [phone] * (ABNORMAL) Folate (10/16/2024 7:44 AM EST) Folate 18.1(H) 2.8 - 17.0 ng/ml LAB CHEMISTRY METHOD 10/16/2024 1:17 PM EST [facility] Blood Venous blood specimen / Unknown Venipuncture / Unknown 10/16/2024 7:44 AM EST 10/16/2024 11:20 AM EST Yoana Moreno MD LAB BLOOD ORDERABLES Final Result Performing Organization Address City/[facility]/ZIP Co de Phone Number [facility] [address] [place] [address], [place] [phone] * Vitamin B12 (10/16/2024 7:44 AM EST) Vitamin B-12 810 250 - 900 pcg/mL LAB CHEMISTRY METHOD 10/16/2024 1:17 PM EST [facility] Blood Venous blood specimen / Unknown Venipuncture / Unknown 10/16/2024 7:44 AM EST 10/16/2024 11:20 AM EST oYana Moreno MD LAB BLOOD ORDERABLES Final Result Performing Organization Address [facility]/[place] Co de Phone Number [facility] [address] [place] [address], * Vitamin D 25 hydroxy (10/16/2024 7:44 AM EST) Vit D, 25-Hydroxy 32.8 30.0 - 80.0 ng/mL LAB CHEMISTRY METHOD 10/16/2024 1:04 PM EST [facility] Blood Venous blood specimen / Unknown Venipuncture / Unknown 10/16/2024 7:44 AM EST 10/16/2024 11:20 AM EST Yoana Moreno MD LAB BLOOD ORDERABLES Final Result Performing Organization Address City/[facility]/ZIP Co de Phone Number [facility] [address] [place] [address], [place] [phone] * Aspartate aminotransferase (10/16/2024 7:44 AM EST) AST (SGOT) 16 10 - 42 unit/L LAB CHEMISTRY METHOD 10/16/2024 12:54 PM EST [facility] Blood Venous blood specimen / Unknown Venipuncture / Unknown 10/16/2024 7:44 AM EST 10/16/2024 11:20 AM EST us Yoana Moreno MD LAB BLOOD ORDERABLES Final Result [facility] [address] [place] [address], [place] [phone] * Alanine aminotransferase (10/16/2024 7:44 AM EST) ALT (SGPT) 20 10 - 60 unit/L LAB CHEMISTRY METHOD 10/16/2024 12:[address] [facility] Blood Venous blood specimen / Unknown Venipuncture / Unknown 10/16/2024 7:44 AM EST 10/16/2024 11:20 AM EST Yoana Moreno MD LAB BLOOD ORDERABLES Final Result Performing Organization Address City/[facility]/ZIP Co de Phone Number [facility] [address] [place] [address], [place] [phone] * (ABNORMAL) Basic metabolic panel (10/16/2024 7:44 AM EST) Sodium 137 133 - 145 mmol/L LAB CHEMISTRY METHOD 10/16/2024 1:[address] [facility] Potassium 4.9 3.5 - 5.5 mmol/L LAB CHEMISTRY METHOD 10/16/2024 1:[address] [facility] Chloride 106 96 - 110 mmol/L LAB CHEMISTRY METHOD 10/16/2024 1:[address] [facility] CO2 28 21 - 32 mmol/L LAB CHEMISTRY METHOD 10/16/2024 1:[address] [facility] Anion Gap 3 3 - 11 LAB CHEMISTRY METHOD 10/16/2024 1:[address] [facility] Glucose 71 70 - 100 mg/dL LAB CHEMISTRY METHOD 10/16/2024 1:20 PM EST [facility] BUN 35(H) 5 - 25 mg/dL LAB CHEMISTRY METHOD 10/16/2024 1:[address] [facility] Creatinine 1.30(H) 0.50 - 1.10 mg/dL LAB CHEMISTRY METHOD 10/16/2024 1:[address] [facility] eGFR 40(L) >=60 mL/min/1. 73m2 LAB CHEMISTRY METHOD 10/16/2024 1:[address] [facility] Comment:Calculation based on the Chronic Kidney Disease Epidemiology Collaboration (CKD-EPI) equation refit without adjustment for race. BUN/Creatinine Ratio 26.9 LAB CHEMISTRY METHOD 10/16/2024 1:[address] [facility] Calcium 10.0 8.5 - 10.5 mg/dL LAB CHEMISTRY METHOD 10/16/2024 1:[address] [facility] Blood Venous blood specimen / Unknown Venipuncture / Unknown 10/16/2024 7:44 AM EST 10/16/2024 11:20 AM EST Yoana Moreno MD LAB BLOOD ORDERABLES Final Result [facility] [address] [place] [address], * (ABNORMAL) Lipid panel with reflex to direct LDL (10/16/2024 7:44 AM EST) Cholesterol 232(H) 0 - 200 mg/dL LAB CHEMISTRY METHOD 10/16/2024 1:[address] [facility] Triglycerides 80 0 - 150 mg/dL LAB CHEMISTRY METHOD 10/16/2024 1:[address] [facility] HDL 69 >=40 mg/dL LAB CHEMISTRY METHOD 10/16/2024 1:[address] [facility] LDL Calculated 147(H) 0 - 100 mg/dL LAB CHEMISTRY METHOD 10/16/2024 1:17 PM EST [facility] VLDL Cholesterol Rod 16 mg/dL LAB CHEMISTRY METHOD 10/16/2024 1:17 PM EST [facility] Non HDL Chol. (LDL+VLDL) 163(H) <145 mg/dL LAB CHEMISTRY METHOD 10/16/2024 1:17 PM EST [facility] Chol/HDL Ratio 3.4 0.0 - 4.4 LAB CHEMISTRY METHOD 10/16/2024 1:17 PM EST [facility] Blood Venous blood specimen / Unknown Venipuncture / Unknown 10/16/2024 7:44 AM EST 10/16/2024 11:20 AM EST us Yoana Moreno MD LAB BLOOD ORDERABLES Final Result [facility] [address] [place] [address], documented in this encounter Visit Diagnoses Diagnosis Pure hypercholesterolemia, unspecified Chronic kidney disease, stage 3 unspecified (CMS/HCC V24, CMS/HCC V28) Essential (primary) hypertension Unspecified essential hypertension Hypothyroidism, unspecified Vitamin D deficiency, unspecified Anemia, unspecified documented in this encounter Care Teams Bander Hand Relationship Specialty Start Date End Date Yoana Moreno MD [address] [place] [address] PCP - General Internal Medicine 10/16/24 documented as of this encounter
--- OUTSIDE RECORDS SUMMARY | 2025-06-16 08:35 | XMS_ITS | Patient Health Record ---
Author Organization [facility] Address [address] [place] [phone] Care Team Providers Care Rug Cutter Helper Name Role Phone Brian Carrera Unavailable [phone] Reason For Referral No Information Plan Of Treatment No Information
--- OUTSIDE RECORDS SUMMARY | 2025-06-16 08:35 | XMS_ITS | Clinical Summary ---
Author Organization [address] [facility] Address [address] [place] [address] Phone Care Team Providers Care Dean Of Student Services Name Role Phone Yoana Moreno MD Primary Care Provider Social History Tobacco Use Types Packs/Day Years [...] Vaccines (1 of 2) 1988 RSV Immunization Adult Patie nts (1 - 1-dose 75+ series) 2013 Falls Risk Assessment 04/02/2024 Medicare Annual Wellness Visit 04/02/2024 Osteoporosis Screening (Bone Density Screening) 04/02/2024 Social Influencers of Health Screening 04/02/2024 Depression Screening 09/11/2024 COVID-19 Vaccine ( - 2023-2 5 season) 2025 Influenza Vaccine (#1) 2025 Cholesterol Screening (Lipid Panel) 10/16/2029 10/16/2024 HIB [...] age to complete this topic Meningococcal B Vaccine Aged Out No l onger eligible based on patient's age to complete [...] LDL Routine 10/16/2024 7:44 AM EST Pure hypercholesterolemia , unspecified Chronic kidney disease, stage 3 unspecified (CMS/HCC) Essential (primary) hypertension Hypothyroidism, unspecified Vitamin D deficiency, unspecified Anemia, unspecified from Last 3 Months or Most Recently Relevant to Health Maintenance Results * (ABNORMAL) Lipid panel with reflex to direct LDL (10/16/2024 7:44 AM EST) Cholesterol 232(H) 0 - 200 mg/dL LAB CHEMISTRY METHOD 10/16/2024 1:17 PM [facility] Triglycerides 80 0 - 150 mg/dL LAB CHEMISTRY METHOD 10/16/2024 1:17 PM [facility] HDL 69 >=40 mg/dL LAB CHEMISTRY METHOD 10/16/2024 1:17 PM [facility] LDL Calculated 147(H) 0 - 100 mg/dL LAB CHEMISTRY METHOD 10/16/2024 1:17 PM [facility] VLDL Cholesterol Rod 16 mg/dL LAB CHEMISTRY METHOD 10/16/2024 1:17 PM [facility] Non HDL Chol. (LDL+VLDL) 163(H) <145 mg/dL LAB CHEMISTRY METHOD 10/16/2024 1:17 PM [facility] Chol/HDL Ratio 3.4 0.0 - 4.4 LAB CHEMISTRY METHOD 10/16/2024 1:17 PM [facility] Blood Venous blood specimen / Unknown Venipuncture / Unknown 10/16/2024 7:44 AM EST 10/16/2024 11:20 AM EST us Yoana Moreno MD LAB BLOOD ORDERABLES Final Result [facility] [address] [place] [address], [place] [phone] from Last 3 Months or Most Recently Relevant to Health Maintenance Insurance [employer] MEDICARE Care Teams Dean Of Student Services Relationship Specialty Start Date End Date Yoana Moreno MD [address] [place] [address] PCP - General Internal Medicine 10/16/24
--- OUTSIDE RECORDS SUMMARY | 2025-06-16 08:35 | XMS_ITS | Patient Health Record ---
Author Organization [facility] Address [address] [place] [address] Care Team Providers Care Buffing And Polishing Wheel Repairer Name Role Phone Josh JANG, Yoana Lopez Primary Care Provider Un available Black, Bere Unavailable [phone] Allergies Allergen (clinical drug ingredient) Drug/Non Drug Allergy documented on EMR Reaction Allergy Type Onset Date Status meperidine Demerol depression Drug Allergy Activ e Adhesive Bandages skin rash Drug Allergy Active sulfa lingering break out Drug Allergy Active codeine Codeine depression Drug Allergy Active morphine Morphine depression Drug Allergy Active Reason For Referral No Information Medications Medication SIG (Take, Route, Frequency, Duration) Notes Start Date End Date Status Atorvastatin Calcium 10 MG Orally Active Synthroid 75 MCG Orally Act geovany Eye Vitamins Active Multivitamin Active Vitamin D 1000 UNIT Orally Active Social History Tobacco use other than smoking: Question Answer Notes Are you an other tobacco user? No Problems Problem Type SNOMED Code ICD Code Onset Dates Problem Status W/U Status Risk Notes Problem Acquired hammer toe of right foot (7422656045548 105) Other hammer toe(s) (acquired), right foot (M20.41) Active confirmed Plan Of Treatment Pending Test Test Name Order Date [id number] NAIL, 1-5 02/09/2017 Insurance Providers Payer Name Payer Address Payer Phone Subscriber Number Group Number Insured Name Patient Relationship to Insured Coverage Start Date Coverage End Date [employer] Medicare [id number] [address] [address] [place] [address] [id number] Josephine Scales Self - patient is the insured Medical (General) History Medical History History ICD Code Broken bones CAD (Cholesterol) Cataracts Diverticulitis Macular degeneration Osteoporosis Thyroid disorder Surgical History Surgery Date(Month/Year) breast biopsy cataract surgery
--- OUTSIDE RECORDS SUMMARY | 2025-06-16 08:35 | XMS_ITS ---
Author Organization [facility] Care Team Providers Care Machine Try Out Setter Name Role Phone Curt Becker Unavailable Unavailable Grippin Magaly Unavailable Unavailable Levheim Claudia Unavailable Unavailable Allergies and adverse reactions Code CodeSystem Substance Reaction Severity StartDate Concern Status 6754 RXNORM Meperidine Unknown 07/26/2023 active Care Team Name Role Address Phone Organization Dates Curt Becker PCP [address], [place], [address], [place] (Office): : [facility] 07/26/2023 - 08/17/2023 Magaly Grippin [address], [place], [address], [place]Office[place] : [facility] 07/26/2023 - 08/17/2023 Claudia Levheim [address], [place], [address], [place] (Office): [facility] 07/26/2023 - 08/17/2023 Immunizations Immunization Status Vaccine Details Vaccine Code CodeSystem Date Notes Influenza completed Influenza, split virus, trivalent, injectable, contains preservative 141 CVX created date: 08/02/2023 administer ed date: 06/26/2023 (Shingles) Vaccine completed zoster vaccine recombinant 187 CVX created date: 08/02/2023 administer ed date: 07/14/2019 first shingrix 05/03/2019 (COVID-19) Pfizer Original Primary Dose Vaccine 2 of 2 completed SARS-COV-2 (COVID-19) vaccine, mRNA, spike protein, LNP, preservative free, 30 mcg/0.3mL dose 208 CVX created date: 08/02/2023 administer ed date: 11/18/2020 (COVID-19) [id number] Updated Pfizer Vaccine completed SARS-COV-2 (COVID-19) vaccine, mRNA, spike protein, LNP, preservative free, yanna-sucrose, 30 mcg/0.3 mL dose 309 CVX created date: 08/02/2023 administer ed date: 06/09/2023 (COVID-19) Pfizer Original Primary Dose Vaccine 1 of 2 completed SARS-COV-2 (COVID-19) vaccine, mRNA, spike protein, LNP, preservative free, 30 mcg/0.3mL dose 208 CVX created date: 08/02/2023 administer ed date: 10/28/2020 (COVID-19) Ruckus Original Booster Vaccine completed SARS-COV-2 (COVID-19) vaccine, mRNA, spike protein, LNP, preservative free, 30 mcg/0.3mL dose 208 CVX created date: 08/02/2023 administer ed date: 07/01/2021 (Pneumococcal) PCV13- Conjugate 13-valent Vaccine completed pneumococcal conjugate vaccine, 13 valent 133 CVX created date: 08/02/2023 administer ed date: 06/21/2016 (Pneumococcal) PPSV23- Polysaccharide 23-valent Vaccine completed pneumococcal polysaccharide vaccine, 23 valent 33 CVX created date: 08/02/2023 administer ed date: 06/21/2016 Mental Status Section Date Assessment Total Score Description 08/17/2023 BIMS 13 cognitively int act CAM 0 No delirium ind icated PHQ-9 00 07/30/2023 BIMS 13 cognitively int act CAM 0 No delirium ind icated PHQ-9 00 Insurance Providers Problems Problem # Description Date of onset Resolved Date Code CodeSystem Concern Status 1 BRONCHIECTASIS, UNCOMPLICATED [address] active 2 CHRONIC KIDNEY DISEASE, STAGE 3 UNSPECIFIED [address] active 3 CHRONIC OBSTRUCTIVE PULMONARY DISEASE, UNSPECIFIED [address] active 4 DISPLACED INTERTROCHANTERIC FRACTURE OF RIGHT FEMUR, SUBSEQUENT ENCOUNTER FOR CLOSED FRACTURE WITH ROUTINE HEALING [address] active 5 ESSENTIAL (PRIMARY) HYPERTENSION [address] active 6 HYPERLIPIDEMIA, UNSPECIFIED [address] active 7 HYPOTHYROIDISM, UNSPECIFIED [address] active 8 MUSCLE WASTING AND ATROPHY, NOT ELSEWHERE CLASSIFIED, MULTIPLE SITES [address] active 9 UNSPECIFIED FALL, SUBSEQUENT ENCOUNTER [address] active 10 UNSPECIFIED RIGHT BUNDLE-BRANCH BLOCK [address] active 11 UNSTEADINESS ON FEET [address] active Reason for Referral No Reasons for Referral Entered Social History Social History Observation Description Start Date End Date Code Code System Current Smoking Status Tobacco smoking consumption unknown 052439670 SNOMED CT Sex Assigned At Female 1940 09747-2 [facility] Gender Identity Sexual Orientation Vital Signs Code Code System Vitals Name Values and Units Timing Information 01726-4 [facility] Pain Level Value=0.0 08/17/2023 9279-1 LOINC Respiratory Rate Value=18.0 Units=/m in 08/16/2023 8462-4 [facility] Blood Pressure-Diastolic Value=77 Un its=mmHg 08/16/2023 8480-6 LOINC Blood Pressure-Systolic Venlt=984 Un its=mmHg 08/16/2023 8310-5 [facility] Body Temperature Value=98.1 Units= F 08/16/2023 8867-4 LOINC Heart rate Value=70.0 Units=/min 02/2023 00631-8 [facility] O2 % BldC Oximetry Value=97.0 Units= % 08/16/2023 14666-5 LOINC Weight Icdbh=973.0 Units=Lbs 8302-2 LOINC Height Value=66.0 Units=Inches 07/27/2023
--- NOTE | 2025-06-16 09:19 | PC.NURSE ---
Pt requests pillow behind back. While adjusting positions in stretcher, O2 sat noted to dip to 80% while Pt moving. O2 sat recovers to 93% on RA once Pt remained still. Will continue to monitor.
[2025-06-16 09:29] LABS: Resp Syncy Virus RNA Qual PCR NEGATIVE (Negative); SARS COV2 PCR INHOUSE NEGATIVE (Negative)
--- NOTE | 2025-06-16 09:47 | PC.NURSE ---
Attending at bedside.
--- NOTE | 2025-06-16 10:00 | P.HPHOSP_ITS ---
History of Present Illness Date of Service: 06/16/25 Chief Complaint: Diarrhea Pt is an 84-year-old female with a PMH significant for?HLD, hypothyroidism, CKD 3b, osteoporosis, and hx of right femoral intertrochanteric fx 07/2023 s/p right hip ORIF who presents to the ED with?diarrhea x5 days. Pt reports symptoms began on and has had 1-2 episodes daily of liquid diarrhea whenever she eats, last episode last night. No N/V or abdominal pain. Reports similar episodes in the past thought she could wait it out but symptoms persisted over the weekend and she thus presents today for further evaluation. Has also been experiencing a persistent, nonproductive cough for the past 3-4 weeks. Chronic fatigue at baseline. Denies fever or chills. No chest pain or pressure. In the ED pt's vitals were significant for tachycardia in the low 100s and desatting to 80% on RA. Labs were significant for mild hyponatremia of 134 and CRP 10.65. No leukocytosis. Stable H&H. Stool and C diff studies pending. CXR showed COPD and bilateral upper lobe airspace opacities suspicious for pneumonia. Pt was treated in the ED with DuoNebs, ondansetron, ceftriaxone, and azithromycin. Pt is admitted to the hospital for treatment and further evaluation of acute hypoxic respiratory failure in the setting of focal pneumonia. Review of Systems 2 Review of Systems: Negative except for that which is stated in the HPI. [facility] Medical History Anemia Vitamin D deficiency Hx of iron deficiency anemia Fracture, intertrochanteric, right femur RBBB (right bundle branch block) Gallbladder polyp Bowel obstruction Tubular adenoma of colon History of herpes zoster Hyperlipidemia Essential hypertension Chronic kidney disease, stage 3 Acquired hypothyroidism Osteoporosis Family History Father Myocardial infarction Mother HTN (hypertension) Glaucoma Brother HTN (hypertension) Depression Mental health disorder Sister No problems noted. Surgical History History of open reduction and internal fixation (ORIF) procedure Hx of small bowel obstruction History of colonoscopy Hx of breast biopsy Social History Household Members: None Household Members Other:: Lives in assisted living Housing: Apartment Housing Other:: provideide place independent living Are you a primary director medicare sales to a significant other at home: No Do you presently have visiting nurse or other home services: No Alcohol intake: never Patient Tobacco Use Status: Former Tobacco user Tobacco use type: Cigarette Years Smoked: 4 yrs Smoked in Last 30 Days: No e-Cigarette/Vaping Use: Never Used Second Hand Smoke Exposure: No (hx of) Use of substances other than those prescribed or required for medical reasons: No Advance Directives: Yes Advance Directives on File: Yes Advance Directives Date on File: 03/07/22 Do you have a plan to hurt others: No Plan service: No Current occupational status: retired Cognitive needs: No Hearing needs: No Vision needs: Yes Meds Allergies Allergy/AdvReac Type Severity Reaction Status Date / Time latex Allergy Rash Verified 06/16/25 07:46 meperidine (Demerol) AdvReac Unknown dizziness Verified 11/01/24 10:21 Active Medications: Current Medications Azithromycin 500 mg/ Sodium (Chloride) 250 mls @ 125 mls/hr IV ONCE ONE Stop: 06/16/25 10:31 Last Admin: 06/16/25 09:13 Dose: 125 mls/hr Home Medications ?Medication ?Instructions ?Recorded ?Confirmed ?Last Taken ?Type vitamin B complex 1 tab PO DAILY 12/18/23 Unk nown History levothyroxine 75 mcg tablet 75 mcg PO DAILY@0600 06/16 Unknown History Physical Exam 2 Vital Signs and Narrative: Vital Signs: Last Vital Signs Temp 97.2 F 06/16/25 07:47 Pulse 98 06/16/25 09:05 Resp 15 06/16/25 09:05 BP 139/77 06/16/25 07:47 Pulse Ox 88 L 06/16/25 09:29 O2 Del Method Room Air 06/16/25 09:29 BMI result Body Mass Index 21.0 General: AOx3, no acute distress Resp: CTA bilaterally though diminished throughout. Occasional nonproductive cough noted. CVS: S1, S2, regular rhythm, tachycardic GI: +BS, NT, no distention Skin: Warm, dry Neuro: Cranial nerves II-XII grossly intact bilaterally. Motor grossly intact bilaterally Extremities: No edema Psych: Appropriate affect Results Labs 06/16/25 08:05 10/06/25 08:05 Labs: Laboratory Results - last 24 hr 06/16/25 06/16/25 06/16/25 08:05 08:12 08:24 MCV 88.1 MCH 29.9 MCHC 34.0 RDW 12.0 Plt Count 326 MPV 8.9 L Immature Gran % (Auto) 0.4 Neut % (Auto) 75.2 H Lymph % (Auto) 7.0 L [place] % (Auto) 11.1 H Eos % (Auto) 5.9 H Baso % (Auto) 0.4 Lymph # (Auto) 0.5 L [place] # (Auto) 0.8 Eos # (Auto) 0.4 Baso # (Auto) 0.0 Abs Immat Gran (auto) 0.03 Absolute Neuts (auto) 5.6 Absolute Nucleated RBC 0.000 Nucleated RBC % (auto) 0.0 VBG pH 7.36 VBG pCO2 45 VBG pO2 33 VBG HCO3 26 VBG O2 Saturation 46.0 VBG Base Excess 0.4 Anion Gap 11 L Estim Creat Clear Calc 32.0 Estimated GFR 48 Random Glucose 94 Lactic Acid Calcium 9.5 D Magnesium 1.9 Total Bilirubin 0.4 Direct Bilirubin 0.2 AST 24 ALT 7 Alkaline Phosphatase 60 Troponin I High Sens 8.9 D C-Reactive Protein 10.65 H NT-Pro-B Natriuret Pep 498.4 H Total Protein 7.6 Albumin 3.5 Lipase 27 Influenza Type A (PCR) NEGATIVE Influenza Type B (PCR) NEGATIVE RSV RNA Qual (PCR) NEGATIVE SARS-CoV-2 RNA (RT-PCR) NEGATIVE 06/16/25 08:48 MCV MCH MCHC RDW Plt Count MPV Immature Gran % (Auto) Neut % (Auto) Lymph % (Auto) [place] % (Auto) Eos % (Auto) Baso % (Auto) Lymph # (Auto) [place] # (Auto) Eos # (Auto) Baso # (Auto) Abs Immat Gran (auto) Absolute Neuts (auto) Absolute Nucleated RBC Nucleated RBC % (auto) VBG pH VBG pCO2 VBG pO2 VBG HCO3 VBG O2 Saturation VBG Base Excess Anion Gap Estim Creat Clear Calc Estimated GFR Random Glucose Lactic Acid 1.4 Calcium Magnesium Total Bilirubin Direct Bilirubin AST ALT Alkaline Phosphatase Troponin I High Sens C-Reactive Protein NT-Pro-B Natriuret Pep Total Protein Albumin Lipase Influenza Type A (PCR) Influenza Type B (PCR) RSV RNA Qual (PCR) SARS-CoV-2 RNA (RT-PCR) Imaging Radiologist's Impressions: Impressions Chest X-Ray 06/16/25 08:13 IMPRESSION: COPD. Bilateral upper lobe airspace opacities suspicious for pneumonia. Follow-up is recommended to document resolution. Electronically signed by: Brian Mackenzie MD 06/16/2025 08:27 AM EDT RP Assessment and Plan (1) Hypoxia: Status: Acute (2) Pneumonia: Qualifiers: Laterality: bilateral Lung location: upper lobe of lung Pneumonia type: due to unspecified organism Qualified Code(s): J18.9 - Pneumonia, unspecified organism Status: Acute Plan Pt is an 84-year-old female with a PMH significant for?HLD, hypothyroidism, CKD 3b, osteoporosis, and hx of right femoral intertrochanteric fx 07/2023 s/p right hip ORIF who presents to the ED with?diarrhea x5 days. Pt was noted to be hypoxic at 80% on RA. And has had persistent nonproductive cough times 3-4 weeks. Pt is admitted to the hospital for treatment and further evaluation of acute hypoxic respiratory failure in the setting of focal pneumonia. Acute hypoxic respiratory failure in the setting of multifocal pneumonia CXR with bilateral upper lobe opacities, pt desatting to 80% on RA, persistent cough times 3-4 weeks No sepsis: Tachycardia, but no tachypnea, fever, or leukocytosis; lactic acid WNL; BP stable Will treat with azithromycin and ceftriaxone, day 1 Titrate supplemental O2 >92, wean as tolerated Follow BCx Diarrhea 1-2 episodes daily x5 days; no N/V/abd pain Similar episodes in the past Check stool studies, CDiff Follow BMP HLD Continue statin Hypothyroidism Continue levothyroxine DNR/DNI Attending:?Dr. Virgen DVT Prophylaxis: Lovenox Pt will be admitted to the hospital under observation for treatment and further evaluation of acute hypoxic respiratory failure in the setting of multifocal pneumonia. Pt will require hospital level care for administration of supplemental oxygen as well as IV antibiotics. Quality Stroke Does the patient have a stroke diagnosis?: No VTE Prior VTE?: No VTE Risk Level:: Medical - moderate - high VTE Device Contraindication: Treatment Not Indicated VTE Drug Contraindication: N/A - Med Ordered
[2025-06-16 11:51] LABS: CDiff Gene PCR NEGATIVE (Negative)
[2025-06-16 12:02] LABS: E. coli EAEC Not Detected (Not Detect.); E. coli EPEC Not Detected (Not Detect.); E. coli ETEC Not Detected (Not Detect.); E. coli STEC Not Detected (Not Detect.); Shigella sp./EIEC Not Detected (Not Detect.)
--- NOTE | 2025-06-16 12:17 | PHA.MEDREC ---
Addendum entered by Barrington Santacruz PharmD 06/16/25 12:30: reviewed Original Note: Pharmacy Consult ? Medication Reconciliation Pharmacy has completed the medication reconciliation. Spoke with pt and she confirmed her medications.
[2025-06-16] MEDS: Albuterol Sulfate (0.083%) 2.5 MG/3 ML VIAL.NEB INHALE (12:41)
--- NOTE | 2025-06-16 15:36 | HO.NURTONUR ---
Addendum entered by Mackenzie Taylor RN 06/17/25 05:56: pt BIBA for diarrhea x5 days. able to eat but then immediately goes to the bathroom. stool panel negative. pt hypoxic in ED 80% on RA and tachy. CXR: pneumonia. pt on 2L NC95%, no O2 at baseline. reports nonproductive cough x3 weeks. ADMIT: acute hypoxic respiratory failure in the setting of pneumonia. pt A/O x4, calm and cooperative with care, uses walker at baseline, commode at bedside, rings appropriately for assist. 20g IV LAC Original Note: 84 yr female admitted for hypoxia and pneumonia. Pt comes to ED today via EMS from [facility] where she lives. Chief complaint was diarrhea since 06/11/25 with unknown cause Work up in ED shows bilat pneumonia. Pt noted to desat with increased movement. Pt seen by RT for evals/treatments A&Ox3 VSS, afebrile. Supplemental O2 @ 2L via NC. Stool studies pending. 20g to LAC Bedside commode Independent feeds--Pt reports poor appetite d/t not feeling well. DNR/DNI status.
[2025-06-16] MEDS: 0.9 % Sodium Chloride Flush 3 ML SYRINGE IVFLUSH (17:08)
--- NOTE | 2025-06-16 23:09 | PC.NURSE ---
pt medicated per NOV for headache. assist with getting comfortable in bed. pt now resting comfortably
[2025-06-17 01:19] VITALS: BP 117/62; PULSE 69; RESP 20; TEMP 36.4; O2SAT 97
[2025-06-17 04:14] VITALS: BP 160/71; PULSE 90; RESP 19; TEMP 36.4; O2SAT 93
--- NOTE | 2025-06-17 04:47 | HO.NURTONUR ---
pt BIBA for diarrhea x5 days. able to eat but then immediately goes to the bathroom. stool panel negative. pt hypoxic in ED 80% on RA and tachy. CXR: pneumonia. pt on 2L NC95%, no O2 at baseline. reports nonproductive cough x3 weeks. ADMIT: acute hypoxic respiratory failure in the setting of pneumonia. pt A/O x4, calm and cooperative with care, uses walker at baseline, commode at bedside, rings appropriately for assist. 20g IV LAC.
[2025-06-17 04:48] LABS: Hematocrit 35.8 % (37.0-47.0); Hemoglobin 11.5 g/dl (12.0-16.0); Mean Corpuscular HGB Conc 32.1 g/dl (31.0-35.0); Mean Corpuscular Hemoglobin 29.4 pg (27.0-33.0); Mean Corpuscular Volume 91.6 fL (80.0-98.0); NRBC Abs Auto 0.000 X10*3/uL (0.0-0.012); NRBC Pct Auto 0.0 /100WBC (0.0-0.2); Platelet Count 338 X10*3/uL (160-400); Red Blood Count 3.91 X10*6/uL (4.20-5.50); White Blood Count 5.6 X10*3/uL (4.8-10.8)
[2025-06-17 05:11] LABS: Anion Gap 12 (12-20); Blood Urea Nitrogen 18 mg/dL (9-16); Calcium 9.1 mg/dL (8.4-10.2); Carbon Dioxide 25 mmol/L (22-29); Chloride 106 mmol/L (96-108); Creatinine Clr Calc Pharmacy 31.1; Estimated Glomerular Filt Rate 46; Potassium 4.2 mmol/L (3.3-5.1); Sodium 139 mmol/L (135-145)
[2025-06-17 08:00] VITALS: BP 147/74; PULSE 80
[2025-06-17 13:10] VITALS: BMI 23.2
--- NOTE | 2025-06-17 13:28 | P.PNIM_ITS ---
Subjective Subjective Date of Service: 06/17/25 Interval History: Breathing better today Still dry cough, though improved No diarrhea today Denies N/V/abd pain Reports feels weaker than normal Review of Systems Review of Systems: Yes all other systems are reviewed and are negative Physical Exam 2 Exam: Exam: General: AOx3, no acute distress. elderly Resp: CTA bilaterally though diminished throughout. Pt with occasional dry cough during exam CVS: S1, S2, RRR GI: +BS, NT, no distention Skin: Warm, dry Neuro: Cranial nerves II-XII grossly intact bilaterally. Motor grossly intact bilaterally Extremities: No edema Psych: Appropriate affect Vital Signs: Vital Signs: Last Vital Signs Temp 97.5 F 06/17/25 04:14 Pulse 80 06/17/25 08:00 Resp 19 06/17/25 04:14 BP 147/74 H 06/17/25 08:00 Pulse Ox 93 06/17/25 04:14 O2 Del Method Nasal Cannula 06/17/25 04:14 O2 Flow Rate 2 06/17/25 04:14 BMI result Body Mass Index 21.0 Objective Data Active Medications Acetaminophen (Acetaminophen 325 Mg Tablet) 650 mg PO Q6H PRN PRN Reason: Pain, Mild 1-3,fever,headache Last Admin: 06/16/25 23:00 Dose: 650 mg Documented By: FARHAT Atorvastatin Calcium (Atorvastatin Calcium 20 Mg Tablet) 20 mg PO DAILY [facility] Last Admin: 06/17/25 09:31 Dose: 20 mg Documented By: GEMINI Calcium Carbonate (Calcium Carbonate 750 Mg Tab.Chew) 750 mg PO Q4H PRN PRN Reason: Heartburn Ceftriaxone Sodium (Ceftriaxone Sodium 1 Gm Vial) 1 gm IVPUSH Q24H [facility] Last Admin: 06/17/25 09:31 Dose: 1 gm Documented By: GEMINI Enoxaparin Sodium (Enoxaparin Sodium 40 Mg/0.4 Ml Syringe) 40 mg SUBCUT Q24H [facility] Last Admin: 06/16/25 14:15 Dose: 40 mg Documented By: DESTINY Azithromycin 500 mg/ Sodium (Chloride) 250 mls @ 125 mls/hr IV Q24H [facility] Levothyroxine Sodium (Levothyroxine Sodium 75 Mcg Tablet) 75 mcg PO DAILY@0600 [facility] Last Admin: 06/17/25 06:39 Dose: 75 mcg Documented By: FARHAT Magnesium Hydroxide (Milk Of Magnesia 30 Ml Oral.Susp) 30 ml PO DAILY PRN PRN Reason: Constipation Melatonin (Melatonin 3 Mg Tablet) 6 mg PO BEDTIME PRN PRN Reason: Insomnia Multivitamins/Vitamin C (Multivitamin Tablet) 1 tab PO DAILY [facility] Last Admin: 06/17/25 09:30 Dose: 1 tab Documented By: GEMINI Sodium Chloride (0.9 % Sodium Chloride Flush 3 Ml Syringe) 3 ml IVFLUSH QSHIFT [facility] Last Admin: 06/17/25 07:14 Dose: Not Given Documented By: GEMINI Non-Admin Reason: Patient Asleep Vitamin D (Cholecalciferol (Vitamin D3) 25 Mcg Tablet) 50 mcg PO DAILY [facility] Last Admin: 06/17/25 09:30 Dose: 50 mcg Documented By: GMEINI Labs 06/17/25 04:29 06/17/25 04:29 Labs: Laboratory Results - last 24 hr 06/17/25 04:29 MCV 91.6 MCH 29.4 MCHC 32.1 RDW 12.3 Plt Count 338 MPV 9.0 L Absolute Nucleated RBC 0.000 Nucleated RBC % (auto) 0.0 Anion Gap 12 Estim Creat Clear Calc 31.1 Estimated GFR 46 Random Glucose 89 Calcium 9.1 Microbiology Microbiology Results: Microbiology 06/16/25 08:48 Blood Culture - Preliminary Blood - Venous No growth after 24 hours. 06/16/25 08:48 Blood Culture - Preliminary Blood - Venous No growth after 24 hours. Assessment and Plan (1) Hypoxia: Status: Acute (2) Pneumonia: Status: Acute Plan Pt is an 84-year-old female with a PMH significant for?HLD, hypothyroidism, CKD 3b, osteoporosis, and hx of right femoral intertrochanteric fx 07/2023 s/p right hip ORIF who presents to the ED with?diarrhea x5 days. Pt was noted to be hypoxic at 80% on RA. And has had persistent nonproductive cough times 3-4 weeks. Pt is admitted to the hospital for treatment and further evaluation of acute hypoxic respiratory failure in the setting of focal pneumonia. Acute hypoxic respiratory failure in the setting of multifocal pneumonia CXR with bilateral upper lobe opacities, pt desatting to 80% on RA, persistent cough times 3-4 weeks No sepsis: Tachycardia, but no tachypnea, fever, or leukocytosis; lactic acid WNL; BP stable Will treat with azithromycin and ceftriaxone, day 2 Titrate supplemental O2 >92, wean as tolerated BCx neg after 24 hours Diarrhea 1-2 episodes daily x5 days; no N/V/abd pain No diarrhea today Similar episodes in the past Stool studies and CDiff negative Follow BMP HLD Continue statin Hypothyroidism Continue levothyroxine DNR/DNI DVT Prophylaxis: Lovenox Pt will require continued hospitalization for IV antibiotics, supplemental oxygen, and physical therapy evaluation for safe disposition home. Quality Stroke Does the patient have a stroke diagnosis?: No VTE Prior VTE?: No VTE Risk Level:: Medical - moderate - high VTE Device Contraindication: Treatment Not Indicated VTE Drug Contraindication: N/A - Med Ordered
--- NOTE | 2025-06-17 14:23 | MHC.CM.PN ---
pt is from [facility] independent she is requesting a vna pt has a ride home
--- NOTE | 2025-06-17 19:00 | PC.NURSE ---
late entry- this rn assumed care of pt at 1900, pt resting in stretcher, no acute distress noted, pt offers no complaints at this time
[2025-06-17 22:40] VITALS: BP 158/80; PULSE 83; RESP 20; TEMP 37.1; O2SAT 93
[2025-06-17] MEDS: 0.9 % Sodium Chloride Flush 3 ML SYRINGE IVFLUSH (23:20)
[2025-06-18 03:24] VITALS: BP 162/84; PULSE 83; RESP 18; TEMP 37.3; O2SAT 96
[2025-06-18 07:18] VITALS: BP 136/62; PULSE 85; RESP 18; TEMP 36.5; O2SAT 94
[2025-06-18] MEDS: 0.9 % Sodium Chloride Flush 3 ML SYRINGE IVFLUSH ×2 (08:08→23:58)
[2025-06-18 15:50] VITALS: BP 122/65; PULSE 80; RESP 14; TEMP 36.8; O2SAT 96
--- NOTE | 2025-06-18 17:16 | P.PNIM_ITS ---
Subjective Subjective Date of Service: 06/18/25 Interval History: Breathing and cough better Continues on supplemental O2, will try and wean off today No diarrhea Still feels tired and weak PT recommends home with services Review of Systems Review of Systems: Yes all other systems are reviewed and are negative Physical Exam 2 Exam: Exam: General: AOx3, no acute distress. Pt elderly, appears overall weak Resp: CTA bilaterally, diminished; continues to have dry cough during inspiration. Currently on NC CVS: S1, S2, RRR GI: +BS, NT, no distention Skin: Warm, dry Neuro: Cranial nerves II-XII grossly intact bilaterally. Motor grossly intact bilaterally Extremities: No edema Psych: Appropriate affect Vital Signs: Vital Signs: Last Vital Signs Temp 98.2 F 06/18/25 15:50 Pulse 80 06/18/25 15:50 Resp 14 06/18/25 15:50 BP 122/65 06/18/25 15:50 Pulse Ox 96 06/18/25 15:50 O2 Del Method Nasal Cannula 06/18/25 15:50 O2 Flow Rate 2 06/18/25 15:50 BMI result Body Mass Index 23.2 Objective Data Active Medications Acetaminophen (Acetaminophen 325 Mg Tablet) 650 mg PO Q6H PRN PRN Reason: Pain, Mild 1-3,fever,headache Last Admin: 06/16/25 23:00 Dose: 650 mg Documented By: FARHAT Atorvastatin Calcium (Atorvastatin Calcium 20 Mg Tablet) 20 mg PO DAILY [facility] Last Admin: 06/18/25 08:06 Dose: 20 mg Documented By: RUT Calcium Carbonate (Calcium Carbonate 750 Mg Tab.Chew) 750 mg PO Q4H PRN PRN Reason: Heartburn Ceftriaxone Sodium (Ceftriaxone Sodium 1 Gm Vial) 1 gm IVPUSH Q24H [facility] Last Admin: 06/18/25 09:48 Dose: 1 gm Documented By: RUT Enoxaparin Sodium (Enoxaparin Sodium 40 Mg/0.4 Ml Syringe) 40 mg SUBCUT Q24H [facility] Last Admin: 06/18/25 09:49 Dose: 40 mg Documented By: RUT Guaifenesin/Dextromethorphan (Guaifenesin Dm 200/20/10 Ml 10 Ml Syrup) 10 ml PO Q6H PRN PRN Reason: Cough Azithromycin 500 mg/ Sodium (Chloride) 250 mls @ 125 mls/hr IV Q24H [facility] Last Infusion: 06/18/25 11:52 Dose: Infused Documented By: RUT Levothyroxine Sodium (Levothyroxine Sodium 75 Mcg Tablet) 75 mcg PO DAILY@0600 [facility] Last Admin: 06/18/25 05:58 Dose: 75 mcg Documented By: MAHSAEBJOSÉ MANUEL Magnesium Hydroxide (Milk Of Magnesia 30 Ml Oral.Susp) 30 ml PO DAILY PRN PRN Reason: Constipation Melatonin (Melatonin 3 Mg Tablet) 6 mg PO BEDTIME PRN PRN Reason: Insomnia Multivitamins/Vitamin C (Multivitamin Tablet) 1 tab PO DAILY [facility] Last Admin: 06/18/25 08:06 Dose: 1 tab Documented By: RUT Ondansetron HCl (Ondansetron Hcl 4 Mg/2 Ml Vial) 4 mg IVPUSH Q8H PRN PRN Reason: Nausea and Vomiting Last Admin: 06/18/25 11:44 Dose: 4 mg Documented By: RUT Sodium Chloride (0.9 % Sodium Chloride Flush 3 Ml Syringe) 3 ml IVFLUSH QSHIFT [facility] Last Admin: 06/18/25 08:08 Dose: 3 ml Documented By: RUT Vitamin D (Cholecalciferol (Vitamin D3) 25 Mcg Tablet) 50 mcg PO DAILY [facility] Last Admin: 06/18/25 08:06 Dose: 50 mcg Documented By: RUT Labs 06/17/25 04:29 06/17/25 04:29 Microbiology Microbiology Results: Microbiology 06/16/25 08:48 Blood Culture - Preliminary Blood - Venous No growth after 48 hours. 06/16/25 08:48 Blood Culture - Preliminary Blood - Venous No growth after 48 hours. Assessment and Plan (1) Hypoxia: Status: Acute (2) Pneumonia: Status: Acute Plan Pt is an 84-year-old female with a PMH significant for?HLD, hypothyroidism, CKD 3b, osteoporosis, and hx of right femoral intertrochanteric fx 07/2023 s/p right hip ORIF who presents to the ED with?diarrhea x5 days. Pt was noted to be hypoxic at 80% on RA. And has had persistent nonproductive cough times 3-4 weeks. Pt is admitted to the hospital for treatment and further evaluation of acute hypoxic respiratory failure in the setting of focal pneumonia. Acute hypoxic respiratory failure in the setting of multifocal pneumonia CXR with bilateral upper lobe opacities, pt desatting to 80% on RA, persistent cough times 3-4 weeks No sepsis: Tachycardia, but no tachypnea, fever, or leukocytosis; lactic acid WNL; BP stable Will treat with azithromycin and ceftriaxone, day 3 Titrate supplemental O2 >92, wean as tolerated; will try and wean off later today BCx neg after 48 hours Diarrhea 1-2 episodes daily x5 days prior to ED presentation; no N/V/abd pain No diarrhea x2 days Similar episodes in the past Stool studies and CDiff negative Follow BMP HLD Continue statin Hypothyroidism Continue levothyroxine DNR/DNI DVT Prophylaxis: Lovenox Pt will require continued hospitalization as is still requiring supplemental O2 and IV antibiotics. Will attempt to wean off O2 and discharge home with services tomorrow. Quality Stroke Does the patient have a stroke diagnosis?: No VTE Prior VTE?: No VTE Risk Level:: Medical - moderate - high VTE Device Contraindication: Treatment Not Indicated VTE Drug Contraindication: N/A - Med Ordered
[2025-06-18 19:37] VITALS: BP 109/54; PULSE 86; RESP 18; TEMP 36; O2SAT 94
[2025-06-19 04:00] VITALS: BP 150/60; PULSE 89; RESP 18; TEMP 36.2; O2SAT 94
[2025-06-19 07:32] VITALS: BP 136/63; PULSE 86; RESP 18; TEMP 36.3; O2SAT 93
[2025-06-19] MEDS: 0.9 % Sodium Chloride Flush 3 ML SYRINGE IVFLUSH ×2 (07:51→15:58)
[2025-06-19 10:47] VITALS: BP 103/59; PULSE 89; RESP 17; TEMP 36.2; O2SAT 90
--- NOTE | 2025-06-19 14:25 | HO.PM.IMPN ---
Subjective Subjective Date of Service: 06/19/25 Interval History: Initially felt better and ready for discharge home in the morning Titrated off supplemental O2 No significant SOB or ALICIA After breakfast began feeling nauseous, upset stomach, and weak Did not significantly improve with antiemetics Review of Systems Review of Systems: Yes all other systems are reviewed and are negative Physical Exam Exam: Exam: General: AOx3, looks pale, weak Resp: CTA bilaterally CVS: S1, S2, RRR GI: +BS, no distention, mild diffuse discomfort Skin: Warm, dry Neuro: Cranial nerves II-XII grossly intact bilaterally. Motor grossly intact bilaterally Extremities: No edema Psych: Appropriate affect Vital Signs: Vital Signs: Last Vital Signs Temp 97.2 F 06/19/25 10:47 Pulse 89 06/19/25 10:47 Resp 17 06/19/25 10:47 BP 103/59 L 06/19/25 10:47 Pulse Ox 90 L 06/19/25 10:47 O2 Del Method Room Air 06/19/25 10:47 O2 Flow Rate 2 06/18/25 15:50 BMI result Body Mass Index 23.2 Objective Data Active Medications Acetaminophen (Acetaminophen 325 Mg Tablet) 650 mg PO Q6H PRN PRN Reason: Pain, Mild 1-3,fever,headache Last Admin: 06/16/25 23:00 Dose: 650 mg Documented By: FARHAT Atorvastatin Calcium (Atorvastatin Calcium 20 Mg Tablet) 20 mg PO DAILY [facility] Last Admin: 06/19/25 07:51 Dose: 20 mg Documented By: NIKITA Calcium Carbonate (Calcium Carbonate 750 Mg Tab.Chew) 750 mg PO Q4H PRN PRN Reason: Heartburn Ceftriaxone Sodium (Ceftriaxone Sodium 1 Gm Vial) 1 gm IVPUSH Q24H [facility] Last Admin: 06/19/25 09:31 Dose: 1 gm Documented By: VANESSA Enoxaparin Sodium (Enoxaparin Sodium 40 Mg/0.4 Ml Syringe) 40 mg SUBCUT Q24H [facility] Last Admin: 06/19/25 10:32 Dose: 40 mg Documented By: VANESSA Guaifenesin/Dextromethorphan (Guaifenesin Dm 200/20/10 Ml 10 Ml Syrup) 10 ml PO Q6H PRN PRN Reason: Cough Azithromycin 500 mg/ Sodium (Chloride) 250 mls @ 125 mls/hr IV Q24H [facility] Last Infusion: 06/19/25 11:31 Dose: Infused Documented By: VANESSA Levothyroxine Sodium (Levothyroxine Sodium 75 Mcg Tablet) 75 mcg PO DAILY@0600 [facility] Last Admin: 06/19/25 06:01 Dose: 75 mcg Documented By: NIKITA Magnesium Hydroxide (Milk Of Magnesia 30 Ml Oral.Susp) 30 ml PO DAILY PRN PRN Reason: Constipation Melatonin (Melatonin 3 Mg Tablet) 6 mg PO BEDTIME PRN PRN Reason: Insomnia Multivitamins/Vitamin C (Multivitamin Tablet) 1 tab PO DAILY [facility] Last Admin: 06/19/25 07:51 Dose: 1 tab Documented By: NIKITA Ondansetron HCl (Ondansetron Hcl 4 Mg/2 Ml Vial) 4 mg IVPUSH Q8H PRN PRN Reason: Nausea and Vomiting Last Admin: 06/19/25 10:32 Dose: 4 mg Documented By: VANESSA Sodium Chloride (0.9 % Sodium Chloride Flush 3 Ml Syringe) 3 ml IVFLUSH QSHIFT [facility] Last Admin: 06/19/25 07:51 Dose: 3 ml Documented By: NIKITA Vitamin D (Cholecalciferol (Vitamin D3) 25 Mcg Tablet) 50 mcg PO DAILY [facility] Last Admin: 06/19/25 07:51 Dose: 50 mcg Documented By: NIKITA Labs 06/17/25 04:29 06/17/25 04:29 Microbiology Microbiology Results: Microbiology 06/16/25 08:48 Blood Culture - Preliminary Blood - Venous No growth after 48 hours. 06/16/25 08:48 Blood Culture - Preliminary Blood - Venous No growth after 48 hours. Assessment and Plan (1) Hypoxia: Status: Acute (2) Pneumonia: Status: Acute Plan Pt is an 84-year-old female with a PMH significant for?HLD, hypothyroidism, CKD 3b, osteoporosis, and hx of right femoral intertrochanteric fx 07/2023 s/p right hip ORIF who presents to the ED with?diarrhea x5 days. Pt was noted to be hypoxic at 80% on RA. And has had persistent nonproductive cough times 3-4 weeks. Pt is admitted to the hospital for treatment and further evaluation of acute hypoxic respiratory failure in the setting of focal pneumonia. Acute hypoxic respiratory failure in the setting of multifocal pneumonia CXR with bilateral upper lobe opacities, pt desatting to 80% on RA, persistent cough times 3-4 weeks No sepsis: Tachycardia, but no tachypnea, fever, or leukocytosis; lactic acid WNL; BP stable Will treat with azithromycin and ceftriaxone, day 4 Titrated off supplemental O2 BCx neg after 48 hours Nausea, weakness Sudden onset this morning while receiving IV antibiotics Not sufficiently alleviated by Zofran Will switch ABX to p.o. Antiemetics Diarrhea, resolved 1-2 episodes daily x5 days prior to ED presentation; no N/V/abd pain No diarrhea x3 days Similar episodes in the past Stool studies and CDiff negative Has been tolerating full diet HLD Continue statin Hypothyroidism Continue levothyroxine DNR/DNI DVT Prophylaxis: Lovenox Pt will require continued hospitalization for control of increased nausea and weakness in the setting of pneumonia. Plan is to discharge pt home tomorrow. Quality Stroke Does the patient have a stroke diagnosis?: No VTE Prior VTE?: No VTE Risk Level:: Medical - moderate - high VTE Device Contraindication: Treatment Not Indicated VTE Drug Contraindication: N/A - Med Ordered
[2025-06-19 15:28] VITALS: BP 132/63; PULSE 90; RESP 18; TEMP 36.1; O2SAT 95
[2025-06-19 18:11] VITALS: O2SAT 93
[2025-06-19 19:57] VITALS: BP 141/62; PULSE 99; RESP 18; TEMP 36.3; O2SAT 90
[2025-06-20] MEDS: 0.9 % Sodium Chloride Flush 3 ML SYRINGE IVFLUSH ×4 (00:27→20:49)
[2025-06-20 04:04] VITALS: O2SAT 86; O2SAT 92
--- NOTE | 2025-06-20 04:04 | PC.NURSE ---
Patient found to be 84% room air, 2L applied
[2025-06-20 07:39] VITALS: BP 144/66; PULSE 84; RESP 15; TEMP 35.9; O2SAT 96
[2025-06-20 11:55] VITALS: BP 144/66; PULSE 84; O2SAT 96
[2025-06-20 12:03] VITALS: PULSE 100; PULSE 108; PULSE 109; PULSE 110; O2SAT 79; O2SAT 88; O2SAT 90; O2SAT 91
--- NOTE | 2025-06-20 13:04 | MHC.CM.PN ---
pt is now for str eferrals are made
[2025-06-20 15:40] VITALS: BP 118/63; PULSE 87; RESP 16; TEMP 36.3; O2SAT 96
--- NOTE | 2025-06-20 16:10 | HO.PM.IMPN ---
Subjective Subjective Date of Service: 06/20/25 Interval History: Pt again initially felt well and amenable to discharge until feeling nauseous and weak a few hours later. Pt was ambulated in the hallway and noted to be desatting into the low to mid 80s Pt was given a home O2 eval and qualified for 2 L O2 Re-evaluated by PT and recommendation is now for short-term rehab Pt has transitioned to oral antibiotics, though still experiencing nausea Will plan on discharging to [facility] Review of Systems Review of Systems: Yes all other systems are reviewed and are negative Physical Exam Exam: Exam: General: AOx3, no acute distress. Elderly, overall weak Resp: CTA bilaterally CVS: S1, S2, RRR GI: +BS, NT, no distention Skin: Warm, dry Neuro: Cranial nerves II-XII grossly intact bilaterally. Motor grossly intact bilaterally Extremities: No edema Psych: Appropriate affect Vital Signs: Vital Signs: Last Vital Signs Temp 97.3 F 06/20/25 15:40 Pulse 87 06/20/25 15:40 Resp 16 06/20/25 15:40 BP 118/63 06/20/25 15:40 Pulse Ox 96 06/20/25 15:40 O2 Del Method Room Air 06/20/25 15:40 O2 Flow Rate 2 06/20/25 07:39 BMI result Body Mass Index 23.2 Objective Data Active Medications Acetaminophen (Acetaminophen 325 Mg Tablet) 650 mg PO Q6H PRN PRN Reason: Pain, Mild 1-3,fever,headache Last Admin: 06/19/25 22:55 Dose: 650 mg Documented By: GRACE Atorvastatin Calcium (Atorvastatin Calcium 20 Mg Tablet) 20 mg PO DAILY [facility] Last Admin: 06/20/25 08:23 Dose: 20 mg Documented By: GABRIELLA Azithromycin (Azithromycin 500 Mg Tablet) 500 mg PO Q24H [facility] Last Admin: 06/20/25 08:24 Dose: 500 mg Documented By: GABRIELLA Calcium Carbonate (Calcium Carbonate 750 Mg Tab.Chew) 750 mg PO Q4H PRN PRN Reason: Heartburn Cefuroxime Axetil (Cefuroxime Axetil 500 Mg Tablet) 500 mg PO Q12H [facility] Last Admin: 06/20/25 08:23 Dose: 500 mg Documented By: GABRIELLA Enoxaparin Sodium (Enoxaparin Sodium 40 Mg/0.4 Ml Syringe) 40 mg SUBCUT Q24H [facility] Last Admin: 06/20/25 12:07 Dose: 40 mg Documented By: GABRIELLA Guaifenesin/Dextromethorphan (Guaifenesin Dm 200/20/10 Ml 10 Ml Syrup) 10 ml PO Q6H PRN PRN Reason: Cough Levothyroxine Sodium (Levothyroxine Sodium 75 Mcg Tablet) 75 mcg PO DAILY@0600 [facility] Last Admin: 06/20/25 06:44 Dose: 75 mcg Documented By: SONDRA Magnesium Hydroxide (Milk Of Magnesia 30 Ml Oral.Susp) 30 ml PO DAILY PRN PRN Reason: Constipation Melatonin (Melatonin 3 Mg Tablet) 6 mg PO BEDTIME PRN PRN Reason: Insomnia Multivitamins/Vitamin C (Multivitamin Tablet) 1 tab PO DAILY [facility] Last Admin: 06/20/25 08:23 Dose: 1 tab Documented By: GABRIELLA Ondansetron HCl (Ondansetron Hcl 4 Mg/2 Ml Vial) 4 mg IVPUSH Q8H PRN PRN Reason: Nausea and Vomiting Last Admin: 06/19/25 10:32 Dose: 4 mg Documented By: VANESSA Sodium Chloride (0.9 % Sodium Chloride Flush 3 Ml Syringe) 3 ml IVFLUSH QSHIFT [facility] Last Admin: 06/20/25 15:31 Dose: 3 ml Documented By: GABRIELLA Vitamin D (Cholecalciferol (Vitamin D3) 25 Mcg Tablet) 50 mcg PO DAILY [facility] Last Admin: 06/20/25 08:23 Dose: 50 mcg Documented By: GABRIELLA Labs 06/17/25 04:29 06/17/25 04:29 Assessment and Plan (1) Hypoxia: Status: Acute (2) Pneumonia: Status: Acute Plan Pt is an 84-year-old female with a PMH significant for?HLD, hypothyroidism, CKD 3b, osteoporosis, and hx of right femoral intertrochanteric fx 07/2023 s/p right hip ORIF who presents to the ED with?diarrhea x5 days. Pt was noted to be hypoxic at 80% on RA. And has had persistent nonproductive cough times 3-4 weeks. Pt is admitted to the hospital for treatment and further evaluation of acute hypoxic respiratory failure in the setting of focal pneumonia. Acute hypoxic respiratory failure in the setting of multifocal pneumonia CXR with bilateral upper lobe opacities, pt desatting to 80% on RA, persistent cough times 3-4 weeks No sepsis: Tachycardia, but no tachypnea, fever, or leukocytosis; lactic acid WNL; BP stable Treated with azithromycin and ceftriaxone x4 days, azithromycin and Ceftin x1 day Continues to require 2 L O2 with ambulation BCx neg after 48 hours Nausea, weakness Sudden onset 06/19 while receiving IV antibiotics. Recurred on 06/20 Not sufficiently alleviated by Zofran ABX having switched to to p.o. Antiemetics Diarrhea, resolved 1-2 episodes daily x5 days prior to ED presentation; no N/V/abd pain No diarrhea x3 days Similar episodes in the past Stool studies and CDiff negative Has been tolerating full diet HLD Continue statin Hypothyroidism Continue levothyroxine DNR/DNI DVT Prophylaxis: Lovenox Pt will require continued hospitalization for control of increased nausea and weakness in the setting of pneumonia. Pt now qualifies for home O2 and STR. Awaiting placement for safe disposition home. Quality Stroke Does the patient have a stroke diagnosis?: No VTE Prior VTE?: No VTE Risk Level:: Medical - moderate - high VTE Device Contraindication: Treatment Not Indicated VTE Drug Contraindication: N/A - Med Ordered
[2025-06-20 19:47] VITALS: BP 141/62; PULSE 88; RESP 18; TEMP 36.6; O2SAT 92
[2025-06-21 03:53] VITALS: BP 129/62; PULSE 79; RESP 18; TEMP 36.3
[2025-06-21 07:04] VITALS: BP 132/64; PULSE 82; RESP 16; TEMP 36.6; O2SAT 97
[2025-06-21] MEDS: 0.9 % Sodium Chloride Flush 3 ML SYRINGE IVFLUSH ×2 (08:25→20:16)
--- NOTE | 2025-06-21 15:02 | HO.PM.IMPN ---
Subjective Subjective Date of Service: 06/21/25 Interval History: Slept well last night Continues to have dry cough No acute events overnight Still requiring O2 with ambulation, none at rest Waiting on placement Review of Systems Review of Systems: Yes all other systems are reviewed and are negative Physical Exam Exam: Exam: General: AOx3, no acute distress. Elderly, overall weak Resp: CTA bilaterally CVS: S1, S2, RRR GI: +BS, NT, no distention Skin: Warm, dry Neuro: Cranial nerves II-XII grossly intact bilaterally. Motor grossly intact bilaterally Extremities: No edema Psych: Appropriate affect Vital Signs: Vital Signs: Last Vital Signs Temp 97.8 F 06/21/25 07:04 Pulse 82 06/21/25 07:04 Resp 16 06/21/25 07:04 BP 132/64 06/21/25 07:04 Pulse Ox 97 06/21/25 07:04 O2 Del Method Room Air 06/21/25 07:04 O2 Flow Rate 2 06/20/25 07:39 BMI result Body Mass Index 23.2 Objective Data Active Medications Acetaminophen (Acetaminophen 325 Mg Tablet) 650 mg PO Q6H PRN PRN Reason: Pain, Mild 1-3,fever,headache Last Admin: 06/19/25 22:55 Dose: 650 mg Documented By: GRACE Atorvastatin Calcium (Atorvastatin Calcium 20 Mg Tablet) 20 mg PO DAILY [facility] Last Admin: 06/21/25 08:24 Dose: 20 mg Documented By: PARMINDER Azithromycin (Azithromycin 500 Mg Tablet) 500 mg PO Q24H [facility] Last Admin: 06/21/25 08:24 Dose: 500 mg Documented By: PARMINDER Calcium Carbonate (Calcium Carbonate 750 Mg Tab.Chew) 750 mg PO Q4H PRN PRN Reason: Heartburn Cefuroxime Axetil (Cefuroxime Axetil 500 Mg Tablet) 500 mg PO Q12H [facility] Last Admin: 06/21/25 08:25 Dose: 500 mg Documented By: PARMINDER Enoxaparin Sodium (Enoxaparin Sodium 40 Mg/0.4 Ml Syringe) 40 mg SUBCUT Q24H [facility] Last Admin: 06/21/25 11:50 Dose: 40 mg Documented By: PARMINDER Guaifenesin/Dextromethorphan (Guaifenesin Dm 200/20/10 Ml 10 Ml Syrup) 10 ml PO Q6H PRN PRN Reason: Cough Levothyroxine Sodium (Levothyroxine Sodium 75 Mcg Tablet) 75 mcg PO DAILY@0600 [facility] Last Admin: 06/21/25 05:49 Dose: 75 mcg Documented By: MONTY Magnesium Hydroxide (Milk Of Magnesia 30 Ml Oral.Susp) 30 ml PO DAILY PRN PRN Reason: Constipation Melatonin (Melatonin 3 Mg Tablet) 6 mg PO BEDTIME PRN PRN Reason: Insomnia Multivitamins/Vitamin C (Multivitamin Tablet) 1 tab PO DAILY [facility] Last Admin: 06/21/25 08:25 Dose: 1 tab Documented By: PARMINDER Ondansetron HCl (Ondansetron Hcl 4 Mg/2 Ml Vial) 4 mg IVPUSH Q8H PRN PRN Reason: Nausea and Vomiting Last Admin: 06/19/25 10:32 Dose: 4 mg Documented By: VANESSA Sodium Chloride (0.9 % Sodium Chloride Flush 3 Ml Syringe) 3 ml IVFLUSH QSHIFT [facility] Last Admin: 06/21/25 08:25 Dose: 3 ml Documented By: PARMINDER Vitamin D (Cholecalciferol (Vitamin D3) 25 Mcg Tablet) 50 mcg PO DAILY [facility] Last Admin: 06/21/25 08:24 Dose: 50 mcg Documented By: PARMINDER Labs 06/17/25 04:29 06/17/25 04:29 Microbiology Microbiology Results: Microbiology 06/16/25 08:48 Blood Culture - Final Blood - Venous No growth after 5 days. 06/16/25 08:48 Blood Culture - Final Blood - Venous No growth after 5 days. Assessment and Plan (1) Pneumonia: Status: Acute Plan Pt is an 84-year-old female with a PMH significant for?HLD, hypothyroidism, CKD 3b, osteoporosis, and hx of right femoral intertrochanteric fx 07/2023 s/p right hip ORIF who presents to the ED with?diarrhea x5 days. Pt was noted to be hypoxic at 80% on RA. And has had persistent nonproductive cough times 3-4 weeks. Pt is admitted to the hospital for treatment and further evaluation of acute hypoxic respiratory failure in the setting of focal pneumonia. Acute hypoxic respiratory failure in the setting of multifocal pneumonia CXR with bilateral upper lobe opacities, pt desatting to 80% on RA, persistent cough times 3-4 weeks No sepsis: Tachycardia, but no tachypnea, fever, or leukocytosis; lactic acid WNL; BP stable Treated with azithromycin and ceftriaxone x4 days, azithromycin and Ceftin x1 day Continues to require 2 L O2 with ambulation BCx neg after 48 hours Nausea, weakness Sudden onset 06/19 while receiving IV antibiotics. Has recurred on 06/20 after oral abx Not sufficiently alleviated by Zofran ABX having switched to to p.o. x1 more day Antiemetics Diarrhea, resolved 1-2 episodes daily x5 days prior to ED presentation; no N/V/abd pain No diarrhea x4 days Similar episodes in the past Stool studies and CDiff negative Has been tolerating full diet HLD Continue statin Hypothyroidism Continue levothyroxine DNR/DNI DVT Prophylaxis: Lovenox Pt will require continued hospitalization as she is waiting for STR placement, which should happen on Monday or Monday. Quality Stroke Does the patient have a stroke diagnosis?: No VTE Prior VTE?: No VTE Risk Level:: Medical - moderate - high VTE Device Contraindication: Treatment Not Indicated VTE Drug Contraindication: N/A - Med Ordered
[2025-06-21 16:00] VITALS: BP 104/56; PULSE 88; RESP 19; TEMP 36.1; O2SAT 92
[2025-06-21 20:00] VITALS: BP 112/58; PULSE 89; RESP 20; TEMP 36.2; O2SAT 94
[2025-06-22 03:25] VITALS: BP 116/58; PULSE 88; RESP 18; TEMP 36.6; O2SAT 94
[2025-06-22 08:14] VITALS: BP 126/73; PULSE 91; RESP 16; TEMP 37.1; O2SAT 94
[2025-06-22] MEDS: 0.9 % Sodium Chloride Flush 3 ML SYRINGE IVFLUSH (08:48)
--- NOTE | 2025-06-22 11:18 | MHC.CM.PN ---
Addendum entered by Radha Suggs RN 06/22/25 12:49: Will dc w/ new O2 for ambulation. Original Note: Patient medically cleared for dc and now declining STR. Prefers home w/ new [facility]NA. Niece to transport. PA and RN aware. IMM delivered.
--- NOTE | 2025-06-22 13:04 | PM.DS ---
DS: Providers Provider Date of Service: 06/22/25 Date of admission: 06/17/25 08:36 Date of discharge: 06/22/25 Primary care physician: Yoana Moreno MD DS: Diagnosis Discharge Diagnosis (1) Pneumonia: Status: Acute DS: Summary Hospital Course Hospital Course: From admission HPI: Date of Service: 06/16/25 Chief Complaint: Diarrhea Pt is an 84-year-old female with a PMH significant for?HLD, hypothyroidism, CKD 3b, osteoporosis, and hx of right femoral intertrochanteric fx 07/2023 s/p right hip ORIF who presents to the ED with?diarrhea x5 days. Pt reports symptoms began on and has had 1-2 episodes daily of liquid diarrhea whenever she eats, last episode last night. No N/V or abdominal pain. Reports similar episodes in the past thought she could wait it out but symptoms persisted over the weekend and she thus presents today for further evaluation. Has also been experiencing a persistent, nonproductive cough for the past 3-4 weeks. Chronic fatigue at baseline. Denies fever or chills. No chest pain or pressure. In the ED pt's vitals were significant for tachycardia in the low 100s and desatting to 80% on RA. Labs were significant for mild hyponatremia of 134 and CRP 10.65. No leukocytosis. Stable H&H. Stool and C diff studies pending. CXR showed COPD and bilateral upper lobe airspace opacities suspicious for pneumonia. Pt was treated in the ED with DuoNebs, ondansetron, ceftriaxone, and azithromycin. Pt is admitted to the hospital for treatment and further evaluation of acute hypoxic respiratory failure in the setting of focal pneumonia. Hospital course Pt initially presented to the hospital for evaluation of diarrhea though was ultimately admitted to the hospital for acute hypoxic respiratory failure in the setting of multifocal pneumonia. Pt was treated with IV antibiotics and supplemental oxygen, and had and overall prolonged hospital stay. Patient's diarrhea largely resolved and workup in that regard was negative, including stool studies and C diff. pt was initially set to be discharged earlier in the week, though she became nauseous and weak and unable to go home. IV antibiotics were switched to p.o. with some relief of symptoms. Pt was seen and evaluated by Physical therapy who initially suggested discharge home with services, though pt was re-evaluated after increased weakness and recommendation was changed to discharge to short-term rehab. Patient's breathing and cough improved and pt was weaned off of supplemental oxygen at rest, however she continued to desat into the 70s and 80s with ambulation. Was seen and evaluated by respiratory and qualified for 2 L home oxygen with ambulation/exertion. Pt could not find a suitable short-term rehab facility that could take her and has elected to be sent home today with services. Pt should resume other home medications. Additional details concerning hospital stay as listed below. Pt is an 84-year-old female with a PMH significant for?HLD, hypothyroidism, CKD 3b, osteoporosis, and hx of right femoral intertrochanteric fx 07/2023 s/p right hip ORIF who presents to the ED with?diarrhea x5 days. Pt was noted to be hypoxic at 80% on RA. And has had persistent nonproductive cough times 3-4 weeks. Pt is admitted to the hospital for treatment and further evaluation of acute hypoxic respiratory failure in the setting of focal pneumonia. Acute hypoxic respiratory failure in the setting of multifocal pneumonia CXR with bilateral upper lobe opacities, pt desatting to 80% on RA, persistent cough times 3-4 weeks No sepsis: Tachycardia, but no tachypnea, fever, or leukocytosis; lactic acid WNL; BP stable Completed full course of abx with azithromycin and ceftriaxone x4 days, azithromycin and Ceftin x3 days Will be sent home with 2L home O2 with ambulation/exertion BCx neg after 48 hours Nausea, weakness Sudden onset 06/19 while receiving IV antibiotics. Has recurred on 06/20 after oral abx Was treated with antiemetics Diarrhea, resolved 1-2 episodes daily x5 days prior to ED presentation; no N/V/abd pain No diarrhea x4 days Similar episodes in the past Stool studies and CDiff negative Has been tolerating full diet HLD Continue statin Hypothyroidism Continue levothyroxine Time Attestation Discharge Coordination Time (in mins): 35 Quality: Safe Use of Opioids Does Pt have an Active Cancer Diagnosis on the Problem List?: No Quality: Stroke Does the patient have a stroke diagnosis?: No Physical Exam Exam: Exam: General: AOx3, no acute distress Resp: CTA bilaterally CVS: S1, S2, RRR GI: +BS, NT, no distention Skin: Warm, dry Neuro: Cranial nerves II-XII grossly intact bilaterally. Motor grossly intact bilaterally Extremities: No edema Psych: Appropriate affect Vital Signs: Vital Signs: Last Vital Signs Temp 98.7 F 06/22/25 08:14 Pulse 91 06/22/25 08:14 Resp 16 06/22/25 08:14 BP 126/73 06/22/25 08:14 Pulse Ox 94 06/22/25 08:14 O2 Del Method Room Air 06/22/25 08:14 O2 Flow Rate 2 06/20/25 07:39 BMI result Body Mass Index 23.2 DS: Data Data Completed and Pending Completed studies during hospitalization [Text1]: Procedures Reposition Right Upper Femur with Intramedullary Internal Fixation Device, Open Approach (07/23/23) Discharge Plan Discharge Anticipated Discharge Date/Time: 06/19/25 10:25 Patient Disposition: Home Health Service Discharge Diagnosis: Acute hypoxic respiratory failure in the setting of pneumonia Referrals: Deborah ALFARO [Outside] - 3-5 Days Referral Note: Deborah ALFARO will call you to schedule home nursing and physical therapy appointments Yoana Moreno MD [Primary Care Provider, Internal Medicine] - 1 Week Discharge Medications: Continued atorvastatin 20 mg tablet 20 mg PO DAILY Qty: 90 1RF levothyroxine 75 mcg tablet 75 mcg PO DAILY@0600 cholecalciferol (vitamin D3) [Vitamin D3] 25 mcg (1,000 unit) Tablet 50 mcg PO DAILY vitamin B complex Tablet 1 tab PO DAILY Discharge Orders: Discharge Order (Routine); Ordered 06/22/25 Ordered By: Bettie Enriquez Activity on Discharge: As tolerated Stand Alone Forms: Patient Portal Discharge page Print Language: [place] Care Plan Goals: See below Health Concerns: Acute hypoxic respiratory failure Pneumonia Intractable diarrhea Plan of Treatment: You were admitted to the hospital for acute hypoxic respiratory failure in the setting of pneumonia. You were treated with both supplemental oxygen and IV antibiotics. Your hospital stay was complicated by difficulty tolerating antibiotics as you experienced nausea and abdominal discomfort. You also were noted to be continually desatting during ambulation. You were seen and evaluated by respiratory and qualified for 2L home oxygen. You were also seen and evaluated by Physical therapy and were initially set to be discharged to short-term rehab, but have instead elected to go home with services and she could not find an appropriate rehab facility. You completed a full course of antibiotics while in the hospital and do not need any antibiotics upon discharge. -- you will be discharged on 2L home oxygen to be used with ambulation and exertion -- you should continue all of your other home medications -- follow up with PCP in 1 week for routine post hospitalization visit Assessment: See discharge summary
--- NOTE | 2025-06-22 14:12 | W.MHC.F2F ---
Service Date Service Date: 06/22/25 Encounter Date of encounter: 06/22/25 Reasons for Services Signs and symptoms assessed: Generalized weakness and deconditioning from pneumonia and prolonged hospital stay. Pt now requiring home oxygen. Reason for care home: medication management and other (Supplemental oxygen monitoring and use) Reason for physical therapy: home safety and mobility and therapeutic exercises Homebound: Leaving the home is medically contraindicated at this time without the asist of a device and/or another person due th the listed conditions above and below. Reason homebound: unsteady gait / fall risk, leg weakness, poor balance / fall risk and weakness related to hospital stay Certification: Based on the above findings, I certify that this patient is confined to the home and needs intermittent care home care, physical therapy and/or speech therapy, or continues to need occupational therapy. The patient is under my care, and I have initiated the establishment of the plan of care. The patient will be followed by a physician who will periodically review the plan of care. Time Spent With Patient Time: Total time managing care of this patient today ____ minutes.
== END 2025-06-22 15:11 | disposition home health service (06) | DRG 193 ==
LOC: HO.ED 08:35 → HO.EDOVER 10:25 → HO.S3 06-17 20:34
PROVIDERS: Admitting Provider Student in an Organized Health Care Education/Training Program; Emergency Provider Emergency Medicine; PCP Internal Medicine; Visit Provider Student in an Organized Health Care Education/Training Program
DX: J18.9 Pneumonia, unspecified organism (principal); J96.01 Acute respiratory failure with hypoxia; J44.0 Chronic obstructive pulmonary disease with (acute) lower respiratory infection; Z66 Do not resuscitate; N18.32 Chronic kidney disease, stage 3b; E78.5 Hyperlipidemia, unspecified; R19.7 Diarrhea, unspecified; I12.9 Hypertensive chronic kidney disease with stage 1 through stage 4 chronic kidney disease, or unspecified chronic kidney disease; E03.9 Hypothyroidism, unspecified; Z20.822 Contact with and (suspected) exposure to COVID-19; Z87.891 Personal history of nicotine dependence; Z79.890 Hormone replacement therapy; Z79.899 Other long term (current) drug therapy
CPT/HCPCS: 36415; 71045; 80048; 80076; 82803; 83605; 83690; 83735; 83880; 84484; 85025; 85027; 86140; 87040; 87493; 87507; 87637; 93005; 94640; 97116; 97162; 97530; 99221; 99285; J0456; J0696; J1650; J2405

== ENCOUNTER → 2025-06-16 07:40 | Outpatient (BNV) | payer MEDICARE, SELFPAY | PROVIDERS: Emergency Provider Emergency Medicine; PCP Internal Medicine; Visit Provider Internal Medicine Cardiovascular Disease | DX: I45.10 Unspecified right bundle-branch block (principal) | CPT/HCPCS: 93010 ==

== ENCOUNTER → 2025-06-16 07:41 | Outpatient (BNV) | payer MEDICARE, SELFPAY | PROVIDERS: Emergency Provider Emergency Medicine; PCP Internal Medicine; Visit Provider Radiology Diagnostic Radiology | DX: J44.9 Chronic obstructive pulmonary disease, unspecified (principal); R91.8 Other nonspecific abnormal finding of lung field | CPT/HCPCS: 71045 ==

== ENCOUNTER → 2025-06-16 09:59 | Outpatient (BNV) | payer MEDICARE, SELFPAY | PROVIDERS: Admitting Provider Student in an Organized Health Care Education/Training Program; Emergency Provider Emergency Medicine; PCP Internal Medicine; Visit Provider Student in an Organized Health Care Education/Training Program | DX: R09.02 Hypoxemia (principal); J18.9 Pneumonia, unspecified organism | CPT/HCPCS: 99233 ==

== ENCOUNTER 2025-06-30 15:59 | Outpatient (AMB) | payer MEDICARE, SELFPAY ==
--- NOTE | 2025-06-30 16:10 | MHC.PC.OV ---
Vital Signs 06/30/25 16:23 Height 5 ft 7 in Weight 132 lb BMI 20.7 BP 118/66 Blood Pressure Location Lt brachial Position Sitting Respiration 16 Pulse 91 Pulse Source Pulse Oximeter Temp 97.7 F Temp Source Oral Pulse Oximetry (%) 97 Oxygen Delivery Method Nasal Cannula Intake Visit Reasons: TCM/[facility] pneumonia Intake Note: Pt is here today TCM/[facility] pneumonia Tannery Gummer Required: No Allergies latex Allergy (Verified 07/06/25 21:32) Rash meperidine (Demerol) Adverse Reaction (Unknown, Verified 07/06/25 21:32) dizziness Medication List - Last Reconciled 07/06/25 by Yoana Moreno MD atorvastatin 20 mg PO DAILY cholecalciferol (vitamin D3) (Vitamin D3) 50 mcg PO DAILY levothyroxine 75 mcg PO DAILY@0600 ondansetron HCl 4 mg PO Q8H PRN vitamin B complex 1 tab PO DAILY Tobacco use date assessed: 06/30/25 Fall risk assessment: No Falls in past year Last assessed Fall Risk: 06/30/25 Dental Screening Dental Screen Date: 06/30/25 Did you have a dental visit in the last 12 months?: Yes Did you have a dental problem in the last 6 months where you did not have access to dental care?: Yes Was dental information given to patient?: Patient has dentist HPI TCM/[facility] pneumonia HPI Details The patient is an 84-year-old femal here today for her TCM visit for recent admission for acute episodes of diarrhea and pneumonia. She initially presented to the ER with diarrhea, which began suddenly. There was no fever or blood in the stool. Stool studies and tests for Clostridioides difficile were negative, and the diarrhea resolved spontaneously without a clear cause identified. The patient was surprised by a diagnosis of pneumonia during her hospital visit, which was unexpected as she did not experience shortness of breath prior to the diagnosis. She recalls an episode of needing to hold onto a bar while walking due to sudden weakness, which occurred the day before her hospital admission. Her chest x-ray showed COPD and bilateral upper lobe airspace opacities suspicious for pneumonia.. Was requiring supplemental oxygen during her admission and on discharge as her O2 sat dips during ambulation . Recent laboratory tests indicated slight anemia and an elevated C-reactive protein. At present patient states that she has been feeling better, denies cough, fever, appetite seems to be picking up, still with some exertional dyspnea and generalized weakness present , and gets occasional soft stools no episodes of watery diarrhea TCM TCM Information Date of Discharge 06/22/25 Interactive Contact Date (Reference documentation from this date) 06/24/25 [facility] Medical History (Updated 06/30/25 @ 17:12 by Yoana Moreno MD) COPD (chronic obstructive pulmonary disease) Fatigue Anemia Vitamin D deficiency Hx of iron deficiency anemia Fracture, intertrochanteric, right femur RBBB (right bundle branch block) Gallbladder polyp Bowel obstruction Tubular adenoma of colon History of herpes zoster Hyperlipidemia Essential hypertension Chronic kidney disease, stage 3 Acquired hypothyroidism Osteoporosis Surgical History History of open reduction and internal fixation (ORIF) procedure Hx of small bowel obstruction History of colonoscopy Hx of breast biopsy Family History Father Myocardial infarction Mother HTN (hypertension) Glaucoma Brother HTN (hypertension) Depression Mental health disorder Sister No problems noted. Social History Household Members: None Household Members Other:: Lives in assisted living Housing: Assisted Living Facility [facility] Are you a primary occasional caregiver to a significant other at home: No Do you presently have visiting nurse or other home services: No Alcohol intake: never Patient Tobacco Use Status: Former Tobacco user Tobacco use type: Cigarette Years Smoked: 4 yrs e-Cigarette/Vaping Use: Never Used Second Hand Smoke Exposure: No (hx of) Advance Directives Date on File: 03/07/22 service: No Current occupational status: retired Cognitive needs: No Hearing needs: No Vision needs: Yes Questionnaire PHQ-9 Over the last 2 weeks, how often have you been bothered by any of the following problems? 1. Little interest or pleasure in doing things: not at all 2. Feeling down, depressed, or hopeless: not at all 3. Trouble falling or staying asleep, or sleeping too much: not at all 4. Feeling tired or having little energy: not at all 5. Poor appetite or overeating: not at all 6. Feeling bad about yourself - or that you are a failure or have let yourself or your family down: not at all 7. Trouble concentrating on things, such as reading the newspaper or watching television: not at all 8. Moving or speaking so slowly that other people could have noticed. Or the opposite - being so fidgety or restless that you have been moving around a lot more than usual: not at all 9. Thoughts that you would be better off or of hurting yourself in some way: not at all Total score: 0 Source: Developed by Drs. Brian Persaud, Lia Silva, Chuy Vallejo and colleagues, with an educational jigar from [employer]. Thrive Questionnaire Date Thrive assessed: 06/17/25 I am a: Patient What is your living situation today?: I have a steady place to live Within the past 12 months, did the food you bought not last and you didn't have the money to get more?: Never true Within the past 12 months, did you worry whether your food would run out before you got money to buy more?: Never true Do you have trouble paying for medicines?: No Do you have trouble getting transportation to medical appointments?: No Do you have trouble paying your heating and electricity bill?: No Do you have trouble taking care of your child, family member or friend?: No Do you have trouble with day-to-day activities such as bathing, preparing meals, shopping, managing finances, etc.?: No Are you currently unemployed and looking for a job?: No Are you interested in more education?: No Please select the resources that you would like help with: None Currently or been in a relationship where the following occur: No concerns reported THRIVE Score: 0 AUDIT C Alcohol Use Questionnaire (AUDIT-C) 1. How often do you have a drink containing alcohol?: Never Total Score: 0 VIOLETA-7 AMB Questionnaire VIOLETA-7 Date VIOLETA - 7 assessed: 11/01/24 Feeling nervous, anxious, or on edge: 0 = Not at all Not being able to stop or control worryin = Not at all Worrying too much about different things: 0 = Not at all Trouble relaxin = Not at all Being so restless that it is hard to sit still: 0 = Not at all Becoming easily annoyed or irritable: 0 = Not at all Feeling afraid as if something awful might happen: 0 = Not at all Total VIOLETA-7 score (0-4 normal; 5-9 mild; 10-14 moderate; 15-21 severe): 0 Source: Developed by Drs. Brian Persaud, Lia Silva, Chuy Vallejo and colleagues, with an educational jigar from [employer]. Review of Systems Const All systems reviewed & are unremarkable except as noted in HPI and below Neuro Denies Abnormal speech present Physical exam (Primary Care) Vital Signs: Last Vital Signs Temp 97.7 F 06/30/25 16:23 Pulse 91 06/30/25 16:23 Resp 16 06/30/25 16:23 BP 118/66 06/30/25 16:23 Pulse Ox 97 06/30/25 16:23 Oxygen Delivery Method Nasal Cannula 06/30/25 16:23 BMI result Body Mass Index 20.7 Tobacco/Smoking Status: Tobacco use Status Tobacco use date assessed 06/30/25 06/30/25 16:30 Patient Tobacco Use Status Former Tobacco user 06/30/25 16:11 Tobacco use type Cigarette 06/30/25 16:11 e-Cigarette/Vaping Use Never Used 06/30/25 16:11 PHQ-9: PHQ-9 Score PHQ-9: Total score 0 06/30/25 17:22 Thrive Assessment: Date of Thrive Assessment Date Thrive assessed 06/17/25 06/30/25 16:11 Currently or been in a relationship where the following occur: No concerns reported Const Other: Accompanied by niece General: no acute distress and alert Nutritional Appearance: average body habitus Orientation/consciousness: patient oriented x3 Limitations: ambulation with walker and other limitations (Need supplemental O2) HENKY Head: Yes normocephalic Ears: external ears normal General nose exam: Normal external nose present Face and sinus: Yes face symmetric Mouth: moist mucous membranes Eyes General: appearance normal, both eyes and all related structures Neck Other: Supple, no lymphadenopathy, thyroid gland nonpalpable Resp Effort & Inspection: normal respiratory effort and able to speak in complete sentences Auscultation: clear to auscultation bilaterally Cardio Other: S1 and S2 present regular rate and rhythm GI Palpation (GI): Soft to palpation, nontender, no guarding and no masses Auscultation: normal bowel sounds General: Yes no CVA tenderness Back/Spine/Pelvis Back: no CVA tenderness and No back tenderness Skin General skin exam: dry skin Neuro General: patient oriented x3, tone normal, moves all extremities, Normal light touch and pain sensation and no focal motor deficits Speech: No Abnormal speech present Extrem General: Yes full ROM, Yes no joint enlargement and Yes no pedal edema Psych Appearance: grossly normal and well kempt Mental Status: mental status grossly normal Speech and movement: Normal speech and movement present Affect: normal affect Coding Level of Care Code TCM Mod MDM <= 14 Days Diagnoses Acquired hypothyroidism E03.9 History of pneumonia Z87.01 Chronic kidney disease, stage 3 N18.30 Essential hypertension I10 Pure hypercholesterolemia E78.00 Hyperlipidemia type: pure hypercholesterolemia Vitamin D deficiency E55.9 Anemia D64.9 Fatigue R53.83 COPD (chronic obstructive pulmonary disease) J44.9 Assessment & Plan Assessment & Plan (1) Acquired hypothyroidism: Code(s): E03.9 - Hypothyroidism, unspecified Category: Medical Plan: Currently on levothyroxine 75 mcg daily, repeat TSH and T4 and free T3 ordered (2) History of pneumonia: Code(s): Z87.01 - Personal history of pneumonia (recurrent) Plan: Patient without any cough or fever, but still gets shortness of breath on exertion, now requiring supplemental oxygen after discharge. Has history of COPD, pulmonary consult ordered (3) Chronic kidney disease, stage 3: Comment: followed by Dr Noel Code(s): N18.30 - Chronic kidney disease, stage 3 unspecified Category: Medical Plan: Repeat comprehensive metabolic panel ordered (4) Essential hypertension: Code(s): I10 - Essential (primary) hypertension Category: Medical Plan: Blood pressure within normal limits (5) Hyperlipidemia: Code(s): E78.5 - Hyperlipidemia, unspecified Category: Medical Qualifiers: Hyperlipidemia type: pure hypercholesterolemia Qualified Code(s): E78.00 - Pure hypercholesterolemia, unspecified Plan: Repeat fasting lipid panel ordered, currently on atorvastatin 20 mg daily (6) Vitamin D deficiency: Code(s): E55.9 - Vitamin D deficiency, unspecified Category: Medical Plan: vitamin-D level ordered (7) Anemia: Code(s): D64.9 - Anemia, unspecified Category: Medical Plan: Ordered a repeat CBC, ferritin and iron panel (8) Fatigue: Code(s): R53.83 - Other fatigue Category: Medical Plan: Will check proBNP, CBC and thyroid levels (9) COPD (chronic obstructive pulmonary disease): Code(s): J44.9 - Chronic obstructive pulmonary disease, unspecified Category: Medical Plan: Pulmonary consult ordered Orders: Orders NT Pro B Type Natriuretic Pept 06/30/25 D64.9 - Anemia, unspecified, E03.9 - Hypothyroidism, unspecified, E55.9 - Vitamin D deficiency, unspecified, E78.00 - Pure hypercholesterolemia, unspecified, I10 - Essential (primary) hypertension, N18.30 - Chronic kidney disease, stage 3 unspecified, R53.83 - Other fatigue Complete Blood Count Auto Diff 06/30/25 D64.9 - Anemia, unspecified, E03.9 - Hypothyroidism, unspecified, E55.9 - Vitamin D deficiency, unspecified, E78.00 - Pure hypercholesterolemia, unspecified, I10 - Essential (primary) hypertension, N18.30 - Chronic kidney disease, stage 3 unspecified, R53.83 - Other fatigue IRON PROFILE 06/30/25 D64.9 - Anemia, unspecified, E03.9 - Hypothyroidism, unspecified, E55.9 - Vitamin D deficiency, unspecified, E78.00 - Pure hypercholesterolemia, unspecified, I10 - Essential (primary) hypertension, N18.30 - Chronic kidney disease, stage 3 unspecified, R53.83 - Other fatigue Ferritin 06/30/25 D64.9 - Anemia, unspecified, E03.9 - Hypothyroidism, unspecified, E55.9 - Vitamin D deficiency, unspecified, E78.00 - Pure hypercholesterolemia, unspecified, I10 - Essential (primary) hypertension, N18.30 - Chronic kidney disease, stage 3 unspecified, R53.83 - Other fatigue Triiodothyronine T3 Free 06/30/25 D64.9 - Anemia, unspecified, E03.9 - Hypothyroidism, unspecified, E55.9 - Vitamin D deficiency, unspecified, E78.00 - Pure hypercholesterolemia, unspecified, I10 - Essential (primary) hypertension, N18.30 - Chronic kidney disease, stage 3 unspecified, R53.83 - Other fatigue Lipid Panel 06/30/25 D64.9 - Anemia, unspecified, E03.9 - Hypothyroidism, unspecified, E55.9 - Vitamin D deficiency, unspecified, E78.00 - Pure hypercholesterolemia, unspecified, I10 - Essential (primary) hypertension, N18.30 - Chronic kidney disease, stage 3 unspecified, R53.83 - Other fatigue Comprehensive Hibbs. Panel Fast 06/30/25 D64.9 - Anemia, unspecified, E03.9 - Hypothyroidism, unspecified, E55.9 - Vitamin D deficiency, unspecified, E78.00 - Pure hypercholesterolemia, unspecified, I10 - Essential (primary) hypertension, N18.30 - Chronic kidney disease, stage 3 unspecified, R53.83 - Other fatigue Vitamin D 25-OH Total 06/30/25 D64.9 - Anemia, unspecified, E03.9 - Hypothyroidism, unspecified, E55.9 - Vitamin D deficiency, unspecified, E78.00 - Pure hypercholesterolemia, unspecified, I10 - Essential (primary) hypertension, N18.30 - Chronic kidney disease, stage 3 unspecified, R53.83 - Other fatigue Thyroid Stimulating Hormone 06/30/25 D64.9 - Anemia, unspecified, E03.9 - Hypothyroidism, unspecified, E55.9 - Vitamin D deficiency, unspecified, E78.00 - Pure hypercholesterolemia, unspecified, I10 - Essential (primary) hypertension, N18.30 - Chronic kidney disease, stage 3 unspecified, R53.83 - Other fatigue Free T4 (Free Thyroxine) 06/30/25 D64.9 - Anemia, unspecified, E03.9 - Hypothyroidism, unspecified, E55.9 - Vitamin D deficiency, unspecified, E78.00 - Pure hypercholesterolemia, unspecified, I10 - Essential (primary) hypertension, N18.30 - Chronic kidney disease, stage 3 unspecified, R53.83 - Other fatigue Vitamin B12 and Folate 06/30/25 D64.9 - Anemia, unspecified, E03.9 - Hypothyroidism, unspecified, E55.9 - Vitamin D deficiency, unspecified, E78.00 - Pure hypercholesterolemia, unspecified, I10 - Essential (primary) hypertension, N18.30 - Chronic kidney disease, stage 3 unspecified, R53.83 - Other fatigue Referrals Pulmonology Referral J44.9 - Chronic obstructive pulmonary disease, unspecified
[2025-06-30 16:23] VITALS: BP 118/66; PULSE 91; RESP 16; TEMP 36.5; O2SAT 97; BMI 20.7
--- OUTSIDE RECORDS SUMMARY | 2025-06-30 20:18 | XMS_ITS | Patient Health Record ---
Author Organization [facility] Address [address] [place] [address] Care Team Providers Care Filenet P8 Developer Name Role Phone Josh JANG, Yoana Lopez Primary Care Provider Un available Black, Bere Unavailable [phone] Allergies Allergen (clinical drug ingredient) Drug/Non Drug [...] Problem Acquired hammer toe of right foot ([id number]) Other hammer toe(s) (acquired), right foot (M20.41) Active confirmed Plan Of Treatment Pending Test Test Name Order Date [id number] NAIL, 1-5 02/09/2017 Insurance Providers Payer Name Payer Address Payer Phone Subscriber Number Group Number Insured Name Patient Relationship to Insured Coverage Start Date Coverage End Date [employer] Medicare Adv-[id number] [address] [address] [place] [address] [id number] Josephine Scales Self - patient is the insured Medical (General) History Medical History History ICD Code Broken bones CAD (Cholesterol) Cataracts Diverticulitis Macular degeneration Osteoporosis Thyroid disorder Surgical History Surgery Date(Month/Year) breast biopsy cataract surgery
--- OUTSIDE RECORDS SUMMARY | 2025-06-30 20:18 | XMS_ITS | Patient Health Record ---
Author Organization [facility] Address [address] [place] [id number] Care Team Providers Care Pyridine Recovery Operator Name Role Phone Brian Carrera Unavailable [phone] Reason For Referral No Information Plan Of Treatment No Information
== END 2025-06-30 17:30 | disposition home or self-care (01) ==
PROVIDERS: PCP Internal Medicine; Visit Provider Internal Medicine
DX: I12.9 Hypertensive chronic kidney disease with stage 1 through stage 4 chronic kidney disease, or unspecified chronic kidney disease (principal); N18.30 Chronic kidney disease, stage 3 unspecified; J44.9 Chronic obstructive pulmonary disease, unspecified; E03.9 Hypothyroidism, unspecified; Z87.01 Personal history of pneumonia (recurrent); E78.00 Pure hypercholesterolemia, unspecified; E55.9 Vitamin D deficiency, unspecified; D64.9 Anemia, unspecified; R53.83 Other fatigue

== ENCOUNTER → 2025-06-30 15:59 | Outpatient (BNVA) | payer MEDICARE, SELFPAY | PROVIDERS: PCP Internal Medicine; Visit Provider Internal Medicine | DX: I12.9 Hypertensive chronic kidney disease with stage 1 through stage 4 chronic kidney disease, or unspecified chronic kidney disease (principal); N18.30 Chronic kidney disease, stage 3 unspecified; R19.7 Diarrhea, unspecified; J44.9 Chronic obstructive pulmonary disease, unspecified; E03.9 Hypothyroidism, unspecified; E78.00 Pure hypercholesterolemia, unspecified; E55.9 Vitamin D deficiency, unspecified; D63.1 Anemia in chronic kidney disease; R53.83 Other fatigue; Z87.01 Personal history of pneumonia (recurrent); Z99.81 Dependence on supplemental oxygen | CPT/HCPCS: 96127; 99495 ==

== ENCOUNTER 2025-07-07 13:20 | Outpatient (REF) | payer MEDICARE, SELFPAY ==
--- NOTE | ~2025-07-07 | XR_ITS ---
EXAMINATION: XR CHEST CLINICAL INFORMATION: Z87.01 - Personal history of pneumonia (recurrent) COMPARISON: None available. TECHNIQUE: X-ray 06/16/2025 FINDINGS: Rotated positioning. Cardiac mediastinal silhouette is within normal limits, similar from previous. Peribronchial opacities, interstitial and hazy opacities in bilateral lungs. Airspace opacities in the left lung. Airspace opacities in the lower lung, new from previous.. Small left pleural effusion. No pneumothorax is seen. No acute osseous findings. Surgical clips in the right upper abdomen. No acute upper abdominal findings identified. XR/XR chest 2V IMPRESSION: Interval worsening of airspace and interstitial opacities in bilateral lungs as detailed above, concerning for infectious process. Recommend follow-up to resolution. Small left pleural effusion. Electronically signed by: Dong Billy MD 07/07/2025 04:06 PM EDT
--- OUTSIDE RECORDS SUMMARY | 2025-07-07 18:03 | XMS_ITS | Patient Health Record ---
Author Organization [facility] Address [address] [place] [address] Care Team Providers Care Button Cutter Name Role Phone Josh JANG, Yoana Lopez Primary Care Provider Un available Black, Bere Unavailable [phone] Allergies Allergen (clinical drug ingredient) Drug/Non Drug [...] Problem Acquired hammer toe of right foot ([id number]) Other hammer toe(s) (acquired), right foot (M20.41) Active confirmed Plan Of Treatment Pending Test Test Name Order Date [id number] NAIL, 1-5 02/09/2017 Insurance Providers Payer Name Payer Address Payer Phone Subscriber Number Group Number Insured Name Patient Relationship to Insured Coverage Start Date Coverage End Date [employer] Medicare [id number] [address] [address] [place] [address] [id number] Josephine Scales Self - patient is the insured Medical (General) History Medical History History ICD Code Broken bones CAD (Cholesterol) Cataracts Diverticulitis Macular degeneration Osteoporosis Thyroid disorder Surgical History Surgery Date(Month/Year) breast biopsy cataract surgery
--- OUTSIDE RECORDS SUMMARY | 2025-07-07 18:03 | XMS_ITS | Clinical Summary ---
Author Organization [facility] Address [address] [place] [address] Phone Care Team Providers Care Radio Aerial Installer Name Role Phone Yoana Moreno MD Primary Care Provider Encounters Date Type Department Care Team Description 07/02/2025 Lab Requisition [facility] - Main Lab [address] [place] [address] Yoana Moreno MD Essential (primary) hypertension; Pure hypercholesterolemia, unspecified; Hypothyroidism, unspecified; Vitamin D deficiency, unspecified; Chronic kidney disease, stage 3 unspecified (CMS/HCC V24, CMS/HCC V28); Anemia, unspecified; Other fatigue from Last 3 Months Social History Tobacco [...] (1 - Tdap) 1957 Pneumococcal Vaccine: 50+ Years (1 of 1 - PCV) 1988 Zoster Vaccines (1 of 2) 1988 RSV Immunization Adult Patients (1 - 1-dose 75+ series) 2013 Falls Risk Assessment 04/02/2024 Medicare Annual Wellness Visit 04/02/2024 Osteoporosis Screening (Bone Density Screening) 04/02/2024 Social Influencers of Health Screening 04/02/2024 Depression Screening 09/11/2024 COVID-19 Vaccine (1 - 2023-2 5 season) 2025 Influenza Vaccine (#1) 2025 Hypertension/CHF/CAD Annual BMP Blood Test 07/02/2026 07/02/2025, 10/16/2024 Cholesterol Screening (Lipid Panel) 07/02/2030 07/02/2025, 10/16/2024 HIB Vaccines Aged Out No longer [...] to complete this topic RSV Immunization Patients Under 20 months Aged Out No longer eligible b ased on patient's age to complete this topic Varicella Vaccines Aged Out No longer eligible based on patient's age to complete this topic Procedures Procedure Name Priority Date/Time Associated Diagnosis Comments COMPREHENSIVE METABOLIC PANEL Routine 07/02/2025 7:36 AM EDT Essential (primary) hypertension Pure hypercholesterolem ia, unspecified Hypothyroidism, unspecified Vitamin D deficiency, unspecified Chronic kidney disease, stage 3 unspecified (CMS/HCC V24, CMS/HCC V28) Anemia, unspecified Other fatigue LIPID PANEL WITH REFLEX TO DIRECT LDL Routine 07/02/2025 7:36 AM EDT Essential (primary) hypertension Pure hypercholesterolem ia, unspecified Hypothyroidism, unspecified Vitamin D deficiency, unspecified Chronic kidney disease, stage 3 unspecified (CMS/HCC V24, CMS/HCC V28) Anemia, unspecified Other fatigue THYROID STIMULATING HORMONE Routine 07/02/2025 7:36 AM EDT Essential (primary) hypertension Pure hypercholesterolem ia, unspecified Hypothyroidism, unspecified Vitamin D deficiency, unspecified Chronic kidney disease, stage 3 unspecified (CMS/HCC V24, CMS/HCC V28) Anemia, unspecified Other fatigue IRON AND TIBC Routine 07/02/2025 7:36 AM EDT Essential (primary) hypertension Pure hypercholesterolem ia, unspecified Hypothyroidism, unspecified Vitamin D deficiency, unspecified Chronic kidney disease, stage 3 unspecified (CMS/HCC V24, CMS/HCC V28) Anemia, unspecified Other fatigue THYROXINE FREE Routine 07/02/2025 7:36 AM EDT Essential (primary) hypertension Pure hypercholesterolem ia, unspecified Hypothyroidism, unspecified Vitamin D deficiency, unspecified Chronic kidney disease, stage 3 unspecified (CMS/HCC V24, CMS/HCC V28) Anemia, unspecified Other fatigue VITAMIN B12 AND FOLATE Routine 7:36 AM EDT Essential (primary) hypertension Pure hypercholesterolem ia, unspecified Hypothyroidism, unspecified Vitamin D deficiency, unspecified Chronic kidney disease, stage 3 unspecified (CMS/HCC V24, CMS/HCC V28) Anemia, unspecified Other fatigue FERRITIN Routine 07/02/2025 7:36 AM EDT Essential (primary) hypertension Pure hypercholesterolem ia, unspecified Hypothyroidism, unspecified Vitamin D deficiency, unspecified Chronic kidney disease, stage 3 unspecified (CMS/HCC V24, CMS/HCC V28) Anemia, unspecified Other fatigue TRIIODOTHYRONINE FREE Routine 07/02/2025 7:36 AM EDT Essential (primary) hypertension Pure hypercholesterolem ia, unspecified Hypothyroidism, unspecified Vitamin D deficiency, unspecified Chronic kidney disease, stage 3 unspecified (CMS/HCC V24, CMS/HCC V28) Anemia, unspecified Other fatigue B-TYPE NATRIURETIC PEPTIDE Routine 07/02/2025 7:36 AM EDT Essential (primary) hypertension Pure hypercholesterolem ia, unspecified Hypothyroidism, unspecified Vitamin D deficiency, unspecified Chronic kidney disease, stage 3 unspecified (CMS/HCC V24, CMS/HCC V28) Anemia, unspecified Other fatigue COMPLETE BLOOD COUNT Routine 07/02/2025 7:36 AM EDT Essential (primary) hypertension Pure hypercholesterolem ia, unspecified Hypothyroidism, unspecified Vitamin D deficiency, unspecified Chronic kidney disease, stage 3 unspecified (CMS/HCC V24, CMS/HCC V28) Anemia, unspecified Other fatigue from Last 3 Months Results * (ABNORMAL) Vitamin B12 and folate (07/02/2025 7:36 AM EDT) [facility] Vitamin B-12 1,290(H) 250 - 900 pcg/mL LAB CHEMISTRY METHOD 07/02/2025 1:17 PM EDT [facility] Folate 11.4 2.8 - 17.0 ng/ml LAB CHEMISTRY METHOD 07/02/2025 1:17 PM EDT [facility] Blood Venous blood specimen / Unknown Venipuncture / Unknown 07/02/2025 7:36 AM EDT 07/02/2025 10:41 AM EDT us Yoana Moreno MD LAB BLOOD ORDERABLES Final Result [facility] [address] [place] [address], * (ABNORMAL) Lipid panel with reflex to direct LDL (07/02/2025 7:36 AM EDT) [facility] Cholesterol 176 0 - 200 mg/dL LAB CHEMISTRY METHOD 07/02/2025 1:17 PM EDT [facility] Triglycerides 89 0 - 150 mg/dL LAB CHEMISTRY METHOD 07/02/2025 1:17 PM EDT [facility] HDL 47 >=40 mg/dL LAB CHEMISTRY METHOD 07/02/2025 1:17 PM EDT [facility] LDL Calculated 111(H) 0 - 100 mg/dL LAB CHEMISTRY METHOD 07/02/2025 1:17 PM EDT [facility] Comment:Estimated LDL Calcul ated using equation: Total cholesterol - HDL cholesterol - (Triglycerides/5) VLDL Cholesterol Rod 17.8 mg/dL LAB CHEMISTRY METHOD 07/02/2025 1:17 PM EDT [facility] Non HDL Chol. (LDL+VLDL) 129 <145 mg/dL LAB CHEMISTRY METHOD 07/02/2025 1:17 PM EDT [facility] Chol/HDL Ratio 3.7 0.0 - 4.4 LAB CHEMISTRY METHOD 07/02/2025 1:17 PM EDT [facility] Blood Venous blood specimen / Unknown Venipuncture / Unknown 07/02/2025 7:36 AM EDT 07/02/2025 10:41 AM EDT Yoana Moreno MD LAB BLOOD ORDERABLES Final Result [facility] [address] [place] [address], [place] [phone] * (ABNORMAL) Iron and TIBC (07/02/2025 7:36 AM EDT) Iron 40 40 - 150 mcg/dL LAB CHEMISTRY METHOD 07/02/2025 1:17 PM EDT [facility] TIBC 220(L) 250 - 450 mcg/dL LAB CHEMISTRY METHOD 07/02/2025 1:17 PM EDT [facility] Iron Saturation 18 15 - 50 % LAB CHEMISTRY METHOD 07/02/2025 1:17 PM EDT [facility] Blood Venous blood specimen / Unknown Venipuncture / Unknown 07/02/2025 7:36 AM EDT 07/02/2025 10:41 AM EDT Yoana Moreno MD LAB BLOOD ORDERABLES Final Result [facility] [address] [place] [address], [place] [phone] * (ABNORMAL) Complete blood count (07/02/2025 7:36 AM EDT) WBC 7.6 4.8 - 10.8 K/mcL LAB HEMETOLOGY METHOD 07/02/2025 11:07 AM [facility] RBC 4.00 3.80 - 4.80 M/mcL LAB HEMETOLOGY METHOD 07/02/2025 11:07 AM [facility] Hemoglobin 11.2(L) 11.5 - 16.0 g/dL LAB HEMETOLOGY METHOD 07/02/2025 11:07 AM [facility] Hematocrit 36.4 35.0 - 47.0 % LAB HEMETOLOGY METHOD 07/02/2025 11:07 AM [facility] MCV 92.2 79.0 - 98.0 FL LAB HEMETOLOGY METHOD 07/02/2025 11:07 AM [facility] MCH 28.4 27.0 - 32.0 pcg LAB HEMETOLOGY METHOD 07/02/2025 11:07 AM [facility] MCHC 30.8(L) 32.0 - 37.0 g/dL LAB HEMETOLOGY METHOD 07/02/2025 11:07 AM [facility] RDW 12.3 11.0 - 15.0 % LAB HEMETOLOGY METHOD 07/02/2025 11:07 AM [facility] Platelets 384 130 - 400 K/mcL LAB HEMETOLOGY METHOD 07/02/2025 11:07 AM [facility] MPV 10.2 7.0 - 11.0 FL LAB HEMETOLOGY METHOD 07/02/2025 11:07 AM [facility] NRBC 0.0 <1.0 % LAB HEMETOLOGY METHOD 07/02/2025 11:07 AM [facility] NRBC Absolute 0.00 <0.10 K/mcL LAB HEMETOLOGY METHOD 07/02/2025 11:07 AM [facility] Blood Venous blood specimen / Unknown Venipuncture / Unknown 07/02/2025 7:36 AM EDT 07/02/2025 10:41 AM EDT Yoana Moreno MD LAB BLOOD ORDERABLES Final Result Performing Organization Address [facility]/ZIP Co de Phone Number [facility] [address] [place] [address], [place] [phone] * Triiodothyronine free (07/02/2025 7:36 AM EDT) T3, Free 248 230 - 420 pcg/dL LAB CHEMISTRY METHOD 07/02/2025 2:04 PM EDT [facility] Blood Venous blood specimen / Unknown Venipuncture / Unknown 07/02/2025 7:36 AM EDT 07/02/2025 10:41 AM EDT Yoana Moreno MD LAB BLOOD ORDERABLES Final Result Performing Organization Address [facility]/ZIP Co de Phone Number [facility] [address] [place] [address], [place] [phone] * Thyroid stimulating hormone (07/02/2025 7:36 AM EDT) [facility] TSH 2.09 0.40 - 4.00 mcIU/mL LAB CHEMISTRY METHOD 07/02/2025 2:04 PM EDT [facility] Blood Venous blood specimen / Unknown Venipuncture / Unknown 07/02/2025 7:36 AM EDT 07/02/2025 10:41 AM EDT us Yoana Moreno MD LAB BLOOD ORDERABLES Final Result Performing Organization Address City/[facility]/ZIP Co de Phone Number [facility] [address] [place] [address], [place] [phone] * Thyroxine free (07/02/2025 7:36 AM EDT) Free T4 1.44 0.70 - 1.80 ng/dL LAB CHEMISTRY METHOD 07/02/2025 2:03 PM EDT [facility] Blood Venous blood specimen / Unknown Venipuncture / Unknown 07/02/2025 7:36 AM EDT 07/02/2025 10:41 AM EDT Yoana Moreno MD LAB BLOOD ORDERABLES Final Result [facility] [address] [place] [address], [place] [phone] * B-type natriuretic peptide (07/02/2025 7:36 AM EDT) [facility] BNP 37 <=100 pcg/mL LAB CHEMISTRY METHOD 07/02/2025 11:59 AM EDT [facility] Blood Venous blood specimen / Unknown Venipuncture / Unknown 07/02/2025 7:36 AM EDT 07/02/2025 10:41 AM EDT us Yoana Moreno MD LAB BLOOD ORDERABLES Final Result Performing Organization Address [facility]/ZIP Co de Phone Number [facility] [address] [place] [address], [place] [phone] * Ferritin (07/02/2025 7:36 AM EDT) [facility] Ferritin 227 8 - 252 ng/mL LAB CHEMISTRY METHOD 07/02/2025 1:17 PM EDT [facility] Blood Venous blood specimen / Unknown Venipuncture / Unknown 07/02/2025 7:36 AM EDT 07/02/2025 10:41 AM EDT us Yoana Moreno MD LAB BLOOD ORDERABLES Final Result [facility] [address] [place] [address], [place] [phone] * (ABNORMAL) Comprehensive metabolic panel (07/02/2025 7:36 AM EDT) Sodium 135 133 - 145 mmol/L LAB CHEMISTRY METHOD 07/02/2025 1:17 PM [facility] Potassium 4.3 3.5 - 5.5 mmol/L LAB CHEMISTRY METHOD 07/02/2025 1:17 PM [facility] Chloride 101 96 - 110 mmol/L LAB CHEMISTRY METHOD 07/02/2025 1:17 PM [facility] CO2 24 21 - 32 mmol/L LAB CHEMISTRY METHOD 07/02/2025 1:17 PM [facility] Anion Gap 10 3 - 11 LAB CHEMISTRY METHOD 07/02/2025 1:17 PM [facility] Glucose 71 70 - 100 mg/dL LAB CHEMISTRY METHOD 07/02/2025 1:17 PM [facility] BUN 18 5 - 25 mg/dL LAB CHEMISTRY METHOD 07/02/2025 1:17 PM [facility] Creatinine 1.42(H) 0.50 - 1.10 mg/dL LAB CHEMISTRY METHOD 07/02/2025 1:17 PM [facility] eGFR 36(L) >=60 mL/min/1. 73m2 LAB CHEMISTRY METHOD 07/02/2025 1:17 PM [facility] Comment:Calculation based on the Chronic Kidney Disease Epidemiology Collaboration (CKD-EPI) equation refit without adjustment for race. BUN/Creatinine Ratio 12.7 LAB CHEMISTRY METHOD 07/02/2025 1:17 PM [facility] Calcium 9.4 8.5 - 10.5 mg/dL LAB CHEMISTRY METHOD 07/02/2025 1:17 PM [facility] AST (SGOT) 20 10 - 42 unit/L LAB CHEMISTRY METHOD 07/02/2025 1:17 PM EDT [facility] ALT (SGPT) 18 10 - 60 unit/L LAB CHEMISTRY METHOD 07/02/2025 1:17 PM EDT [facility] Alkaline Phosphatase 55 42 - 121 unit/L LAB CHEMISTRY METHOD 07/02/2025 1:17 PM EDT [facility] Total Protein 6.9 6.0 - 8.0 g/dL LAB CHEMISTRY METHOD 07/02/2025 1:17 PM EDT [facility] Albumin 2.7(L) 3.2 - 5.0 g/dL LAB CHEMISTRY METHOD 07/02/2025 1:17 PM EDT [facility] Total Bilirubin 0.4 0.0 - 1.4 mg/dL LAB CHEMISTRY METHOD 07/02/2025 1:17 PM EDT [facility] Blood Venous blood specimen / Unknown Venipuncture / Unknown 07/02/2025 7:36 AM EDT 07/02/2025 10:41 AM EDT us Yoana Moreno MD LAB BLOOD ORDERABLES Final Result [facility] [address] [place] [address], from Last 3 Months Insurance [facility] [place] [address] Care Teams Radio Aerial Installer Relationship Specialty Start Date End Date Yoana Moreno MD [address] [facility] [place] [address] PCP - General Internal Medicine 10/16/24
--- OUTSIDE RECORDS SUMMARY | 2025-07-07 18:03 | XMS_ITS | Encounter Summary ---
Author Organization [facility] Address [id number] [place] [id number] Care Team Providers Care Citizen Participation Specialist Name Role Phone Yoana Moreno MD Primary Care Provider Encounter Details Date Type Department Care Team (Late st Contact Info) Description 07/02/2025 Lab Requisition [facility] - Main Lab [address] [facility] [place] [address] Yoana Moreno MD [address] [place] [address] Essential (primary) hypertension; Pure hypercholesterolemia, unspecified; Hypothyroidism, unspecified; Vitamin D deficiency, unspecified; Chronic kidney disease, stage 3 unspecified (CMS/HCC V24, CMS/HCC V28); Anemia, unspecified; Other fatigue Social History Tobacco Use Types Packs/Day Years [...] Procedure Name Priority Date/Time Associated Diagnosis Comments VITAMIN B12 AND FOLATE Routine 7:36 AM [...] V24, CMS/HCC V28) Anemia, unspecified Other fatigue COMPREHENSIVE METABOLIC PANEL Routine 07/02/2025 7:36 AM EDT Essential (primary) hypertension Pure hypercholesterolem ia, unspecified Hypothyroidism, unspecified Vitamin D deficiency, unspecified Chronic kidney disease, stage 3 unspecified (CMS/HCC V24, CMS/HCC V28) Anemia, unspecified Other fatigue documented in this encounter Results * (ABNORMAL) Comprehensive metabolic panel (07/02/2025 7:36 AM EDT) Sodium 135 133 - 145 mmol/L LAB CHEMISTRY METHOD 07/02/2025 1:17 PM [facility] Potassium 4.3 3.5 - 5.5 mmol/L LAB CHEMISTRY METHOD 07/02/2025 1:17 PM [facility] Chloride 101 96 - 110 mmol/L LAB CHEMISTRY METHOD 07/02/2025 1:17 PM [facility] CO2 24 21 - 32 mmol/L LAB CHEMISTRY METHOD 07/02/2025 1:17 PM [facility] Anion Gap 10 3 - 11 LAB CHEMISTRY METHOD 07/02/2025 1:17 PM [facility] Glucose 71 70 - 100 mg/dL LAB CHEMISTRY METHOD 07/02/2025 1:17 PM [facility] BUN 18 5 - 25 mg/dL LAB CHEMISTRY METHOD 07/02/2025 1:17 PM [facility] Creatinine 1.42(H) 0.50 - 1.10 mg/dL LAB CHEMISTRY METHOD 07/02/2025 1:17 PM [facility] eGFR 36(L) >=60 mL/min/1. 73m2 LAB CHEMISTRY METHOD 07/02/2025 1:[address] [facility] Comment:Calculation based on the Chronic Kidney Disease Epidemiology Collaboration (CKD-EPI) equation refit without adjustment for race. BUN/Creatinine Ratio 12.7 LAB CHEMISTRY METHOD 07/02/2025 1:17 PM [facility] Calcium 9.4 8.5 - 10.5 mg/dL LAB CHEMISTRY METHOD 07/02/2025 1:17 PM [facility] AST (SGOT) 20 10 - 42 unit/L LAB CHEMISTRY METHOD 07/02/2025 1:17 PM [facility] ALT (SGPT) 18 10 - 60 unit/L LAB CHEMISTRY METHOD 07/02/2025 1:17 PM [facility] Alkaline Phosphatase 55 42 - 121 unit/L LAB CHEMISTRY METHOD 07/02/2025 1:17 PM [facility] Total Protein 6.9 6.0 - 8.0 g/dL LAB CHEMISTRY METHOD 07/02/2025 1:17 PM [facility] Albumin 2.7(L) 3.2 - 5.0 g/dL LAB CHEMISTRY METHOD 07/02/2025 1:17 PM [facility] Total Bilirubin 0.4 0.0 - 1.4 mg/dL LAB CHEMISTRY METHOD 07/02/2025 1:17 PM [facility] Blood Venous blood specimen / Unknown Venipuncture / Unknown 07/02/2025 7:36 AM EDT 07/02/2025 10:41 AM EDT us Yoana Moreno MD LAB BLOOD ORDERABLES Final Result [facility] [address] [place] [address], [place] [phone] * (ABNORMAL) Lipid panel with reflex to direct LDL (07/02/2025 7:36 AM EDT) Cholesterol 176 0 - 200 mg/dL LAB CHEMISTRY METHOD 07/02/2025 1:[address] [facility] Triglycerides 89 0 - 150 mg/dL LAB CHEMISTRY METHOD 07/02/2025 1:[address] [facility] HDL 47 >=40 mg/dL LAB CHEMISTRY METHOD 07/02/2025 1:[address] [facility] LDL Calculated 111(H) 0 - 100 mg/dL LAB CHEMISTRY METHOD 07/02/2025 1:[address] [facility] Comment:Estimated LDL Calcul ated using equation: Total cholesterol - HDL cholesterol - (Triglycerides/5) VLDL Cholesterol Rod 17.8 mg/dL LAB CHEMISTRY METHOD 07/02/2025 1:[address] [facility] Non HDL Chol. (LDL+VLDL) 129 <145 mg/dL LAB CHEMISTRY METHOD 07/02/2025 1:[address] [facility] Chol/HDL Ratio 3.7 0.0 - 4.4 LAB CHEMISTRY METHOD 07/02/2025 1:[address] [facility] Blood Venous blood specimen / Unknown Venipuncture / Unknown 07/02/2025 7:36 AM EDT 07/02/2025 10:41 AM EDT Yoana Moreno MD LAB BLOOD ORDERABLES Final Result [facility] [address] [place] [address], * Thyroid stimulating hormone (07/02/2025 7:36 AM EDT) Pathologist [facility] TSH 2.09 0.40 - 4.00 mcIU/mL LAB CHEMISTRY METHOD 07/02/2025 2:[address] [facility] Blood Venous blood specimen / Unknown Venipuncture / Unknown 07/02/2025 7:36 AM EDT 07/02/2025 10:41 AM EDT us Yoana Moreno MD LAB BLOOD ORDERABLES Final Result Performing Organization Address [facility] Co de Phone Number [facility] [address] [place] [address], [place] [phone] * (ABNORMAL) Iron and TIBC (07/02/2025 7:36 AM EDT) Iron 40 40 - 150 mcg/dL LAB CHEMISTRY METHOD 07/02/2025 1:[address] [facility] TIBC 220(L) 250 - 450 mcg/dL LAB CHEMISTRY METHOD 07/02/2025 1:[address] [facility] Iron Saturation 18 15 - 50 % LAB CHEMISTRY METHOD 07/02/2025 1:[address] [facility] Blood Venous blood specimen / Unknown Venipuncture / Unknown 07/02/2025 7:36 AM EDT 07/02/2025 10:41 AM EDT Yoana Moreno MD LAB BLOOD ORDERABLES Final Result Performing Organization Address [facility] de Phone Number [facility] [address] [place] [address], [place] [phone] * Thyroxine free (07/02/2025 7:36 AM EDT) Free T4 1.44 0.70 - 1.80 ng/dL LAB CHEMISTRY METHOD 07/02/2025 2:[address] [facility] Blood Venous blood specimen / Unknown Venipuncture / Unknown 07/02/2025 7:36 AM EDT 07/02/2025 10:41 AM EDT us Yoana Moreno MD LAB BLOOD ORDERABLES Final Result Performing Organization Address City/[facility]/ZIP Co de Phone Number [facility] [address] [place] [address], [place] [phone] * (ABNORMAL) Vitamin B12 and folate (07/02/2025 7:36 AM EDT) [facility] Vitamin B-12 1,290(H) 250 - 900 pcg/mL LAB CHEMISTRY METHOD 07/02/2025 1:[address] [facility] Folate 11.4 2.8 - 17.0 ng/ml LAB CHEMISTRY METHOD 07/02/2025 1:[address] [facility] Blood Venous blood specimen / Unknown Venipuncture / Unknown 07/02/2025 7:36 AM EDT 07/02/2025 10:41 AM EDT us Yoana Moreno MD LAB BLOOD ORDERABLES Final Result Performing Organization Address City/[facility]/ZIP Co de Phone Number [facility] [address] [place] [address], [place] [phone] * Ferritin (07/02/2025 7:36 AM EDT) [facility] Ferritin 227 8 - 252 ng/mL LAB CHEMISTRY METHOD 07/02/2025 1:[address] [facility] Blood Venous blood specimen / Unknown Venipuncture / Unknown 07/02/2025 7:36 AM EDT 07/02/2025 10:41 AM EDT us Yoana Moreno MD LAB BLOOD ORDERABLES Final Result [facility] [address] [place] [address], [place] [phone] * Triiodothyronine free (07/02/2025 7:36 AM EDT) [facility] T3, Free 248 230 - 420 pcg/dL LAB CHEMISTRY METHOD 07/02/2025 2:[address] [facility] Blood Venous blood specimen / Unknown Venipuncture / Unknown 07/02/2025 7:36 AM EDT 07/02/2025 10:41 AM EDT Yoana Moreno MD LAB BLOOD ORDERABLES Final Result [facility] [address] [place] [address], [place] [phone] * B-type natriuretic peptide (07/02/2025 7:36 AM EDT) Pathologist [facility] BNP 37 <=100 pcg/mL LAB CHEMISTRY METHOD 07/02/2025 11:[address] [facility] Blood Venous blood specimen / Unknown Venipuncture / Unknown 07/02/2025 7:36 AM EDT 07/02/2025 10:41 AM EDT Yoana Moreno MD LAB BLOOD ORDERABLES Final Result [facility] [address] [place] [address], [place] [phone] * (ABNORMAL) Complete blood count (07/02/2025 7:36 AM EDT) WBC 7.6 4.8 - 10.8 K/mcL LAB HEMETOLOGY METHOD 07/02/2025 11:[address] [facility] RBC 4.00 3.80 - 4.80 M/[facility] LAB HEMETOLOGY METHOD 07/02/2025 11:[address] [facility] Hemoglobin 11.2(L) 11.5 - 16.0 g/dL LAB HEMETOLOGY METHOD 07/02/2025 11:[address] [facility] Hematocrit 36.4 35.0 - 47.0 % LAB HEMETOLOGY METHOD 07/02/2025 11:[address] [facility] MCV 92.2 79.0 - 98.0 FL LAB HEMETOLOGY METHOD 07/02/2025 11:[address] [facility] MCH 28.4 27.0 - 32.0 pcg LAB HEMETOLOGY METHOD 07/02/2025 11:[address] [facility] MCHC 30.8(L) 32.0 - 37.0 g/dL LAB HEMETOLOGY METHOD 07/02/2025 11:[address] [facility] RDW 12.3 11.0 - 15.0 % LAB HEMETOLOGY METHOD 07/02/2025 11:[address] [facility] Platelets 384 130 - 400 K/mcL LAB HEMETOLOGY METHOD 07/02/2025 11:[address] [facility] MPV 10.2 7.0 - 11.0 FL LAB HEMETOLOGY METHOD 07/02/2025 11:[address] [facility] NRBC 0.0 <1.0 % LAB HEMETOLOGY METHOD 07/02/2025 11:[address] [facility] NRBC Absolute 0.00 <0.10 K/mcL LAB HEMETOLOGY METHOD 07/02/2025 11:07 AM [facility] Blood Venous blood specimen / Unknown Venipuncture / Unknown 07/02/2025 7:36 AM EDT 07/02/2025 10:41 AM EDT us Yoana Moreno MD LAB BLOOD ORDERABLES Final Result [facility] [address] [place] [address], documented in this encounter Visit Diagnoses Diagnosis Essential (primary) hypertension Unspecified essential hypertension Pure hypercholesterolemia, unspecified Hypothyroidism, unspecified Vitamin D deficiency, unspecified Chronic kidney disease, stage 3 unspecified (CMS/HCC V24, CMS/HCC V28) Anemia, unspecified Other fatigue documented in this encounter Care Teams Citizen Participation Specialist Relationship Specialty Start Date End Date Yoana Moreno MD [address] [place] [address] PCP - General Internal Medicine 10/16/24 documented as of this encounter
--- OUTSIDE RECORDS SUMMARY | 2025-07-07 18:03 | XMS_ITS | Encounter Summary ---
Author Organization [facility] Address [id number] [place] [phone] Care Team Providers Care Cytotechnologist Supervisor Name Role Phone Yoana Moreno MD Primary Care Provider Encounter Details Date Type Department Care Team (Late st Contact Info) Description 10/16/2024 Lab Requisition [facility] - Main Lab [address] [facility] [place] [address] Yoana Moreno MD [address] [place] [address] Pure hypercholesterolemia, unspecified; Chronic kidney disease, stage [...] LAB HEMETOLOGY METHOD 10/16/2024 11:39 AM EST [facility] Eosinophils Absolute 0.15 0.00 - 0.50 K/[facility] LAB HEMETOLOGY METHOD 10/16/2024 11:39 AM EST [facility] Basophils Absolute 0.06 0.00 - 0.20 K/[facility] LAB HEMETOLOGY METHOD 10/16/2024 11:39 AM [facility] Immature Granulocytes Absolute 0.02 0.00 - 0.03 K/[facility] LAB HEMETOLOGY METHOD 10/16/2024 11:39 AM [facility] Blood Venous blood specimen / Unknown Venipuncture / Unknown 10/16/2024 7:44 AM EST 10/16/2024 11:20 AM EST Yoana Moreno MD LAB BLOOD ORDERABLES Final Result Performing Organization Address City/[facility]/ZIP Co de Phone Number [facility] [address] [place] [address], [place] [phone] * Iron and TIBC (10/16/2024 7:44 AM [...] Moreno MD LAB BLOOD ORDERABLES Final Result [facility] [address] [place] [address], * Thyroid stimulating hormone (10/16/2024 7:44 AM EST) TSH 2.69 0.40 - 4.00 mcIU/mL LAB CHEMISTRY METHOD 10/16/2024 1:05 PM EST [facility] Blood Venous blood specimen / Unknown Venipuncture / Unknown 10/16/2024 7:44 AM EST 10/16/2024 11:20 AM EST Yoana Moreno MD LAB BLOOD ORDERABLES Final Result [facility] [address] [place] [address], * Thyroxine free (10/16/2024 7:44 AM EST) Free T4 1.32 0.70 - 1.80 ng/dL LAB CHEMISTRY METHOD 10/16/2024 1:05 PM EST [facility] Blood Venous blood specimen / Unknown Venipuncture / Unknown 10/16/2024 7:44 AM EST 10/16/2024 11:20 AM EST Yoana Moreno MD LAB BLOOD ORDERABLES Final Result [facility] [address] [place] [address], [place] [phone] * (ABNORMAL) Folate (10/16/2024 7:44 AM EST) Folate 18.1(H) 2.8 - 17.0 ng/ml LAB CHEMISTRY METHOD 10/16/2024 1:17 PM EST [facility] Blood Venous blood specimen / Unknown Venipuncture / Unknown 10/16/2024 7:44 AM EST 10/16/2024 11:20 AM EST Yoana Moreno MD LAB BLOOD ORDERABLES Final Result Performing Organization Address City/[facility]/ZIP Co de Phone Number [facility] [address] [place] [address], [place] [phone] * Vitamin B12 (10/16/2024 7:44 AM EST) Vitamin B-12 810 250 - 900 pcg/mL LAB CHEMISTRY METHOD 10/16/2024 1:17 PM EST [facility] Blood Venous blood specimen / Unknown Venipuncture / Unknown 10/16/2024 7:44 AM EST 10/16/2024 11:20 AM EST Yoana Moreno MD LAB BLOOD ORDERABLES Final Result Performing Organization Address [facility] Co de Phone Number [facility] [address] [place] [address], * Vitamin D 25 hydroxy (10/16/2024 7:44 AM EST) Vit D, 25-Hydroxy 32.8 30.0 - 80.0 ng/mL LAB CHEMISTRY METHOD 10/16/2024 1:04 PM EST [facility] Blood Venous blood specimen / Unknown Venipuncture / Unknown 10/16/2024 7:44 AM EST 10/16/2024 11:20 AM EST Yoana Moreno MD LAB BLOOD ORDERABLES Final Result Performing Organization Address City/[facility]/ZIP Co de Phone Number [facility] [address] [place] [address], [place] [phone] * Aspartate aminotransferase (10/16/2024 7:44 AM EST) AST (SGOT) 16 10 - 42 unit/L LAB CHEMISTRY METHOD 10/16/2024 12:54 PM EST [facility] Blood Venous blood specimen / Unknown Venipuncture / Unknown 10/16/2024 7:44 AM EST 10/16/2024 11:20 AM EST us Yoana Moreno MD LAB BLOOD ORDERABLES Final Result [facility] [address] [place] [address], [place] [phone] * Alanine aminotransferase (10/16/2024 7:44 AM EST) ALT (SGPT) 20 10 - 60 unit/L LAB CHEMISTRY METHOD 10/16/2024 12:54 PM [facility] Blood Venous blood specimen / Unknown Venipuncture / Unknown 10/16/2024 7:44 AM EST 10/16/2024 11:20 AM EST Yoana Moreno MD LAB BLOOD ORDERABLES Final Result Performing Organization Address City/[facility]/ZIP Co de Phone Number [facility] [address] [place] [address], [place] [phone] * (ABNORMAL) Basic metabolic panel (10/16/2024 7:44 [...] LAB CHEMISTRY METHOD 10/16/2024 1:20 PM EST [facility] BUN 35(H) 5 - 25 mg/dL LAB CHEMISTRY METHOD 10/16/2024 1:20 PM [facility] Creatinine 1.30(H) 0.50 - 1.10 mg/dL LAB CHEMISTRY METHOD 10/16/2024 1:20 PM [facility] eGFR 40(L) >=60 mL/min/1. 73m2 LAB CHEMISTRY METHOD 10/16/2024 1:20 PM [facility] Comment:Calculation based on the Chronic [...] Moreno MD LAB BLOOD ORDERABLES Final Result [facility] [address] [place] [address], * (ABNORMAL) Lipid panel with reflex to [...] LAB CHEMISTRY METHOD 10/16/2024 1:17 PM EST [facility] VLDL Cholesterol Rod 16 mg/dL LAB CHEMISTRY METHOD 10/16/2024 1:17 PM EST [facility] Non HDL Chol. (LDL+VLDL) 163(H) <145 mg/dL LAB CHEMISTRY METHOD 10/16/2024 1:17 PM EST [facility] Chol/HDL Ratio 3.4 0.0 - 4.4 LAB CHEMISTRY METHOD 10/16/2024 1:17 PM EST [facility] Blood Venous blood specimen / Unknown Venipuncture / Unknown 10/16/2024 7:44 AM EST 10/16/2024 11:20 AM EST us Yoana Moreno MD LAB BLOOD ORDERABLES Final Result [facility] [address] [place] [address], documented in this encounter Visit Diagnoses Diagnosis Pure hypercholesterolemia, unspecified Chronic kidney disease, stage 3 unspecified (CMS/HCC V24, CMS/HCC V28) Essential (primary) hypertension Unspecified essential hypertension Hypothyroidism, unspecified Vitamin D deficiency, unspecified Anemia, unspecified documented in this encounter Care Teams Cytotechnologist Supervisor Relationship Specialty Start Date End Date Yoana Moreno MD [address] [place] [address] PCP - General Internal Medicine 10/16/24 documented as of this encounter
--- OUTSIDE RECORDS SUMMARY | 2025-07-07 18:03 | XMS_ITS | Patient Health Record ---
[facility] Organization [facility] Address [address] [place] [phone] Care Team Providers Care Power Generating Plant Operator Name Role Phone Brian Carrera Unavailable [phone] Reason For Referral No Information Plan Of Treatment No Information
== END 2025-07-07 13:21 | disposition home or self-care (01) ==
LOC: HO.XRAY 13:20
PROVIDERS: PCP Internal Medicine; Referring Provider Internal Medicine; Visit Provider Nurse Practitioner Family
DX: Z87.01 Personal history of pneumonia (recurrent) (principal); R53.83 Other fatigue; R93.89 Abnormal findings on diagnostic imaging of other specified body structures
CPT/HCPCS: 71046; 99202

== ENCOUNTER 2025-07-07 13:20 | Outpatient (AMB) | payer MEDICARE, SELFPAY ==
--- NOTE | 2025-07-07 13:42 | A.OFFVIS_ITS ---
Vital Signs 07/07/25 13:46 Height 5 ft 7 in Weight 128 lb 15.527 oz BMI 20.2 BP 118/72 Blood Pressure Location Rt brachial Position Sitting Pulse 79 Pulse Source Pulse Oximeter Pulse Oximetry (%) 93 Oxygen Delivery Method Room Air Intake Visit Reasons: COPD Allergies latex Allergy (Verified 07/07/25 13:51) Rash meperidine (Demerol) Adverse Reaction (Unknown, Verified 07/07/25 13:51) dizziness HPI HPI COPD: Details: Josephine is a pleasant 84 year old female, former minimal smoker, quit 40 years ago with underlying HLD, hypothyroidism, CKD 3b, osteoporosis, and hx of right femoral intertrochanteric fx 07/2023 s/p right hip ORIF. She was referred by PCP for pulmonary evaluation with question of COPD. She was admitted to [facility] 06/16- 06/22 due to persistent diarrhea found to be hypoxic 80% on room air, ultimately treated for acute hypoxic respiratory failure in the setting of focal pneumonia. She was treated with DuoNebs, ceftriaxone, and azithromycin, discharged on 2L supplemental oxygen. The patient is an 84-year-old female presenting with a follow-up after hospitalization for pneumonia. She was admitted to the hospital for a couple of days due to pneumonia, which was a surprise as she had no prior history of recurrent pneumonia. The patient reported no cough prior to the hospitalization, and the pneumonia was discovered incidentally when she was admitted for diarrhea. The patient has a history of smoking 40 years ago, having smoked socially for about 10 years. She also has a significant history of secondhand smoke exposure, particularly from her father who was a heavy smoker. Her chest x-ray showed signs of COPD, which may be attributed to secondhand smoke exposure. The patient denies any history of asthma and has never required oxygen before the recent hospitalization. She was discharged from the hospital without any antibiotics and has been advised to use oxygen at two liters when moving around. She reports using a pulse oximeter with readings in the 90s and denies any current shortness of breath, wheezing, or chest tightness. The patient has a family history of respiratory issues, including a sister with COPD and a mother who had undiagnosed tuberculosis as a child. She also mentioned that her mother underwent lung resections later in life. The patient has a past medical history of anemia and has seen a railway switch operator for kidney issues, although she has not had recent follow-ups. She underwent a stress test years ago, which showed no cardiac issues at the time. First name: Josephine [facility] Medical History (Updated 07/07/25 @ 14:00 by Becky Foote NP) COPD (chronic obstructive pulmonary disease) Fatigue Anemia Vitamin D deficiency Hx of iron deficiency anemia Fracture, intertrochanteric, right femur RBBB (right bundle branch block) Gallbladder polyp Bowel obstruction Tubular adenoma of colon History of herpes zoster Hyperlipidemia Essential hypertension Chronic kidney disease, stage 3 Acquired hypothyroidism Osteoporosis Surgical History History of open reduction and internal fixation (ORIF) procedure Hx of small bowel obstruction History of colonoscopy Hx of breast biopsy Family History Father Myocardial infarction Mother HTN (hypertension) Glaucoma Brother HTN (hypertension) Depression Mental health disorder Sister No problems noted. Social History Household Members: None Household Members Other:: Lives in assisted living Housing: Assisted Living Facility [facility] Are you a primary neurocritical care physician to a significant other at home: No Do you presently have visiting nurse or other home services: No Alcohol intake: never Patient Tobacco Use Status: Former Tobacco user Tobacco use type: Cigarette Years Smoked: 4 yrs e-Cigarette/Vaping Use: Never Used Second Hand Smoke Exposure: No (hx of) Advance Directives Date on File: 03/07/22 service: No Current occupational status: retired Cognitive needs: No Hearing needs: No Vision needs: Yes Physical Exam Vital Signs: Last Vital Signs Pulse 79 07/07/25 13:46 BP 118/72 07/07/25 13:46 Pulse Ox 93 07/07/25 13:46 Oxygen Delivery Method Room Air 07/07/25 13:46 BMI result Body Mass Index 20.2 Results Reviewed Results Reviewed: [address] [address] XRay Report Signed Patient: Josephine Gutierrez MR#: [id number] : 1940 Acct:[id number] Age/Sex: 84 / F ADM Date: 06/16/25 Loc: HO.ED Attending Dr: Ordering Physician: Anita Coker DO Date of Service: 06/16/25 Procedure(s): XR chest 1V Accession Number(s): [id number] cc: Anita Coker DO; Yoana Moreno MD~ Reason for Exam: cough EXAMINATION: XR CHEST 1 VIEW HISTORY: cough COMPARISON: Comparison is made with the prior examination dated 11/02/2020. FINDINGS: A single AP portable view of the chest performed at 8:13 AM is submitted. The lungs remain hyperinflated system with COPD. There are airspace opacities in both upper lung zones, left greater than right, suspicious for pneumonia. There is no pleural effusion, pneumothorax, or pulmonary vascular congestion. The heart is normal in size. The aorta is calcified. There is degenerative disc disease of the spine. XR/XR chest 1V IMPRESSION: COPD. Bilateral upper lobe airspace opacities suspicious for pneumonia. Follow-up is recommended to document resolution. Electronically signed by: Brian Mackenzie MD 06/16/2025 08:27 AM EDT Dictated By: Brian Mackenzie MD Signed By: <Electronically signed by Brian Mackenzie MD in OV> 06/16/25826 DD/ 2 TD/TT: 06/16/25819 Dope Weigh Operator: Assessment & Plan Assessment & Plan (1) History of recent pneumonia: Code(s): Z87.01 - Personal history of pneumonia (recurrent) Category: Medical Orders: Orders XR chest 2V Today Z87.01 - Personal history of pneumonia (recurrent) Coding Diagnoses History of recent pneumonia Z87.01
--- NOTE | 2025-07-07 13:42 | MHC.OFFVIS ---
Vital Signs 07/07/25 13:46 Height 5 ft 7 in Weight 128 lb 15.527 oz BMI 20.2 BP 118/72 Blood Pressure Location Rt brachial Position Sitting Pulse 79 Pulse Source Pulse Oximeter Pulse Oximetry (%) 93 Oxygen Delivery Method Room Air Intake Visit Reasons: COPD Allergies latex Allergy (Verified 07/07/25 13:51) Rash meperidine (Demerol) Adverse Reaction (Unknown, Verified 07/07/25 13:51) dizziness HPI HPI COPD: Details: Josephine is a pleasant 84 year old female, former minimal smoker, quit 40 years ago with underlying HLD, hypothyroidism, CKD 3b, osteoporosis, and hx of right femoral intertrochanteric fx 07/2023 s/p right hip ORIF. She was referred by PCP for pulmonary evaluation with question of COPD. [place] [facility] [place] due to persistent diarrhea found to be hypoxic 80% on room air, ultimately treated for acute hypoxic respiratory failure in the setting of focal pneumonia. She was treated with DuoNebs, ceftriaxone, and azithromycin, discharged on 2L supplemental oxygen. She denies prior h/o recurrent URI/PNA. Since discharge she feels back to baseline other than persistent fatigue/low energy. She has been using a pulse oximeter with readings in the 90s, using supplemental oxygen infrequently and denies any current shortness of breath, wheezing, or chest tightness. The patient has a history of smoking 40 years ago, having smoked socially for about 10 years. She also has a significant history of secondhand smoke exposure, particularly from her father who was a heavy smoker. Her chest x-ray showed signs of COPD, which may be attributed to secondhand smoke exposure. Denies prior h/o asthma/COPD. The patient has a family history of respiratory issues, including a sister with COPD and a mother who had undiagnosed tuberculosis as a child. She also mentioned that her mother underwent lung resections later in life. She denies any occupational exposures. [facility] Medical History (Updated 07/08/25 @ 14:17 by Becky Foote NP) COPD (chronic obstructive pulmonary disease) Fatigue Anemia Vitamin D deficiency Hx of iron deficiency anemia Fracture, intertrochanteric, right femur RBBB (right bundle branch block) Gallbladder polyp Bowel obstruction Tubular adenoma of colon History of herpes zoster Hyperlipidemia Essential hypertension Chronic kidney disease, stage 3 Acquired hypothyroidism Osteoporosis Surgical History History of open reduction and internal fixation (ORIF) procedure Hx of small bowel obstruction History of colonoscopy Hx of breast biopsy Family History Father Myocardial infarction Mother HTN (hypertension) Glaucoma Brother HTN (hypertension) Depression Mental health disorder Sister No problems noted. Social History Household Members: None Household Members Other:: Lives in assisted living Housing: Assisted Living Facility Housing Other:: [facility] Are you a primary career development manager to a significant other at home: No Do you presently have visiting nurse or other home services: No Alcohol intake: never Patient Tobacco Use Status: Former Tobacco user Tobacco use type: Cigarette Years Smoked: 4 yrs e-Cigarette/Vaping Use: Never Used Second Hand Smoke Exposure: No (hx of) Advance Directives Date on File: 03/07/22 service: No Current occupational status: retired Cognitive needs: No Hearing needs: No Vision needs: Yes Review of Systems Const Denies chills, Denies excessive sweating, Denies fever(s), Denies headache(s) and Denies night sweats Eyes Denies dry eyes, Denies irritation and Denies itchy eyes ENT Reports Normal hearing present, Denies headache(s), Denies nasal congestion, Denies nasal discharge, Denies post nasal drip and Denies sore throat Card Denies chest pain, Denies chest pain at rest, Denies chest pain with activity, Denies claudication, Denies leg edema, Denies dyspnea, Denies dyspnea on exertion, Denies orthopnea and Denies paroxysmal nocturnal dyspnea Resp Denies chest congestion, Denies cough, Denies excessive phlegm production, Denies pain on inspiration, Denies pain with cough, Denies dyspnea, Denies dyspnea on exertion, Denies stridor and Denies wheezing Musc Denies myalgias Neuro Reports Normal hearing present and Denies headache(s) Endo Denies excessive sweating Wm/Lymph Denies lymphadenopathy Aller/Immun Denies itchy eyes, Denies seasonal rhinorrhea and Denies wheezing Physical Exam Vital Signs: Last Vital Signs Pulse 79 07/07/25 13:46 BP 118/72 07/07/25 13:46 Pulse Ox 93 07/07/25 13:46 Oxygen Delivery Method Room Air 07/07/25 13:46 BMI result Body Mass Index 20.2 Const General: cooperative, healthy appearing, comfortable, no acute distress, well developed and alert Orientation/consciousness: patient oriented x3 HEENT Head: Yes normal to inspection, Yes normocephalic and Yes atraumatic Ears: hearing grossly normal bilaterally and external ears normal Eyes General: appearance normal, both eyes and all related structures Eyelids: Yes eyelids normal Sclerae: sclerae normal EOM: EOMs intact bilaterally Neck Neck: Yes normal visual inspection and Yes no lymphadenopathy Lymphatic: no lymphadenopathy noted Chest Chest palpation & inspection: normal inspection of the chest Resp Effort & Inspection: normal respiratory effort, able to speak in complete sentences, no audible wheezes, no cough, no stridor, not tachypneic, no tripod positioning and no use of accessory muscles Auscultation: wheezes inspiratory wheezes Cardio Jugular venous distension: no JVD Rate: regular rate Rhythm: regular rhythm Skin Other: warm, dry General skin exam: no rashes or lesions noted Neuro General: patient oriented x3 Cranial nerves: Yes Normal hearing present Cognition (Neuro): normal cognition Gait exam (Neuro): Normal gait present Extrem General: Yes normal to inspection, Yes capillary refill normal, Yes no clubbing, cyanosis or edema and Yes no pedal edema Psych Appearance: grossly normal and well kempt Speech and movement: Normal speech and movement present and Clear speech present Affect: normal affect Attitude: cooperative Thought process: Normal thought process present Thought content: Normal thought content present Insight: Good insight present (Psych) Judgement: Good judgement present (Psych) Results Reviewed Results Reviewed: [address] [address] XRay Report Signed Patient: Josephine Gutierrez MR#: [id number] : 1940 Acct:[id number] Age/Sex: 84 / F ADM Date: 06/16/25 Loc: HO.ED Attending Dr: Ordering Physician: Anita Coker DO Date of Service: 06/16/25 Procedure(s): XR chest 1V Accession Number(s): [id number] cc: Anita Coker DO; Yoana Moreno MD~ Reason for Exam: cough EXAMINATION: XR CHEST 1 VIEW HISTORY: cough COMPARISON: Comparison is made with the prior examination dated 11/02/2020. FINDINGS: A single AP portable view of the chest performed at 8:13 AM is submitted. The lungs remain hyperinflated system with COPD. There are airspace opacities in both upper lung zones, left greater than right, suspicious for pneumonia. There is no pleural effusion, pneumothorax, or pulmonary vascular congestion. The heart is normal in size. The aorta is calcified. There is degenerative disc disease of the spine. XR/XR chest 1V IMPRESSION: COPD. Bilateral upper lobe airspace opacities suspicious for pneumonia. Follow-up is recommended to document resolution. Electronically signed by: Brian Mackenzie MD 06/16/2025 08:27 AM EDT RP Dictated By: Brian Mackenzie MD Signed By: <Electronically signed by Brian Mackenzie MD in OV> 06/16/25826 DD/ 2 TD/TT: 06/16/25819 Checker Product Design: Assessment & Plan Assessment & Plan (1) History of recent pneumonia: Code(s): Z87.01 - Personal history of pneumonia (recurrent) Category: Medical (2) Fatigue: Code(s): R53.83 - Other fatigue Category: Medical (3) Abnormal chest xray: Code(s): R93.89 - Abnormal findings on diagnostic imaging of other specified body structures Category: Medical Plan Discussed with the patient the importance of monitoring her oxygen levels and advised that if her oxygen saturation remains above 92%, additional oxygen may not be necessary. Will perform 6MWT at next visit. The chest x-ray indicated signs of COPD, potentially due to secondhand smoke exposure. A pulmonary function test is recommended to confirm the diagnosis and assess lung function. Will send for CXR given abnormal respiratory exam and persistent weakness/fatigue possibly related to untreated pneumonia. All questions were answered and patient is in agreement of plan. Will follow up to review results or sooner if needed. Orders: Orders XR chest 2V 07/07/25 Z87.01 - Personal history of pneumonia (recurrent) XR chest 2V 6 Weeks Z87.01 - Personal history of pneumonia (recurrent) PFT pulmonary function test Today Z87.01 - Personal history of pneumonia (recurrent), Z87.09 - Personal history of other diseases of the respiratory system Coding Level of Care Code New Pt Level 4 (57944) Complex EM visit Add On G2211 Diagnoses History of recent pneumonia Z87.01 Fatigue R53.83 Abnormal chest xray R93.89
[2025-07-07 13:46] VITALS: BP 118/72; PULSE 79; O2SAT 93; BMI 20.2
== END 2025-07-07 14:23 | disposition home or self-care (01) ==
LOC: HO.HPS 13:21
PROVIDERS: PCP Internal Medicine; Referring Provider Internal Medicine; Visit Provider Nurse Practitioner Family
DX: Z87.01 Personal history of pneumonia (recurrent) (principal); R53.83 Other fatigue; R93.89 Abnormal findings on diagnostic imaging of other specified body structures
CPT/HCPCS: 99204; G2211

== ENCOUNTER → 2025-07-07 14:33 | Outpatient (BNV) | payer MEDICARE, SELFPAY | PROVIDERS: PCP Internal Medicine; Referring Provider Internal Medicine; Visit Provider Radiology Diagnostic Ultrasound | DX: R91.8 Other nonspecific abnormal finding of lung field (principal); J90 Pleural effusion, not elsewhere classified | CPT/HCPCS: 71046 ==

== ENCOUNTER 2025-07-23 11:36 | Outpatient (REF) | payer MEDICARE, SELFPAY ==
--- NOTE | ~2025-07-23 | XR_ITS ---
EXAMINATION: XR CHEST CLINICAL INFORMATION: Z87.01 - Personal history of pneumonia (recurrent) COMPARISON: July 07, 2025. TECHNIQUE: PA and lateral views. FINDINGS: Hyperinflated lungs. Pulmonary reticular nodular pattern. No pleural effusion or pneumothorax. Cardiomediastinal silhouette size is normal. Calcified plaque thoracic aorta. Multilevel spondylosis, thoracolumbar spine. Osteopenia versus osteoporosis. S-shaped curvature of the thoracolumbar spine. Vascular clips right upper abdomen. Degenerative changes in the shoulders. XR/XR chest 2V IMPRESSION: Acute on chronic airspace disease, similar since prior exam. Electronically signed by: Liborio Granado MD 07/23/2025 12:19 PM EST
--- OUTSIDE RECORDS SUMMARY | 2025-07-23 14:28 | XMS_ITS | Clinical Summary ---
Author Organization [facility] Address [address] [place] [address] Phone Care Team Providers Care Lands Resource Manager Name Role Phone Yoana Moreno MD Primary Care Provider Encounters Date Type Department Care Team Description 07/02/2025 Lab Requisition [facility] - Main Lab [address] [place] [address] Yoana Moreno MD Essential (primary) [...] Depression Screening 09/11/2024 COVID-19 Vaccine (1 - 2024-2 6 season) 2025 Influenza Vaccine (#1) 2025 Hypertension/CHF/CAD [...] B12 and folate (07/02/2025 7:36 AM EDT) [facility] Vitamin B-12 1,290(H) 250 - 900 pcg/mL LAB CHEMISTRY METHOD 07/02/2025 1:17 PM EDT [facility] Folate 11.4 2.8 - 17.0 ng/ml LAB CHEMISTRY METHOD 07/02/2025 1:17 PM EDT [facility] Blood Venous blood specimen / Unknown Venipuncture / Unknown 07/02/2025 7:36 AM EDT 07/02/2025 10:41 AM EDT us Yoana Moreno MD LAB BLOOD ORDERABLES Final Result [facility] [address] [place] [address], * (ABNORMAL) Lipid panel with reflex to direct LDL (07/02/2025 7:36 AM EDT) [facility] Cholesterol 176 0 - 200 mg/dL LAB CHEMISTRY METHOD 07/02/2025 1:17 PM EDT [facility] Triglycerides 89 0 - 150 mg/dL LAB CHEMISTRY METHOD 07/02/2025 1:17 PM EDT [facility] HDL 47 >=40 mg/dL LAB CHEMISTRY METHOD 07/02/2025 1:17 PM EDT [facility] LDL Calculated 111(H) 0 - 100 mg/dL LAB CHEMISTRY METHOD 07/02/2025 1:17 PM EDT [facility] Comment:Estimated LDL Calcul ated using equation: Total cholesterol - HDL cholesterol - (Triglycerides/5) VLDL Cholesterol Rod 17.8 mg/dL LAB CHEMISTRY METHOD 07/02/2025 1:17 PM EDT [facility] Non HDL Chol. (LDL+VLDL) 129 <145 mg/dL LAB CHEMISTRY METHOD 07/02/2025 1:17 PM EDT [facility] Chol/HDL Ratio 3.7 0.0 - 4.4 LAB CHEMISTRY METHOD 07/02/2025 1:17 PM EDT [facility] Blood Venous blood specimen / Unknown Venipuncture / Unknown 07/02/2025 7:36 AM EDT 07/02/2025 10:41 AM EDT Yoana Moreno MD LAB BLOOD ORDERABLES Final Result [facility] [address] [place] [address], [place] [phone] * (ABNORMAL) Iron and TIBC (07/02/2025 7:36 AM EDT) Iron 40 40 - 150 mcg/dL LAB CHEMISTRY METHOD 07/02/2025 1:17 PM EDT [facility] TIBC 220(L) 250 - 450 mcg/dL LAB CHEMISTRY METHOD 07/02/2025 1:17 PM EDT [facility] Iron Saturation 18 15 - 50 % LAB CHEMISTRY METHOD 07/02/2025 1:17 PM EDT [facility] Blood Venous blood specimen / Unknown Venipuncture / Unknown 07/02/2025 7:36 AM EDT 07/02/2025 10:41 AM EDT Yoana Moreno MD LAB BLOOD ORDERABLES Final Result [facility] [address] [place] [address], [place] [phone] * (ABNORMAL) Complete blood count (07/02/2025 7:36 AM EDT) WBC 7.6 4.8 - 10.8 K/mcL LAB HEMETOLOGY METHOD 07/02/2025 11:07 AM [facility] RBC 4.00 3.80 - 4.80 M/mcL LAB HEMETOLOGY METHOD 07/02/2025 11:07 AM [facility] Hemoglobin 11.2(L) 11.5 - 16.0 g/dL LAB HEMETOLOGY METHOD 07/02/2025 11:07 AM [facility] Hematocrit 36.4 35.0 - 47.0 % LAB HEMETOLOGY METHOD 07/02/2025 11:07 AM [facility] MCV 92.2 79.0 - 98.0 FL LAB HEMETOLOGY METHOD 07/02/2025 11:07 AM [facility] MCH 28.4 27.0 - 32.0 pcg LAB HEMETOLOGY METHOD 07/02/2025 11:07 AM [facility] MCHC 30.8(L) 32.0 - 37.0 g/dL LAB HEMETOLOGY METHOD 07/02/2025 11:07 AM [facility] RDW 12.3 11.0 - 15.0 % LAB HEMETOLOGY METHOD 07/02/2025 11:07 AM [facility] Platelets 384 130 - 400 K/mcL LAB HEMETOLOGY METHOD 07/02/2025 11:07 AM [facility] MPV 10.2 7.0 - 11.0 FL LAB HEMETOLOGY METHOD 07/02/2025 11:07 AM [facility] NRBC 0.0 <1.0 % LAB HEMETOLOGY METHOD 07/02/2025 11:07 AM [facility] NRBC Absolute 0.00 <0.10 K/mcL LAB HEMETOLOGY METHOD 07/02/2025 11:07 AM [facility] Blood Venous blood specimen / Unknown Venipuncture / Unknown 07/02/2025 7:36 AM EDT 07/02/2025 10:41 AM EDT Yoana Moreno MD LAB BLOOD ORDERABLES Final Result Performing Organization Address [facility]/ZIP Co de Phone Number [facility] [address] [place] [address], [place] [phone] * Triiodothyronine free (07/02/2025 7:36 AM EDT) T3, Free 248 230 - 420 pcg/dL LAB CHEMISTRY METHOD 07/02/2025 2:04 PM EDT [facility] Blood Venous blood specimen / Unknown Venipuncture / Unknown 07/02/2025 7:36 AM EDT 07/02/2025 10:41 AM EDT Yoana Moreno MD LAB BLOOD ORDERABLES Final Result Performing Organization Address [facility]/ZIP Co de Phone Number [facility] [address] [place] [address], [place] [phone] * Thyroid stimulating hormone (07/02/2025 7:36 AM EDT) [facility] TSH 2.09 0.40 - 4.00 mcIU/mL LAB CHEMISTRY METHOD 07/02/2025 2:04 PM EDT [facility] Blood Venous blood specimen / Unknown Venipuncture / Unknown 07/02/2025 7:36 AM EDT 07/02/2025 10:41 AM EDT us Yoana Moreno MD LAB BLOOD ORDERABLES Final Result Performing Organization Address City/[facility]/ZIP Co de Phone Number [facility] [address] [place] [address], [place] [phone] * Thyroxine free (07/02/2025 7:36 AM EDT) Free T4 1.44 0.70 - 1.80 ng/dL LAB CHEMISTRY METHOD 07/02/2025 2:03 PM EDT [facility] Blood Venous blood specimen / Unknown Venipuncture / Unknown 07/02/2025 7:36 AM EDT 07/02/2025 10:41 AM EDT Yoana Moreno MD LAB BLOOD ORDERABLES Final Result [facility] [address] [place] [address], [place] [phone] * B-type natriuretic peptide (07/02/2025 7:36 AM EDT) [facility] BNP 37 <=100 pcg/mL LAB CHEMISTRY METHOD 07/02/2025 11:59 AM EDT [facility] Blood Venous blood specimen / Unknown Venipuncture / Unknown 07/02/2025 7:36 AM EDT 07/02/2025 10:41 AM EDT us Yoana Moreno MD LAB BLOOD ORDERABLES Final Result Performing Organization Address [facility]/ZIP Co de Phone Number [facility] [address] [place] [address], [place] [phone] * Ferritin (07/02/2025 7:36 AM EDT) [facility] Ferritin 227 8 - 252 ng/mL LAB CHEMISTRY METHOD 07/02/2025 1:17 PM EDT [facility] Blood Venous blood specimen / Unknown Venipuncture / Unknown 07/02/2025 7:36 AM EDT 07/02/2025 10:41 AM EDT us Yoana Moreno MD LAB BLOOD ORDERABLES Final Result [facility] [address] [place] [address], [place] [phone] * (ABNORMAL) Comprehensive metabolic panel (07/02/2025 7:36 AM EDT) Sodium 135 133 - 145 mmol/L LAB CHEMISTRY METHOD 07/02/2025 1:17 PM [facility] Potassium 4.3 3.5 - 5.5 mmol/L LAB CHEMISTRY METHOD 07/02/2025 1:17 PM [facility] Chloride 101 96 - 110 mmol/L LAB CHEMISTRY METHOD 07/02/2025 1:17 PM [facility] CO2 24 21 - 32 mmol/L LAB CHEMISTRY METHOD 07/02/2025 1:17 PM [facility] Anion Gap 10 3 - 11 LAB CHEMISTRY METHOD 07/02/2025 1:17 PM [facility] Glucose 71 70 - 100 mg/dL LAB CHEMISTRY METHOD 07/02/2025 1:17 PM [facility] BUN 18 5 - 25 mg/dL LAB CHEMISTRY METHOD 07/02/2025 1:17 PM [facility] Creatinine 1.42(H) 0.50 - 1.10 mg/dL LAB CHEMISTRY METHOD 07/02/2025 1:17 PM [facility] eGFR 36(L) >=60 mL/min/1. 73m2 LAB CHEMISTRY METHOD 07/02/2025 1:17 PM [facility] Comment:Calculation based on the Chronic Kidney Disease Epidemiology Collaboration (CKD-EPI) equation refit without adjustment for race. BUN/Creatinine Ratio 12.7 LAB CHEMISTRY METHOD 07/02/2025 1:17 PM [facility] Calcium 9.4 8.5 - 10.5 mg/dL LAB CHEMISTRY METHOD 07/02/2025 1:17 PM [facility] AST (SGOT) 20 10 - 42 unit/L LAB CHEMISTRY METHOD 07/02/2025 1:17 PM EDT [facility] ALT (SGPT) 18 10 - 60 unit/L LAB CHEMISTRY METHOD 07/02/2025 1:17 PM EDT [facility] Alkaline Phosphatase 55 42 - 121 unit/L LAB CHEMISTRY METHOD 07/02/2025 1:17 PM EDT [facility] Total Protein 6.9 6.0 - 8.0 g/dL LAB CHEMISTRY METHOD 07/02/2025 1:17 PM EDT [facility] Albumin 2.7(L) 3.2 - 5.0 g/dL LAB CHEMISTRY METHOD 07/02/2025 1:17 PM EDT [facility] Total Bilirubin 0.4 0.0 - 1.4 mg/dL LAB CHEMISTRY METHOD 07/02/2025 1:17 PM EDT [facility] Blood Venous blood specimen / Unknown Venipuncture / Unknown 07/02/2025 7:36 AM EDT 07/02/2025 10:41 AM EDT us Yoana Moreno MD LAB BLOOD ORDERABLES Final Result [facility] [address] [place] [address], from Last 3 Months Insurance [facility] MEDIC[facility] Care Teams Lands Resource Manager Relationship Specialty Start Date End Date Yoana Moreno MD [address] [facility] [place] [address] PCP - General Internal Medicine 10/16/24
--- OUTSIDE RECORDS SUMMARY | 2025-07-23 14:28 | XMS_ITS | Encounter Summary ---
Author Organization [facility] Address [address] [place] [address] Care Team Providers Care Software Consultant Name Role Phone Yoana Moreno MD Primary Care Provider [phone] Encounter Details Date Type Department Care Team (Late st Contact Info) Description 07/02/2025 Lab Requisition [facility] - Main Lab [address] [facility] [place] [address] Yoana Moreno MD [address] [place] [address] Essential (primary) hypertension; Pure hypercholesterolemia, unspecified; Hypothyroidism, [...] mmol/L LAB CHEMISTRY METHOD 07/02/2025 1:17 PM [facility] Potassium 4.3 3.5 - 5.5 mmol/L LAB CHEMISTRY METHOD 07/02/2025 1:17 PM [facility] Chloride 101 96 - 110 mmol/L LAB CHEMISTRY METHOD 07/02/2025 1:17 PM [facility] CO2 24 21 - 32 mmol/L LAB CHEMISTRY METHOD 07/02/2025 1:17 PM [facility] Anion Gap 10 3 - 11 LAB CHEMISTRY METHOD 07/02/2025 1:17 PM [facility] Glucose 71 70 - 100 mg/dL LAB CHEMISTRY METHOD 07/02/2025 1:17 PM [facility] BUN 18 5 - 25 mg/dL LAB CHEMISTRY METHOD 07/02/2025 1:17 PM [facility] Creatinine 1.42(H) 0.50 - 1.10 mg/dL LAB CHEMISTRY METHOD 07/02/2025 1:17 PM [facility] eGFR 36(L) >=60 mL/min/1. 73m2 LAB CHEMISTRY METHOD 07/02/2025 1:17 PM T [facility] Comment:Calculation based on the Chronic Kidney Disease Epidemiology Collaboration (CKD-EPI) equation refit without adjustment for race. BUN/Creatinine Ratio 12.7 LAB CHEMISTRY METHOD 07/02/2025 1:17 PM [facility] Calcium 9.4 8.5 - 10.5 mg/dL LAB CHEMISTRY METHOD 07/02/2025 1:17 PM [facility] AST (SGOT) 20 10 - 42 unit/L LAB CHEMISTRY METHOD 07/02/2025 1:17 PM [facility] ALT (SGPT) 18 10 - 60 unit/L LAB CHEMISTRY METHOD 07/02/2025 1:17 PM [facility] Alkaline Phosphatase 55 42 - 121 unit/L LAB CHEMISTRY METHOD 07/02/2025 1:17 PM [facility] Total Protein 6.9 6.0 - 8.0 g/dL LAB CHEMISTRY METHOD 07/02/2025 1:17 PM [facility] Albumin 2.7(L) 3.2 - 5.0 g/dL LAB CHEMISTRY METHOD 07/02/2025 1:17 PM [facility] Total Bilirubin 0.4 0.0 - 1.4 mg/dL LAB CHEMISTRY METHOD 07/02/2025 1:17 PM [facility] Blood Venous blood specimen / Unknown Venipuncture / Unknown 07/02/2025 7:36 AM EDT 07/02/2025 10:41 AM EDT us Yoana Moreno MD LAB BLOOD ORDERABLES Final Result [facility] [address] [place] [address], [place] [phone] * (ABNORMAL) Lipid panel with reflex to direct LDL (07/02/2025 7:36 AM EDT) Cholesterol 176 0 - 200 mg/dL LAB CHEMISTRY METHOD 07/02/2025 1:17 PM EDT [facility] Triglycerides 89 0 - 150 mg/dL LAB CHEMISTRY METHOD 07/02/2025 1:17 PM EDT [facility] HDL 47 >=40 mg/dL LAB CHEMISTRY METHOD 07/02/2025 1:17 PM EDT [facility] LDL Calculated 111(H) 0 - 100 mg/dL LAB CHEMISTRY METHOD 07/02/2025 1:17 PM EDT [facility] Comment:Estimated LDL Calcul ated using equation: Total cholesterol - HDL cholesterol - (Triglycerides/5) VLDL Cholesterol Rod 17.8 mg/dL LAB CHEMISTRY METHOD 07/02/2025 1:17 PM EDT [facility] Non HDL Chol. (LDL+VLDL) 129 <145 mg/dL LAB CHEMISTRY METHOD 07/02/2025 1:17 PM EDT [facility] Chol/HDL Ratio 3.7 0.0 - 4.4 LAB CHEMISTRY METHOD 07/02/2025 1:17 PM EDT [facility] Blood Venous blood specimen / Unknown Venipuncture / Unknown 07/02/2025 7:36 AM EDT 07/02/2025 10:41 AM EDT Yoana Moreno MD LAB BLOOD ORDERABLES Final Result [facility] [address] [place] [address], * Thyroid stimulating hormone (07/02/2025 7:36 AM EDT) Pathologist [facility] TSH 2.09 0.40 - 4.00 mcIU/mL LAB CHEMISTRY METHOD 07/02/2025 2:04 PM EDT [facility] Blood Venous blood specimen / Unknown Venipuncture / Unknown 07/02/2025 7:36 AM EDT 07/02/2025 10:41 AM EDT us Yoana Moreno MD LAB BLOOD ORDERABLES Final Result Performing Organization Address [facility] Co de Phone Number [facility] [address] [place] [address], [place] [phone] * (ABNORMAL) Iron and TIBC (07/02/2025 7:36 AM EDT) Iron 40 40 - 150 mcg/dL LAB CHEMISTRY METHOD 07/02/2025 1:17 PM EDT [facility] TIBC 220(L) 250 - 450 mcg/dL LAB CHEMISTRY METHOD 07/02/2025 1:17 PM EDT [facility] Iron Saturation 18 15 - 50 % LAB CHEMISTRY METHOD 07/02/2025 1:17 PM EDT [facility] Blood Venous blood specimen / Unknown Venipuncture / Unknown 07/02/2025 7:36 AM EDT 07/02/2025 10:41 AM EDT Yoana Moreno MD LAB BLOOD ORDERABLES Final Result Performing Organization Address [facility] de Phone Number [facility] [address] [place] [address], [place] [phone] * Thyroxine free (07/02/2025 7:36 AM EDT) Free T4 1.44 0.70 - 1.80 ng/dL LAB CHEMISTRY METHOD 07/02/2025 2:03 PM EDT [facility] Blood Venous blood specimen / Unknown Venipuncture / Unknown 07/02/2025 7:36 AM EDT 07/02/2025 10:41 AM EDT us Yoana Moreno MD LAB BLOOD ORDERABLES Final Result Performing Organization Address City/[facility]/ZIP Co de Phone Number [facility] [address] [place] [address], [place] [phone] * (ABNORMAL) Vitamin B12 and folate (07/02/2025 7:36 AM EDT) [facility] Vitamin B-12 1,290(H) 250 - 900 pcg/mL LAB CHEMISTRY METHOD 07/02/2025 1:17 PM EDT [facility] Folate 11.4 2.8 - 17.0 ng/ml LAB CHEMISTRY METHOD 07/02/2025 1:17 PM EDT [facility] Blood Venous blood specimen / Unknown Venipuncture / Unknown 07/02/2025 7:36 AM EDT 07/02/2025 10:41 AM EDT us Yoana Moreno MD LAB BLOOD ORDERABLES Final Result Performing Organization Address City/[facility]/ZIP Co de Phone Number [facility] [address] [place] [address], [place] [phone] * Ferritin (07/02/2025 7:36 AM EDT) [facility] Ferritin 227 8 - 252 ng/mL LAB CHEMISTRY METHOD 07/02/2025 1:17 PM EDT [facility] Blood Venous blood specimen / Unknown Venipuncture / Unknown 07/02/2025 7:36 AM EDT 07/02/2025 10:41 AM EDT us Yoana Moreno MD LAB BLOOD ORDERABLES Final Result [facility] [address] [place] [address], [place] [phone] * Triiodothyronine free (07/02/2025 7:36 AM EDT) [facility] T3, Free 248 230 - 420 pcg/dL LAB CHEMISTRY METHOD 07/02/2025 2:04 PM EDT [facility] Blood Venous blood specimen / Unknown Venipuncture / Unknown 07/02/2025 7:36 AM EDT 07/02/2025 10:41 AM EDT Yoana Moreno MD LAB BLOOD ORDERABLES Final Result [facility] [address] [place] [address], [place] [phone] * B-type natriuretic peptide (07/02/2025 7:36 AM EDT) Pathologist [facility] BNP 37 <=100 pcg/mL LAB CHEMISTRY METHOD 07/02/2025 11:59 AM EDT [facility] Blood Venous blood specimen / Unknown Venipuncture / Unknown 07/02/2025 7:36 AM EDT 07/02/2025 10:41 AM EDT Yoana oMreno MD LAB BLOOD ORDERABLES Final Result [facility] [address] [place] [address], [place] [phone] * (ABNORMAL) Complete blood count (07/02/2025 7:36 AM EDT) WBC 7.6 4.8 - 10.8 K/mcL LAB HEMETOLOGY METHOD 07/02/2025 11:07 AM EDT [facility] RBC 4.00 3.80 - 4.80 M/[facility] LAB HEMETOLOGY METHOD 07/02/2025 11:07 AM EDT [facility] Hemoglobin 11.2(L) 11.5 - 16.0 g/dL LAB HEMETOLOGY METHOD 07/02/2025 11:07 AM EDT [facility] Hematocrit 36.4 35.0 - 47.0 % LAB HEMETOLOGY METHOD 07/02/2025 11:07 AM EDT [facility] MCV 92.2 79.0 - 98.0 FL LAB HEMETOLOGY METHOD 07/02/2025 11:07 AM EDT [facility] MCH 28.4 27.0 - 32.0 pcg LAB HEMETOLOGY METHOD 07/02/2025 11:07 AM EDT [facility] MCHC 30.8(L) 32.0 - 37.0 g/dL LAB HEMETOLOGY METHOD 07/02/2025 11:07 AM EDT [facility] RDW 12.3 11.0 - 15.0 % LAB HEMETOLOGY METHOD 07/02/2025 11:07 AM EDT [facility] Platelets 384 130 - 400 K/mcL LAB HEMETOLOGY METHOD 07/02/2025 11:07 AM EDT [facility] MPV 10.2 7.0 - 11.0 FL LAB HEMETOLOGY METHOD 07/02/2025 11:07 AM EDT [facility] NRBC 0.0 <1.0 % LAB HEMETOLOGY METHOD 07/02/2025 11:07 AM EDT [facility] NRBC Absolute 0.00 <0.10 K/mcL LAB HEMETOLOGY METHOD 07/02/2025 11:07 AM [facility] Blood Venous blood specimen / Unknown Venipuncture / Unknown 07/02/2025 7:36 AM EDT 07/02/2025 10:41 AM EDT us Yoana Moreno MD LAB BLOOD ORDERABLES Final Result [facility] [address] [place] [address], documented in this encounter Visit Diagnoses Diagnosis Essential (primary) hypertension Unspecified essential hypertension Pure hypercholesterolemia, unspecified Hypothyroidism, unspecified Vitamin D deficiency, unspecified Chronic kidney disease, stage 3 unspecified (CMS/HCC V24, CMS/HCC V28) Anemia, unspecified Other fatigue documented in this encounter Care Teams Software Consultant Relationship Specialty Start Date End Date Yoana Moreno MD [address] [place] [address] PCP - General Internal Medicine 10/16/24 documented as of this encounter
--- OUTSIDE RECORDS SUMMARY | 2025-07-23 14:28 | XMS_ITS | Patient Health Record ---
Author Organization [facility] Address [address] [place] [address] Care Team Providers Care Manufacturers Service Representative Name Role Phone Josh JANG, Yoana Lopez Primary Care Provider Un available Black, Bere Unavailable [phone] Allergies Allergen (clinical drug ingredient) Drug/Non Drug [...] Problem Acquired hammer toe of right foot ([id number]) Other hammer toe(s) (acquired), right foot (M20.41) Active confirmed Plan Of Treatment Pending Test Test Name Order Date [id number] NAIL, 1-5 02/09/2017 Insurance Providers Payer Name Payer Address Payer Phone Subscriber Number Group Number Insured Name Patient Relationship to Insured Coverage Start Date Coverage End Date [employer] Medicare [id number] [address] [address] [place] [address] [id number] Josephine Scales Self - patient is the insured Medical (General) History Medical History History ICD Code Broken bones CAD (Cholesterol) Cataracts Diverticulitis Macular degeneration Osteoporosis Thyroid disorder Surgical History Surgery Date(Month/Year) breast biopsy cataract surgery
--- OUTSIDE RECORDS SUMMARY | 2025-07-23 14:28 | XMS_ITS | Patient Health Record ---
Author Organization [facility] Address [address] [place] [address] Care Team Providers Care Landscape Crew Member Name Role Phone CarreraBrian Unavailable [phone] Reason For Referral No Information Plan Of Treatment No Information
--- OUTSIDE RECORDS SUMMARY | 2025-07-23 14:28 | XMS_ITS | Encounter Summary ---
Author Organization [facility] Address [id number] [place] [id number] Care Team Providers Care Legal Compliance Officer Name Role Phone Yoana Moreno MD Primary Care Provider [phone] Encounter Details Date Type Department Care Team (Late st Contact Info) Description 10/16/2024 Lab Requisition [facility] - Main Lab [address] [facility] [place] [address] Yoana Moreno MD [address] [place] [address] Pure hypercholesterolemia, unspecified; Chronic kidney disease, stage [...] K/mcL LAB HEMETOLOGY METHOD 10/16/2024 11:39 AM [facility] RBC 4.40 3.80 - 4.80 M/mcL LAB HEMETOLOGY METHOD 10/16/2024 11:39 AM [facility] Hemoglobin 13.3 11.5 - 16.0 g/dL LAB HEMETOLOGY METHOD 10/16/2024 11:39 AM [facility] Hematocrit 41.6 35.0 - 47.0 % LAB HEMETOLOGY METHOD 10/16/2024 11:39 AM [facility] MCV 95.4 79.0 - 98.0 FL LAB HEMETOLOGY METHOD 10/16/2024 11:39 AM [facility] MCH 30.5 27.0 - 32.0 pcg LAB HEMETOLOGY METHOD 10/16/2024 11:39 AM [facility] MCHC 32.0 32.0 - 37.0 g/dL LAB HEMETOLOGY METHOD 10/16/2024 11:39 AM [facility] RDW 12.4 11.0 - 15.0 % LAB HEMETOLOGY METHOD 10/16/2024 11:39 AM [facility] Platelets 240 130 - 400 K/mcL LAB HEMETOLOGY METHOD 10/16/2024 11:39 AM [facility] MPV 10.2 7.0 - 11.0 FL LAB HEMETOLOGY METHOD 10/16/2024 11:39 AM [facility] NRBC 0.0 <1.0 % LAB HEMETOLOGY METHOD 10/16/2024 11:39 AM [facility] NRBC Absolute 0.00 <0.10 K/mcL LAB HEMETOLOGY METHOD 10/16/2024 11:39 AM [facility] Neutrophils Relative 65.3 % LAB HEMETOLOGY METHOD 10/16/2024 11:39 AM [facility] Lymphocytes Relative 19.5 % LAB HEMETOLOGY METHOD 10/16/2024 11:39 AM [facility] Monocytes Relative 10.9 % LAB HEMETOLOGY METHOD 10/16/2024 11:39 AM [facility] Eosinophils Relative 2.8 % LAB HEMETOLOGY METHOD 10/16/2024 11:39 AM [facility] Basophils Relative 1.1 % LAB HEMETOLOGY METHOD 10/16/2024 11:39 AM [facility] Immature Granulocytes Relative 0.4 % LAB HEMETOLOGY METHOD 10/16/2024 11:39 AM [facility] Neutrophils Absolute 3.49 1.50 - 7.00 K/mcL LAB HEMETOLOGY METHOD 10/16/2024 11:39 AM [facility] Lymphocytes Absolute 1.04 1.00 - 5.00 K/mcL LAB HEMETOLOGY METHOD 10/16/2024 11:39 AM [facility] Monocytes Absolute 0.58 0.20 - 1.00 K/mcL LAB HEMETOLOGY METHOD 10/16/2024 11:39 AM EST [facility] Eosinophils Absolute 0.15 0.00 - 0.50 K/[facility] LAB HEMETOLOGY METHOD 10/16/2024 11:39 AM EST [facility] Basophils Absolute 0.06 0.00 - 0.20 K/[facility] LAB HEMETOLOGY METHOD 10/16/2024 11:39 AM [facility] Immature Granulocytes Absolute 0.02 0.00 - 0.03 K/[facility] LAB HEMETOLOGY METHOD 10/16/2024 11:39 AM [facility] Blood Venous blood specimen / Unknown Venipuncture / Unknown 10/16/2024 7:44 AM EST 10/16/2024 11:20 AM EST Yoana Moreno MD LAB BLOOD ORDERABLES Final Result Performing Organization Address City/[facility]/ZIP Co de Phone Number [facility] [address] [place] [address], [place] [phone] * Iron and TIBC (10/16/2024 7:44 AM EST) Iron 78 40 - 150 mcg/dL LAB CHEMISTRY METHOD 10/16/2024 12:54 PM [facility] TIBC 305 250 - 450 mcg/dL LAB CHEMISTRY METHOD 10/16/2024 12:54 PM [facility] Iron Saturation 26 15 - 50 % LAB CHEMISTRY METHOD 10/16/2024 12:54 PM [facility] Blood Venous blood specimen / Unknown Venipuncture / Unknown 10/16/2024 7:44 AM EST 10/16/2024 11:20 AM EST us Yoana Moreno MD LAB BLOOD ORDERABLES Final Result [facility] [address] [place] [address], * Thyroid stimulating hormone (10/16/2024 7:44 AM EST) TSH 2.69 0.40 - 4.00 mcIU/mL LAB CHEMISTRY METHOD 10/16/2024 1:05 PM EST [facility] Blood Venous blood specimen / Unknown Venipuncture / Unknown 10/16/2024 7:44 AM EST 10/16/2024 11:20 AM EST Yoana Moreno MD LAB BLOOD ORDERABLES Final Result [facility] [address] [place] [address], * Thyroxine free (10/16/2024 7:44 AM EST) Free T4 1.32 0.70 - 1.80 ng/dL LAB CHEMISTRY METHOD 10/16/2024 1:05 PM EST [facility] Blood Venous blood specimen / Unknown Venipuncture / Unknown 10/16/2024 7:44 AM EST 10/16/2024 11:20 AM EST Yoana Moreno MD LAB BLOOD ORDERABLES Final Result [facility] [address] [place] [address], [place] [phone] * (ABNORMAL) Folate (10/16/2024 7:44 AM EST) Folate 18.1(H) 2.8 - 17.0 ng/ml LAB CHEMISTRY METHOD 10/16/2024 1:17 PM EST [facility] Blood Venous blood specimen / Unknown Venipuncture / Unknown 10/16/2024 7:44 AM EST 10/16/2024 11:20 AM EST Yoana Moreno MD LAB BLOOD ORDERABLES Final Result Performing Organization Address City/[facility]/ZIP Co de Phone Number [facility] [address] [place] [address], [place] [phone] * Vitamin B12 (10/16/2024 7:44 AM EST) Vitamin B-12 810 250 - 900 pcg/mL LAB CHEMISTRY METHOD 10/16/2024 1:17 PM EST [facility] Blood Venous blood specimen / Unknown Venipuncture / Unknown 10/16/2024 7:44 AM EST 10/16/2024 11:20 AM EST Yoana Moreno MD LAB BLOOD ORDERABLES Final Result Performing Organization Address [facility] Co de Phone Number [facility] [address] [place] [address], * Vitamin D 25 hydroxy (10/16/2024 7:44 AM EST) Vit D, 25-Hydroxy 32.8 30.0 - 80.0 ng/mL LAB CHEMISTRY METHOD 10/16/2024 1:04 PM EST [facility] Blood Venous blood specimen / Unknown Venipuncture / Unknown 10/16/2024 7:44 AM EST 10/16/2024 11:20 AM EST Yoana Moreno MD LAB BLOOD ORDERABLES Final Result Performing Organization Address City/[facility]/ZIP Co de Phone Number [facility] [address] [place] [address], [place] [phone] * Aspartate aminotransferase (10/16/2024 7:44 AM EST) AST (SGOT) 16 10 - 42 unit/L LAB CHEMISTRY METHOD 10/16/2024 12:54 PM EST [facility] Blood Venous blood specimen / Unknown Venipuncture / Unknown 10/16/2024 7:44 AM EST 10/16/2024 11:20 AM EST us Yoana Moreno MD LAB BLOOD ORDERABLES Final Result [facility] [address] [place] [address], [place] [phone] * Alanine aminotransferase (10/16/2024 7:44 AM EST) ALT (SGPT) 20 10 - 60 unit/L LAB CHEMISTRY METHOD 10/16/2024 12:54 PM [facility] Blood Venous blood specimen / Unknown Venipuncture / Unknown 10/16/2024 7:44 AM EST 10/16/2024 11:20 AM EST Yoana Moreno MD LAB BLOOD ORDERABLES Final Result Performing Organization Address City/[facility]/ZIP Co de Phone Number [facility] [address] [place] [address], [place] [phone] * (ABNORMAL) Basic metabolic panel (10/16/2024 7:44 AM EST) Sodium 137 133 - 145 mmol/L LAB CHEMISTRY METHOD 10/16/2024 1:20 PM [facility] Potassium 4.9 3.5 - 5.5 mmol/L LAB CHEMISTRY METHOD 10/16/2024 1:20 PM [facility] Chloride 106 96 - 110 mmol/L LAB CHEMISTRY METHOD 10/16/2024 1:20 PM [facility] CO2 28 21 - 32 mmol/L LAB CHEMISTRY METHOD 10/16/2024 1:20 PM [facility] Anion Gap 3 3 - 11 LAB CHEMISTRY METHOD 10/16/2024 1:20 PM [facility] Glucose 71 70 - 100 mg/dL LAB CHEMISTRY METHOD 10/16/2024 1:20 PM EST [facility] BUN 35(H) 5 - 25 mg/dL LAB CHEMISTRY METHOD 10/16/2024 1:20 PM [facility] Creatinine 1.30(H) 0.50 - 1.10 mg/dL LAB CHEMISTRY METHOD 10/16/2024 1:20 PM [facility] eGFR 40(L) >=60 mL/min/1. 73m2 LAB CHEMISTRY METHOD 10/16/2024 1:20 PM [facility] Comment:Calculation based on the Chronic Kidney Disease Epidemiology Collaboration (CKD-EPI) equation refit without adjustment for race. BUN/Creatinine Ratio 26.9 LAB CHEMISTRY METHOD 10/16/2024 1:20 PM [facility] Calcium 10.0 8.5 - 10.5 mg/dL LAB CHEMISTRY METHOD 10/16/2024 1:20 PM [facility] Blood Venous blood specimen / Unknown Venipuncture / Unknown 10/16/2024 7:44 AM EST 10/16/2024 11:20 AM EST Yoana Moreno MD LAB BLOOD ORDERABLES Final Result [facility] [address] [place] [address], * (ABNORMAL) Lipid panel with reflex to direct LDL (10/16/2024 7:44 AM EST) Cholesterol 232(H) 0 - 200 mg/dL LAB CHEMISTRY METHOD 10/16/2024 1:17 PM [facility] Triglycerides 80 0 - 150 mg/dL LAB CHEMISTRY METHOD 10/16/2024 1:17 PM [facility] HDL 69 >=40 mg/dL LAB CHEMISTRY METHOD 10/16/2024 1:17 PM [facility] LDL Calculated 147(H) 0 - 100 mg/dL LAB CHEMISTRY METHOD 10/16/2024 1:17 PM EST [facility] VLDL Cholesterol Rod 16 mg/dL LAB CHEMISTRY METHOD 10/16/2024 1:17 PM EST [facility] Non HDL Chol. (LDL+VLDL) 163(H) <145 mg/dL LAB CHEMISTRY METHOD 10/16/2024 1:17 PM EST [facility] Chol/HDL Ratio 3.4 0.0 - 4.4 LAB CHEMISTRY METHOD 10/16/2024 1:17 PM EST [facility] Blood Venous blood specimen / Unknown Venipuncture / Unknown 10/16/2024 7:44 AM EST 10/16/2024 11:20 AM EST us Yoana Moreno MD LAB BLOOD ORDERABLES Final Result [facility] [address] [place] [address], documented in this encounter Visit Diagnoses Diagnosis Pure hypercholesterolemia, unspecified Chronic kidney disease, stage 3 unspecified (CMS/HCC V24, CMS/HCC V28) Essential (primary) hypertension Unspecified essential hypertension Hypothyroidism, unspecified Vitamin D deficiency, unspecified Anemia, unspecified documented in this encounter Care Teams Legal Compliance Officer Relationship Specialty Start Date End Date Yoana Moreno MD [address] [place] [address] PCP - General Internal Medicine 10/16/24 documented as of this encounter
== END 2025-07-23 11:37 | disposition home or self-care (01) ==
LOC: HO.XRAY 11:36
PROVIDERS: PCP Internal Medicine; Visit Provider Nurse Practitioner Family
DX: Z87.01 Personal history of pneumonia (recurrent) (principal)
CPT/HCPCS: 71046

== ENCOUNTER → 2025-07-23 11:41 | Outpatient (BNV) | payer MEDICARE, SELFPAY | PROVIDERS: PCP Internal Medicine; Visit Provider Radiology Diagnostic Radiology | DX: R06.02 Shortness of breath (principal); R05.9 Cough, unspecified | CPT/HCPCS: 71046 ==

== ENCOUNTER 2025-08-03 13:55 | Emergency (ER) | payer MEDICARE, SELFPAY ==
--- NOTE | ~2025-08-03 | XR_ITS ---
CLINICAL HISTORY: cough, SOB 1 view chest x-ray Comparison: CR/SR - XR CHEST 2 VIEWS - 07/23/25 12:05 EST CR/SR - XR CHEST 2 VIEWS - 07/07/25 14:42 EDT CR/SR - XR CHEST 1 VIEW - 06/16/25 08:13 EDT Findings: Lungs are hyperinflated with diffuse reticular nodular pattern, as on prior studies. No pleural effusion. Cardiomediastinal silhouette is stable. No acute fracture. IMPRESSION: Stable chronic airspace disease findings compared to prior examination. No acute consolidation or pleural effusion. This document has been electronically signed by: Jarret Go MD on 08/03/2025 15:37:34
[2025-08-03 14:11] VITALS: BP 124/73; PULSE 91; O2SAT 95
--- NOTE | 2025-08-03 14:19 | ECG_ITS ---
Test Reason : SOB Blood Pressure : */* mmHG Vent. Rate : 84 BPM Atrial Rate : 84 BPM P-R Int : 158 ms QRS Dur : 108 ms QT Int : 386 ms P-R-T Axes : 46 76 34 degrees QTcB Int : 456 ms Normal sinus rhythm Incomplete right bundle branch block Borderline ECG When compared with ECG of 16-Jun-2025 07:51, No significant change was found Referred By: Tatyana Ray Electronically Signed By: Ry Carlson
[2025-08-03 14:37] VITALS: BP 146/75; PULSE 85; RESP 16; TEMP -12.3; TEMP 9.8; O2SAT 94
--- NOTE | 2025-08-03 14:56 | ED.WEAKNESS ---
HPI - Weakness General Chief complaint: Weakness Stated complaint: ?pneumonia Time Seen by Provider: 08/03/25 14:49 Source: patient and EMS Mode of arrival: EMS Limitations: no limitations History of Present Illness ED Provider: Mireya Spence APRN HPI Narrative: 84-year-old female with a history of congestive heart failure, COPD, anemia, hypothyroidism, CKD, hypertension, hyperlipidemia presents the ER with complaints of generalized weakness since yesterday. Of note patient was admitted for pneumonia in June and was discharged home on oxygen and with oral antibiotics. She declined short-term rehab on discharge. No current cough, chest pain, shortness of breath, leg swelling, leg pain, abdominal pain, fevers, chills, neck pain, neck stiffness. Lives in senior housing. Currently has in home PT, OT and VNA services. Related Data Home Medications ?Medication ?Instructions ?Recorded ?Confirmed levothyroxine 75 mcg tablet 75 mcg PO DAILY@0600 06/16/25 08/03/25 atorvastatin 20 mg tablet 20 mg PO BEDTIME 08/04/25 08/04/25 Allergies Allergy/AdvReac Type Severity Reaction Status Date / Time latex Allergy Rash Verified 08/03/25 14:40 meperidine (Demerol) AdvReac Unknown dizziness Verified 08/03/25 14:40 Review of Systems Review of Systems: Yes all other systems are reviewed and are negative Constitutional: Constitutional: Reports no additional constitutional complaints, Denies body ache(s), Denies chills, Denies fever(s), Denies headache(s) and Reports weakness Eyes: Eyes: Reports no additional eye complaints and Denies change in vision ENT: Reports system reviewed and no additional complaints, except as documented, Denies dizziness, Denies headache(s), Denies nasal congestion, Denies nasal discharge and Denies neck pain Cardiovascular: Cardiovascular: Reports no additional cardiovascular complaints, Reports chest pain, Denies leg edema and Reports dyspnea Respiratory: Respiratory: Reports no additional respiratory complaints, Denies cough and Reports dyspnea Gastrointestinal: Gastrointestinal: Reports no additional gastrointestinal complaints, Denies abdominal pain, Denies diarrhea, Reports nausea and Denies vomiting Genitourinary: Genitourinary: Reports no additional female genitourinary complaints and Denies urinary incontinence Musculoskeletal: Musculoskeletal: Reports no additional musculoskeletal complaints, Denies back pain, Denies arthralgias, Denies joint swelling, Denies neck pain, Denies numbness and Denies tingling Integumentary/Breasts: Skin/Breast: Reports system reviewed and no additional complaints, except as docu and Denies rash Neurologic: Reports system reviewed and no additional complaints, except as documented, Denies Abnormal speech present, Denies dizziness, Denies headache(s), Denies numbness, Denies tingling and Reports weakness PMFSH Past Medical History Attestation statement: The following information was validated with the patient. Source: old records reviewed and nursing notes reviewed Medical History COPD (chronic obstructive pulmonary disease) Fatigue Anemia Vitamin D deficiency Hx of iron deficiency anemia Fracture, intertrochanteric, right femur RBBB (right bundle branch block) Gallbladder polyp Bowel obstruction Tubular adenoma of colon History of herpes zoster Hyperlipidemia Essential hypertension Chronic kidney disease, stage 3 Acquired hypothyroidism Osteoporosis Surgical History History of open reduction and internal fixation (ORIF) procedure Hx of small bowel obstruction History of colonoscopy Hx of breast biopsy Family History Family History Father Myocardial infarction Mother HTN (hypertension) Glaucoma Brother HTN (hypertension) Depression Mental health disorder Sister No problems noted. Social History Social History Household Members: None Household Members Other:: Lives in assisted living Housing: Assisted Living Facility [facility] Are you a primary healthcare facility administrator to a significant other at home: No Do you presently have visiting nurse or other home services: No Alcohol intake: never Patient Tobacco Use Status: Former Tobacco user Tobacco use type: Cigarette Years Smoked: 4 yrs e-Cigarette/Vaping Use: Never Used Second Hand Smoke Exposure: No (hx of) Advance Directives Date on File: 03/07/22 service: No Current occupational status: retired Cognitive needs: No Hearing needs: No Vision needs: Yes Physical Exam Vital Signs: Vital Signs: Last Vital Signs Temp 98.3 F 08/05/25 14:00 Pulse 88 08/05/25 14:00 Resp 16 08/05/25 14:00 BP 121/71 11/25/25 14:00 Pulse Ox 96 08/05/25 14:00 O2 Del Method Room Air 08/05/25 14:00 O2 Flow Rate 2 08/05/25 08:34 Oxygen Flow Rate 2 08/03/25 14:37 BMI result Body Mass Index 20.0 Const: General: cooperative, healthy appearing, comfortable and no acute distress Orientation/consciousness: patient oriented x3 Limitations: no limitations HEENT: Head: Yes normal to inspection Ears: hearing grossly normal bilaterally General nose exam: Normal external nose present Face and sinus: Yes normal facial exam Mouth: Normal oral and palatal mucosa present Throat: Yes posterior oropharynx normal Eyes: General: appearance normal, both eyes and all related structures Pupils: Equal, round and reactive pupils present Neck: Neck: Yes normal visual inspection Chest: Chest palpation & inspection: normal inspection of the chest Resp: Effort & Inspection: normal respiratory effort Auscultation: clear to auscultation bilaterally Cardio: Rate: regular rate Rhythm: regular rhythm Peripheral pulses: Peripheral pulses 2+ throughout GI: Inspection: Yes normal to inspection Palpation (GI): Soft to palpation and nontender Auscultation: normal bowel sounds Back/Spine/Pelvis: Thoracic/Lumbar Spine: thoracic and lumbar spine normal to inspection Skin: General skin exam: no rashes or lesions noted Neuro: General: patient oriented x3, moves all extremities, no focal motor deficits and normal sensation to monofilament Cranial nerves: Yes CN's II-XII intact bilaterally, Yes Equal, round and reactive pupils present, Yes Bilaterally intact EOM present, Yes Nystagmus not present, Yes Normal facial strength present and Yes Midline tongue present Cognition (Neuro): normal cognition Speech: No Abnormal speech present Motor exam (neuro): 5/5 motor strength present throughout Sensory Exam: Normal double simultaneous stimulation for sensation Extrem: General: Yes normal to inspection Course Course Course Narrative: 194-Phy obs. Has molst from 2021. Patient confirms dnr/dni. Her urine is still pending. Her CXR shows no PNA. Her labs are unremarkable. EKG non ischemic with flat troponin. Patient still feels to weak to go home and is requesting STR. Placed in physician obs. Ordered PT RONY escalante. Reevaluation(s) Reevaluation #1: Rebecca López PA-C 08/04/25 @ 7:27am- - physician observation continued overnight. She remains hemodynamically stable. She is saturating well on her home O2, she states she wears 2L at baseline. She is up and eating breakfast, no complaints this morning. pending PT/CM consultations today. will continue to monitor. Reevaluation #2: 08/05/2025 0831 Tatyana Ray PA-C ---> Observation continues. Case management continues to follow for disposition. 08/05/2025 1110 Tatyana Ray PA-C---> Completed peer to peer per Case Management request. Patient's short term rehab request declined with cited reason from the physician I spoke with being: the therapy note reads as though she does not need short term rehab and if she has concerns of safety at home because of weakness, she should be in terminal supervisor care with intermittent rehab services. Case management made aware. 08/05/2025 1455 Tatyana Ray PA-C---> Observation care revealed the the patient does not meet medical necessity for hospitalization. Final disposition of discharge home with VNA services discussed with the patient who verbalized understanding and agreement. Patient completed observation care at 1455 on 08/05/2025. Medications Administered Generic Name Dose Route Start Last Admin Trade Name Freq PRN Reason Stop Dose Admin Atorvastatin Calcium 20 mg 08/04/25 09:00 08/05/25 08:04 Atorvastatin Calcium 20 Mg Tablet PO 20 mg DAILY NAS Administration Levothyroxine Sodium 75 mcg 08/04/25 06:00 08/05/25 05:50 Levothyroxine Sodium 75 Mcg Tablet PO 75 mcg DAILY@0600 NAS Administration Discontinued Medications Generic Name Dose Route Start Last Admin Trade Name Freq PRN Reason Stop Dose Admin Melatonin 9 mg 08/05/25 00:07 08/05/25 00:19 Melatonin 3 Mg Tablet PO 08/05/25 00:08 9 mg ONCE ONE Administration Medical Decision Making Medical Decision Making [facility] Narrative: 84-year-old female with a history of congestive heart failure, COPD, anemia, hypothyroidism, CKD, hypertension, hyperlipidemia presents the ER with complaints of generalized weakness since yesterday. Of note patient was admitted for pneumonia in June and was discharged home on oxygen and with oral antibiotics. She declined short-term rehab on discharge. No current cough, chest pain, shortness of breath, leg swelling, leg pain, abdominal pain, fevers, chills, neck pain, neck stiffness. Lives in senior housing. Currently has in home PT, OT and VNA services. Normal neuro exam with no focal deficits vitals are stable will obtain EKG, viral testing, CXR, labs,UA Differential Diagnosis Differential Diagnoses: The differential diagnosis associated with the presentation includes Anemia, Metabolic cause, ACS, underlying infection Doubt GB, MG, ICH Admission/Observation Consideration of admission/observation: Escalation of care including admission/observation considered Lab Data MDM Lab Attestation statement: I reviewed the patient's lab results. 08/03/25 14:53 08/03/25 14:53 Labs: Lab Results 08/03/25 08/03/25 08/03/25 Range/Units 14:53 15:18 20:12 WBC 6.0 (4.8-10.8) X10*3/uL RBC 4.15 L (4.20-5.50) X10*6/uL Hgb 11.9 L (12.0-16.0) g/dl Hct 36.9 L (37.0-47.0) % MCV 88.9 (80.0-98.0) fL MCH 28.7 (27.0-33.0) pg MCHC 32.2 (31.0-35.0) g/dl RDW 13.5 (11.0-16.0) % Plt Count 230 D (160-400) X10*3/uL MPV 10.3 (9.4-12.3) fL Immature Gran % (Auto) 0.2 (0.0-0.4) % Neut % (Auto) 71.9 (45-73) % Lymph % (Auto) 13.6 L (20-40) % [place] % (Auto) 11.1 H (2-11) % Eos % (Auto) 2.5 (0-4) % Baso % (Auto) 0.7 (0-2) % Lymph # (Auto) 0.8 L (1.2-4.9) X10*3/uL [place] # (Auto) 0.7 (0.1-1.2) X10*3/uL Eos # (Auto) 0.2 (0.0-0.4) X10*3/uL Baso # (Auto) 0.0 (0.0-0.2) X10*3/uL Abs Immat Gran (auto) 0.01 (0.00-0.03) X10*3/uL Absolute Neuts (auto) 4.3 (2.0-8.3) x10*3/uL Absolute Nucleated RBC 0.000 (0.0-0.012) X10*3/uL Nucleated RBC % (auto) 0.0 (0.0-0.2) /100WBC Sodium 138 (135-145) mmol/L Potassium 4.3 (3.3-5.1) mmol/L Chloride 106 (96-108) mmol/L Carbon Dioxide 22 (22-29) mmol/L Anion Gap 14 (12-20) BUN 19 H (9-16) mg/dL Creatinine 1.18 (0.5-1.4) mg/dL Estim Creat Clear Calc 30.3 Estimated GFR 43 Random Glucose 83 (60-115) mg/dL Calcium 9.8 D (8.4-10.2) mg/dL Magnesium 1.9 (1.6-2.6) mg/dL Total Bilirubin 0.4 (0.0-1.0) mg/dL AST 29 (5-31) U/L ALT 13 (0-31) U/L Alkaline Phosphatase 49 (39-117) U/L Troponin I High Sens 5.7 (<3.5-17.0) ng/L Total Protein 7.5 (6.5-8.0) g/dL Albumin 3.4 L (3.5-5.0) g/dL Urine Color Yellow Urine Appearance Clear Urine pH 5.5 (5.0-9.0) Ur Specific [place] 1.010 (1.005-1.025) Urine Protein Negative (Neg-Trace) mg/dL Urine Glucose (UA) Negative (Negative) mg/dL Urine Ketones Trace (Negative) mg/dL Urine Blood Negative (Negative) Urine Nitrite Negative (Negative) Ur Leukocyte Esterase Negative (Negative) Influenza Type A (PCR) NEGATIVE (Negative) Influenza Type B (PCR) NEGATIVE (Negative) RSV RNA Qual (PCR) NEGATIVE (Negative) SARS-CoV-2 RNA (RT-PCR) NEGATIVE (Negative) Independent Interpretation I performed an independent interpretation of an: EKG and Plain X-Ray Interpretation: I independently reviewed the x-ray and agree with the radiology report I independently reviewed the EKG which shows normal sinus rhythm with a rate of 84, normal NH, Radiology Impression Discussion of test interpretation with radiology: I have reviewed the radiologist's reading. Radiologist Impression: [address] [address] XRay Report Signed Patient: Josephine Gutierrez MR#: [id number] : 1940 Acct:[id number] Age/Sex: 84 / F ADM Date: 08/03/25 Loc: .ED Attending Dr: Ordering Physician: Tatyana Ray Date of Service: 08/03/25 Procedure(s): XR chest 1V Accession Number(s): [id number] cc: Yoana Moreno MD; Tatyana Ray~ Reason for Exam: cough, SOB CLINICAL HISTORY: cough, SOB 1 view chest x-ray Comparison: CR/SR - XR CHEST 2 VIEWS - 07/23/25 12:05 EST CR/SR - XR CHEST 2 VIEWS - 07/07/25 14:42 EDT CR/SR - XR CHEST 1 VIEW - 06/16/25 08:13 EDT Findings: Lungs are hyperinflated with diffuse reticular nodular pattern, as on prior studies. No pleural effusion. Cardiomediastinal silhouette is stable. No acute fracture. IMPRESSION: Stable chronic airspace disease findings compared to prior examination. No acute consolidation or pleural effusion. Independent Historian Clinical information obtained from an independent historian. History obtained from or confirmed by: EMS Discharge Plan Discharge Clinical Impression: Fall from chair, initial encounter Head contusion Qualifiers: Encounter type: initial encounter Contusion of head detail: scalp Qualified Code(s): S00.03XA - Contusion of scalp, initial encounter Patient Disposition: Home, Self-Care Prescriptions: No Action atorvastatin 20 mg tablet 20 mg PO BEDTIME levothyroxine 75 mcg tablet 75 mcg PO DAILY@0600 Referrals: Maite Farias [Outside] Yoana Moreno MD [Primary Care Provider, Internal Medicine] Print Language: Chinese
[2025-08-03 15:01] LABS: Hematocrit 36.9 % (37.0-47.0); Hemoglobin 11.9 g/dl (12.0-16.0); Imm Gran Abs Auto 0.01 X10*3/uL (0.00-0.03); Imm Gran Pct Auto 0.2 % (0.0-0.4); Lymphocytes Absolute Auto 0.8 X10*3/uL (1.2-4.9); MANUAL DIFF FLAG NO; Mean Corpuscular HGB Conc 32.2 g/dl (31.0-35.0); Mean Corpuscular Hemoglobin 28.7 pg (27.0-33.0); Mean Corpuscular Volume 88.9 fL (80.0-98.0); NRBC Abs Auto 0.000 X10*3/uL (0.0-0.012); NRBC Pct Auto 0.0 /100WBC (0.0-0.2); Platelet Count 230 X10*3/uL (160-400); Red Blood Count 4.15 X10*6/uL (4.20-5.50); White Blood Count 6.0 X10*3/uL (4.8-10.8)
[2025-08-03 15:16] LABS: Alanine Aminotransferase 13 U/L (0-31); Albumin Level 3.4 g/dL (3.5-5.0); Alkaline Phosphatase 49 U/L (39-117); Anion Gap 14 (12-20); Aspartate Amino Transferase 29 U/L (5-31); Blood Urea Nitrogen 19 mg/dL (9-16); Calcium 9.8 mg/dL (8.4-10.2); Carbon Dioxide 22 mmol/L (22-29); Chloride 106 mmol/L (96-108); Creatinine Clr Calc Pharmacy 30.3; Estimated Glomerular Filt Rate 43; Magnesium 1.9 mg/dL (1.6-2.6); Potassium 4.3 mmol/L (3.3-5.1); Sodium 138 mmol/L (135-145); Total Protein 7.5 g/dL (6.5-8.0)
[2025-08-03 15:21] LABS: Troponin-I High Sensitivity 5.7 ng/L (<3.5-17.0)
--- OUTSIDE RECORDS SUMMARY | 2025-08-03 15:34 | XMS_ITS | Clinical Summary ---
Author Organization [address] [facility] Address [address] [place] [address] Phone Care Team Providers Care Solid Waste Analyst Name Role Phone Yoana Moreno MD Primary Care Provider Encounters Date Type Department Care Team Description 07/02/2025 Lab Requisition [facility] - Main Lab [address] [place] [address] Yoana Moreno MD Essential (primary) [...] B12 and folate (07/02/2025 7:36 AM EDT) [facility] Vitamin B-12 1,290(H) 250 - 900 pcg/mL LAB CHEMISTRY METHOD 07/02/2025 1:17 PM EDT [facility] Folate 11.4 2.8 - 17.0 ng/ml LAB CHEMISTRY METHOD 07/02/2025 1:17 PM EDT [facility] Blood Venous blood specimen / Unknown Venipuncture / Unknown 07/02/2025 7:36 AM EDT 07/02/2025 10:41 AM EDT us Yoana Moreno MD LAB BLOOD ORDERABLES Final Result [facility] [address] [place] [address], * (ABNORMAL) Lipid panel with reflex to direct LDL (07/02/2025 7:36 AM EDT) [facility] Cholesterol 176 0 - 200 mg/dL LAB CHEMISTRY METHOD 07/02/2025 1:17 PM EDT [facility] Triglycerides 89 0 - 150 mg/dL LAB CHEMISTRY METHOD 07/02/2025 1:17 PM EDT [facility] HDL 47 >=40 mg/dL LAB CHEMISTRY METHOD 07/02/2025 1:17 PM EDT [facility] LDL Calculated 111(H) 0 - 100 mg/dL LAB CHEMISTRY METHOD 07/02/2025 1:17 PM EDT [facility] Comment:Estimated LDL Calcul ated using equation: Total cholesterol - HDL cholesterol - (Triglycerides/5) VLDL Cholesterol Rod 17.8 mg/dL LAB CHEMISTRY METHOD 07/02/2025 1:17 PM EDT [facility] Non HDL Chol. (LDL+VLDL) 129 <145 mg/dL LAB CHEMISTRY METHOD 07/02/2025 1:17 PM EDT [facility] Chol/HDL Ratio 3.7 0.0 - 4.4 LAB CHEMISTRY METHOD 07/02/2025 1:17 PM EDT [facility] Blood Venous blood specimen / Unknown Venipuncture / Unknown 07/02/2025 7:36 AM EDT 07/02/2025 10:41 AM EDT Yoana Moreno MD LAB BLOOD ORDERABLES Final Result [facility] [address] [place] [address], [place] [phone] * (ABNORMAL) Iron and TIBC (07/02/2025 7:36 AM EDT) Iron 40 40 - 150 mcg/dL LAB CHEMISTRY METHOD 07/02/2025 1:17 PM EDT [facility] TIBC 220(L) 250 - 450 mcg/dL LAB CHEMISTRY METHOD 07/02/2025 1:17 PM EDT [facility] Iron Saturation 18 15 - 50 % LAB CHEMISTRY METHOD 07/02/2025 1:17 PM EDT [facility] Blood Venous blood specimen / Unknown Venipuncture / Unknown 07/02/2025 7:36 AM EDT 07/02/2025 10:41 AM EDT Yoana Moreno MD LAB BLOOD ORDERABLES Final Result [facility] [address] [place] [address], [place] [phone] * (ABNORMAL) Complete blood count (07/02/2025 7:36 AM EDT) WBC 7.6 4.8 - 10.8 K/mcL LAB HEMETOLOGY METHOD 07/02/2025 11:07 AM [facility] RBC 4.00 3.80 - 4.80 M/mcL LAB HEMETOLOGY METHOD 07/02/2025 11:07 AM [facility] Hemoglobin 11.2(L) 11.5 - 16.0 g/dL LAB HEMETOLOGY METHOD 07/02/2025 11:07 AM [facility] Hematocrit 36.4 35.0 - 47.0 % LAB HEMETOLOGY METHOD 07/02/2025 11:07 AM [facility] MCV 92.2 79.0 - 98.0 FL LAB HEMETOLOGY METHOD 07/02/2025 11:07 AM [facility] MCH 28.4 27.0 - 32.0 pcg LAB HEMETOLOGY METHOD 07/02/2025 11:07 AM [facility] MCHC 30.8(L) 32.0 - 37.0 g/dL LAB HEMETOLOGY METHOD 07/02/2025 11:07 AM [facility] RDW 12.3 11.0 - 15.0 % LAB HEMETOLOGY METHOD 07/02/2025 11:07 AM [facility] Platelets 384 130 - 400 K/mcL LAB HEMETOLOGY METHOD 07/02/2025 11:07 AM [facility] MPV 10.2 7.0 - 11.0 FL LAB HEMETOLOGY METHOD 07/02/2025 11:07 AM [facility] NRBC 0.0 <1.0 % LAB HEMETOLOGY METHOD 07/02/2025 11:07 AM [facility] NRBC Absolute 0.00 <0.10 K/mcL LAB HEMETOLOGY METHOD 07/02/2025 11:07 AM [facility] Blood Venous blood specimen / Unknown Venipuncture / Unknown 07/02/2025 7:36 AM EDT 07/02/2025 10:41 AM EDT Yoana Moreno MD LAB BLOOD ORDERABLES Final Result Performing Organization Address [facility]/ZIP Co de Phone Number [facility] [address] [place] [address], [place] [phone] * Triiodothyronine free (07/02/2025 7:36 AM EDT) T3, Free 248 230 - 420 pcg/dL LAB CHEMISTRY METHOD 07/02/2025 2:04 PM EDT [facility] Blood Venous blood specimen / Unknown Venipuncture / Unknown 07/02/2025 7:36 AM EDT 07/02/2025 10:41 AM EDT Yoana Moreno MD LAB BLOOD ORDERABLES Final Result Performing Organization Address [facility]/ZIP Co de Phone Number [facility] [address] [place] [address], [place] [phone] * Thyroid stimulating hormone (07/02/2025 7:36 AM EDT) [facility] TSH 2.09 0.40 - 4.00 mcIU/mL LAB CHEMISTRY METHOD 07/02/2025 2:04 PM EDT [facility] Blood Venous blood specimen / Unknown Venipuncture / Unknown 07/02/2025 7:36 AM EDT 07/02/2025 10:41 AM EDT us Yoana Moreno MD LAB BLOOD ORDERABLES Final Result Performing Organization Address City/[facility]/ZIP Co de Phone Number [facility] [address] [place] [address], [place] [phone] * Thyroxine free (07/02/2025 7:36 AM EDT) Free T4 1.44 0.70 - 1.80 ng/dL LAB CHEMISTRY METHOD 07/02/2025 2:03 PM EDT [facility] Blood Venous blood specimen / Unknown Venipuncture / Unknown 07/02/2025 7:36 AM EDT 07/02/2025 10:41 AM EDT Yoana Moreno MD LAB BLOOD ORDERABLES Final Result [facility] [address] [place] [address], [place] [phone] * B-type natriuretic peptide (07/02/2025 7:36 AM EDT) [facility] BNP 37 <=100 pcg/mL LAB CHEMISTRY METHOD 07/02/2025 11:59 AM EDT [facility] Blood Venous blood specimen / Unknown Venipuncture / Unknown 07/02/2025 7:36 AM EDT 07/02/2025 10:41 AM EDT us Yoana Moreno MD LAB BLOOD ORDERABLES Final Result Performing Organization Address [facility]/ZIP Co de Phone Number [facility] [address] [place] [address], [place] [phone] * Ferritin (07/02/2025 7:36 AM EDT) [facility] Ferritin 227 8 - 252 ng/mL LAB CHEMISTRY METHOD 07/02/2025 1:17 PM EDT [facility] Blood Venous blood specimen / Unknown Venipuncture / Unknown 07/02/2025 7:36 AM EDT 07/02/2025 10:41 AM EDT us Yoana Moreno MD LAB BLOOD ORDERABLES Final Result [facility] [address] [place] [address], [place] [phone] * (ABNORMAL) Comprehensive metabolic panel (07/02/2025 7:36 [...] 73m2 LAB CHEMISTRY METHOD 07/02/2025 1:17 PM [facility] Comment:Calculation based on the Chronic Kidney Disease Epidemiology Collaboration (CKD-EPI) equation refit without adjustment for race. BUN/Creatinine Ratio 12.7 LAB CHEMISTRY METHOD 07/02/2025 1:17 PM [facility] Calcium 9.4 8.5 - 10.5 mg/dL LAB CHEMISTRY METHOD 07/02/2025 1:17 PM [facility] AST (SGOT) 20 10 - 42 unit/L LAB CHEMISTRY METHOD 07/02/2025 1:17 PM EDT [facility] ALT (SGPT) 18 10 - 60 unit/L LAB CHEMISTRY METHOD 07/02/2025 1:17 PM EDT [facility] Alkaline Phosphatase 55 42 - 121 unit/L LAB CHEMISTRY METHOD 07/02/2025 1:17 PM EDT [facility] Total Protein 6.9 6.0 - 8.0 g/dL LAB CHEMISTRY METHOD 07/02/2025 1:17 PM EDT [facility] Albumin 2.7(L) 3.2 - 5.0 g/dL LAB CHEMISTRY METHOD 07/02/2025 1:17 PM EDT [facility] Total Bilirubin 0.4 0.0 - 1.4 mg/dL LAB CHEMISTRY METHOD 07/02/2025 1:17 PM EDT [facility] Blood Venous blood specimen / Unknown Venipuncture / Unknown 07/02/2025 7:36 AM EDT 07/02/2025 10:41 AM EDT us Yoana Moreno MD LAB BLOOD ORDERABLES Final Result [facility] [address] [place] [address], from Last 3 Months Insurance [facility]IC[facility] Care Teams Solid Waste Analyst Relationship Specialty Start Date End Date Yoana Moreno MD [address] [facility] [place] [address] PCP - General Internal Medicine 10/16/24
--- OUTSIDE RECORDS SUMMARY | 2025-08-03 15:34 | XMS_ITS | Patient Health Record ---
Author Organization [facility] Address [address] [place] [id number] Care Team Providers Care Senior Case Manager Name Role Phone CarreraBrian Unavailable [phone] Reason For Referral No Information Plan Of Treatment No Information
--- OUTSIDE RECORDS SUMMARY | 2025-08-03 15:34 | XMS_ITS | Encounter Summary ---
Author Organization [facility] Address [address] [place] [address] Care Team Providers Care Step Down Specialist Name Role Phone Yoana Moreno MD Primary Care Provider [phone] Encounter Details Date Type Department Care Team (Late st Contact Info) Description 10/16/2024 Lab Requisition [facility] - Main Lab [address] [facility] [place] [address] Yoana Moreno MD [address] [place] [address] Pure hypercholesterolemia, unspecified; Chronic kidney disease, stage [...] LAB Eosinophils Absolute 0.15 0.00 - 0.50 K/[facility] LAB HEMETOLOGY METHOD 10/16/2024 11:39 AM EST [facility] LAB Basophils Absolute 0.06 0.00 - 0.20 K/[facility] LAB HEMETOLOGY METHOD 10/16/2024 11:[address] [facility] Immature Granulocytes Absolute 0.02 0.00 - 0.03 K/[facility] LAB HEMETOLOGY METHOD 10/16/2024 11:[address] [facility] Blood Venous blood specimen / Unknown Venipuncture / Unknown 10/16/2024 7:44 AM EST 10/16/2024 11:20 AM EST Yoana Moreno MD LAB BLOOD ORDERABLES Final Result Performing Organization Address City/[facility]/ZIP Co de Phone Number [facility] LAB [address] [place] [address], [place] [phone] * Iron and TIBC (10/16/2024 7:44 AM [...] [facility] [address] [place] [address], * Thyroid stimulating hormone (10/16/2024 7:44 AM EST) TSH 2.69 0.40 - 4.00 mcIU/mL LAB CHEMISTRY METHOD 10/16/2024 1:05 PM EST [facility] Blood Venous blood specimen / Unknown Venipuncture / Unknown 10/16/2024 7:44 AM EST 10/16/2024 11:20 AM EST Yoana Moreno MD LAB BLOOD ORDERABLES Final Result [facility] [address] [place] [address], * Thyroxine free (10/16/2024 7:44 AM EST) Free T4 1.32 0.70 - 1.80 ng/dL LAB CHEMISTRY METHOD 10/16/2024 1:05 PM EST [facility] Blood Venous blood specimen / Unknown Venipuncture / Unknown 10/16/2024 7:44 AM EST 10/16/2024 11:20 AM EST Yoana Moreno MD LAB BLOOD ORDERABLES Final Result [facility] [address] [place] [address], [place] [phone] * (ABNORMAL) Folate (10/16/2024 7:44 AM EST) Folate 18.1(H) 2.8 - 17.0 ng/ml LAB CHEMISTRY METHOD 10/16/2024 1:17 PM EST [facility] Blood Venous blood specimen / Unknown Venipuncture / Unknown 10/16/2024 7:44 AM EST 10/16/2024 11:20 AM EST Yoana Moreno MD LAB BLOOD ORDERABLES Final Result Performing Organization Address City/[facility]/ZIP Co de Phone Number [facility] [address] [place] [address], [place] [phone] * Vitamin B12 (10/16/2024 7:44 AM EST) Vitamin B-12 810 250 - 900 pcg/mL LAB CHEMISTRY METHOD 10/16/2024 1:17 PM EST [facility] Blood Venous blood specimen / Unknown Venipuncture / Unknown 10/16/2024 7:44 AM EST 10/16/2024 11:20 AM EST Yoana Moreno MD LAB BLOOD ORDERABLES Final Result Performing Organization Address [facility] Co de Phone Number [facility] [address] [place] [address], * Vitamin D 25 hydroxy (10/16/2024 7:44 AM EST) Vit D, 25-Hydroxy 32.8 30.0 - 80.0 ng/mL LAB CHEMISTRY METHOD 10/16/2024 1:04 PM EST [facility] Blood Venous blood specimen / Unknown Venipuncture / Unknown 10/16/2024 7:44 AM EST 10/16/2024 11:20 AM EST Yoana Moreno MD LAB BLOOD ORDERABLES Final Result Performing Organization Address City/[facility]/ZIP Co de Phone Number [facility] [address] [place] [address], [place] [phone] * Aspartate aminotransferase (10/16/2024 7:44 AM EST) AST (SGOT) 16 10 - 42 unit/L LAB CHEMISTRY METHOD 10/16/2024 12:54 PM EST [facility] Blood Venous blood specimen / Unknown Venipuncture / Unknown 10/16/2024 7:44 AM EST 10/16/2024 11:20 AM EST us Yoana Moreno MD LAB BLOOD ORDERABLES Final Result [facility] [address] [place] [address], [place] [phone] * Alanine aminotransferase (10/16/2024 7:44 AM EST) ALT (SGPT) 20 10 - 60 unit/L LAB CHEMISTRY METHOD 10/16/2024 12:[address] [facility] Blood Venous blood specimen / Unknown Venipuncture / Unknown 10/16/2024 7:44 AM EST 10/16/2024 11:20 AM EST Yoana Moreno MD LAB BLOOD ORDERABLES Final Result Performing Organization Address City/[facility]/ZIP Co de Phone Number [facility] [address] [place] [address], [place] [phone] * (ABNORMAL) Basic metabolic panel (10/16/2024 7:44 [...] [facility] [address] [place] [address], * (ABNORMAL) Lipid panel with reflex to [...] [facility] [address] [place] [address], documented in this encounter Visit Diagnoses Diagnosis Pure hypercholesterolemia, unspecified Chronic kidney disease, stage 3 unspecified (CMS/HCC V24, CMS/HCC V28) Essential (primary) hypertension Unspecified essential hypertension Hypothyroidism, unspecified Vitamin D deficiency, unspecified Anemia, unspecified documented in this encounter Care Teams Step Down Specialist Relationship Specialty Start Date End Date Yoana Moreno MD [address] [place] [address] PCP - General Internal Medicine 10/16/24 documented as of this encounter
--- OUTSIDE RECORDS SUMMARY | 2025-08-03 15:34 | XMS_ITS | Patient Health Record ---
Author Organization [facility] Address [address] [place] [address] Care Team Providers Care Manager Contact Name Role Phone Josh JANG, Yoana Lopez Primary Care Provider Un available Black, Bere Unavailable [phone] Allergies Allergen (clinical drug ingredient) Drug/Non Drug [...] Problem Acquired hammer toe of right foot ([id number] 105) Other hammer toe(s) (acquired), right foot (M20.41) Active confirmed Plan Of Treatment Pending Test Test Name Order Date [id number] NAIL, 1-5 02/09/2017 Insurance Providers Payer Name Payer Address Payer Phone Subscriber Number Group Number Insured Name Patient Relationship to Insured Coverage Start Date Coverage End Date [employer] Medicare Adv-[id number] [address] [address] [place] [address] [id number] Josephine Scales Self - patient is the insured Medical (General) History Medical History History ICD Code Broken bones CAD (Cholesterol) Cataracts Diverticulitis Macular degeneration Osteoporosis Thyroid disorder Surgical History Surgery Date(Month/Year) breast biopsy cataract surgery
--- OUTSIDE RECORDS SUMMARY | 2025-08-03 15:34 | XMS_ITS | Encounter Summary ---
Author Organization [facility] Address [address] [place] [address] Care Team Providers Care Marketing Programs Manager Name Role Phone Yoana Moreno MD Primary Care Provider Encounter Details Date Type Department Care Team (Late st Contact Info) Description 07/02/2025 Lab Requisition [facility] - Main Lab [address] [facility] [place] [address] Yoana Moreno MD [address] [place] [address] Essential (primary) hypertension; Pure hypercholesterolemia, unspecified; Hypothyroidism, [...] mmol/L LAB CHEMISTRY METHOD 07/02/2025 1:17 PM [facility] LAB Potassium 4.3 3.5 - 5.5 mmol/L LAB CHEMISTRY METHOD 07/02/2025 1:17 PM [facility] LAB Chloride 101 96 - 110 mmol/L LAB CHEMISTRY METHOD 07/02/2025 1:17 PM [facility] CO2 24 21 - 32 mmol/L LAB CHEMISTRY METHOD 07/02/2025 1:17 PM [facility] Anion Gap 10 3 - 11 LAB CHEMISTRY METHOD 07/02/2025 1:17 PM [facility] Glucose 71 70 - 100 mg/dL LAB CHEMISTRY METHOD 07/02/2025 1:17 PM [facility] BUN 18 5 - 25 mg/dL LAB CHEMISTRY METHOD 07/02/2025 1:17 PM [facility] Creatinine 1.42(H) 0.50 - 1.10 mg/dL LAB CHEMISTRY METHOD 07/02/2025 1:17 PM [facility] LAB eGFR 36(L) >=60 mL/min/1. 73m2 LAB CHEMISTRY METHOD 07/02/2025 1:17 PM T [facility] Comment:Calculation based on the Chronic Kidney Disease Epidemiology Collaboration (CKD-EPI) equation refit without adjustment for race. BUN/Creatinine Ratio 12.7 LAB CHEMISTRY METHOD 07/02/2025 1:17 PM [facility] Calcium 9.4 8.5 - 10.5 mg/dL LAB CHEMISTRY METHOD 07/02/2025 1:17 PM [facility] LAB AST (SGOT) 20 10 - 42 unit/L LAB CHEMISTRY METHOD 07/02/2025 1:17 PM [facility] ALT (SGPT) 18 10 - 60 unit/L LAB CHEMISTRY METHOD 07/02/2025 1:17 PM [facility] Alkaline Phosphatase 55 42 - 121 unit/L LAB CHEMISTRY METHOD 07/02/2025 1:17 PM [facility] Total Protein 6.9 6.0 - 8.0 g/dL LAB CHEMISTRY METHOD 07/02/2025 1:17 PM [facility] Albumin 2.7(L) 3.2 - 5.0 g/dL LAB CHEMISTRY METHOD 07/02/2025 1:17 PM [facility] Total Bilirubin 0.4 0.0 - 1.4 mg/dL LAB CHEMISTRY METHOD 07/02/2025 1:17 PM [facility] Blood Venous blood specimen / Unknown Venipuncture / Unknown 07/02/2025 7:36 AM EDT 07/02/2025 10:41 AM EDT us Yoana Moreno MD LAB BLOOD ORDERABLES Final Result [facility] [address] [place] [address], [place] [phone] * (ABNORMAL) Lipid panel with reflex to [...] Final Result [facility] [address] [place] [address], * Thyroid stimulating hormone (07/02/2025 7:36 AM EDT) Pathologist [facility] TSH 2.09 0.40 - 4.00 mcIU/mL LAB CHEMISTRY METHOD 07/02/2025 2:04 PM EDT [facility] Blood Venous blood specimen / Unknown Venipuncture / Unknown 07/02/2025 7:36 AM EDT 07/02/2025 10:41 AM EDT us Yoana Moreno MD LAB BLOOD ORDERABLES Final Result Performing Organization Address [facility] Co de Phone Number [facility] [address] [place] [address], [place] [phone] * (ABNORMAL) Iron and TIBC (07/02/2025 7:36 [...] BLOOD ORDERABLES Final Result Performing Organization Address [facility] de Phone Number [facility] [address] [place] [address], [place] [phone] * Thyroxine free (07/02/2025 7:36 AM EDT) Free T4 1.44 0.70 - 1.80 ng/dL LAB CHEMISTRY METHOD 07/02/2025 2:03 PM EDT [facility] Blood Venous blood specimen / Unknown Venipuncture / Unknown 07/02/2025 7:36 AM EDT 07/02/2025 10:41 AM EDT us Yoana Moreno MD LAB BLOOD ORDERABLES Final Result Performing Organization Address City/[facility]/ZIP Co de Phone Number [facility] [address] [place] [address], [place] [phone] * (ABNORMAL) Vitamin B12 and folate (07/02/2025 7:36 AM EDT) [facility] Vitamin B-12 1,290(H) 250 - [...] BLOOD ORDERABLES Final Result Performing Organization Address City/[facility]/ZIP Co de Phone Number [facility] [address] [place] [address], [place] [phone] * Ferritin (07/02/2025 7:36 AM EDT) [facility] Ferritin 227 8 - 252 ng/mL LAB CHEMISTRY METHOD 07/02/2025 1:17 PM EDT [facility] Blood Venous blood specimen / Unknown Venipuncture / Unknown 07/02/2025 7:36 AM EDT 07/02/2025 10:41 AM EDT us Yoana Moreno MD LAB BLOOD ORDERABLES Final Result [facility] [address] [place] [address], [place] [phone] * Triiodothyronine free (07/02/2025 7:36 AM EDT) [facility] T3, Free 248 230 - 420 pcg/dL LAB CHEMISTRY METHOD 07/02/2025 2:04 PM EDT [facility] Blood Venous blood specimen / Unknown Venipuncture / Unknown 07/02/2025 7:36 AM EDT 07/02/2025 10:41 AM EDT Yoana Moreno MD LAB BLOOD ORDERABLES Final Result [facility] [address] [place] [address], [place] [phone] * B-type natriuretic peptide (07/02/2025 7:36 AM EDT) Pathologist [facility] BNP 37 <=100 pcg/mL LAB CHEMISTRY METHOD 07/02/2025 11:59 AM EDT [facility] Blood Venous blood specimen / Unknown Venipuncture / Unknown 07/02/2025 7:36 AM EDT 07/02/2025 10:41 AM EDT Yoana Moreno MD LAB BLOOD ORDERABLES Final Result [facility] [address] [place] [address], [place] [phone] * (ABNORMAL) Complete blood count (07/02/2025 7:36 AM EDT) WBC 7.6 4.8 - 10.8 K/mcL LAB HEMETOLOGY METHOD 07/02/2025 11:07 AM EDT [facility] RBC 4.00 3.80 - 4.80 M/[facility] LAB HEMETOLOGY METHOD 07/02/2025 11:07 AM EDT [facility] Hemoglobin 11.2(L) 11.5 - 16.0 g/dL LAB HEMETOLOGY METHOD 07/02/2025 11:07 AM EDT [facility] Hematocrit 36.4 35.0 - 47.0 % LAB HEMETOLOGY METHOD 07/02/2025 11:07 AM EDT [facility] MCV 92.2 79.0 - 98.0 FL LAB HEMETOLOGY METHOD 07/02/2025 11:07 AM EDT [facility] MCH 28.4 27.0 - 32.0 pcg LAB HEMETOLOGY METHOD 07/02/2025 11:07 AM EDT [facility] MCHC 30.8(L) 32.0 - 37.0 g/dL LAB HEMETOLOGY METHOD 07/02/2025 11:07 AM EDT [facility] RDW 12.3 11.0 - 15.0 % LAB HEMETOLOGY METHOD 07/02/2025 11:07 AM EDT [facility] Platelets 384 130 - 400 K/mcL LAB HEMETOLOGY METHOD 07/02/2025 11:07 AM EDT [facility] MPV 10.2 7.0 - 11.0 FL LAB HEMETOLOGY METHOD 07/02/2025 11:07 AM EDT [facility] NRBC 0.0 <1.0 % LAB HEMETOLOGY METHOD 07/02/2025 11:07 AM EDT [facility] NRBC Absolute 0.00 <0.10 K/mcL LAB HEMETOLOGY METHOD 07/02/2025 11:07 AM [facility] Blood Venous blood specimen / Unknown Venipuncture / Unknown 07/02/2025 7:36 AM EDT 07/02/2025 10:41 AM EDT us Yoana Moreno MD LAB BLOOD ORDERABLES Final Result [facility] [address] [place] [address], documented in this encounter Visit Diagnoses Diagnosis Essential (primary) hypertension Unspecified essential hypertension Pure hypercholesterolemia, unspecified Hypothyroidism, unspecified Vitamin D deficiency, unspecified Chronic kidney disease, stage 3 unspecified (CMS/HCC V24, CMS/HCC V28) Anemia, unspecified Other fatigue documented in this encounter Care Teams Marketing Programs Manager Relationship Specialty Start Date End Date Yoana Moreno MD [address] [place] [address] PCP - General Internal Medicine 10/16/24 documented as of this encounter
[2025-08-03 16:01] LABS: Resp Syncy Virus RNA Qual PCR NEGATIVE (Negative); SARS COV2 PCR INHOUSE NEGATIVE (Negative)
[2025-08-03 17:07] VITALS: BP 154/75; PULSE 81; RESP 20; TEMP 36.6; O2SAT 100
[2025-08-03 20:22] LABS: Appearance Urine Clear; Glucose Urine UA Negative (Negative); PH 5.5 (5.0-9.0); Specific Gravity - Urine 1.010 (1.005-1.025)
[2025-08-03 22:13] VITALS: BP 157/68; PULSE 76; RESP 18; TEMP 36.4; O2SAT 99
[2025-08-04 04:50] VITALS: BP 145/82; PULSE 77; RESP 18; TEMP 36.5; O2SAT 98
[2025-08-04 08:46] VITALS: BP 135/75; PULSE 89; RESP 16; TEMP 36.6; O2SAT 97
--- NOTE | 2025-08-04 09:54 | MHC.CM.ED ---
Addendum entered by Michelle Oro 08/04/25 10:06: Patient is active with [facility]. Original Note: Received case management consult overnight. Patient came to the ER due to shortness of breath. Work up essentially negative. Physical therapy eval completed. Short term rehab is recommended. Met with patient in regards to discharge planning. Patient lives alone at [facility], uses a walker for mobility and has oxygen through [facility]. PCP verified. Copy of HCP verified to be on file. STR choices: 1) [facility] 2 [facility]. [facility]. Continue to monitor for d/c needs.
--- NOTE | 2025-08-04 11:13 | PHA.MEDREC ---
Addendum entered by Glenroy Choudhury RPh 08/04/25 11:34: MED REC REVIEWED BY [facility] Original Note: Pharmacy Consult ? Medication Reconciliation Pharmacy reviewed med rec done by nursing. Spoke with pt and she confirmed her medications. Pt only taking Atorvastatin once at bedtime and Levothyroxine once in the morning and nothing else at this time for medications.
--- NOTE | 2025-08-04 11:59 | MHC.CM.ED ---
[facility]ina Kumar is not contracted with patient's insurance. [facility] does not have a bed. Referral broadcasted locally. [facility], [place], [facility], [facility], [facility], [facility], and [facility] are able to offer a bed. Bed offers discussed with patient. Patient accepts a bed at [facility]. [facility] is in the process of obtaining insurance auth. Continue to monitor for d/c needs.
[2025-08-04 15:00] VITALS: BP 126/64; PULSE 78; RESP 16; TEMP 36.5; O2SAT 99
[2025-08-04 21:16] VITALS: BP 161/86; PULSE 83; RESP 20; TEMP 36.6; O2SAT 97
--- NOTE | 2025-08-04 23:55 | MHC.EDTECH ---
pt barely ate dinner only half sandwich and juice was consumed soup and snacks have not been touched
[2025-08-05 00:25] VITALS: PULSE 63; RESP 16; TEMP 36.4; O2SAT 98
[2025-08-05 08:34] VITALS: BP 138/71; PULSE 105; RESP 16; TEMP 36.1; O2SAT 99
--- NOTE | 2025-08-05 10:48 | MHC.CM.ED ---
Patient remains in ER overflow. Received voicemail from [facility]. director telemetry is requesting peer to peer telephone call. Tatyana MINOR made aware. Will have to call [phone], option 5. Continue to monitor for d/c needs.
[2025-08-05 14:00] VITALS: BP 121/71; PULSE 88; RESP 16; TEMP 36.8; O2SAT 96
--- NOTE | 2025-08-05 14:49 | MHC.CM.ED ---
[facility] has denied auth for [facility] [facility] [address]. Patient aware she has the right to appeal or d/c home with resumption of [facility]. Patient prefers to return home. [facility] made aware. Spoke with patient's niece, Jazmine, via telephone at [phone]. Jazmine was on her way to visit patient. Will transport patient home for d/c. Radha ZIEGLER and Tatyana MINOR aware. Continue to monitor for d/c needs.
[2025-08-05 15:10] VITALS: BP 121/71; PULSE 88; RESP 16; TEMP 36.8; O2SAT 96
== END 2025-08-05 15:16 | disposition home or self-care (01) ==
PROVIDERS: Nurse Practitioner Family; Physician Assistant Medical; Emergency Provider Emergency Medicine Emergency Medical Services; PCP Internal Medicine
DX: S00.03XA Contusion of scalp, initial encounter (principal); R26.81 Unsteadiness on feet; I45.10 Unspecified right bundle-branch block; R06.02 Shortness of breath; J44.9 Chronic obstructive pulmonary disease, unspecified; I10 Essential (primary) hypertension; W07.XXXA Fall from chair, initial encounter; Y93.9 Activity, unspecified; Y92.9 Unspecified place or not applicable; Y99.8 Other external cause status; Z03.818 Encounter for observation for suspected exposure to other biological agents ruled out; Z79.899 Other long term (current) drug therapy; Z87.891 Personal history of nicotine dependence; Z99.81 Dependence on supplemental oxygen
CPT/HCPCS: 71045; 80053; 81003; 83735; 84484; 85025; 87637; 93005; 97161; 99285

== ENCOUNTER → 2025-08-03 14:18 | Outpatient (BNV) | payer MEDICARE, SELFPAY | PROVIDERS: Emergency Provider Emergency Medicine Emergency Medical Services; PCP Internal Medicine; Visit Provider Radiology Vascular & Interventional Radiology | DX: R05.9 Cough, unspecified (principal); R06.02 Shortness of breath | CPT/HCPCS: 71045 ==

== ENCOUNTER → 2025-08-03 14:19 | Outpatient (BNV) | payer MEDICARE, SELFPAY | PROVIDERS: Emergency Provider Emergency Medicine Emergency Medical Services; PCP Internal Medicine; Visit Provider Internal Medicine Cardiovascular Disease | DX: I45.10 Unspecified right bundle-branch block (principal) | CPT/HCPCS: 93010 ==

== ENCOUNTER 2025-08-14 09:52 | Outpatient (AMB) | payer MEDICARE, SELFPAY ==
--- NOTE | 2025-08-14 10:39 | A.OFFVIS_ITS ---
Vital Signs 08/14/25 10:40 BP 126/70 Pulse Oximetry (%) 94 Oxygen Delivery Method Room Air Intake Visit Reasons: 6MWT Allergies latex Allergy (Verified 08/03/25 14:40) Rash meperidine (Demerol) Adverse Reaction (Unknown, Verified 08/03/25 14:40) dizziness [facility] Medical History COPD (chronic obstructive pulmonary disease) Fatigue Anemia Vitamin D deficiency Hx of iron deficiency anemia Fracture, intertrochanteric, right femur RBBB (right bundle branch block) Gallbladder polyp Bowel obstruction Tubular adenoma of colon History of herpes zoster Hyperlipidemia Essential hypertension Chronic kidney disease, stage 3 Acquired hypothyroidism Osteoporosis Surgical History History of open reduction and internal fixation (ORIF) procedure Hx of small bowel obstruction History of colonoscopy Hx of breast biopsy Family History Father Myocardial infarction Mother HTN (hypertension) Glaucoma Brother HTN (hypertension) Depression Mental health disorder Sister No problems noted. Social History Household Members: None Household Members Other:: Lives in assisted living Housing: Assisted Living Facility Housing Other:: [facility] Are you a primary youth care worker to a significant other at home: No Do you presently have visiting nurse or other home services: No Alcohol intake: never Patient Tobacco Use Status: Former Tobacco user Tobacco use type: Cigarette Years Smoked: 4 yrs e-Cigarette/Vaping Use: Never Used Second Hand Smoke Exposure: No (hx of) Advance Directives Date on File: 03/07/22 service: No Current occupational status: retired Cognitive needs: No Hearing needs: No Vision needs: Yes Physical Exam Vital Signs: Last Vital Signs BP 126/70 08/14/25 10:40 Pulse Ox 94 08/14/25 10:40 Oxygen Delivery Method Room Air 08/14/25 10:40 Office Procedures 6 Minute Walk Time:: 10:14 SPO2 % at rest: 94 Pulse at rest: 95 SPO2 % during excercise: 87 Pulse during excercise: 106 SPO2 % after excercise: 93 Pulse after excercise: 113 Distance in yards walked: 40 Sandeep Score: 6 Performance Observations:: Patient walked on level ground using a walker for balance. After approx 1.5 minutes O2 sat dropped to 87% with pulse of 106..O2 applied via poc setting #2 pulsed with return of O2 sat to 92-93% and pulse of 107. Patient completed the walk maintaining O2 sat of 92-94% with the pulsed O2 at setting #2 on poc. Patient did require the use of supplemental oxygen and did qualify for poc at setting #2 with exertion. [address] - 6 Minute Walk Assessment & Plan Assessment & Plan (1) COPD (chronic obstructive pulmonary disease): Code(s): J44.9 - Chronic obstructive pulmonary disease, unspecified Category: Medical Plan 6MWT Orders: Orders AMB 6 minute walk 08/14/25 J44.9 - Chronic obstructive pulmonary disease, unspecified Coding Level of Care Code Est Pt Level 1 (15417) Diagnoses COPD (chronic obstructive pulmonary disease) J44.9 CPT Codes Coding ([id number])
[2025-08-14 10:40] VITALS: BP 126/70; O2SAT 94
[2025-08-14 10:48] VITALS: PULSE 95; O2SAT 94
--- OUTSIDE RECORDS SUMMARY | 2025-08-14 11:31 | XMS_ITS | Patient Health Record ---
Author Organization [facility] Address [address] [place] [address] Care Team Providers Care [facility] Psychiatrist Name Role Phone Brian Carrera Unavailable [phone] Reason For Referral No Information Plan Of Treatment No Information
--- OUTSIDE RECORDS SUMMARY | 2025-08-14 11:31 | XMS_ITS | Patient Health Record ---
Author Organization [facility] Address [address] [place] [address] Care Team Providers Care Marketing Compliance Manager Name Role Phone Josh JANG, Yoana Lopez Primary Care Provider Un available Black, Bere Unavailable [phone] Allergies Allergen (clinical drug ingredient) Drug/Non Drug [...] Problem Acquired hammer toe of right foot ([id number] 105) Other hammer toe(s) (acquired), right foot (M20.41) Active confirmed Plan Of Treatment Pending Test Test Name Order Date [id number] NAIL, 1-5 02/09/2017 Insurance Providers Payer Name Payer Address Payer Phone Subscriber Number Group Number Insured Name Patient Relationship to Insured Coverage Start Date Coverage End Date [employer] Medicare [id number] [address] [address] [place] [address] [id number] Josephine Scales Self - patient is the insured Medical (General) History Medical History History ICD Code Broken bones CAD (Cholesterol) Cataracts Diverticulitis Macular degeneration Osteoporosis Thyroid disorder Surgical History Surgery Date(Month/Year) breast biopsy cataract surgery
--- OUTSIDE RECORDS SUMMARY | 2025-08-14 11:31 | XMS_ITS | Encounter Summary ---
Author Organization [facility] Address [address] [place] [id number] Care Team Providers Care Poultry Eviscerator Name Role Phone Yoana Moreno MD Primary Care Provider Encounter Details Date Type Department Care Team (Late st Contact Info) Description 10/16/2024 Lab Requisition [facility] - Main Lab [address] [facility] [place] [address] Yaona Moreno MD [address] [place] [address] Pure hypercholesterolemia, unspecified; Chronic kidney disease, stage [...] K/mcL LAB HEMETOLOGY METHOD 10/16/2024 11:39 AM [facility] RBC 4.40 3.80 - 4.80 M/mcL LAB HEMETOLOGY METHOD 10/16/2024 11:39 AM [facility] Hemoglobin 13.3 11.5 - 16.0 g/dL LAB HEMETOLOGY METHOD 10/16/2024 11:39 AM [facility] Hematocrit 41.6 35.0 - 47.0 % LAB HEMETOLOGY METHOD 10/16/2024 11:39 AM [facility] MCV 95.4 79.0 - 98.0 FL LAB HEMETOLOGY METHOD 10/16/2024 11:39 AM [facility] MCH 30.5 27.0 - 32.0 pcg LAB HEMETOLOGY METHOD 10/16/2024 11:39 AM [facility] MCHC 32.0 32.0 - 37.0 g/dL LAB HEMETOLOGY METHOD 10/16/2024 11:39 AM [facility] RDW 12.4 11.0 - 15.0 % LAB HEMETOLOGY METHOD 10/16/2024 11:39 AM [facility] Platelets 240 130 - 400 K/mcL LAB HEMETOLOGY METHOD 10/16/2024 11:39 AM [facility] MPV 10.2 7.0 - 11.0 FL LAB HEMETOLOGY METHOD 10/16/2024 11:39 AM [facility] NRBC 0.0 <1.0 % LAB HEMETOLOGY METHOD 10/16/2024 11:39 AM [facility] NRBC Absolute 0.00 <0.10 K/mcL LAB HEMETOLOGY METHOD 10/16/2024 11:39 AM [facility] Neutrophils Relative 65.3 % LAB HEMETOLOGY METHOD 10/16/2024 11:39 AM [facility] Lymphocytes Relative 19.5 % LAB HEMETOLOGY METHOD 10/16/2024 11:39 AM [facility] Monocytes Relative 10.9 % LAB HEMETOLOGY METHOD 10/16/2024 11:39 AM [facility] Eosinophils Relative 2.8 % LAB HEMETOLOGY METHOD 10/16/2024 11:39 AM [facility] Basophils Relative 1.1 % LAB HEMETOLOGY METHOD 10/16/2024 11:39 AM [facility] Immature Granulocytes Relative 0.4 % LAB HEMETOLOGY METHOD 10/16/2024 11:39 AM [facility] Neutrophils Absolute 3.49 1.50 - 7.00 K/mcL LAB HEMETOLOGY METHOD 10/16/2024 11:39 AM [facility] Lymphocytes Absolute 1.04 1.00 - 5.00 K/mcL LAB HEMETOLOGY METHOD 10/16/2024 11:39 AM [facility] Monocytes Absolute 0.58 0.20 - 1.00 K/mcL LAB HEMETOLOGY METHOD 10/16/2024 11:39 AM EST [facility] Eosinophils Absolute 0.15 0.00 - 0.50 K/[facility] LAB HEMETOLOGY METHOD 10/16/2024 11:39 AM EST [facility] LAB Basophils Absolute 0.06 0.00 - 0.20 K/[facility] LAB HEMETOLOGY METHOD 10/16/2024 11:39 AM [facility] Immature Granulocytes Absolute 0.02 0.00 - 0.03 K/[facility] LAB HEMETOLOGY METHOD 10/16/2024 11:39 AM [facility] Blood Venous blood specimen / Unknown Venipuncture / Unknown 10/16/2024 7:44 AM EST 10/16/2024 11:20 AM EST Yoana Moreno MD LAB BLOOD ORDERABLES Final Result Performing Organization Address City/[facility]/ZIP Co de Phone Number [facility] LAB [address] [place] [address], [place] [phone] * Iron and TIBC (10/16/2024 7:44 AM EST) Iron 78 40 - 150 mcg/dL LAB CHEMISTRY METHOD 10/16/2024 12:54 PM [facility] TIBC 305 250 - 450 mcg/dL LAB CHEMISTRY METHOD 10/16/2024 12:54 PM [facility] Iron Saturation 26 15 - 50 % LAB CHEMISTRY METHOD 10/16/2024 12:54 PM [facility] Blood Venous blood specimen / Unknown Venipuncture / Unknown 10/16/2024 7:44 AM EST 10/16/2024 11:20 AM EST us Yoana Moreno MD LAB BLOOD ORDERABLES Final Result [facility] [address] [place] [address], * Thyroid stimulating hormone (10/16/2024 7:44 AM EST) TSH 2.69 0.40 - 4.00 mcIU/mL LAB CHEMISTRY METHOD 10/16/2024 1:05 PM EST [facility] Blood Venous blood specimen / Unknown Venipuncture / Unknown 10/16/2024 7:44 AM EST 10/16/2024 11:20 AM EST Yoana Moreno MD LAB BLOOD ORDERABLES Final Result [facility] [address] [place] [address], * Thyroxine free (10/16/2024 7:44 AM EST) Free T4 1.32 0.70 - 1.80 ng/dL LAB CHEMISTRY METHOD 10/16/2024 1:05 PM EST [facility] Blood Venous blood specimen / Unknown Venipuncture / Unknown 10/16/2024 7:44 AM EST 10/16/2024 11:20 AM EST Yoana Moreno MD LAB BLOOD ORDERABLES Final Result [facility] [address] [place] [address], [place] [phone] * (ABNORMAL) Folate (10/16/2024 7:44 AM EST) Folate 18.1(H) 2.8 - 17.0 ng/ml LAB CHEMISTRY METHOD 10/16/2024 1:17 PM EST [facility] Blood Venous blood specimen / Unknown Venipuncture / Unknown 10/16/2024 7:44 AM EST 10/16/2024 11:20 AM EST Yoana Moreno MD LAB BLOOD ORDERABLES Final Result Performing Organization Address City/[facility]/ZIP Co de Phone Number [facility] [address] [place] [address], [place] [phone] * Vitamin B12 (10/16/2024 7:44 AM EST) Vitamin B-12 810 250 - 900 pcg/mL LAB CHEMISTRY METHOD 10/16/2024 1:17 PM EST [facility] Blood Venous blood specimen / Unknown Venipuncture / Unknown 10/16/2024 7:44 AM EST 10/16/2024 11:20 AM EST Yoana Moreno MD LAB BLOOD ORDERABLES Final Result Performing Organization Address [facility] Co de Phone Number [facility] [address] [place] [address], * Vitamin D 25 hydroxy (10/16/2024 7:44 AM EST) Vit D, 25-Hydroxy 32.8 30.0 - 80.0 ng/mL LAB CHEMISTRY METHOD 10/16/2024 1:04 PM EST [facility] Blood Venous blood specimen / Unknown Venipuncture / Unknown 10/16/2024 7:44 AM EST 10/16/2024 11:20 AM EST Yoana Moreno MD LAB BLOOD ORDERABLES Final Result Performing Organization Address City/[facility]/ZIP Co de Phone Number [facility] [address] [place] [address], [place] [phone] * Aspartate aminotransferase (10/16/2024 7:44 AM EST) AST (SGOT) 16 10 - 42 unit/L LAB CHEMISTRY METHOD 10/16/2024 12:54 PM EST [facility] Blood Venous blood specimen / Unknown Venipuncture / Unknown 10/16/2024 7:44 AM EST 10/16/2024 11:20 AM EST us Yoana Moreno MD LAB BLOOD ORDERABLES Final Result [facility] [address] [place] [address], [place] [phone] * Alanine aminotransferase (10/16/2024 7:44 AM EST) ALT (SGPT) 20 10 - 60 unit/L LAB CHEMISTRY METHOD 10/16/2024 12:54 PM [facility] Blood Venous blood specimen / Unknown Venipuncture / Unknown 10/16/2024 7:44 AM EST 10/16/2024 11:20 AM EST Yoana Moreno MD LAB BLOOD ORDERABLES Final Result Performing Organization Address City/[facility]/ZIP Co de Phone Number [facility] [address] [place] [address], [place] [phone] * (ABNORMAL) Basic metabolic panel (10/16/2024 7:44 AM EST) Sodium 137 133 - 145 mmol/L LAB CHEMISTRY METHOD 10/16/2024 1:20 PM [facility] Potassium 4.9 3.5 - 5.5 mmol/L LAB CHEMISTRY METHOD 10/16/2024 1:20 PM [facility] Chloride 106 96 - 110 mmol/L LAB CHEMISTRY METHOD 10/16/2024 1:20 PM [facility] CO2 28 21 - 32 mmol/L LAB CHEMISTRY METHOD 10/16/2024 1:20 PM [facility] Anion Gap 3 3 - 11 LAB CHEMISTRY METHOD 10/16/2024 1:20 PM [facility] Glucose 71 70 - 100 mg/dL LAB CHEMISTRY METHOD 10/16/2024 1:20 PM EST [facility] BUN 35(H) 5 - 25 mg/dL LAB CHEMISTRY METHOD 10/16/2024 1:20 PM [facility] Creatinine 1.30(H) 0.50 - 1.10 mg/dL LAB CHEMISTRY METHOD 10/16/2024 1:20 PM [facility] eGFR 40(L) >=60 mL/min/1. 73m2 LAB CHEMISTRY METHOD 10/16/2024 1:20 PM [facility] Comment:Calculation based on the Chronic Kidney Disease Epidemiology Collaboration (CKD-EPI) equation refit without adjustment for race. BUN/Creatinine Ratio 26.9 LAB CHEMISTRY METHOD 10/16/2024 1:20 PM [facility] Calcium 10.0 8.5 - 10.5 mg/dL LAB CHEMISTRY METHOD 10/16/2024 1:20 PM [facility] Blood Venous blood specimen / Unknown Venipuncture / Unknown 10/16/2024 7:44 AM EST 10/16/2024 11:20 AM EST Yoana Moreno MD LAB BLOOD ORDERABLES Final Result [facility] [address] [place] [address], * (ABNORMAL) Lipid panel with reflex to direct LDL (10/16/2024 7:44 AM EST) Cholesterol 232(H) 0 - 200 mg/dL LAB CHEMISTRY METHOD 10/16/2024 1:17 PM [facility] Triglycerides 80 0 - 150 mg/dL LAB CHEMISTRY METHOD 10/16/2024 1:17 PM [facility] HDL 69 >=40 mg/dL LAB CHEMISTRY METHOD 10/16/2024 1:17 PM [facility] LDL Calculated 147(H) 0 - 100 mg/dL LAB CHEMISTRY METHOD 10/16/2024 1:17 PM EST [facility] VLDL Cholesterol Rod 16 mg/dL LAB CHEMISTRY METHOD 10/16/2024 1:17 PM EST [facility] Non HDL Chol. (LDL+VLDL) 163(H) <145 mg/dL LAB CHEMISTRY METHOD 10/16/2024 1:17 PM EST [facility] Chol/HDL Ratio 3.4 0.0 - 4.4 LAB CHEMISTRY METHOD 10/16/2024 1:17 PM EST [facility] Blood Venous blood specimen / Unknown Venipuncture / Unknown 10/16/2024 7:44 AM EST 10/16/2024 11:20 AM EST us Yoana Moreno MD LAB BLOOD ORDERABLES Final Result [facility] [address] [place] [address], documented in this encounter Visit Diagnoses Diagnosis Pure hypercholesterolemia, unspecified Chronic kidney disease, stage 3 unspecified (CMS/HCC V24, CMS/HCC V28) Essential (primary) hypertension Unspecified essential hypertension Hypothyroidism, unspecified Vitamin D deficiency, unspecified Anemia, unspecified documented in this encounter Care Teams Poultry Eviscerator Relationship Specialty Start Date End Date Yoana Moreno MD [address] [place] [address] PCP - General Internal Medicine 10/16/24 documented as of this encounter
--- OUTSIDE RECORDS SUMMARY | 2025-08-14 11:31 | XMS_ITS | Encounter Summary ---
Author Organization [facility] Address [address] [phone] Care Team Providers Care Heel Trimmer Name Role Phone Yoana Moreno MD Primary Care Provider [phone] Encounter Details Date Type Department Care Team (Late st Contact Info) Description 07/02/2025 Lab Requisition [facility] - Main Lab [address] [facility] [place] [address] Yoana Moreno MD [address] [place] [address] Essential (primary) hypertension; Pure hypercholesterolemia, unspecified; Hypothyroidism, [...] LAB CHEMISTRY METHOD 07/02/2025 1:17 PM T [facility] Comment:Calculation based on the Chronic Kidney Disease Epidemiology Collaboration (CKD-EPI) equation refit without adjustment for race. BUN/Creatinine Ratio 12.7 LAB CHEMISTRY METHOD 07/02/2025 1:17 PM [facility] Calcium 9.4 8.5 - 10.5 mg/dL LAB CHEMISTRY METHOD 07/02/2025 1:17 PM [facility] AST (SGOT) 20 10 - 42 unit/L LAB CHEMISTRY METHOD 07/02/2025 1:17 PM [facility] ALT (SGPT) 18 10 - 60 unit/L LAB CHEMISTRY METHOD 07/02/2025 1:17 PM [facility] Alkaline Phosphatase 55 42 - 121 unit/L LAB CHEMISTRY METHOD 07/02/2025 1:17 PM [facility] Total Protein 6.9 6.0 - 8.0 g/dL LAB CHEMISTRY METHOD 07/02/2025 1:17 PM [facility] Albumin 2.7(L) 3.2 - 5.0 g/dL LAB CHEMISTRY METHOD 07/02/2025 1:17 PM [facility] Total Bilirubin 0.4 0.0 - 1.4 mg/dL LAB CHEMISTRY METHOD 07/02/2025 1:17 PM [facility] Blood Venous blood specimen / Unknown Venipuncture / Unknown 07/02/2025 7:36 AM EDT 07/02/2025 10:41 AM EDT us Yoana Moreno MD LAB BLOOD ORDERABLES Final Result [facility] [address] [place] [address], [place] [phone] * (ABNORMAL) Lipid panel with reflex to direct LDL (07/02/2025 7:36 AM EDT) Cholesterol 176 0 - 200 mg/dL LAB CHEMISTRY METHOD 07/02/2025 1:17 PM EDT [facility] Triglycerides 89 0 - 150 mg/dL LAB CHEMISTRY METHOD 07/02/2025 1:17 PM EDT [facility] HDL 47 >=40 mg/dL LAB CHEMISTRY METHOD 07/02/2025 1:17 PM EDT [facility] LDL Calculated 111(H) 0 - 100 mg/dL LAB CHEMISTRY METHOD 07/02/2025 1:17 PM EDT [facility] Comment:Estimated LDL Calcul ated using equation: Total cholesterol - HDL cholesterol - (Triglycerides/5) VLDL Cholesterol Rod 17.8 mg/dL LAB CHEMISTRY METHOD 07/02/2025 1:17 PM EDT [facility] Non HDL Chol. (LDL+VLDL) 129 <145 mg/dL LAB CHEMISTRY METHOD 07/02/2025 1:17 PM EDT [facility] Chol/HDL Ratio 3.7 0.0 - 4.4 LAB CHEMISTRY METHOD 07/02/2025 1:17 PM EDT [facility] Blood Venous blood specimen / Unknown Venipuncture / Unknown 07/02/2025 7:36 AM EDT 07/02/2025 10:41 AM EDT Yoana Moreno MD LAB BLOOD ORDERABLES Final Result [facility] [address] [place] [address], * Thyroid stimulating hormone (07/02/2025 7:36 AM EDT) Pathologist [facility] TSH 2.09 0.40 - 4.00 mcIU/mL LAB CHEMISTRY METHOD 07/02/2025 2:04 PM EDT [facility] Blood Venous blood specimen / Unknown Venipuncture / Unknown 07/02/2025 7:36 AM EDT 07/02/2025 10:41 AM EDT us Yoana Moreno MD LAB BLOOD ORDERABLES Final Result Performing Organization Address [facility] Co de Phone Number [facility] [address] [place] [address], [place] [phone] * (ABNORMAL) Iron and TIBC (07/02/2025 7:36 AM EDT) Iron 40 40 - 150 mcg/dL LAB CHEMISTRY METHOD 07/02/2025 1:17 PM EDT [facility] TIBC 220(L) 250 - 450 mcg/dL LAB CHEMISTRY METHOD 07/02/2025 1:17 PM EDT [facility] Iron Saturation 18 15 - 50 % LAB CHEMISTRY METHOD 07/02/2025 1:17 PM EDT [facility] Blood Venous blood specimen / Unknown Venipuncture / Unknown 07/02/2025 7:36 AM EDT 07/02/2025 10:41 AM EDT Yoana Moreno MD LAB BLOOD ORDERABLES Final Result Performing Organization Address [facility] de Phone Number [facility] [address] [place] [address], [place] [phone] * Thyroxine free (07/02/2025 7:36 AM EDT) Free T4 1.44 0.70 - 1.80 ng/dL LAB CHEMISTRY METHOD 07/02/2025 2:03 PM EDT [facility] Blood Venous blood specimen / Unknown Venipuncture / Unknown 07/02/2025 7:36 AM EDT 07/02/2025 10:41 AM EDT us Yoana Moreno MD LAB BLOOD ORDERABLES Final Result Performing Organization Address City/[facility]/ZIP Co de Phone Number [facility] [address] [place] [address], [place] [phone] * (ABNORMAL) Vitamin B12 and folate (07/02/2025 7:36 AM EDT) [facility] Vitamin B-12 1,290(H) 250 - 900 pcg/mL LAB CHEMISTRY METHOD 07/02/2025 1:17 PM EDT [facility] Folate 11.4 2.8 - 17.0 ng/ml LAB CHEMISTRY METHOD 07/02/2025 1:17 PM EDT [facility] Blood Venous blood specimen / Unknown Venipuncture / Unknown 07/02/2025 7:36 AM EDT 07/02/2025 10:41 AM EDT us Yoana Moreno MD LAB BLOOD ORDERABLES Final Result Performing Organization Address City/[facility]/ZIP Co de Phone Number [facility] [address] [place] [address], [place] [phone] * Ferritin (07/02/2025 7:36 AM EDT) [facility] Ferritin 227 8 - 252 ng/mL LAB CHEMISTRY METHOD 07/02/2025 1:17 PM EDT [facility] Blood Venous blood specimen / Unknown Venipuncture / Unknown 07/02/2025 7:36 AM EDT 07/02/2025 10:41 AM EDT us Yoana Moreno MD LAB BLOOD ORDERABLES Final Result [facility] [address] [place] [address], [place] [phone] * Triiodothyronine free (07/02/2025 7:36 AM EDT) [facility] T3, Free 248 230 - 420 pcg/dL LAB CHEMISTRY METHOD 07/02/2025 2:04 PM EDT [facility] Blood Venous blood specimen / Unknown Venipuncture / Unknown 07/02/2025 7:36 AM EDT 07/02/2025 10:41 AM EDT Yoana Moreno MD LAB BLOOD ORDERABLES Final Result [facility] [address] [place] [address], [place] [phone] * B-type natriuretic peptide (07/02/2025 7:36 AM EDT) Pathologist [facility] BNP 37 <=100 pcg/mL LAB CHEMISTRY METHOD 07/02/2025 11:59 AM EDT [facility] Blood Venous blood specimen / Unknown Venipuncture / Unknown 07/02/2025 7:36 AM EDT 07/02/2025 10:41 AM EDT Yoana Moreno MD LAB BLOOD ORDERABLES Final Result [facility] [address] [place] [address], [place] [phone] * (ABNORMAL) Complete blood count (07/02/2025 7:36 AM EDT) WBC 7.6 4.8 - 10.8 K/mcL LAB HEMETOLOGY METHOD 07/02/2025 11:07 AM EDT [facility] RBC 4.00 3.80 - 4.80 M/[facility] LAB HEMETOLOGY METHOD 07/02/2025 11:07 AM EDT [facility] Hemoglobin 11.2(L) 11.5 - 16.0 g/dL LAB HEMETOLOGY METHOD 07/02/2025 11:07 AM EDT [facility] Hematocrit 36.4 35.0 - 47.0 % LAB HEMETOLOGY METHOD 07/02/2025 11:07 AM EDT [facility] MCV 92.2 79.0 - 98.0 FL LAB HEMETOLOGY METHOD 07/02/2025 11:07 AM EDT [facility] MCH 28.4 27.0 - 32.0 pcg LAB HEMETOLOGY METHOD 07/02/2025 11:07 AM EDT [facility] MCHC 30.8(L) 32.0 - 37.0 g/dL LAB HEMETOLOGY METHOD 07/02/2025 11:07 AM EDT [facility] RDW 12.3 11.0 - 15.0 % LAB HEMETOLOGY METHOD 07/02/2025 11:07 AM EDT [facility] Platelets 384 130 - 400 K/mcL LAB HEMETOLOGY METHOD 07/02/2025 11:07 AM EDT [facility] MPV 10.2 7.0 - 11.0 FL LAB HEMETOLOGY METHOD 07/02/2025 11:07 AM EDT [facility] NRBC 0.0 <1.0 % LAB HEMETOLOGY METHOD 07/02/2025 11:07 AM EDT [facility] NRBC Absolute 0.00 <0.10 K/mcL LAB HEMETOLOGY METHOD 07/02/2025 11:07 AM [facility] Blood Venous blood specimen / Unknown Venipuncture / Unknown 07/02/2025 7:36 AM EDT 07/02/2025 10:41 AM EDT us Yoana Moreno MD LAB BLOOD ORDERABLES Final Result [facility] [address] [place] [address], documented in this encounter Visit Diagnoses Diagnosis Essential (primary) hypertension Unspecified essential hypertension Pure hypercholesterolemia, unspecified Hypothyroidism, unspecified Vitamin D deficiency, unspecified Chronic kidney disease, stage 3 unspecified (CMS/HCC V24, CMS/HCC V28) Anemia, unspecified Other fatigue documented in this encounter Care Teams Heel Trimmer Relationship Specialty Start Date End Date Yoana Moreno MD [address] [place] [address] PCP - General Internal Medicine 10/16/24 documented as of this encounter
--- OUTSIDE RECORDS SUMMARY | 2025-08-14 11:33 | XMS_ITS | Clinical Summary ---
Author Organization [address] [facility] Address [address] [place] [address] Phone Care Team Providers Care Consumer Banker Name Role Phone Yoana Moreno MD Primary Care Provider Encounters Date Type Department Care Team Description 07/02/2025 Lab Requisition [facility] - Main Lab [address] [place] [address] Yoana Moreno MD Essential (primary) [...] B12 and folate (07/02/2025 7:36 AM EDT) [facility] Vitamin B-12 1,290(H) 250 - 900 pcg/mL LAB CHEMISTRY METHOD 07/02/2025 1:17 PM EDT [facility] Folate 11.4 2.8 - 17.0 ng/ml LAB CHEMISTRY METHOD 07/02/2025 1:17 PM EDT [facility] Blood Venous blood specimen / Unknown Venipuncture / Unknown 07/02/2025 7:36 AM EDT 07/02/2025 10:41 AM EDT us Yoana Moreno MD LAB BLOOD ORDERABLES Final Result [facility] [address] [place] [address], * (ABNORMAL) Lipid panel with reflex to direct LDL (07/02/2025 7:36 AM EDT) [facility] Cholesterol 176 0 - 200 mg/dL LAB CHEMISTRY METHOD 07/02/2025 1:17 PM EDT [facility] Triglycerides 89 0 - 150 mg/dL LAB CHEMISTRY METHOD 07/02/2025 1:17 PM EDT [facility] HDL 47 >=40 mg/dL LAB CHEMISTRY METHOD 07/02/2025 1:17 PM EDT [facility] LDL Calculated 111(H) 0 - 100 mg/dL LAB CHEMISTRY METHOD 07/02/2025 1:17 PM EDT [facility] Comment:Estimated LDL Calcul ated using equation: Total cholesterol - HDL cholesterol - (Triglycerides/5) VLDL Cholesterol Rod 17.8 mg/dL LAB CHEMISTRY METHOD 07/02/2025 1:17 PM EDT [facility] Non HDL Chol. (LDL+VLDL) 129 <145 mg/dL LAB CHEMISTRY METHOD 07/02/2025 1:17 PM EDT [facility] Chol/HDL Ratio 3.7 0.0 - 4.4 LAB CHEMISTRY METHOD 07/02/2025 1:17 PM EDT [facility] Blood Venous blood specimen / Unknown Venipuncture / Unknown 07/02/2025 7:36 AM EDT 07/02/2025 10:41 AM EDT Yoana Moreno MD LAB BLOOD ORDERABLES Final Result [facility] [address] [place] [address], [place] [phone] * (ABNORMAL) Iron and TIBC (07/02/2025 7:36 AM EDT) Iron 40 40 - 150 mcg/dL LAB CHEMISTRY METHOD 07/02/2025 1:17 PM EDT [facility] TIBC 220(L) 250 - 450 mcg/dL LAB CHEMISTRY METHOD 07/02/2025 1:17 PM EDT [facility] Iron Saturation 18 15 - 50 % LAB CHEMISTRY METHOD 07/02/2025 1:17 PM EDT [facility] Blood Venous blood specimen / Unknown Venipuncture / Unknown 07/02/2025 7:36 AM EDT 07/02/2025 10:41 AM EDT Yoana Moreno MD LAB BLOOD ORDERABLES Final Result [facility] [address] [place] [address], [place] [phone] * (ABNORMAL) Complete blood count (07/02/2025 7:36 AM EDT) WBC 7.6 4.8 - 10.8 K/mcL LAB HEMETOLOGY METHOD 07/02/2025 11:07 AM [facility] RBC 4.00 3.80 - 4.80 M/mcL LAB HEMETOLOGY METHOD 07/02/2025 11:07 AM [facility] Hemoglobin 11.2(L) 11.5 - 16.0 g/dL LAB HEMETOLOGY METHOD 07/02/2025 11:07 AM [facility] Hematocrit 36.4 35.0 - 47.0 % LAB HEMETOLOGY METHOD 07/02/2025 11:07 AM [facility] MCV 92.2 79.0 - 98.0 FL LAB HEMETOLOGY METHOD 07/02/2025 11:07 AM [facility] MCH 28.4 27.0 - 32.0 pcg LAB HEMETOLOGY METHOD 07/02/2025 11:07 AM [facility] MCHC 30.8(L) 32.0 - 37.0 g/dL LAB HEMETOLOGY METHOD 07/02/2025 11:07 AM [facility] RDW 12.3 11.0 - 15.0 % LAB HEMETOLOGY METHOD 07/02/2025 11:07 AM [facility] Platelets 384 130 - 400 K/mcL LAB HEMETOLOGY METHOD 07/02/2025 11:07 AM [facility] MPV 10.2 7.0 - 11.0 FL LAB HEMETOLOGY METHOD 07/02/2025 11:07 AM [facility] NRBC 0.0 <1.0 % LAB HEMETOLOGY METHOD 07/02/2025 11:07 AM [facility] NRBC Absolute 0.00 <0.10 K/mcL LAB HEMETOLOGY METHOD 07/02/2025 11:07 AM [facility] Blood Venous blood specimen / Unknown Venipuncture / Unknown 07/02/2025 7:36 AM EDT 07/02/2025 10:41 AM EDT Yoana Moreno MD LAB BLOOD ORDERABLES Final Result Performing Organization Address [facility]/ZIP Co de Phone Number [facility] [address] [place] [address], [place] [phone] * Triiodothyronine free (07/02/2025 7:36 AM EDT) T3, Free 248 230 - 420 pcg/dL LAB CHEMISTRY METHOD 07/02/2025 2:04 PM EDT [facility] Blood Venous blood specimen / Unknown Venipuncture / Unknown 07/02/2025 7:36 AM EDT 07/02/2025 10:41 AM EDT Yoana Moreno MD LAB BLOOD ORDERABLES Final Result Performing Organization Address [facility]/ZIP Co de Phone Number [facility] [address] [place] [address], [place] [phone] * Thyroid stimulating hormone (07/02/2025 7:36 AM EDT) [facility] TSH 2.09 0.40 - 4.00 mcIU/mL LAB CHEMISTRY METHOD 07/02/2025 2:04 PM EDT [facility] Blood Venous blood specimen / Unknown Venipuncture / Unknown 07/02/2025 7:36 AM EDT 07/02/2025 10:41 AM EDT us Yoana Moreno MD LAB BLOOD ORDERABLES Final Result Performing Organization Address City/[facility]/ZIP Co de Phone Number [facility] [address] [place] [address], [place] [phone] * Thyroxine free (07/02/2025 7:36 AM EDT) Free T4 1.44 0.70 - 1.80 ng/dL LAB CHEMISTRY METHOD 07/02/2025 2:03 PM EDT [facility] Blood Venous blood specimen / Unknown Venipuncture / Unknown 07/02/2025 7:36 AM EDT 07/02/2025 10:41 AM EDT Yoana Moreno MD LAB BLOOD ORDERABLES Final Result [facility] [address] [place] [address], [place] [phone] * B-type natriuretic peptide (07/02/2025 7:36 AM EDT) [facility] BNP 37 <=100 pcg/mL LAB CHEMISTRY METHOD 07/02/2025 11:59 AM EDT [facility] Blood Venous blood specimen / Unknown Venipuncture / Unknown 07/02/2025 7:36 AM EDT 07/02/2025 10:41 AM EDT us Yoana Moreno MD LAB BLOOD ORDERABLES Final Result Performing Organization Address [facility]/ZIP Co de Phone Number [facility] [address] [place] [address], [place] [phone] * Ferritin (07/02/2025 7:36 AM EDT) [facility] Ferritin 227 8 - 252 ng/mL LAB CHEMISTRY METHOD 07/02/2025 1:17 PM EDT [facility] Blood Venous blood specimen / Unknown Venipuncture / Unknown 07/02/2025 7:36 AM EDT 07/02/2025 10:41 AM EDT us Yoana Moreno MD LAB BLOOD ORDERABLES Final Result [facility] [address] [place] [address], [place] [phone] * (ABNORMAL) Comprehensive metabolic panel (07/02/2025 7:36 AM EDT) Sodium 135 133 - 145 mmol/L LAB CHEMISTRY METHOD 07/02/2025 1:17 PM [facility] Potassium 4.3 3.5 - 5.5 mmol/L LAB CHEMISTRY METHOD 07/02/2025 1:17 PM [facility] Chloride 101 96 - 110 mmol/L LAB CHEMISTRY METHOD 07/02/2025 1:17 PM [facility] CO2 24 21 - 32 mmol/L LAB CHEMISTRY METHOD 07/02/2025 1:17 PM [facility] Anion Gap 10 3 - 11 LAB CHEMISTRY METHOD 07/02/2025 1:17 PM [facility] Glucose 71 70 - 100 mg/dL LAB CHEMISTRY METHOD 07/02/2025 1:17 PM [facility] BUN 18 5 - 25 mg/dL LAB CHEMISTRY METHOD 07/02/2025 1:17 PM [facility] Creatinine 1.42(H) 0.50 - 1.10 mg/dL LAB CHEMISTRY METHOD 07/02/2025 1:17 PM [facility] eGFR 36(L) >=60 mL/min/1. 73m2 LAB CHEMISTRY METHOD 07/02/2025 1:17 PM [facility] Comment:Calculation based on the Chronic Kidney Disease Epidemiology Collaboration (CKD-EPI) equation refit without adjustment for race. BUN/Creatinine Ratio 12.7 LAB CHEMISTRY METHOD 07/02/2025 1:17 PM [facility] Calcium 9.4 8.5 - 10.5 mg/dL LAB CHEMISTRY METHOD 07/02/2025 1:17 PM [facility] AST (SGOT) 20 10 - 42 unit/L LAB CHEMISTRY METHOD 07/02/2025 1:17 PM EDT [facility] ALT (SGPT) 18 10 - 60 unit/L LAB CHEMISTRY METHOD 07/02/2025 1:17 PM EDT [facility] Alkaline Phosphatase 55 42 - 121 unit/L LAB CHEMISTRY METHOD 07/02/2025 1:17 PM EDT [facility] Total Protein 6.9 6.0 - 8.0 g/dL LAB CHEMISTRY METHOD 07/02/2025 1:17 PM EDT [facility] Albumin 2.7(L) 3.2 - 5.0 g/dL LAB CHEMISTRY METHOD 07/02/2025 1:17 PM EDT [facility] Total Bilirubin 0.4 0.0 - 1.4 mg/dL LAB CHEMISTRY METHOD 07/02/2025 1:17 PM EDT [facility] Blood Venous blood specimen / Unknown Venipuncture / Unknown 07/02/2025 7:36 AM EDT 07/02/2025 10:41 AM EDT us Yoana Moreno MD LAB BLOOD ORDERABLES Final Result [facility] [address] [place] [address], from Last 3 Months Insurance [facility] [place] [address] Care Teams Consumer Banker Relationship Specialty Start Date End Date Yoana Moreno MD [address] [facility] [place] [address] PCP - General Internal Medicine 10/16/24
== END 2025-08-14 11:57 | disposition home or self-care (01) ==
LOC: HO.HPS 09:53
PROVIDERS: PCP Internal Medicine; Visit Provider Nurse Practitioner Family
DX: J44.9 Chronic obstructive pulmonary disease, unspecified (principal)

== ENCOUNTER → 2025-08-14 09:52 | Outpatient (BNVA) | payer MEDICARE, SELFPAY | PROVIDERS: PCP Internal Medicine; Visit Provider Nurse Practitioner Family | DX: J44.9 Chronic obstructive pulmonary disease, unspecified (principal) | CPT/HCPCS: 94618; 99211 ==

== ENCOUNTER 2025-08-30 08:18 | Outpatient (REF) | payer MEDICARE, SELFPAY ==
--- NOTE | ~2025-08-30 | CT_ITS ---
EXAMINATION: CT CHEST WITHOUT IV CONTRAST INDICATION: R93.89 - Abnormal findings on diagnostic imaging of other specified body... COMPARISON: Comparison is made with the prior examination dated 07/23/2023. TECHNIQUE: Helical CT scan of the chest was performed without intravenous contrast. Coronal and sagittal reformatted images were generated and reviewed. This CT exam was performed with one or more of the following dose reduction techniques: automated exposure control, adjustment of the mA and/or kV according to patient size, use of iterative reconstruction technique. DLP: 143 mGy-cm CHEST: THYROID: The thyroid is unremarkable. LUNGS: There are moderate emphysematous changes. Extensive scarring is seen bilaterally. There are multifocal areas of fibrosis and honeycombing. There are multiple tubular opacities seen throughout the lungs consistent with mucoid impaction. These are noted in the right upper lobe (series 4, image 90), in the right middle lobe (series 4, images 96-100), in the right lower lobe (series 4, images 106-112), and in the lingula (series 4, images 110-116). There is a nodular airspace opacity in the left lower lobe abutting the major fissure measuring 1.1 x 0.9 x 1.9 cm (series 4, images 63-69). MEDIASTINUM: There is no mediastinal lymphadenopathy. JEREMIAH: Evaluation of the hilar regions is limited by lack of intravenous contrast material. CARDIOVASCULATURE: The heart is normal in size. There is no pericardial effusion. The thoracic aorta is normal in caliber. DEGREE OF CORONARY CALCIFICATION: severe PLEURA: There is no pleural effusion. No pneumothorax. MAIN AIRWAYS: The mainstem bronchi and proximal branches are patent. AXILLA: There is no axillary lymphadenopathy. BONES AND SOFT TISSUES: Unremarkable UPPER ABDOMEN: There are subcentimeter cysts in the left lobe of the liver. The visualized portions of the spleen and adrenals have an unremarkable unenhanced appearance. CT/CT chest wo IV con IMPRESSION: 1. Moderate emphysema and pulmonary scarring. Multifocal areas of fibrosis. Multiple areas of mucoid impaction is seen throughout both lungs. 2. 1.1 x 0.9 x 1.9 cm nodular airspace opacity in the left upper lobe abutting the major fissure. This could represent pneumonia or neoplasm. Short-term follow-up chest CT in 6 weeks or PET/CT scan is recommended. Electronically signed by: Brian Mackenzie MD 09/01/2025 08:35 AM [facility]
--- OUTSIDE RECORDS SUMMARY | 2025-08-30 08:21 | XMS_ITS | Patient Health Record ---
[facility] Address [address] [place] [address] Care Team Providers Care Drip Pumper Name Role Phone Brian Carrera Unavailable [phone] Reason For Referral No Information Plan Of Treatment No Information
--- OUTSIDE RECORDS SUMMARY | 2025-08-30 08:21 | XMS_ITS | Encounter Summary ---
Author Organization [facility] Address [id number] [place] [address] Care Team Providers Care Candy Cooker Helper Name Role Phone Yoana Moreno MD Primary Care Provider Encounter Details Date Type Department Care Team (Late st Contact Info) Description 07/02/2025 Lab Requisition [facility] - Main Lab [address] [facility] [place] [address] Yoana Moreno MD [address] [place] [address] Essential (primary) hypertension; Pure hypercholesterolemia, unspecified; Hypothyroidism, [...] mmol/L LAB CHEMISTRY METHOD 07/02/2025 1:17 PM [facility] Potassium 4.3 3.5 - 5.5 mmol/L LAB CHEMISTRY METHOD 07/02/2025 1:17 PM [facility] Chloride 101 96 - 110 mmol/L LAB CHEMISTRY METHOD 07/02/2025 1:17 PM [facility] CO2 24 21 - 32 mmol/L LAB CHEMISTRY METHOD 07/02/2025 1:17 PM [facility] Anion Gap 10 3 - 11 LAB CHEMISTRY METHOD 07/02/2025 1:17 PM [facility] Glucose 71 70 - 100 mg/dL LAB CHEMISTRY METHOD 07/02/2025 1:17 PM [facility] BUN 18 5 - 25 mg/dL LAB CHEMISTRY METHOD 07/02/2025 1:17 PM [facility] Creatinine 1.42(H) 0.50 - 1.10 mg/dL LAB CHEMISTRY METHOD 07/02/2025 1:17 PM [facility] eGFR 36(L) >=60 mL/min/1. 73m2 LAB CHEMISTRY METHOD 07/02/2025 1:17 PM T [facility] Comment:Calculation based on the Chronic Kidney Disease Epidemiology Collaboration (CKD-EPI) equation refit without adjustment for race. BUN/Creatinine Ratio 12.7 LAB CHEMISTRY METHOD 07/02/2025 1:17 PM [facility] Calcium 9.4 8.5 - 10.5 mg/dL LAB CHEMISTRY METHOD 07/02/2025 1:17 PM [facility] AST (SGOT) 20 10 - 42 unit/L LAB CHEMISTRY METHOD 07/02/2025 1:17 PM [facility] ALT (SGPT) 18 10 - 60 unit/L LAB CHEMISTRY METHOD 07/02/2025 1:17 PM [facility] Alkaline Phosphatase 55 42 - 121 unit/L LAB CHEMISTRY METHOD 07/02/2025 1:17 PM [facility] Total Protein 6.9 6.0 - 8.0 g/dL LAB CHEMISTRY METHOD 07/02/2025 1:17 PM [facility] Albumin 2.7(L) 3.2 - 5.0 g/dL LAB CHEMISTRY METHOD 07/02/2025 1:17 PM [facility] Total Bilirubin 0.4 0.0 - 1.4 mg/dL LAB CHEMISTRY METHOD 07/02/2025 1:17 PM [facility] Blood Venous blood specimen / Unknown Venipuncture / Unknown 07/02/2025 7:36 AM EDT 07/02/2025 10:41 AM EDT us Yoana Moreno MD LAB BLOOD ORDERABLES Final Result [facility] [address] [place] [address], [place] [phone] * (ABNORMAL) Lipid panel with reflex to direct LDL (07/02/2025 7:36 AM EDT) Cholesterol 176 0 - 200 mg/dL LAB CHEMISTRY METHOD 07/02/2025 1:17 PM EDT [facility] Triglycerides 89 0 - 150 mg/dL LAB CHEMISTRY METHOD 07/02/2025 1:17 PM EDT [facility] HDL 47 >=40 mg/dL LAB CHEMISTRY METHOD 07/02/2025 1:17 PM EDT [facility] LDL Calculated 111(H) 0 - 100 mg/dL LAB CHEMISTRY METHOD 07/02/2025 1:17 PM EDT [facility] Comment:Estimated LDL Calcul ated using equation: Total cholesterol - HDL cholesterol - (Triglycerides/5) VLDL Cholesterol Rod 17.8 mg/dL LAB CHEMISTRY METHOD 07/02/2025 1:17 PM EDT [facility] Non HDL Chol. (LDL+VLDL) 129 <145 mg/dL LAB CHEMISTRY METHOD 07/02/2025 1:17 PM EDT [facility] Chol/HDL Ratio 3.7 0.0 - 4.4 LAB CHEMISTRY METHOD 07/02/2025 1:17 PM EDT [facility] Blood Venous blood specimen / Unknown Venipuncture / Unknown 07/02/2025 7:36 AM EDT 07/02/2025 10:41 AM EDT Yoana Moreno MD LAB BLOOD ORDERABLES Final Result [facility] [address] [place] [address], * Thyroid stimulating hormone (07/02/2025 7:36 AM EDT) Pathologist [facility] TSH 2.09 0.40 - 4.00 mcIU/mL LAB CHEMISTRY METHOD 07/02/2025 2:04 PM EDT [facility] Blood Venous blood specimen / Unknown Venipuncture / Unknown 07/02/2025 7:36 AM EDT 07/02/2025 10:41 AM EDT us Yoana Moreno MD LAB BLOOD ORDERABLES Final Result Performing Organization Address [facility] Co de Phone Number [facility] [address] [place] [address], [place] [phone] * (ABNORMAL) Iron and TIBC (07/02/2025 7:36 AM EDT) Iron 40 40 - 150 mcg/dL LAB CHEMISTRY METHOD 07/02/2025 1:17 PM EDT [facility] TIBC 220(L) 250 - 450 mcg/dL LAB CHEMISTRY METHOD 07/02/2025 1:17 PM EDT [facility] Iron Saturation 18 15 - 50 % LAB CHEMISTRY METHOD 07/02/2025 1:17 PM EDT [facility] Blood Venous blood specimen / Unknown Venipuncture / Unknown 07/02/2025 7:36 AM EDT 07/02/2025 10:41 AM EDT Yoana Moreno MD LAB BLOOD ORDERABLES Final Result Performing Organization Address [facility] de Phone Number [facility] [address] [place] [address], [place] [phone] * Thyroxine free (07/02/2025 7:36 AM EDT) Free T4 1.44 0.70 - 1.80 ng/dL LAB CHEMISTRY METHOD 07/02/2025 2:03 PM EDT [facility] Blood Venous blood specimen / Unknown Venipuncture / Unknown 07/02/2025 7:36 AM EDT 07/02/2025 10:41 AM EDT us Yoana Moreno MD LAB BLOOD ORDERABLES Final Result Performing Organization Address City/[facility]/ZIP Co de Phone Number [facility] [address] [place] [address], [place] [phone] * (ABNORMAL) Vitamin B12 and folate (07/02/2025 7:36 AM EDT) [facility] Vitamin B-12 1,290(H) 250 - 900 pcg/mL LAB CHEMISTRY METHOD 07/02/2025 1:17 PM EDT [facility] Folate 11.4 2.8 - 17.0 ng/ml LAB CHEMISTRY METHOD 07/02/2025 1:17 PM EDT [facility] Blood Venous blood specimen / Unknown Venipuncture / Unknown 07/02/2025 7:36 AM EDT 07/02/2025 10:41 AM EDT us Yoana Moreno MD LAB BLOOD ORDERABLES Final Result Performing Organization Address City/[facility]/ZIP Co de Phone Number [facility] [address] [place] [address], [place] [phone] * Ferritin (07/02/2025 7:36 AM EDT) [facility] Ferritin 227 8 - 252 ng/mL LAB CHEMISTRY METHOD 07/02/2025 1:17 PM EDT [facility] Blood Venous blood specimen / Unknown Venipuncture / Unknown 07/02/2025 7:36 AM EDT 07/02/2025 10:41 AM EDT us Yoana Moreno MD LAB BLOOD ORDERABLES Final Result [facility] [address] [place] [address], [place] [phone] * Triiodothyronine free (07/02/2025 7:36 AM EDT) [facility] T3, Free 248 230 - 420 pcg/dL LAB CHEMISTRY METHOD 07/02/2025 2:04 PM EDT [facility] Blood Venous blood specimen / Unknown Venipuncture / Unknown 07/02/2025 7:36 AM EDT 07/02/2025 10:41 AM EDT Yoana Moreno MD LAB BLOOD ORDERABLES Final Result [facility] [address] [place] [address], [place] [phone] * B-type natriuretic peptide (07/02/2025 7:36 AM EDT) Pathologist [facility] BNP 37 <=100 pcg/mL LAB CHEMISTRY METHOD 07/02/2025 11:59 AM EDT [facility] Blood Venous blood specimen / Unknown Venipuncture / Unknown 07/02/2025 7:36 AM EDT 07/02/2025 10:41 AM EDT Yoana Moreno MD LAB BLOOD ORDERABLES Final Result [facility] [address] [place] [address], [place] [phone] * (ABNORMAL) Complete blood count (07/02/2025 7:36 AM EDT) WBC 7.6 4.8 - 10.8 K/mcL LAB HEMETOLOGY METHOD 07/02/2025 11:07 AM EDT [facility] RBC 4.00 3.80 - 4.80 [facility] LAB HEMETOLOGY METHOD 07/02/2025 11:07 AM EDT [facility] Hemoglobin 11.2(L) 11.5 - 16.0 g/dL LAB HEMETOLOGY METHOD 07/02/2025 11:07 AM EDT [facility] Hematocrit 36.4 35.0 - 47.0 % LAB HEMETOLOGY METHOD 07/02/2025 11:07 AM EDT [facility] MCV 92.2 79.0 - 98.0 FL LAB HEMETOLOGY METHOD 07/02/2025 11:07 AM EDT [facility] MCH 28.4 27.0 - 32.0 pcg LAB HEMETOLOGY METHOD 07/02/2025 11:07 AM EDT [facility] MCHC 30.8(L) 32.0 - 37.0 g/dL LAB HEMETOLOGY METHOD 07/02/2025 11:07 AM EDT [facility] RDW 12.3 11.0 - 15.0 % LAB HEMETOLOGY METHOD 07/02/2025 11:07 AM EDT [facility] Platelets 384 130 - 400 K/mcL LAB HEMETOLOGY METHOD 07/02/2025 11:07 AM EDT [facility] MPV 10.2 7.0 - 11.0 FL LAB HEMETOLOGY METHOD 07/02/2025 11:07 AM EDT [facility] NRBC 0.0 <1.0 % LAB HEMETOLOGY METHOD 07/02/2025 11:07 AM EDT [facility] NRBC Absolute 0.00 <0.10 K/mcL LAB HEMETOLOGY METHOD 07/02/2025 11:07 AM [facility] Blood Venous blood specimen / Unknown Venipuncture / Unknown 07/02/2025 7:36 AM EDT 07/02/2025 10:41 AM EDT us Yoana Moreno MD LAB BLOOD ORDERABLES Final Result [facility] [address] [place] [address], documented in this encounter Visit Diagnoses Diagnosis Essential (primary) hypertension Unspecified essential hypertension Pure hypercholesterolemia, unspecified Hypothyroidism, unspecified Vitamin D deficiency, unspecified Chronic kidney disease, stage 3 unspecified (CMS/HCC V24, CMS/HCC V28) Anemia, unspecified Other fatigue documented in this encounter Care Teams Candy Cooker Helper Relationship Specialty Start Date End Date Yoana Moreno MD [address] [place] [address] PCP - General Internal Medicine 10/16/24 documented as of this encounter
--- OUTSIDE RECORDS SUMMARY | 2025-08-30 08:21 | XMS_ITS | Clinical Summary ---
Author Organization [facility] Address [address] [place] [address] Phone Care Team Providers Care Clockmaker Apprentice Name Role Phone Yoana Moreno MD Primary Care Provider Encounters Date Type Department Care Team Description 07/02/[address] [facility] - Main Lab [address] [place] [address] Yoana Moreno MD Essential (primary) [...] and folate (07/02/2025 7:36 AM EDT) [facility] Vitamin B-12 1,290(H) 250 - 900 pcg/mL LAB CHEMISTRY METHOD 07/02/2025 1:[address] [facility] Folate 11.4 2.8 - 17.0 ng/ml LAB CHEMISTRY METHOD 07/02/2025 1:[address] [facility] Blood Venous blood specimen / Unknown Venipuncture / Unknown 07/02/2025 7:36 AM EDT 07/02/2025 10:41 AM EDT us Yoana Moreno MD LAB BLOOD ORDERABLES Final Result [facility] [address] [place] [address], * (ABNORMAL) Lipid panel with reflex to direct LDL (07/02/2025 7:36 AM EDT) [facility] Cholesterol 176 0 - 200 mg/dL LAB CHEMISTRY METHOD 07/02/2025 1:[address] [facility] Triglycerides 89 0 - 150 mg/dL LAB CHEMISTRY METHOD 07/02/2025 1:[address] [facility] HDL 47 >=40 mg/dL LAB CHEMISTRY METHOD 07/02/2025 1:[address] [facility] LDL Calculated 111(H) 0 - 100 mg/dL LAB CHEMISTRY METHOD 07/02/2025 1:[address] [facility] Comment:Estimated LDL Calcul ated using equation: Total cholesterol - HDL cholesterol - (Triglycerides/5) VLDL Cholesterol Rod 17.8 mg/dL LAB CHEMISTRY METHOD 07/02/2025 1:[address] [facility] Non HDL Chol. (LDL+VLDL) 129 <145 mg/dL LAB CHEMISTRY METHOD 07/02/2025 1:[address] [facility] Chol/HDL Ratio 3.7 0.0 - 4.4 LAB CHEMISTRY METHOD 07/02/2025 1:[address] [facility] Blood Venous blood specimen / Unknown Venipuncture / Unknown 07/02/2025 7:36 AM EDT 07/02/2025 10:41 AM EDT Yoana Moreno MD LAB BLOOD ORDERABLES Final Result [facility] [address] [place] [address], [place] [phone] * (ABNORMAL) Iron and TIBC (07/02/2025 7:36 AM EDT) Iron 40 40 - 150 mcg/dL LAB CHEMISTRY METHOD 07/02/2025 1:[address] [facility] TIBC 220(L) 250 - 450 mcg/dL LAB CHEMISTRY METHOD 07/02/2025 1:[address] [facility] Iron Saturation 18 15 - 50 % LAB CHEMISTRY METHOD 07/02/2025 1:[address] [facility] Blood Venous blood specimen / Unknown Venipuncture / Unknown 07/02/2025 7:36 AM EDT 07/02/2025 10:41 AM EDT Yoana Moreno MD LAB BLOOD ORDERABLES Final Result [facility] [address] [place] [address], [place] [phone] * (ABNORMAL) Complete blood count (07/02/2025 7:36 AM EDT) WBC 7.6 4.8 - 10.8 K/mcL LAB HEMETOLOGY METHOD 07/02/2025 11:07 AM [facility] RBC 4.00 3.80 - 4.80 M/mcL LAB HEMETOLOGY METHOD 07/02/2025 11:07 AM [facility] Hemoglobin 11.2(L) 11.5 - 16.0 g/dL LAB HEMETOLOGY METHOD 07/02/2025 11:07 AM [facility] Hematocrit 36.4 35.0 - 47.0 % LAB HEMETOLOGY METHOD 07/02/2025 11:07 AM [facility] MCV 92.2 79.0 - 98.0 FL LAB HEMETOLOGY METHOD 07/02/2025 11:07 AM [facility] MCH 28.4 27.0 - 32.0 pcg LAB HEMETOLOGY METHOD 07/02/2025 11:07 AM [facility] MCHC 30.8(L) 32.0 - 37.0 g/dL LAB HEMETOLOGY METHOD 07/02/2025 11:07 AM [facility] RDW 12.3 11.0 - 15.0 % LAB HEMETOLOGY METHOD 07/02/2025 11:07 AM [facility] Platelets 384 130 - 400 K/mcL LAB HEMETOLOGY METHOD 07/02/2025 11:07 AM [facility] MPV 10.2 7.0 - 11.0 FL LAB HEMETOLOGY METHOD 07/02/2025 11:07 AM [facility] NRBC 0.0 <1.0 % LAB HEMETOLOGY METHOD 07/02/2025 11:07 AM [facility] NRBC Absolute 0.00 <0.10 K/mcL LAB HEMETOLOGY METHOD 07/02/2025 11:07 AM [facility] Blood Venous blood specimen / Unknown Venipuncture / Unknown 07/02/2025 7:36 AM EDT 07/02/2025 10:41 AM EDT Yoana Moreno MD LAB BLOOD ORDERABLES Final Result Performing Organization Address [facility]/ZIP Co de Phone Number [facility] [address] [place] [address], [place] [phone] * Triiodothyronine free (07/02/2025 7:36 AM EDT) T3, Free 248 230 - 420 pcg/dL LAB CHEMISTRY METHOD 07/02/2025 2:[address] [facility] Blood Venous blood specimen / Unknown Venipuncture / Unknown 07/02/2025 7:36 AM EDT 07/02/2025 10:41 AM EDT Yoana Moreno MD LAB BLOOD ORDERABLES Final Result Performing Organization Address [facility]/ZIP Co de Phone Number [facility] [address] [place] [address], [place] [phone] * Thyroid stimulating hormone (07/02/2025 7:36 AM EDT) [facility] TSH 2.09 0.40 - 4.00 mcIU/mL LAB CHEMISTRY METHOD 07/02/2025 2:[address] [facility] Blood Venous blood specimen / Unknown Venipuncture / Unknown 07/02/2025 7:36 AM EDT 07/02/2025 10:41 AM EDT us Yoana Moreno MD LAB BLOOD ORDERABLES Final Result Performing Organization Address City/[facility]/ZIP Co de Phone Number [facility] [address] [place] [address], [place] [phone] * Thyroxine free (07/02/2025 7:36 AM EDT) Free T4 1.44 0.70 - 1.80 ng/dL LAB CHEMISTRY METHOD 07/02/2025 2:[address] [facility] Blood Venous blood specimen / Unknown Venipuncture / Unknown 07/02/2025 7:36 AM EDT 07/02/2025 10:41 AM EDT Yoana Moreno MD LAB BLOOD ORDERABLES Final Result [facility] [address] [place] [address], [place] [phone] * B-type natriuretic peptide (07/02/2025 7:36 AM EDT) [facility] BNP 37 <=100 pcg/mL LAB CHEMISTRY METHOD 07/02/2025 11:[address] [facility] Blood Venous blood specimen / Unknown Venipuncture / Unknown 07/02/2025 7:36 AM EDT 07/02/2025 10:41 AM EDT us Yoana Moreno MD LAB BLOOD ORDERABLES Final Result Performing Organization Address [facility]/ZIP Co de Phone Number [facility] [address] [place] [address], [place] [phone] * Ferritin (07/02/2025 7:36 AM EDT) [facility] Ferritin 227 8 - 252 ng/mL LAB CHEMISTRY METHOD 07/02/2025 1:[address] [facility] Blood Venous blood specimen / Unknown Venipuncture / Unknown 07/02/2025 7:36 AM EDT 07/02/2025 10:41 AM EDT us Yoana Moreno MD LAB BLOOD ORDERABLES Final Result [facility] [address] [place] [address], [place] [phone] * (ABNORMAL) Comprehensive metabolic panel (07/02/2025 7:36 AM EDT) Sodium 135 133 - 145 mmol/L LAB CHEMISTRY METHOD 07/02/2025 1:17 PM [facility] Potassium 4.3 3.5 - 5.5 mmol/L LAB CHEMISTRY METHOD 07/02/2025 1:17 PM [facility] Chloride 101 96 - 110 mmol/L LAB CHEMISTRY METHOD 07/02/2025 1:17 PM [facility] CO2 24 21 - 32 mmol/L LAB CHEMISTRY METHOD 07/02/2025 1:17 PM [facility] Anion Gap 10 3 - 11 LAB CHEMISTRY METHOD 07/02/2025 1:17 PM [facility] Glucose 71 70 - 100 mg/dL LAB CHEMISTRY METHOD 07/02/2025 1:17 PM [facility] BUN 18 5 - 25 mg/dL LAB CHEMISTRY METHOD 07/02/2025 1:17 PM [facility] Creatinine 1.42(H) 0.50 - 1.10 mg/dL LAB CHEMISTRY METHOD 07/02/2025 1:17 PM [facility] eGFR 36(L) >=60 mL/min/1. 73m2 LAB CHEMISTRY METHOD 07/02/2025 1:17 PM [facility] Comment:Calculation based on the Chronic Kidney Disease Epidemiology Collaboration (CKD-EPI) equation refit without adjustment for race. BUN/Creatinine Ratio 12.7 LAB CHEMISTRY METHOD 07/02/2025 1:17 PM [facility] Calcium 9.4 8.5 - 10.5 mg/dL LAB CHEMISTRY METHOD 07/02/2025 1:17 PM [facility] AST (SGOT) 20 10 - 42 unit/L LAB CHEMISTRY METHOD 07/02/2025 1:[address] [facility] ALT (SGPT) 18 10 - 60 unit/L LAB CHEMISTRY METHOD 07/02/2025 1:[address] [facility] Alkaline Phosphatase 55 42 - 121 unit/L LAB CHEMISTRY METHOD 07/02/2025 1:[address] [facility] Total Protein 6.9 6.0 - 8.0 g/dL LAB CHEMISTRY METHOD 07/02/2025 1:[address] [facility] Albumin 2.7(L) 3.2 - 5.0 g/dL LAB CHEMISTRY METHOD 07/02/2025 1:[address] [facility] Total Bilirubin 0.4 0.0 - 1.4 mg/dL LAB CHEMISTRY METHOD 07/02/2025 1:[address] [facility] Blood Venous blood specimen / Unknown Venipuncture / Unknown 07/02/2025 7:36 AM EDT 07/02/2025 10:41 AM EDT us Yoana Moreno MD LAB BLOOD ORDERABLES Final Result [facility] [address] [place] [address], from Last 3 Months Insurance [facility] Care Teams Clockmaker Apprentice Relationship Specialty Start Date End Date Yoana Moreno MD [address] [facility] [place] [address] PCP - General Internal Medicine 10/16/24
--- OUTSIDE RECORDS SUMMARY | 2025-08-30 08:21 | XMS_ITS | Patient Health Record ---
Author Organization [facility] Address [address] [place] [address] Care Team Providers Care Hotel Operation Manager Name Role Phone Josh JANG, Yoana Lopez Primary Care Provider Un available Black, Bere Unavailable [phone] Allergies Allergen (clinical drug ingredient) Drug/Non Drug [...] Problem Acquired hammer toe of right foot ([id number]) Other hammer toe(s) (acquired), right foot (M20.41) Active confirmed Plan Of Treatment Pending Test Test Name Order Date [id number] NAIL, 1-5 02/09/2017 Insurance Providers Payer Name Payer Address Payer Phone Subscriber Number Group Number Insured Name Patient Relationship to Insured Coverage Start Date Coverage End Date [employer] Medicare Adv-[id number] [address] [address] [place] [address] [id number] Josephine Scales Self - patient is the insured Medical (General) History Medical History History ICD Code Broken bones CAD (Cholesterol) Cataracts Diverticulitis Macular degeneration Osteoporosis Thyroid disorder Surgical History Surgery Date(Month/Year) breast biopsy cataract surgery
--- OUTSIDE RECORDS SUMMARY | 2025-08-30 08:21 | XMS_ITS | Encounter Summary ---
Author Organization [facility] Address [address] [place] [phone] Care Team Providers Care Well Puller Name Role Phone Yoana Moreno MD Primary Care Provider Encounter Details Date Type Department Care Team (Late st Contact Info) Description 10/16/2024 Lab Requisition [facility] - Main Lab [address] [facility] [employer] [place] [address] Yoana Moreno MD [address] [place] [address] Pure hypercholesterolemia, unspecified; Chronic kidney disease, stage [...] K/mcL LAB HEMETOLOGY METHOD 10/16/2024 11:[address] [facility] RBC 4.40 3.80 - 4.80 M/mcL LAB HEMETOLOGY METHOD 10/16/2024 11:[address] [facility] Hemoglobin 13.3 11.5 - 16.0 g/dL LAB HEMETOLOGY METHOD 10/16/2024 11:[address] [facility] Hematocrit 41.6 35.0 - 47.0 % LAB HEMETOLOGY METHOD 10/16/2024 11:[address] [facility] MCV 95.4 79.0 - 98.0 FL LAB HEMETOLOGY METHOD 10/16/2024 11:[address] [facility] MCH 30.5 27.0 - 32.0 pcg LAB HEMETOLOGY METHOD 10/16/2024 11:[address] [facility] MCHC 32.0 32.0 - 37.0 g/dL LAB HEMETOLOGY METHOD 10/16/2024 11:[address] [facility] RDW 12.4 11.0 - 15.0 % LAB HEMETOLOGY METHOD 10/16/2024 11:[address] [facility] Platelets 240 130 - 400 K/mcL LAB HEMETOLOGY METHOD 10/16/2024 11:[address] [facility] MPV 10.2 7.0 - 11.0 FL LAB HEMETOLOGY METHOD 10/16/2024 11:[address] [facility] NRBC 0.0 <1.0 % LAB HEMETOLOGY METHOD 10/16/2024 11:[address] [facility] NRBC Absolute 0.00 <0.10 K/mcL LAB HEMETOLOGY METHOD 10/16/2024 11:[address] [facility] Neutrophils Relative 65.3 % LAB HEMETOLOGY METHOD 10/16/2024 11:[address] [facility] Lymphocytes Relative 19.5 % LAB HEMETOLOGY METHOD 10/16/2024 11:[address] [facility] Monocytes Relative 10.9 % LAB HEMETOLOGY METHOD 10/16/2024 11:[address] [facility] Eosinophils Relative 2.8 % LAB HEMETOLOGY METHOD 10/16/2024 11:[address] [facility] Basophils Relative 1.1 % LAB HEMETOLOGY METHOD 10/16/2024 11:[address] [facility] Immature Granulocytes Relative 0.4 % LAB HEMETOLOGY METHOD 10/16/2024 11:[address] [facility] Neutrophils Absolute 3.49 1.50 - 7.00 K/mcL LAB HEMETOLOGY METHOD 10/16/2024 11:[address] [facility] Lymphocytes Absolute 1.04 1.00 - 5.00 K/mcL LAB HEMETOLOGY METHOD 10/16/2024 11:[address] [facility] Monocytes Absolute 0.58 0.20 - 1.00 K/mcL LAB HEMETOLOGY METHOD 10/16/2024 11:39 AM EST [facility] Eosinophils Absolute 0.15 0.00 - 0.50 K/[facility] LAB HEMETOLOGY METHOD 10/16/2024 11:39 AM EST [facility] Basophils Absolute 0.06 0.00 - 0.20 K/[facility] LAB HEMETOLOGY METHOD 10/16/2024 11:[address] [facility] Immature Granulocytes Absolute 0.02 0.00 - 0.03 K/[facility] LAB HEMETOLOGY METHOD 10/16/2024 11:[address] [facility] Blood Venous blood specimen / Unknown Venipuncture / Unknown 10/16/2024 7:44 AM EST 10/16/2024 11:20 AM EST Yoana Moreno MD LAB BLOOD ORDERABLES Final Result Performing Organization Address City/[facility]/ZIP Co de Phone Number [facility] [address] [place] [address], [place] [phone] * Iron and TIBC (10/16/2024 7:44 AM EST) Iron 78 40 - 150 mcg/dL LAB CHEMISTRY METHOD 10/16/2024 12:[address] [facility] TIBC 305 250 - 450 mcg/dL LAB CHEMISTRY METHOD 10/16/2024 12:[address] [facility] Iron Saturation 26 15 - 50 % LAB CHEMISTRY METHOD 10/16/2024 12:[address] [facility] Blood Venous blood specimen / Unknown Venipuncture / Unknown 10/16/2024 7:44 AM EST 10/16/2024 11:20 AM EST us Yoana Moreno MD LAB BLOOD ORDERABLES Final Result [facility] [address] [place] [address], * Thyroid stimulating hormone (10/16/2024 7:44 AM EST) TSH 2.69 0.40 - 4.00 mcIU/mL LAB CHEMISTRY METHOD 10/16/2024 1:05 PM EST [facility] Blood Venous blood specimen / Unknown Venipuncture / Unknown 10/16/2024 7:44 AM EST 10/16/2024 11:20 AM EST Yoana Moreno MD LAB BLOOD ORDERABLES Final Result [facility] [address] [place] [address], * Thyroxine free (10/16/2024 7:44 AM EST) Free T4 1.32 0.70 - 1.80 ng/dL LAB CHEMISTRY METHOD 10/16/2024 1:05 PM EST [facility] Blood Venous blood specimen / Unknown Venipuncture / Unknown 10/16/2024 7:44 AM EST 10/16/2024 11:20 AM EST Yoana Moreno MD LAB BLOOD ORDERABLES Final Result [facility] [address] [place] [address], [place] [phone] * (ABNORMAL) Folate (10/16/2024 7:44 AM EST) Folate 18.1(H) 2.8 - 17.0 ng/ml LAB CHEMISTRY METHOD 10/16/2024 1:17 PM EST [facility] Blood Venous blood specimen / Unknown Venipuncture / Unknown 10/16/2024 7:44 AM EST 10/16/2024 11:20 AM EST Yoana Moreno MD LAB BLOOD ORDERABLES Final Result Performing Organization Address City/[facility]/ZIP Co de Phone Number [facility] [address] [place] [address], [place] [phone] * Vitamin B12 (10/16/2024 7:44 AM EST) Vitamin B-12 810 250 - 900 pcg/mL LAB CHEMISTRY METHOD 10/16/2024 1:17 PM EST [facility] Blood Venous blood specimen / Unknown Venipuncture / Unknown 10/16/2024 7:44 AM EST 10/16/2024 11:20 AM EST Yoana Moreno MD LAB BLOOD ORDERABLES Final Result Performing Organization Address [facility] Co de Phone Number [facility] [address] [place] [address], * Vitamin D 25 hydroxy (10/16/2024 7:44 AM EST) Vit D, 25-Hydroxy 32.8 30.0 - 80.0 ng/mL LAB CHEMISTRY METHOD 10/16/2024 1:04 PM EST [facility] Blood Venous blood specimen / Unknown Venipuncture / Unknown 10/16/2024 7:44 AM EST 10/16/2024 11:20 AM EST Yoana Moreno MD LAB BLOOD ORDERABLES Final Result Performing Organization Address City/[facility]/ZIP Co de Phone Number [facility] [address] [place] [address], [place] [phone] * Aspartate aminotransferase (10/16/2024 7:44 AM EST) AST (SGOT) 16 10 - 42 unit/L LAB CHEMISTRY METHOD 10/16/2024 12:54 PM EST [facility] Blood Venous blood specimen / Unknown Venipuncture / Unknown 10/16/2024 7:44 AM EST 10/16/2024 11:20 AM EST us Yoana Moreno MD LAB BLOOD ORDERABLES Final Result [facility] [address] [place] [address], [place] [phone] * Alanine aminotransferase (10/16/2024 7:44 AM EST) ALT (SGPT) 20 10 - 60 unit/L LAB CHEMISTRY METHOD 10/16/2024 12:[address] [facility] Blood Venous blood specimen / Unknown Venipuncture / Unknown 10/16/2024 7:44 AM EST 10/16/2024 11:20 AM EST Yoana Moreno MD LAB BLOOD ORDERABLES Final Result Performing Organization Address City/[facility]/ZIP Co de Phone Number [facility] [address] [place] [address], [place] [phone] * (ABNORMAL) Basic metabolic panel (10/16/2024 7:44 AM EST) Sodium 137 133 - 145 mmol/L LAB CHEMISTRY METHOD 10/16/2024 1:[address] [facility] Potassium 4.9 3.5 - 5.5 mmol/L LAB CHEMISTRY METHOD 10/16/2024 1:[address] [facility] Chloride 106 96 - 110 mmol/L LAB CHEMISTRY METHOD 10/16/2024 1:[address] [facility] CO2 28 21 - 32 mmol/L LAB CHEMISTRY METHOD 10/16/2024 1:[address] [facility] Anion Gap 3 3 - 11 LAB CHEMISTRY METHOD 10/16/2024 1:[address] [facility] Glucose 71 70 - 100 mg/dL LAB CHEMISTRY METHOD 10/16/2024 1:20 PM EST [facility] BUN 35(H) 5 - 25 mg/dL LAB CHEMISTRY METHOD 10/16/2024 1:[address] [facility] Creatinine 1.30(H) 0.50 - 1.10 mg/dL LAB CHEMISTRY METHOD 10/16/2024 1:[address] [facility] eGFR 40(L) >=60 mL/min/1. 73m2 LAB CHEMISTRY METHOD 10/16/2024 1:[address] [facility] Comment:Calculation based on the Chronic Kidney Disease Epidemiology Collaboration (CKD-EPI) equation refit without adjustment for race. BUN/Creatinine Ratio 26.9 LAB CHEMISTRY METHOD 10/16/2024 1:[address] [facility] Calcium 10.0 8.5 - 10.5 mg/dL LAB CHEMISTRY METHOD 10/16/2024 1:[address] [facility] Blood Venous blood specimen / Unknown Venipuncture / Unknown 10/16/2024 7:44 AM EST 10/16/2024 11:20 AM EST Yoana Moreno MD LAB BLOOD ORDERABLES Final Result [facility] [address] [place] [address], * (ABNORMAL) Lipid panel with reflex to direct LDL (10/16/2024 7:44 AM EST) Cholesterol 232(H) 0 - 200 mg/dL LAB CHEMISTRY METHOD 10/16/2024 1:[address] [facility] Triglycerides 80 0 - 150 mg/dL LAB CHEMISTRY METHOD 10/16/2024 1:[address] [facility] HDL 69 >=40 mg/dL LAB CHEMISTRY METHOD 10/16/2024 1:[address] [facility] LDL Calculated 147(H) 0 - 100 mg/dL LAB CHEMISTRY METHOD 10/16/2024 1:17 PM EST [facility] VLDL Cholesterol Rod 16 mg/dL LAB CHEMISTRY METHOD 10/16/2024 1:17 PM EST [facility] Non HDL Chol. (LDL+VLDL) 163(H) <145 mg/dL LAB CHEMISTRY METHOD 10/16/2024 1:17 PM EST [facility] Chol/HDL Ratio 3.4 0.0 - 4.4 LAB CHEMISTRY METHOD 10/16/2024 1:17 PM EST [facility] Blood Venous blood specimen / Unknown Venipuncture / Unknown 10/16/2024 7:44 AM EST 10/16/2024 11:20 AM EST us Yoana Moreno MD LAB BLOOD ORDERABLES Final Result [facility] [address] [place] [address], documented in this encounter Visit Diagnoses Diagnosis Pure hypercholesterolemia, unspecified Chronic kidney disease, stage 3 unspecified (CMS/HCC V24, CMS/HCC V28) Essential (primary) hypertension Unspecified essential hypertension Hypothyroidism, unspecified Vitamin D deficiency, unspecified Anemia, unspecified documented in this encounter Care Teams Well Puller Relationship Specialty Start Date End Date Yoana Moreno MD [address] [place] [address] PCP - General Internal Medicine 10/16/24 documented as of this encounter
== END 2025-08-30 08:19 | disposition home or self-care (01) ==
LOC: HO.CT 08:18
PROVIDERS: PCP Internal Medicine; Visit Provider Nurse Practitioner Family
DX: R93.89 Abnormal findings on diagnostic imaging of other specified body structures (principal); Z87.01 Personal history of pneumonia (recurrent)
CPT/HCPCS: 71250

== ENCOUNTER → 2025-08-30 08:19 | Outpatient (BNV) | payer MEDICARE, SELFPAY | PROVIDERS: PCP Internal Medicine; Visit Provider Radiology Diagnostic Radiology | DX: J43.9 Emphysema, unspecified (principal); R91.8 Other nonspecific abnormal finding of lung field | CPT/HCPCS: 71250 ==